=== PATIENT | male | born 1965 | race African-American/Black ===

== ENCOUNTER 2017-03-07 13:00 | Inpatient (IN) ==
[2017-03-07] MEDS ORDERED: Aspirin 81 MG TAB.CHEW PO ONE (13:13)
--- NOTE | 2017-03-07 13:23 | Emergency Department Note ---
Disposition Clinical Impression: Non-STEMI (non-ST elevated myocardial infarction) Hypertension Qualifiers: Hypertension type: essential hypertension Qualified Code(s): I10 - Essential ( primary) hypertension Disposition: Admitted As Inpatient Condition: Fair [facility]: [facility]Primary Care Provider[facility] - Forms: ED Satisfaction Letter Time of Disposition: 14:38 Chest Pain HPI - General Chief Complaint: ED Chest Pain Stated Complaint: "chest pain" Time Seen by Provider: 03/07/17 13:13 Source: patient Mode of arrival: ambulatory Limitations: no limitations Vital Signs Reviewed: Yes Nursing Notes Reviewed: Yes - History of Present Illness HPI Narrative: 51-year-old who comes in complaining of chest pain began yesterday. States he had some palpitations got dizzy and felt like his wound pass out. States he had similar episode about 3 weeks ago. Patient has risk factors of diabetes and a very strong family history for heart disease. 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 They were not able to remove all the tumor. He is had not had any follow-up. Patient has had a DVT in the past is not on any blood thinners at this time. He denies any leg pain or arm pain. 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 Duration: intermittent Onset: during rest Pain Location: substernal, left chest Severity scale (1-10): 5 Quality: tightness, aching Pain Radiation: none Improves with: nothing Worsens with: nothing Associated symptoms: Reports: nausea Treatments prior to arrival chest pain: none - Related Data Home Medications Medication Instructions Recorded Confirmed Insulin LISPRO [HumaLOG] 0 units SQ TIDWM 04/29/15 05/11/15 Insulin NPH Hum/Reg Insulin Hm 70 unit SQ BID 04/29/15 05/11/15 [Novolin 70-30 100 Unit/ml Vial] Lisinopril [Zestril] 40 mg PO BID 04/29/15 05/11/15 Mycophenolate Mofetil [Cellcept] 500 mg PO BID 04/29/15 05/11/15 Pyridostigmine Br [Mestinon] 60 mg PO TID 04/29/15 05/11/15 Simvastatin [Zocor] 40 mg PO HS 04/29/15 05/11/15 traMADol [Ultram] 100 mg PO TID PRN 04/29/15 05/11/15 Previous Rx's Medication Instructions Recorded Aspirin 81 mg PO DAILY #30 tab.chew 05/13/15 Metoprolol [Lopressor] 25 mg PO BID #60 tablet 05/13/15 Nitroglycerin 0.4 mg SL Q5MIN PRN #90 tab.subl 05/13/15 Allergies Allergy/AdvReac Type Severity Reaction Status Date / Time rifampin Allergy Anaphylaxis Verified 03/07/17 13:08 All systems ED: reviewed and negative except as stated. Constitutional: Denies: fever, chills, weakness, weight change Eyes: Denies: eye pain, eye discharge, vision change ENT ED: Denies: ear pain, throat pain, dental pain, hearing loss, epistaxis, congestion, dysphagia Cardiovascular: Reports: chest pain. Denies: palpitations, dyspnea on exertion , edema, syncope Respiratory: Denies: cough, dyspnea, wheezes, hemoptysis, stridor Gastrointestinal: Denies: abdominal pain, nausea, vomiting, diarrhea, constipation, hematemesis, melena, hematochezia Genitourinary: Denies: urgency, dysuria, frequency, hematuria Musculoskeletal: Denies: back pain, neck pain, arthralgia, myalgia Integumentary: Denies: rash, abrasion, lesions Neurological: Denies: headache, weakness, numbness, paresthesias, confusion, abnormal gait, vertigo Psychiatric: Denies: anxiety, depression, suicidal thoughts, homicidal thoughts , auditory hallucinations, visual hallucinations Endocrine: Denies: fatigue Hematological/Lymphatic: Denies: easy bleeding, easy bruising Allergic/Immunologic: Denies: facial swelling, urticaria Chest Pain PMH - Past Medical History Medical history: Reports: cancer, coronary artery disease, DVT, diabetes, GERD, hypertension, other Surgical history: Reports: IVC Filter, other (sternotomy. Pericardial clipping) Psychiatric history: Reports: no psych history - Social History Smoking Status: Never smoker Alcohol use: Reports: none Drug use: Reports: none Physical Exam - General Limitations: no limitations General appearance: alert, in no apparent distress - Head Head exam: atraumatic, normocephalic, normal inspection - Eye Eye exam: Present: normal appearance, PERRL, EOMI - ENT ENT exam: normal exam, normal oropharynx, mucous membranes moist - Neck Neck exam: Present: normal inspection, full ROM, trachea midline - Chest Chest inspection: Present: normal inspection, symmetric chest wall rise - Respiratory Respiratory exam: Present: normal lung sounds bilaterally - Cardiovascular Cardiovascular exam: Present: regular rate, normal rhythm, normal heart sounds - Abdominal Exam Abdominal exam: Present: soft, Non-Tender. Absent: tenderness, distention, guarding, rebound, rigidity - Extremities Exam Extremities exam: Present: normal inspection, full ROM. Absent: tenderness, pedal edema - Expanded Lower Extremity Exam Neurovascular/Tendon exam: Absent: motor deficit, sensory deficit, tendon deficit Gait: observed and normal - Back Exam Back exam: Present: normal inspection, full ROM. Absent: tenderness - Neurological Exam Neurological exam: Present: alert, oriented X3. Absent: motor sensory deficit - Psychiatric Psychiatric exam: Present: normal affect, normal mood - Skin Skin exam: Present: warm, dry, intact, normal color Course - Reevaluation(s) Reevaluation #1: 51-year-old whose been having intermittent chest pain. EKG does not show a STEMI. His troponin did come back at 0.15 Time: 14:36 - Consultations Consultation #1: Discussed with Dr. Ponce, start heparin. Time: 14:36 Consultation #2: Discussed with Dr. Strauss, admit Time: 14:36 Vital Signs Temperature 98.8 F 03/07/17 13:02 Pulse Rate 81 03/07/17 13:02 Respiratory Rate 20 03/07/17 13:02 Blood Pressure 161/114 03/07/17 13:02 O2 Sat by Pulse Oximetry 96 03/07/17 13:02 Temperature 98.8 F 03/07/17 13:02 Pulse Rate 78 03/07/17 13:13 Respiratory Rate 16 03/07/17 13:13 Blood Pressure 146/100 03/07/17 13:13 O2 Sat by Pulse Oximetry 97 03/07/17 13:13 Oxygen Delivery Oxygen Delivery Room Air Chest Pain - Lab Data Lab results reviewed: Yes I reviewed the patient's lab results. Result diagrams: 03/07/17 13:34 03/07/17 13:34 Lab Results 03/07/17 03/07/17 03/07/17 Range/Units 13:34 13:34 13:34 WBC 11.0 (4.3-11.1) K/mcL RBC 6.46 H (4.19-5.50) M/mcL Hgb 17.1 H (12.9-16.9) g/dL Hct 52.3 H (37.5-50.1) % MCV 81.0 L (83.0-100.0) fL MCH 26.5 L (28.0-33.3) pg MCHC 32.7 (31.6-35.5) g/dL RDW 14.7 H (11.5-14.5) % Plt Count 255 (140-400) K/mcL MPV 10.4 (9.4-12.4) fL Immature Gran % 0.3 (0-4) % Seg Neutrophils % 66.6 % Lymphocytes % 24.9 % Monocytes % 6.5 % Eosinophils % 1.2 % Basophils % 0.5 % Neutrophils # 7.3 (1.6-8.9) K/mcL Lymphocytes # 2.7 (0.6-4.6) K/mcL Monocytes # 0.7 (0.0-1.3) K/mcL Eosinophils # 0.1 (0.0-0.6) K/mcL Basophils # 0.1 (0.0-0.2) K/mcL PT 11.4 (9.4-12.1) Seconds INR 1.1 APTT 29.2 (26.0-36.0) Seconds D-Dimer < 215 (0-500) ng/mLFEU Sodium 136 (136-145) mEq/L Potassium 3.8 (3.5-4.5) mEq/L Chloride 100 (98-109) mEq/L Carbon Dioxide 27 (19-29) mEq/L BUN 18 (8-26) mg/dL Creatinine 1.02 (0.72-1.25) mg/dL Est GFR ( Amer) > 60 (> 60) Est GFR (Non-Af Amer) > 60 (> 60) BUN/Creatinine Ratio 18 (6-26) Glucose 190 H (70-99) mg/dL Calculated Osmolality 289 (280-300) Calcium 10.1 (8.6-10.8) mg/dL Troponin I (0-0.03) ng/mL 03/07/ Range/Units 13:34 WBC (4.3-11.1) K/mcL RBC (4.19-5.50) M/mcL Hgb (12.9-16.9) g/dL Hct (37.5-50.1) % MCV (83.0-100.0) fL MCH (28.0-33.3) pg MCHC (31.6-35.5) g/dL RDW (11.5-14.5) % Plt Count (140-400) K/mcL MPV (9.4-12.4) fL Immature Gran % (0-4) % Seg Neutrophils % % Lymphocytes % % Monocytes % % Eosinophils % % Basophils % % Neutrophils # (1.6-8.9) K/mcL Lymphocytes # (0.6-4.6) K/mcL Monocytes # (0.0-1.3) K/mcL Eosinophils # (0.0-0.6) K/mcL Basophils # (0.0-0.2) K/mcL PT (9.4-12.1) Seconds INR APTT (26.0-36.0) Seconds D-Dimer (0-500) ng/mLFEU Sodium (136-145) mEq/L Potassium (3.5-4.5) mEq/L Chloride (98-109) mEq/L Carbon Dioxide (19-29) mEq/L BUN (8-26) mg/dL Creatinine (0.72-1.25) mg/dL Est GFR ( Amer) (> 60) Est GFR (Non-Af Amer) (> 60) BUN/Creatinine Ratio (6-26) Glucose (70-99) mg/dL Calculated Osmolality (280-300) Calcium (8.6-10.8) mg/dL Troponin I 0.15 H* (0-0.03) ng/mL - Radiology Data Radiology results reviewed: Yes I reviewed the patient's radiology results. Chest X-Ray 03/07/17 13:13 IMPRESSION: 1. Mildly enlarged cardiac silhouette with minimal prominence of the pulmonary vasculature. 2. There is slight elevation of the left hemidiaphragm with nonspecific left basilar opacification. D/ / Hira Sosa MD / Hira Sosa MD Interpreting Provider: Hira Sosa MD - EKG Data EKG attestation: Yes I reviewed and interpreted this EKG. EKG shows normal: sinus rhythm Rate: normal Rhythm: NSR Interpretation: nonspecific ST-T wave changes Heart Score - Score History: Moderately Suspicious EKG: Non Specific repolarisation Disturbance Age: 45-65 Risk Factors: Equal/Greater than 3 risk factor or history of atherosclerotic disease Troponin: 1-3x normal limit HEART Score Total: 6 Critical Care Time Critical Care Time: Yes Total Critical Care Time: 30 Attestation: The high probability of a clinically significant, sudden or life threatening deterioration of the [cardiovascular] system(s) required my full and direct attention, intervention and personal management. The aggregate critical care time was [30] minutes. This time is in addition to time spent performing reported procedures but includes the following: [x] Data Review and interpretation [x] Patient assessment and monitoring of vital signs [x] Documentation [x] Medication orders and management
[2017-03-07 13:45] LABS: Basophils # 0.1 K/mcL (0.0-0.2); Basophils % 0.5 %; Eosinophils # 0.1 K/mcL (0.0-0.6); Eosinophils % 1.2 %; Hematocrit 52.3 % (37.5-50.1); Hemoglobin 17.1 g/dL (12.9-16.9); Immature Granulocytes % 0.3 % (0-4); Lymphocytes # 2.7 K/mcL (0.6-4.6); Lymphocytes % 24.9 %; Mean Corpuscular HGB Conc 32.7 g/dL (31.6-35.5); Mean Corpuscular Hemoglobin 26.5 pg (28.0-33.3); Mean Platelet Volume 10.4 fL (9.4-12.4); Monocytes # 0.7 K/mcL (0.0-1.3); Monocytes % 6.5 %; Neutrophils # 7.3 K/mcL (1.6-8.9); Platelet Count 255 K/mcL (140-400); Red Blood Count 6.46 M/mcL (4.19-5.50); Red Cell Distribution Width 14.7 % (11.5-14.5); Segmented Neutrophils % 66.6 %
[2017-03-07 13:48] LABS: INR 1.1; Prothrombin Time 11.4 Seconds (9.4-12.1)
[2017-03-07 13:51] LABS: Activated Partial Thrombo Time 29.2 Seconds (26.0-36.0)
[2017-03-07 13:57] LABS: BUN/Creatinine Ratio 18 (6-26); Blood Urea Nitrogen 18 mg/dL (8-26); Calcium 10.1 mg/dL (8.6-10.8); Carbon Dioxide 27 mEq/L (19-29); Chloride 100 mEq/L (98-109); Glucose 190 mg/dL (70-99); Osmolality,Calculated 289 (280-300); Potassium 3.8 mEq/L (3.5-4.5); Sodium 136 mEq/L (136-145); eGFR For African Americans > 60 (> 60); eGFR For Non-African Americans > 60 (> 60)
[2017-03-07 14:04] LABS: D-Dimer < 215 ng/mLFEU (0-500)
[2017-03-07] MEDS ORDERED: *HR* Heparin 5,000 UNIT/ML VIAL IVP ONE (14:28)
[2017-03-07] MEDS ORDERED: *HR* Heparin 5,000 UNIT/ML VIAL IVP PRN ×2 (14:28)
--- NOTE | 2017-03-07 14:42 | Electrocardiograph Report ---
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
[2017-03-07] MEDS: Heparin 25,000 UNIT/500 ML D5W 25,000 UNIT/500 ML BAG IVC SCH (14:43)
[2017-03-07] MEDS ORDERED: *HR* Morphine 2 MG/ML SYRINGE IVP PRN (17:07)
[2017-03-07] MEDS ORDERED: Ondansetron 4 MG/2 ML VIAL IVP PRN (17:07)
[2017-03-07] MEDS ORDERED: Naloxone 0.4 MG/ML INJ IVP PRN (17:07)
[2017-03-07] MEDS ORDERED: Nitroglycerin 0.4 MG TAB.SUBL SL PRN (17:10)
[2017-03-07] MEDS ORDERED: traMADol 50 MG TABLET PO PRN (17:10)
[2017-03-07] MEDS ORDERED: *HR* Dextrose 50 % in Water (Syg) 50 ML SYRINGE IVP PRN (17:11)
[2017-03-07] MEDS ORDERED: Dextrose Gel 15 GM PO PRN ×2 (17:11)
[2017-03-07] MEDS ORDERED: D5% in Water 1,000 ML IVC PRN (17:11)
--- NOTE | 2017-03-07 17:16 | Internal Med History&Physical ---
Date of Encounter: 03/07/17 Time of Encounter: 16:45 Assessment and Plan (1) Chest pain Current visit: Yes Status: Acute Patient has risk factors of hypertension, diabetes, hyperlipidemia, positive family history. To rule out ACS. Case was discussed with cardiology by emergency room physician, full consult pending. Continue anticoagulation with IV heparin drip, monitor PTT closely. Continue aspirin, statin, ARLIN inhibitor. We will start low-dose beta cesar, if tolerated. Continue telemetry monitoring, trend serial troponins. Initial troponin is noted to be 0.15, almost consistent with his previous levels from last year. Check 2-D echocardiogram. Qualifiers: Chest pain type: precordial pain Qualified Code(s): R07.2 - Precordial pain (2) HTN (hypertension) Current visit: Yes Status: Chronic Blood pressure currently well controlled. Resume home medications-diuretic and ARLIN inhibitor. Qualifiers: Hypertension type: essential hypertension Qualified Code(s): I10 - Essential (primary) hypertension (3) HLD (hyperlipidemia) Current visit: Yes Status: Chronic Continue statin, check lipid profile in a.m. Qualifiers: Hyperlipidemia type: unspecified Qualified Code(s): E78.5 - Hyperlipidemia , unspecified (4) DMII (diabetes mellitus, type 2) Current visit: Yes Status: Chronic Start Accu-Chek blood glucose monitoring with basal bolus insulin regimen. Diabetic diet. Check Hemoglobin A1c. 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 Mott is a 51 year old male with history of hypertension, diabetes, coronary artery disease, presents with complaints of retrosternal chest pain. Patient reports that his pain started yesterday, moderate in intensity, intermittent, nonradiating, not associated with activity, also has at rest. His pain is associated with shortness of breath, palpitations and dizziness. Patient had a similar admission for chest pain in early 2016 at which time he had a negative cardiac workup. No cardiology follow-up since then. Past Med Surg Social Fam HX - Past Medical History Medical history: cancer (Metastatic malignant thymoma), coronary artery disease , DVT, diabetes, GERD, hypertension, other (Myasthenia gravis) Psychiatric history: no psych history - Past Surgical History Surgical History: hip replacement (Right), IVC Filter, other (Sternotomy, pericardial surgery, left lower lung resection and excision of malignant thymoma ) - Social History Smoking Status: Never smoker Smokeless Tobacco Status: No Alcohol use: none Drug use: none Occupational status: disabled Current living situation: Home, With Family Activity Level: Independent ambulation Recent Out of Country Travel Within the Last 8 Weeks: No Exposure or Possible Exposure to Illness During Travel: No - Family History Father Adopted: No Family Member Ethnicity: Non- Living Status: Still Living Hx Family Cardiac Disorders: Yes Hx Family Respiratory Disorders: No Hx Family Cancer: No Hx Family GI Disorders: No Hx Family Endocrine Disorder: Yes Hx Family Neuromuscular Disorders: No Hx Family Neurologic Disorders: Yes Hx Family HEENT Disorders: No Hx Family Medical Disorders: Yes Brother Hx Family Cancer: Yes (Prostate and colon cancer) Internal Medicine - H&P: Meds Insulin LISPRO [HumaLOG] 0 units SQ TIDWM 04/29/15 [History] Insulin NPH Hum/Reg Insulin Hm [Novolin 70-30 100 Unit/ml Vial] 60 unit SQ BID 04/29/15 [History] traMADol [Ultram] 100 mg PO TID PRN 04/29/15 [History] Aspirin 81 mg PO DAILY #30 tab.chew 05/13/15 [Rx] Nitroglycerin 0.4 mg SL Q5MIN PRN #90 tab.subl 05/13/15 [Rx] Atorvastatin Calcium 40 mg PO DAILY 03/07/17 [History] Gabapentin [Neurontin] 300 mg PO TID 03/07/17 [History] GuaiFENesin/Dextromethorphan [Robitussin/DM] 10 ml PO Q4H PRN 03/07/17 [History] Ibuprofen [Ibuprofen] 800 mg PO TID PRN 03/07/17 [History] Lansoprazole [Prevacid] 30 mg PO BID 03/07/17 [History] Lidocaine 4% CRM (LMX) [Lmx 4] 1 appl TP QID 03/07/17 [History] Lisinopril/Hydrochlorothiazide [Zestoretic 20-25 mg Tablet] 1 tab PO DAILY 03/07 [History] 3 Allergy/AdvReac Type Severity Reaction Status Date / Time rifampin Allergy Anaphylaxis Verified 03/07/17 15:08 All Systems PM: A 10-system review of systems was performed and is negative for pertinent findings except as documented above in the HPI. - Constitutional Constitutional: no chills, no fever(s), no night sweats - EENT Eyes: no change in vision, no discharge, no pain, no photophobia Ears: no ear discharge, no ear pain, no tinnitus Nose, mouth and throat: no dysphagia, no nasal discharge, no neck pain, no sore throat - Cardiovascular Cardiovascular ROS IM: chest pain, dyspnea, dyspnea on exertion, lightheadedness , palpitations - Respiratory Respiratory: no cough, no dyspnea, no wheezing, no excessive phlegm production - Gastrointestinal Gastrointestinal: nausea, vomiting - Musculoskeletal Musculoskeletal ROS IM: no numbness, no tingling - Integumentary Integumentary IM: no rash, no unusual bruising - Neurological Neurological ROS: no confusion, no convulsions, no focal weakness, no numbness, no tingling, no tremor(s) - Hematologic/Lymphatic Hematologic/Lymphatic: no easy bruising - Constitutional Vitals: Temp Pulse Resp BP Pulse Ox 98.5 F 75 14 130/87 98 03/07/17 16:30 03/07/17 16:30 03/07/17 16:30 03/07/17 16:30 03/07/17 16:30 General appearance: Present: A&O X 3, obese, answers questions appropriately - Respiratory Respiratory exam: Present: CTAB. Absent: accessory muscle use, rales, rhonchi, wheezes - Cardiovascular Cardiovascular exam: Present: RRR, +S1, +S2. Absent: diastolic murmur, gallop, rubs, systolic murmur - GI/Abdominal GI/Abdominal exam: Present: normal bowel sounds, soft, no peritoneal signs. Absent: distended, tenderness - Extremities Exam Extremities exam: Present: full ROM (Chronic right hip pain with restricted range of motion), warm, radial pulses palpable and symmetrical. Absent: calf tenderness, cyanotic, pedal edema - Neurological Exam Neurological exam: Present: CN II-XII intact, oriented X3, no focal deficits. Absent: pronater drift, facial droop, speech deficit - Skin Skin exam: Present: dry, intact Internal Med - H&P Results - Labs CBC & Chem 7: 03/07/17 13:34 03/07/17 13:34 - EKG Data -: EKG Interpreted by Myself EKG shows normal: sinus rhythm Rate: normal
[2017-03-07] MEDS ORDERED: Insulin LISPRO 300 UNITS/3 ML VIAL SQ SCH (21:00)
[2017-03-07] MEDS: Gabapentin 300 MG CAPSULE PO SCH (21:08)
[2017-03-07] MEDS: Acetaminophen 325 MG TABLET PO PRN (21:08)
[2017-03-07] MEDS: Insulin DETEMIR 100 UNIT/ML X5UNITS SQ SCH (21:10)
[2017-03-07 22:41] LABS: Hemoglobin A1C 10.4 %
[2017-03-08] MEDS: Acetaminophen 325 MG TABLET PO PRN ×2 (04:02→12:03)
[2017-03-08 07:01] LABS: Basophils % 0.4 %; Eosinophils # 0.1 K/mcL (0.0-0.6); Eosinophils % 1.4 %; Hematocrit 51.9 % (37.5-50.1); Hemoglobin 17.1 g/dL (12.9-16.9); Immature Granulocytes % 0.2 % (0-4); Lymphocytes # 3.3 K/mcL (0.6-4.6); Mean Corpuscular HGB Conc 32.9 g/dL (31.6-35.5); Mean Corpuscular Hemoglobin 26.9 pg (28.0-33.3); Mean Corpuscular Volume 81.7 fL (83.0-100.0); Mean Platelet Volume 11.2 fL (9.4-12.4); Monocytes # 0.7 K/mcL (0.0-1.3); Neutrophils # 5.6 K/mcL (1.6-8.9); Platelet Count 235 K/mcL (140-400); Red Blood Count 6.35 M/mcL (4.19-5.50)
[2017-03-08 07:23] LABS: BUN/Creatinine Ratio 15 (6-26); Blood Urea Nitrogen 15 mg/dL (8-26); Calcium 9.3 mg/dL (8.6-10.8); Carbon Dioxide 28 mEq/L (19-29); Chloride 99 mEq/L (98-109); Cholesterol 143 mg/dL (< 200); Glucose 191 mg/dL (70-99); HDL Cholesterol 36 mg/dL (40-59); LDL Cholesterol,Calculated 90 mg/dL (0-99); Magnesium 1.5 mg/dL (1.6-2.6); Osmolality,Calculated 288 (280-300); Potassium 3.4 mEq/L (3.5-4.5); Sodium 136 mEq/L (136-145); Triglycerides 85 mg/dL (< 150); eGFR For African Americans > 60 (> 60); eGFR For Non-African Americans > 60 (> 60)
[2017-03-08] MEDS: Insulin LISPRO 300 UNITS/3 ML VIAL SQ SCH ×4 (07:43→22:04)
[2017-03-08] MEDS ORDERED: Potassium Chloride Elixir 20 MEQ/15 ML UDC PO ONE (08:21)
--- NOTE | 2017-03-08 09:13 | Cardiology Consult Note ---
Date of Encounter: 03/08/17 Time of Encounter: 09:11 Assessment and Plan (1) Non-STEMI (non-ST elevated myocardial infarction) Current Visit: Yes Status: Acute Troponins 0.15, 0.12, 0.12. BP was 161/114 on admission, which could have contributed to elevation. Hx of chronically elevated troponins 0.05-0.13 range. Two episodes of mid sternal chest pain, sharp, associated with dyspnea, dizziness and palpitations in recent weeks. Chest pain currently 4-5/10. Not reproducible. EKG without ischemic changes. [facility] 02/2013 nonobstructive disease at that time, but he did have 20% pLAD, 50% 1st diag, 40% prox LCx disease. Concern for progression of disease given his DM , HTN, HLD. Denies tobacco abuse. Negative stress 05/13/16. Echo 05/12/15 EF 50-55%. Severe asymmetric septal and probably mid cavity hypertrophy. No LVOT gradient with doppler--could also be contributing to pt's symptoms. Echo to re-evaluate structure and function. Recommend [facility] to further evaluate. R/B/A discussed. Pt agrees to proceed. Plan for C later today since he ate breakfast. Further recommendations to follow. (2) Chest pain Current Visit: Yes Status: Acute As above. Plan for LHC today. Qualifiers: Chest pain type: unspecified Qualified Code(s): R07.9 - Chest pain, unspecified (3) HTN (hypertension) Current Visit: Yes Status: Chronic 161/114 on admission, now better controlled. Continue current antihypertensives and adjust as necessary. Qualifiers: Hypertension type: essential hypertension Qualified Code(s): I10 - Essential (primary) hypertension (4) Asymmetric septal hypertrophy Current Visit: Yes Status: Chronic Echo 05/12/15 EF 50-55%, mild concentric LVH with severe asymmetric septal and probably mid cavity hypertrophy. No LVOT gradient with doppler. Could be contributing to pt's cardiac symptoms. Echo to re-evaluate. Continue BB, hydration. (5) CAD (coronary artery disease) Current Visit: Yes Status: Chronic Nonobstructive disease on [facility] 2012. Concern for progression of disease. [facility] today to evaluate. Continue ASA, Statin, BB. Qualifiers: Coronary Disease-Associated Artery/Lesion type: [place] artery [place] vs. transplanted heart: [place] heart Associated angina: angina presence unspecified Qualified Code(s): I25.10 - Atherosclerotic heart disease of [place] coronary artery without angina pectoris Discussion w patient/family: The assessment and plan as outlined above was discussed with the patient and/or family members who expressed understanding and agreement. All questions were answered. Thank you for involving us in the care of your patient. Please call with any questions. I will discuss all the above with Dr. Ponce and make changes as necessary. History of Present Illness Consult date: 03/08/17 Requesting physician: Balbina Schneider Consult reason: chest pain, NSTEMI Chief complaint: chest pain, dizziness History of present illness: Mr. Mott is a 51 year old male with history of hypertension, diabetes, nonobstructive CAD on [facility] in 2012 that presents with complaints of midsternal chest pain. Patient reports that he had an episode approximately 3 weeks ago of sharp, midsternal chest pain associated with palpitations, dyspnea and dizziness that spontaneously resolved, occurred at rest. He had another episode yesterday also at rest and associated with dizziness, palpitations, dyspnea, spontaneously resolved. BP 161/114 on admission. Troponins 0.15, 0.13, 0.13. Hx of chronically elevated troponins, historically 0.05-0.13 range. He had a negative stress test 04/2015 and echo at that time EF 50-55%, mild concentric LVH with severe asymmetric septal and probably mid cavity hypertrophy, no LVOT gradient with doppler. Pt reports chest pain has been intermittent since admission, currently 4-5/10. Prior CV testing: [facility] 03/09/13: LVH, mild CAD, EF 35-40%. LMCA free of disease, LAD 20% pLAD and 50% 1st diag stenosis, 40% prox LCx, RCA free of disease. Pharmacologic nuclear stress test 05/13/15: Gated EF 51%, perfusion imaging negative for ischemia or infarct. Echo 05/12/15: EF 50-55%, mild concentric LVH with severe asymmetric septal and probably mid cavity hypertrophy no LVOT gradient with doppler. RV moderately dilated with mild reduction in function, mild TR. Past Med Surg Social Fam HX - Past Medical History Medical history: cancer (Metastatic malignant thymoma), coronary artery disease , DVT, diabetes, GERD, hypertension, other (Myasthenia gravis) Psychiatric history: no psych history - Past Surgical History Surgical History: hip replacement (Right), IVC Filter, other (Sternotomy, pericardial surgery, left lower lung resection and excision of malignant thymoma ) - Social History Smoking Status: Never smoker Smokeless Tobacco Status: No Alcohol use: none Drug use: none - Family History Father Adopted: No Family Member Ethnicity: Non- Living Status: Still Living Hx Family Cardiac Disorders: Yes Hx Family Respiratory Disorders: No Hx Family Cancer: No Hx Family GI Disorders: No Hx Family Endocrine Disorder: Yes Hx Family Neuromuscular Disorders: No Hx Family Neurologic Disorders: Yes Hx Family HEENT Disorders: No Hx Family Medical Disorders: Yes Brother Hx Family Cancer: Yes (Prostate and colon cancer) Mother Adopted: No Family Member Ethnicity: Non- Living Status: Still Living Hx Family Cardiac Disorders: Yes Hx Family Respiratory Disorders: No Hx Family Cancer: No Hx Family GI Disorders: No Hx Family Endocrine Disorder: Yes Hx Family Neuromuscular Disorders: No Hx Family Neurologic Disorders: Yes Hx Family HEENT Disorders: No Hx Family Medical Disorders: Yes Medications and Allergies Insulin LISPRO [HumaLOG] 0 units SQ TIDWM 04/29/15 [History] Insulin NPH Hum/Reg Insulin Hm [Novolin 70-30 100 Unit/ml Vial] 60 unit SQ BID 04/29/15 [History] traMADol [Ultram] 100 mg PO TID PRN 04/29/15 [History] Aspirin 81 mg PO DAILY #30 tab.chew 05/13/15 [Rx] Nitroglycerin 0.4 mg SL Q5MIN PRN #90 tab.subl 05/13/15 [Rx] Atorvastatin Calcium 40 mg PO DAILY 03/07/17 [History] Gabapentin [Neurontin] 300 mg PO TID 03/07/17 [History] GuaiFENesin/Dextromethorphan [Robitussin/DM] 10 ml PO Q4H PRN 03/07/17 [History] Ibuprofen [Ibuprofen] 800 mg PO TID PRN 03/07/17 [History] Lansoprazole [Prevacid] 30 mg PO BID 03/07/17 [History] Lidocaine 4% CRM (LMX) [Lmx 4] 1 appl TP QID 03/07/17 [History] Lisinopril/Hydrochlorothiazide [Zestoretic 20-25 mg Tablet] 1 tab PO DAILY 03/07 [History] 3 Allergy/AdvReac Type Severity Reaction Status Date / Time rifampin Allergy Anaphylaxis Verified 03/07/17 15:08 All Systems Review: A 10-system review of systems was performed and is negative for pertinent findings except as documented above in the HPI. - Cardiovascular Cardiovascular: as per HPI, chest pain at rest, dyspnea at rest, dyspnea on exertion, lightheadedness, palpitations - Respiratory Respiratory: dyspnea - Neurological Neurological: dizziness Physical Examination Vital Signs Temp Pulse Resp BP Pulse Ox 03/08/17 06:39 98 F 68 16 121/85 99 03/08/17 05:00 98 F 74 18 106/74 97 03/08/17 00:00 97.7 F 70 18 122/74 98 03/07/17 20:41 97.6 F 107 18 129/95 96 03/07/17 16:30 98.5 F 75 14 130/87 98 03/07/17 15:00 18 126/83 03/07/17 14:38 77 16 137/92 97 03/07/17 14:28 72 16 119/82 97 03/07/17 14:08 74 16 148/90 98 03/07/17 13:13 78 16 146/100 97 03/07/17 13:02 98.8 F 81 20 161/114 96 Intake and Output 03/07/17 03/08/17 03/08/17 23:59 07:59 15:59 Intake Total 335 / 335 206 / 206 Balance 335 / 335 206 / 206 Intake: IV Fluids 215 / 215 206 / 206 Heparin 25,000 UNIT/500 ML D5W 215 / 215 206 / 206 25,000 unit In 500 ml @ 12 UNIT /KG/HR 26.127 mls/hr IVC . Q19H9M [facility] Rx#:[id number] Oral 120 / 120 0 / 0 Other: # Voids 1 1 Weight 112.2 kg Blood Glucose* 160 152 Patient Weight 03/08/17 23:59 Weight 112.2 kg General: Conversant, No Apparent Distress HEENT: Atraumatic, Normocephaly, Mucus Membranes Moist Neck: No JVD, Normal carotid pulses Cardiac: Reg Rate and Rhythm, Normal S1 and S2, No Murmur Lungs: Normal Breath Sounds, No Wheeze, Rales, Rhonchi Neuro: Alert and responsive, No focal deficits noted Abdomen: Soft, Non-Tender Skin: No rashes noted on visualized skin Musculoskeletal: No Chest Wall Tenderness Extremities: No Clubbing, No Cyanosis, No Edema, Normal Pulses Results 03/08/17 03:58 03/08/17 06:39 Lab Results 03/07/17 03/07/17 03/08/17 22:17 22:17 03:58 WBC Hgb Hct Plt Count APTT 66.3 H D Sodium Potassium Chloride Carbon Dioxide BUN Creatinine Glucose Calcium Magnesium Troponin I 0.12 H* 0.12 H* 03/08/17 03/08/17 03/08/17 03:58 03:58 06:39 WBC 9.8 Hgb 17.1 H Hct 51.9 H Plt Count 235 APTT 39.4 H Sodium 136 Potassium 3.4 L Chloride 99 Carbon Dioxide 28 BUN 15 Creatinine 0.98 Glucose 191 H Calcium 9.3 Magnesium 1.5 L Troponin I Short CBC 03/08/17 03/07/17 Range/Units 03:58 13:34 WBC 9.8 11.0 (4.3-11.1) K/mcL Hgb 17.1 H 17.1 H (12.9-16.9) g/dL Hct 51.9 H 52.3 H (37.5-50.1) % Plt Count 235 255 (140-400) K/mcL Neutrophils # 5.6 7.3 (1.6-8.9) K/mcL BMP 03/08/17 03/07/17 Range/Units 06:39 13:34 Sodium 136 136 (136-145) mEq/L Potassium 3.4 L 3.8 (3.5-4.5) mEq/L Chloride 99 100 (98-109) mEq/L Carbon Dioxide 28 27 (19-29) mEq/L BUN 15 18 (8-26) mg/dL Creatinine 0.98 1.02 (0.72-1.25) mg/dL Glucose 191 H 190 H (70-99) mg/dL Calcium 9.3 10.1 (8.6-10.8) mg/dL Cardiac Enzymes 03/08/17 03/07/17 03/07/17 Range/Units 03:58 22:17 13:34 Troponin I 0.12 H* 0.12 H* 0.15 H* (0-0.03) ng/mL Impressions Chest X-Ray 03/07/17 13:13 IMPRESSION: 1. Mildly enlarged cardiac silhouette with minimal prominence of the pulmonary vasculature. 2. There is slight elevation of the left hemidiaphragm with nonspecific left basilar opacification. D/ / Hira Sosa MD / Hira Sosa MD Interpreting Provider: Hira Sosa MD Active Medications Acetaminophen (Tylenol) 650 mg PO Q6HR PRN PRN Reason: Mild Pain (1-3) Stop: 09/06/17 17:08 Last Admin: 03/08/17 04:02 Dose: 650 mg Aspirin (Aspirin) 81 mg PO DAILY AMANDA Stop: 09/07/17 09:01 Atorvastatin Calcium (Lipitor) 40 mg PO DAILY AMANDA Stop: 09/06/17 21:01 Last Admin: 03/07/17 21:08 Dose: 40 mg Dextrose/Water (Dextrose 50% (Syg)) 25 ml IVP AD PRN PRN Reason: Hypoglycemia Stop: 09/06/17 17:12 Gabapentin (Neurontin) 300 mg PO TID AMANDA Stop: 09/06/17 21:01 Last Admin: 03/07/17 21:08 Dose: 300 mg Glucagon (Glucagen) 1 mg IM ONCE PRN PRN Reason: Hypoglycemia Stop: 09/06/17 17:12 Glucose (Gluctose) 15 gm PO ONCE PRN PRN Reason: Hypoglycemia Stop: 09/06/17 17:12 Glucose (Gluctose) 30 gm PO ONCE PRN PRN Reason: Hypoglycemia Stop: 09/06/17 17:12 Lisinopril/HCTZ (Prinzide 10-12.5) 2 each PO DAILY AMANDA Stop: 09/07/17 09:01 Heparin Sodium (Porcine) (Heparin) 4,000 unit IVP Q6HR PRN PRN Reason: SEE COMMENTS Stop: 09/06/17 14:29 Last Admin: 03/08/17 06:59 Dose: 4,000 unit Heparin Sodium (Porcine) (Heparin) 2,000 unit IVP Q6H PRN PRN Reason: SEE COMMENTS Stop: 09/06/17 14:29 Heparin Sodium/Dextrose (Heparin 25,000 Unit/500 Ml D5w) 25,000 unit in 500 mls @ 26.127 mls/hr IVC .Q19H9M AMANDA; 12 UNIT/KG/HR PRN Reason: Protocol Stop: 09/06/17 14:31 Last Titration: 03/08/17 06:56 Dose: 16 unit/kg/hr, 34.836 mls/hr Dextrose (Dextrose 5%) 1,000 mls @ 100 mls/hr IVC .Q10H PRN PRN Reason: HYPOGLYCEMIA Stop: 09/06/17 17:12 Magnesium Sulfate (Magnesium Sulfate Premix 2gm/50ml) 2 gm in 50 mls @ 48.077 mls/hr IVPB ONCE ONE Stop: 03/08/17 09:23 Insulin Detemir (Levemir) 20 unit SQ BID AMANDA Stop: 09/06/17 21:01 Last Admin: 03/07/17 21:10 Dose: 20 unit Insulin Human Lispro (Humalog) 0 units SQ TIDAC [facility] PRN Reason: Protocol Stop: 09/07/17 07:31 Insulin Human Lispro (Humalog) 0 units SQ HS [facility] PRN Reason: Protocol Stop: 09/06/17 21:01 Last Admin: 03/07/17 21:04 Dose: Not Given Metoprolol Tartrate (Lopressor) 12.5 mg PO BID [facility] Stop: 09/06/17 21:01 Last Admin: 03/07/17 21:10 Dose: 12.5 mg Morphine Sulfate (Morphine Sulfate) 2 mg IVP Q4HR PRN PRN Reason: Severe Pain (7-10) Stop: 09/06/17 17:08 Naloxone HCl (Narcan) 0.4 mg IVP Q2MIN PRN PRN Reason: Opioid Reversal Stop: 09/06/17 17:08 Nitroglycerin (Nitroglycerin) 0.4 mg SL Q5MIN PRN PRN Reason: Chest Pain Stop: 09/06/17 17:11 Ondansetron HCl (Zofran) 4 mg IVP Q8HR PRN PRN Reason: Nausea And Vomiting Stop: 09/06/17 17:08 Tramadol HCl (Ultram) 100 mg PO TID PRN PRN Reason: Moderate Pain Stop: 09/06/17 17:11 - Imaging and Cardiology Stress Test: report reviewed Echo: report reviewed Cardiac cath: report reviewed - EKG Interpretation EKG results cardiology: personally reviewed (SR), other (12 hr tele AVG HR 72, no significant pauses or arrhythmias) Consult Discharge Plan - Plan [facility]errals: [facility] [Primary Care Provider] -
[2017-03-08] MEDS: Insulin DETEMIR 100 UNIT/ML X5UNITS SQ SCH ×2 (09:38→22:28)
[2017-03-08] MEDS: Aspirin 81 MG TAB.CHEW PO SCH (11:58)
[2017-03-08] MEDS: Gabapentin 300 MG CAPSULE PO SCH ×3 (12:00→22:04)
[2017-03-08] MEDS: Heparin 25,000 UNIT/500 ML D5W 25,000 UNIT/500 ML BAG IVC SCH (12:01)
[2017-03-08 13:41] LABS: Activated Partial Thrombo Time 168.8 Seconds (26.0-36.0)
[2017-03-08 13:51] LABS: Heparin anti-factor XA UFH 1.09 IU/mL (0.30-0.70)
[2017-03-08] MEDS ORDERED: Nitroglycerin 1,000 MCG/10 ML VIAL IV ONE (14:27)
[2017-03-08] MEDS ORDERED: Heparin 1,000 UNITS/500 mL NS 500 ML ONE (14:27)
[2017-03-08] MEDS ORDERED: *HR* Heparin 10,000 UNIT/10 ML VIAL ONE (14:27)
[2017-03-08] MEDS ORDERED: 0.9 % Sodium Chloride 1,000 ML ONE ×2 (14:27→15:08)
--- NOTE | 2017-03-08 15:04 | Pre-Sedation Evaluation ---
Pre-sedation evaluation - Pre-sedation checklist Date of procedure: 03/08/17 Recent Vitals: Last Vital Signs Temp 97.7 F 03/08/17 11:51 Pulse 82 03/08/17 11:51 Resp 16 03/08/17 11:51 BP 147/85 03/08/17 11:51 Pulse Ox 100 03/08/17 11:51 H&P (including ROS) documented in medical record: Yes Previous reaction to sedatives/anesthetics: No Dietary Status: NPO 6 hours prior to procedure Airway Assessment: Patient can open mouth completely, TMJ function normal Dentition: No loose teeth or bridges Possible difficult airway: No ASA Classification *see protocol: CLASS IV-Severe systemic disease/constant threat to pt's life Plan of Care: Pt appropriate candidate for procedure/moderate/conscious sedation , Risks/benefits of procedure/sedation discussed w/ patient/family, If not NPO; Risk of intake outweiged by necessity to perform procedure
[2017-03-08] MEDS ORDERED: *HR* Midazolam HCl 2 MG/2 ML VIAL ONE ×2 (15:08→15:27)
--- NOTE | 2017-03-08 16:21 | Event Note ---
Date of Encounter: 03/08/17 Time of Encounter: 16:20 - Cardiology Event Note Per discussion with Dr. Martinez, recommendations for stress test tomorrow morning to evaluate for ischemia to LAD territory. Lexiscan ST ordered.
--- NOTE | 2017-03-08 17:01 | Internal Med Progress Note ---
Date of Encounter: 03/08/17 Time of Encounter: 13:30 - Assessment and plan (1) Chest pain Current Visit: Yes Status: Acute Assessment and plan: Currently chest pain-free. Serial troponins around 0.12. Continue telemetry monitoring. Continue IV heparin drip, aspirin, statin, ARLIN inhibitor and beta cesar. Echocardiogram reviewed-shows preserved ejection fraction, mild to moderate concentric LVH, basal septal hypertrophy, mild to moderate tricuspid regurgitation, mild left-ventricular diastolic dysfunction. Cardiology consult appreciated, recommend nuclear stress test tomorrow. Left heart catheterization on hold. Lipid profile within normal limits except slightly low HDL cholesterol. Hemoglobin A1c noted to be 10.4%. Patient also had uncontrolled blood pressure at admission, currently improved. He is counseled strongly regarding risk factor modification and lifestyle modifications including diet and exercise. He verbalized understanding. Qualifiers: Chest pain type: unspecified Qualified Code(s): R07.9 - Chest pain, unspecified (2) HTN (hypertension) Current Visit: Yes Status: Chronic Assessment and plan: Currently well controlled. Continue ARLIN inhibitor, diuretic and beta cesar. Qualifiers: Hypertension type: essential hypertension Qualified Code(s): I10 - Essential (primary) hypertension (3) HLD (hyperlipidemia) Current Visit: Yes Status: Chronic Assessment and plan: Continue statin. Lipid profile reviewed. Qualifiers: Hyperlipidemia type: unspecified Qualified Code(s): E78.5 - Hyperlipidemia , unspecified (4) DMII (diabetes mellitus, type 2) Current Visit: Yes Status: Chronic Assessment and plan: Blood sugars currently better controlled. Hemoglobin A1c elevated at 10.4%. Continue Accu-Chek blood glucose monitoring with basal bolus insulin regimen. Diabetic diet. 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 Absent: accessory muscle use, rales, rhonchi, wheezes - Cardiovascular Cardiovascular exam: Present: RRR, +S1, +S2. Absent: diastolic murmur, gallop, rubs, systolic murmur - GI/Abdominal GI/Abdominal exam: Present: normal bowel sounds, soft, no peritoneal signs. Absent: distended, tenderness - Extremities Exam Extremities exam: Present: warm, radial pulses palpable and symmetrical. Absent : calf tenderness, cyanotic, pedal edema - Neurological Exam Neurological exam: Present: CN II-XII intact, oriented X3, no focal deficits. Absent: pronater drift, facial droop, speech deficit Internal Medicine: Result - Labs CBC & Chem 7: 03/08/17 03:58 03/08/17 06:39 Labs: Short CBC 03/08/17 Range/Units 03:58 WBC 9.8 (4.3-11.1) K/mcL Hgb 17.1 H (12.9-16.9) g/dL Hct 51.9 H (37.5-50.1) % Plt Count 235 (140-400) K/mcL Neutrophils # 5.6 (1.6-8.9) K/mcL BMP 03/08/17 06:39 Sodium 136 Potassium 3.4 L Chloride 99 Carbon Dioxide 28 BUN 15 Creatinine 0.98 Glucose 191 H Calcium 9.3 Cardiac Enzymes 03/07/17 03/08/17 03/08/17 Range/Units 22:17 03:58 12:42 Troponin I 0.12 H* 0.12 H* 0.13 H* (0-0.03) ng/mL - ABG Interpretation ABG results: PT/INR, D-dimer PT 11.4 Seconds (9.4-12.1) 03/07/17 13:34 D-Dimer < 215 ng/mLFEU (0-500) 03/07/17 13:34 - Impressions Impressions Echocardiogram 03/08/17 17:09 Impressions: LVEF 55-60%. Not all LV wall segments were well visualized. Mild-moderate concentric left ventricular hypertrophy with severe basal septal hypertrophy. There is no LVOT obstruction. Mid-cavity Doppler was not performed. Mild left ventricular diastolic dysfunction. Mildly dilated RV with normal function. Mild-moderate tricuspid regurgitation. No pulmonary hypertension. Left Ventricular Wall Motion: Rest Echo Findings The apex, apical inferior, mid inferior, basal inferior, apical anterior, mid anterior and basal anterior skelton were not visualized. All other wall segments showed normal motion. Findings: Study Quality * Technically adequate exam. ECG Findings * Normal sinus rhythm. Left Ventricle * Mild-moderate concentric left ventricular hypertrophy with severe basal septal hypertrophy. * Mild left ventricular diastolic dysfunction. * LVEF 55-60%. Right Ventricle * Mildly dilated RV with normal function. Left Atrium * Normal left atrial size. Right Atrium * Normal right atrial size. Aortic Valve * No aortic regurgitation. * Trileaflet aortic valve. * No aortic stenosis. Mitral Valve * Mildly thickened mitral valve leaflets. * No mitral regurgitation. * No mitral stenosis. Tricuspid Valve * Normal tricuspid valve structure. * Mild-moderate tricuspid regurgitation. * Estimated RA pressure is 3 mmHg. * Estimated RVSP is 22 mmHg. * No pulmonary hypertension. Pulmonic Valve * Pulmonic valve is not well visualized. * No pulmonic stenosis. * No pulmonic regurgitation. Pulmonary Artery * Pulmonary artery not well visualized. Aorta * Normally sized aortic root. Pericardium * There is no pericardial effusion present. Interatrial Septum * Interatrial septum not well evaluated. IVC * The IVC is not dilated. Consult Discharge Plan - Plan Referrals: [facility] [Primary Care Provider] -
--- NOTE | 2017-03-08 18:01 | Invasive Diagnostic Lab Proc ---
Name: Shine Mott Date of Study: 03/08/2017 Date: 1965 Ht: 68.1in Medical Record#: [id number] Age: 51 Wt: 266.54lb Gender: Male BSA: 2.31 Order #: [id number] BMI: 40.4 Physicians Procedure Physician: Levar Martinez DO Referring MD: Referring MD: Staff Name Position [facility] 03:02 PM Swathi Guzamn RN Professional Shopper 03:02 PM Arleen Garcia RT (R) 03:02 PM Arleen Garcia RT (R) Scrub 03:02 PM Indications Indication Non-Stemi Procedures Performed Procedure L HRT ARTERY/VENTRICLE ANGIO IV Doppler BLD Flow 1st Vessel Pre-Procedure Checklist Informed consent is complete signed and on chart. H&P is on chart. ID band is on and ID verified with patient. Patient NPO for procedure The procedure was described for the patient and questions were answered. Blood Pressure: 121/85 ECG is on chart. Rhythm: NSR Plan of Care Patient will tolerate the procedure without complications. Adequate level of comfort will be maintained. Hemodynamics will remain stable Patient will recover from procedure without complications. Respiratory function will be maintained. Cardiac rhythm will remain stable. Patient temperature will be maintained. Patient and/or family have verbalized understanding of the procedure. Patient Education Chief Complaint/Reason for Test: Cardiac Cath Developmental Category: Adult (18-64 years) Developmentally Appropriate for Age: Yes Learning Barriers: None Education Needs: Procedure Education Method: Verbal Information Taught: Cardiac Cath Educational Evaluation: Able to repeat information Intravenous Access Time IV Size Location DC'd Fluid/Drip Rate Units RN 02:39 PM 20g 1 1/4" Patent On Arrival Rt Arm Swathi Guzman RN Allergies rifampin Vital Signs Time BP (mmHg) HR (bpm) O2 Sat. RR (bpm) LOC 02:39 PM 121 / 85 68 99 % 16 5 = Fully awake and oriented or at pre-proc level 03:03 PM / % 5 = Fully awake and oriented or at pre-proc level 03:03 PM / % 5 = Fully awake and oriented or at pre-proc level 03:19 PM / % 5 = Fully awake and oriented or at pre-proc level 03:34 PM / % 5 = Fully awake and oriented or at pre-proc level 03:14 PM 144 / 95 75 100 % 25 03:19 PM 143 / 93 74 100 % 24 03:24 PM 138 / 92 74 100 % 20 03:29 PM 130 / 84 81 98 % 15 03:34 PM 131 / 92 79 93 % 23 03:39 PM 124 / 76 78 100 % 16 03:44 PM 127 / 84 77 99 % 21 03:49 PM 133 / 87 80 100 % 26 03:54 PM 137 / 88 84 97 % 26 03:59 PM 140 / 93 78 100 % 13 04:04 PM 141 / 94 75 98 % 15 04:16 PM 144 / 98 74 100 % 16 4 = Oriented but drowsy 04:30 PM 136 / 100 82 100 % 20 4 = Oriented but drowsy 04:45 PM 118 / 77 66 98 % 16 4 = Oriented but drowsy 05:00 PM 121 / 76 70 96 % 18 5 = Fully awake and oriented or at pre-proc level 05:15 PM 127 / 95 72 96 % 16 5 = Fully awake and oriented or at pre-proc level 05:30 PM 146 / 99 76 96 % 16 5 = Fully awake and oriented or at pre-proc level 05:45 PM 146 / 110 70 96 % 16 5 = Fully awake and oriented or at pre-proc level Procedural Medications Time Medication Dose Units Method Given By 03:03 PM Oxygen 2 L/min nasal cannula Swathi Guzman RN 03:11 PM Versed 2 mg Intravenous Swathi Guzman RN 03:26 PM Lidocaine 2% 10 ml Subcutaneous Levar Martinez DO 03:27 PM Versed 1 mg Intravenous Swathi Guzman RN 03:40 PM Lidocaine 2% 8 ml Subcutaneous Levar Martinez, 03:48 PM Heparin 3000 units Intravenous Swathi Guzman RN 03:53 PM Adenosine 999 ml/hr Intravenous Swathi Guzman RN 03:40 PM Versed 1 mg Intravenous Swathi Guzman RN ASA Classification: CLASS IV- Severe systemic that is constant threat to patient's life Yg Score Preprocedure Postprocedure Activity 2- Moves 4 extremities sustained head lift Activity 2- Moves 4 extremities sustained head lift Circulation 2- SBP +/= 20 points of pre-anesthetic level Circulation 2- SBP +/= 20 points of pre-anesthetic level Consciousness 2- Awake and alert oriented x 3 Consciousness 2- Awake and alert oriented x 3 O2 Saturation 2- Able to maintain O2 satruation of 92% on room air O2 Saturation 2- Able to maintain O2 satruation of 92% on room air Respiratory 2- Able to deep breathe and cough well Respiratory 2- Able to deep breathe and cough well Total Score 10 Total Score 10 Contrast Agent: Isovue Diagnostic Contrast: 130 ml Total Contrast: 130 ml Fluoro Dose: 651 mGy Activated Clotting Time Time Seconds to Clot 04:04 PM 213 05:00 PM 160 Procedure Log Time Note Enter By 02:40 PM CathStat 03:02 PM Pt arrived to laundry laborer 2 at 15:02 [email or web address] 03:02 PM Montse Ruffin RN Position: Monitor Time in: 15:02 [email or web address] 03:02 PM Swathi Guzman RN Position: Professional Shopper Time in: 15:02 [email or web address] 03:02 PM Arleen Garcia RT (R) Position: Scrub Time in: 15:02 [email or web address] 03:02 PM Patient charges- Angio tray pack, Navilyst 3mm J, Pulse Oximetry and ACIST tubing and transducer tsoummers 03:02 PM Case Delayed No tsoummers 03:03 PM Hair removed from procedure site in procedure lab using clippers. Bilateral groin prepped with Chloraprep by Swathi Guzman RN, safety strap applied then patient was draped. Skin intact. [email or web address] 03:03 PM Physican paged/called 15:03. [email or web address] 03:03 PM Physican responded and notified patient is ready 15:03 tsoummers 03:03 PM Physician arrived 15:03 tsoummers 03:03 PM Meet and greet completed oummers 03:03 PM Sign in performed according to hospital policy. tsoummers 03:03 PM Procedure start 15:03 tsoummers 03:03 PM Time: 15:03 Oxygen on at 2 L/min per nasal cannula by Swathi Guzman RN [email or web address] 03:03 PM Time: 15:03 Patient comfortable and pain free: Yes tsoummers 03:03 PM Time: 15:03LOC: 5 = Fully awake and oriented or at pre-proc level tsoummers 03:05 PM Case Start 03:05 PM Recorded ECG: HR=72 Condition=Condition 1 03:05 PM Clinical Presentation: Non-STEMI tsoummers 03:11 PM ASA Class CLASS IV- Severe systemic that is constant threat to patient's life [facility] Time: 15:11 Versed 2 mg Intravenous Given by Swathi Guzman RN funmilayo 03:13 PM Vitals capture started with the following parameters, Patient=Adult, Interval=5 min, Initial Djssitne=890 mmHg, Deflation Rate=5 mmHg, Cuff placed on Right Arm 03:14 PM HR=75 bpm, LNXI=163/95 mmhg, EyK1=782.0 %, Resp=25 B/min, Comment=NSR 03:14 PM Pressure channel 1 zeroed. 03:19 PM Time: 15:03LOC: 5 = Fully awake and oriented or at pre-proc level [facility] PM Time: 15:03 Patient comfortable and pain free: Yes [facility] 03:19 PM HR=74 bpm, OANZ=621/93 mmhg, QeQ0=137.0 %, Resp=24 B/min, Comment=NSR 03:24 PM HR=74 bpm, EKGN=932/92 mmhg, CnG1=040.0 %, Resp=20 B/min, Comment=NSR 03:25 PM Time out performed according to hospital policy [facility] 03[facility]26 PM Time: 15:26 10 ml Lidocaine 2% to left groin Subcutaneous Given by Levar Martinez DO mmnolan 03:27 PM Time: 15:27 Versed 1 mg Intravenous Given by Swathi Guzman RN funmilayo 03:29 PM HR=81 bpm, JKGJ=489/84 mmhg, SpO2=98.0 %, Resp=15 B/min, Comment=NSR 03:34 PM HR=79 bpm, KCMZ=578/92 mmhg, SpO2=93.0 %, Resp=23 B/min, Comment=NSR 03:34 PM Time: 15:19 Patient comfortable and pain free: Yes [facility] 03:34 PM Time: 15:19LOC: 5 = Fully awake and oriented or at pre-proc level [facility] 03:34 PM Micro-Introducer Kit utilized for sheath placement [facility] 03:34 PM Access obtained by percutaneous puncture. 6Fr 10cm Terumo [place] sheath placed in left Femoral artery. [id number] [facility] 03:34 PM 6Fr FR 4 catheter inserted over the wire DNC [email or web address] 03:34 PM 0.035 145cm Navilyst 3mmJ wire [id number] tsoummnolan 03:35 PM Recorded Pressure: Ao, HR=74, Condition=Condition 1 (Aorta) Ao 112/71/87 03:36 PM Recorded Pressure: LV, HR=81, Condition=Condition 1 (Left Ventricle) LV 79/-3/-6 03:37 PM Recorded Pressure: LV, HR=74, Condition=Condition 1 (Left Ventricle) LV 95/-8/0 03:37 PM Recorded Pressure: LV, Ao, HR=72, Condition=Condition 1 (Left Ventricle) LV 84/0/10, (Aorta) Ao 108/74/90 03:37 PM Recorded Pressure: LV, Ao, HR=69, Condition=Condition 1 (Left Ventricle) LV ?/?/?, (Aorta) Ao 110/73/88 03:37 PM Recorded Pressure: Ao, HR=74, Condition=Condition 1 (Aorta) Ao 95/66/80 03:37 PM Catheter selectively placed in left [facility]37 PM Bolus angiogram of left Ventricle complete: hand injection funmilayo 03:38 PM RCA angiography performed in multiple views. [email or web address] 03:38 PM Catheter removed funmilayo 03:38 PM 6Fr FL 4 catheter inserted over the wire [facility] oummnolan 03:39 PM HR=78 bpm, YHIW=731/76 mmhg, OnW9=906.0 %, Resp=16 B/min, Comment=NSR 03:39 PM Recorded Pressure: Ao, HR=75, Condition=Condition 1 (Aorta) Ao 104/73/87 03:40 PM Time: 15:40 Versed 1 mg Intravenous Given by Swathi Guzman RN funmilayo 03:41 PM Time: 15:40 8 ml Lidocaine 2% to left groin Subcutaneous Given by DO melly Perez 03:42 PM Catheter removed [email or web address] 03:42 PM 5Fr FL5 catheter inserted over the wire [id number] tsanummnolan 03:43 PM Catheter removed [email or web address] 03:44 PM HR=77 bpm, VWTA=489/84 mmhg, SpO2=99.0 %, Resp=21 B/min, Comment=NSR 03:44 PM 6Fr XB LAD 3.5 [place] Bright-Tip guide catheter was used to cannulate the PCI vessel successfully. reused? No mm 03:45 PM Recorded Pressure: Ao, HR=81, Condition=Condition 1 (Aorta) Ao 116/77/93 03:46 PM LCA angiography performed in multiple views. 03:48 PM Time: 15:48 Heparin 3000 units Intravenous Given by Swathi Guzman RN anunolan 03:48 PM Inflation device was opened. tsmm 03:49 PM HR=80 bpm, WTKU=108/87 mmhg, KdQ6=588.0 %, Resp=26 B/min, Comment=NSR 03:49 PM .014 ChoICE PT Extra Support 300cm guide wire across target lesion- successful. reused? No mm 03:49 PM ACIST Navvus FFR advanced to target lesion. 03:49 PM Time: 15:34 Patient comfortable and pain free: Yes [facility] 03:53 PM Time: 15:53 Adenosine 999 ml/hr administered Intravenous by Swathi Guzman RN [facility] 03:54 PM HR=84 bpm, MYLU=246/88 mmhg, SpO2=97.0 %, Resp=26 B/min, Comment=NSR 03:55 PM Adenosine stopped at this time. mm 03:56 PM F[facility] 03[facility] PM Flow Wire removed intact tsoumm 03:56 PM Guide wire removed intact. mm 03:58 PM Bolus angiogram of left Femoral complete: hand injection. 03:59 PM Guide catheter removed intact. [facility] 03:59 PM HR=78 bpm, OIZH=693/93 mmhg, ToS6=311.0 %, Resp=13 B/min, Comment=NSR 03:59 PM Procedure completed at 15:59 [facility] 04:04 PM HR=75 bpm, SGZP=268/94 mmhg, SpO2=98.0 %, Resp=15 B/min, Comment=NSR 04:04 PM Sign out completed: Radiation Dose 650.59 mGy Fluoro Time: 7.2 Isovue 370 - 200ml contrast 130 ml given by Levar Martinez DO. Complications: NoneCardiac Rehab Consult needed: YesConfirmed administered medications: Yes tsoummers 04:04 PM Isovue 370 - 200ml,1 Bottle(s) used. tsoummers 04:05 PM Sheath left in place to be pulled on floor/holding area tsoummers 04:05 PM Estimated Blood Loss: minimal tsoummers 04:05 PM Post ECG NSR tsoummers 04:05 PM Post Blood Pressure 141/94 tsoummers 04:05 PM Information taught Cardiac Cath and IVUS/Flowire tsoummers 04:05 PM Education needs Procedure, Plan of Care, and Responsibilities of Patient in Care tsoummers 04:05 PM Learning barriers :None tsoummers 04:05 PM Education Methods Verbal tsoummers 04:05 PM Education evaluation Able to repeat information tsoummers 04:06 PM Site status No bleeding/hematoma - Rt Groin as reported by Arleen Garcia RT (R) at 16:05 tsoummers 04:06 PM Opsite applied tsoummers 04:06 PM Plavix, Effient or Brilinta given No tsoummers 04:06 PM Family placed in consult room. tsoummers 04:07 PM Complications: None tsoummers 04:07 PM At 16:04 the ACT was 213 seconds. tsoummers 04:09 PM Coronary Dominance: right tsoummers 04:09 PM Lesion found in Mid LAD. Pre Stenosis: 60 Pre AILIN Flow: tsoummers 04:09 PM Lesion found in 1st Diagonal. Pre Stenosis: 60 Pre AILIN Flow: tsoummers 04:09 PM Mid/Distal Left Anterior Descending Coronary Artery and diagonal branches with 60% stenosis. If graft is supplying this area, 0 % stenosis tsoummers 04:12 PM Fluoro Time: 7.2 tsoummers 04:12 PM Patient out of room: 16:12 tsoummers 04:13 PM Family placed in consult room. tsoummers 04:13 PM Report given to Jakub KHAN Pt taken to Holding room Room #. 16:13 tsoummers 04:58 PM Report given to Shivam KHAN Pt taken to Holding room Room #2n8. 16:58 kwitte 04:58 PM Delay to floor Bed availability kwitte 04:58 PM Complications: None kwitte 05:22 PM Arterial sheath pulled using manual compression and V+ Pad for 15 minutes by Conchita Hubbard RN mprater 05:37 PM Arterial sheath pulled, closure device used and was Successful S/N. mprater 05:46 PM patient transfered to mprater Complications Complication None None Hemodynamics Pressures Site Systolic/A Wave Diastolic/V Wave Mean AO 112 71 87 LV 79 -3 -6 LV 95 -8 0 LV AO 110 73 88 AO 95 66 80 AO 104 73 87 AO 116 77 93 LV 84 0 10 AO 108 74 90 Post Procedure Information Blood Pressure: 141/94 mmHg Rhythm: NSR Site Checks Time Location Status Staff Sheath In? Note 04:05 PM Rt Groin No bleeding/hematoma Arleen Garcia RT (R) Yes 04:15 PM Rt Groin No bleeding/ No Hematoma Jakub Mayorga RN Yes 04:30 PM Rt Groin No bleeding/ No Hematoma Jakub Mayorga RN Yes 04:45 PM Rt Groin No bleeding/ No Hematoma Jakub Mayorga RN Yes 05:00 PM Rt Groin No bleeding/ No Hematoma Jakub Mayorga RN Yes 05:15 PM Rt Groin No bleeding/ No Hematoma Conchita Hubbard RN Yes 05:22 PM Rt Groin No bleeding/ No Hematoma Conchita Hubbard RN sheath pulled 05:45 PM Rt Groin No bleeding/ No Hematoma Conchita Hubbard RN Pulses Time Site Pre-Procedure Post-Procedure Note 03/08/2017 2:39:00 PM Bilateral radial 2+ 03/08/2017 6:15:00 AM Bilateral DP 2+ Updated by Conchita Hubbard RN on 03/08/2017 5:52:07 PM Conchita Hubbard RN electronically signed on 03/08/2017 5:53:36 PM with status of Final
[2017-03-08] MEDS: 0.9 % Sodium Chloride 1,000 ML IVC SCH (18:26)
[2017-03-09] MEDS: 0.9 % Sodium Chloride 1,000 ML IVC SCH (03:50)
[2017-03-09 06:57] LABS: BUN/Creatinine Ratio 16 (6-26); Blood Urea Nitrogen 17 mg/dL (8-26); Calcium 9.1 mg/dL (8.6-10.8); Carbon Dioxide 26 mEq/L (19-29); Chloride 102 mEq/L (98-109); Glucose 234 mg/dL (70-99); Magnesium 1.6 mg/dL (1.6-2.6); Osmolality,Calculated 291 (280-300); Potassium 3.9 mEq/L (3.5-4.5); Sodium 136 mEq/L (136-145); eGFR For African Americans > 60 (> 60); eGFR For Non-African Americans > 60 (> 60)
[2017-03-09] MEDS ORDERED: Regadenoson 0.4 MG/5 ML SYRINGE IVP ONE (07:46)
[2017-03-09] MEDS ORDERED: Adenosine 90 MG/30 ML MLS IV ONE (07:52)
[2017-03-09] MEDS: Gabapentin 300 MG CAPSULE PO SCH ×3 (08:20→21:14)
[2017-03-09] MEDS: Insulin LISPRO 300 UNITS/3 ML VIAL SQ SCH ×4 (08:24→21:15)
[2017-03-09] MEDS: Insulin DETEMIR 100 UNIT/ML X5UNITS SQ SCH ×2 (08:25→21:16)
[2017-03-09] MEDS: Acetaminophen 325 MG TABLET PO PRN ×2 (12:32→21:15)
[2017-03-09] MEDS: Aspirin 81 MG TAB.CHEW PO SCH (12:33)
--- NOTE | 2017-03-09 13:02 | Cardiology Progress Note ---
Date of Encounter: 03/09/17 Time of Encounter: 12:00 Assessment and Plan (1) Non-STEMI (non-ST elevated myocardial infarction) Current Visit: Yes Status: Acute Troponins 0.15, 0.12, 0.12. BP was 161/114 on admission, which could have contributed to elevation. Hx of chronically elevated troponins 0.05-0.13 range. S/p C 03/08/17 showed 60% stenosis in the mLAD and 60% stenosis in the 1st diagonal artery. FFR was borderline. Stress test was recommended to further assess LAD stenosis. Stress test completed today shows ischemia in the LAD territory. Discussed with Dr. Ponce, due to abnormal stress and persistent chest pain PCI of the LAD is recommended. Plan for [facility] saturday. Asa, statin, and bb. NTG PRN chest pain. (2) HTN (hypertension) Current Visit: Yes Status: Chronic 161/114 on admission, now better controlled but elevated. Add norvac. Qualifiers: Hypertension type: essential hypertension Qualified Code(s): I10 - Essential (primary) hypertension (3) Asymmetric septal hypertrophy Current Visit: Yes Status: Chronic Echo 05/12/15 EF 50-55%, mild concentric LVH with severe asymmetric septal and probably mid cavity hypertrophy. No LVOT gradient with doppler. Could be contributing to pt's cardiac symptoms. Repeat TTE shows-LVEF 55-60%. Not all LV wall segments were well visualized. Mild-moderate concentric left ventricular hypertrophy with severe basal septal hypertrophy. There is no LVOT obstruction. Mid-cavity Doppler was not performed. Mild left ventricular diastolic dysfunction. Mildly dilated RV with normal function. Mild-moderate tricuspid regurgitation. No pulmonary hypertension. Continue BB, hydration. Discussion w patient/family: The assessment and plan as outlined above was discussed with the patient and/or family members who expressed understanding and agreement. All questions were answered. Thank you for involving us in the care of your patient. Please call with any questions. Subjective Principal diagnosis: Chest pain Interval history: Patient seen in stress lab. Continues to have a dull ache in his left chest. Objective Vital Signs, Last 4 Hours Temp Pulse Resp BP Pulse Ox 03/09/17 12:09 98.6 F 78 16 148/91 97 General: Conversant, No Apparent Distress HEENT: Atraumatic, Normocephaly, Mucus Membranes Moist Neck: No JVD, Normal carotid pulses Cardiac: Reg Rate and Rhythm, Normal S1 and S2, No Murmur Lungs: Normal Breath Sounds, No Wheeze, Rales, Rhonchi Neuro: Alert and responsive, No focal deficits noted Abdomen: Soft, Non-Tender Skin: No rashes noted on visualized skin Musculoskeletal: No Chest Wall Tenderness Extremities: No Clubbing, No Cyanosis, No Edema, Normal Pulses Results 03/08/17 03:58 03/09/17 06:03 Lab Results 03/08/17 03/08/17 03/09/17 12:42 12:42 06:03 APTT 168.8 H* D Sodium 136 Potassium 3.9 Chloride 102 Carbon Dioxide 26 BUN 17 Creatinine 1.07 Glucose 234 H Calcium 9.1 Magnesium 1.6 Troponin I 0.13 H* - Imaging and Cardiology Stress Test: report reviewed Echo: report reviewed Cardiac cath: report reviewed - EKG Interpretation EKG results cardiology: personally reviewed Consult Discharge Plan - Plan [facility]errals: [facility] [Primary Care Provider] -
[2017-03-09] MEDS: amLODIPine 5 MG TABLET PO SCH (14:13)
--- NOTE | 2017-03-09 14:30 | Internal Med Progress Note ---
Date of Encounter: 03/09/17 Time of Encounter: 14:28 - Assessment and plan (1) Chest pain Current Visit: Yes Status: Acute Assessment and plan: Currently chest pain-free. Serial troponins adynamic around 0.12. Continue telemetry monitoring. IV Heparin drip discontinued. Continue aspirin, statin, ARLIN inhibitor and beta cesar. Echocardiogram reviewed-shows preserved ejection fraction, mild to moderate concentric LVH, basal septal hypertrophy, mild to moderate tricuspid regurgitation, mild left-ventricular diastolic dysfunction. Cardiology on [facility], underwent LHC yesterday which showed 60% stenosis in mLAD and 60% stenosis in 1st diagonal; followed by nuclear stress test to see extent of ischemia, which showed moderate sized ischemia in basal-mid anterolateral and mid anterior segments; plan for LHC and stenting on 03/11/17; Qualifiers: Chest pain type: unspecified Qualified Code(s): R07.9 - Chest pain, unspecified (2) HTN (hypertension) Current Visit: Yes Status: Chronic Assessment and plan: Currently improving. Continue ARLIN inhibitor, diuretic and beta cesar. Started on Norvasc; Qualifiers: Hypertension type: essential hypertension Qualified Code(s): I10 - Essential (primary) hypertension (3) HLD (hyperlipidemia) Current Visit: Yes Status: Chronic Qualifiers: Hyperlipidemia type: unspecified Qualified Code(s): E78.5 - Hyperlipidemia , unspecified (4) DMII (diabetes mellitus, type 2) Current Visit: Yes Status: Chronic Assessment and plan: Blood sugars currently well-controlled. Hemoglobin A1c elevated at 10.4%. Continue Accu-Chek blood glucose monitoring with basal bolus insulin regimen. Diabetic diet. 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 Absent: accessory muscle use, rales, rhonchi, wheezes - Cardiovascular Cardiovascular exam: Present: RRR, +S1, +S2. Absent: diastolic murmur, gallop, rubs, systolic murmur - GI/Abdominal GI/Abdominal exam: Present: normal bowel sounds, soft, no peritoneal signs. Absent: distended, tenderness - Extremities Exam Extremities exam: Present: full ROM, warm, radial pulses palpable and symmetrical. Absent: calf tenderness, cyanotic, pedal edema Internal Medicine: Result - Labs CBC & Chem 7: 03/08/17 03:58 03/09/17 06:03 Labs: BMP 03/09/17 06:03 Sodium 136 Potassium 3.9 Chloride 102 Carbon Dioxide 26 BUN 17 Creatinine 1.07 Glucose 234 H Calcium 9.1 - ABG Interpretation ABG results: PT/INR, D-dimer PT 11.4 Seconds (9.4-12.1) 03/07/17 13:34 D-Dimer < 215 ng/mLFEU (0-500) 03/07/17 13:34 Consult Discharge Plan - Plan [facility]errals: [facility] [Primary Care Provider] -
[2017-03-09] MEDS: *HR* Heparin 5,000 UNIT/ML VIAL SQ SCH (21:16)
[2017-03-10] MEDS: *HR* Heparin 5,000 UNIT/ML VIAL SQ SCH ×3 (05:20→20:29)
--- NOTE | 2017-03-10 07:07 | Cardiology Progress Note ---
Date of Encounter: 03/10/17 Time of Encounter: 07:05 Assessment and Plan (1) Non-STEMI (non-ST elevated myocardial infarction) Current Visit: Yes Status: Acute Per Cardiology: Peak troponins 0.15. BP was 161/114 on admission, which could have contributed to elevation. Hx of chronically elevated troponins 0.05-0.13 range. S/p LHC showed 60% stenosis in the mLAD and 60% stenosis in the 1st diagonal artery. FFR was borderline. Stress test was recommended to further assess LAD stenosis-- shows ischemia in the LAD territory. D/t abnormal stress and persistent chest pain PCI of the LAD is recommended. Plan for [facility] saturday. On asa , statin, ACEI, and bb. Currently chest pain-free. All questions answered. Verbalized understanding and agreed with plan. (2) Asymmetric septal hypertrophy Current Visit: Yes Status: Chronic Per Cardiology: Echo 05/12/15 EF 50-55%, mild concentric LVH with severe asymmetric septal and probably mid cavity hypertrophy. No LVOT gradient with doppler. Could be contributing to pt's cardiac symptoms. Repeat TTE shows-LVEF 55-60%. Not all LV wall segments were well visualized. Mild-moderate concentric left ventricular hypertrophy with severe basal septal hypertrophy. There is no LVOT obstruction. Mid-cavity Doppler was not performed. Mild left ventricular diastolic dysfunction. Mildly dilated RV with normal function. Mild-moderate tricuspid regurgitation. No pulmonary hypertension. On BB. (3) HTN (hypertension) Current Visit: Yes Status: Chronic Per Cardiology: 161/114 on admission, now better controlled. Qualifiers: Hypertension type: essential hypertension Qualified Code(s): I10 - Essential (primary) hypertension Discussion w patient/family: The assessment and plan as outlined above was discussed with the patient who expressed understanding and agreement. All questions were answered. Thank you for involving us in the care of your patient. Please call with any questions. Subjective Principal diagnosis: Chest pain Interval history: Patient reports brief episode of chest tightness during the night, currently resolved. Denies any other concerns or complaints at this time. Objective Vital Signs, Last 4 Hours Temp Pulse Resp BP Pulse Ox 03/10/17 05:23 97.4 F L 79 18 119/87 97 General: Conversant, No Apparent Distress HEENT: Atraumatic, Normocephaly, Mucus Membranes Moist Neck: No JVD, Normal carotid pulses Cardiac: Reg Rate and Rhythm, Normal S1 and S2, No Murmur Lungs: Normal Breath Sounds, No Wheeze, Rales, Rhonchi Neuro: Alert and responsive, No focal deficits noted Abdomen: Soft, Non-Tender Skin: No rashes noted on visualized skin Musculoskeletal: No Chest Wall Tenderness Extremities: No Clubbing, No Cyanosis, No Edema, Normal Pulses Results 03/08/17 03:58 03/09/17 06:03 Laboratory Tests 03/07/17 03/07/17 03/08/17 13:34 22:17 03:58 Troponin I 0.15 H* 0.12 H* 0.12 H* 03/08/17 12:42 Troponin I 0.13 H* ITS Impressions Chest X-Ray 03/07/17 13:13 IMPRESSION: 1. Mildly enlarged cardiac silhouette with minimal prominence of the pulmonary vasculature. 2. There is slight elevation of the left hemidiaphragm with nonspecific left basilar opacification. D/ / Hira Sosa MD / Hira Sosa MD Interpreting Provider: Hira Sosa MD Echocardiogram 03/08/17 17:09 Impressions: LVEF 55-60%. Not all LV wall segments were well visualized. Mild-moderate concentric left ventricular hypertrophy with severe basal septal hypertrophy. There is no LVOT obstruction. Mid-cavity Doppler was not performed. Mild left ventricular diastolic dysfunction. Mildly dilated RV with normal function. Mild-moderate tricuspid regurgitation. No pulmonary hypertension. Left Ventricular Wall Motion: Rest Echo Findings The apex, apical inferior, mid inferior, basal inferior, apical anterior, mid anterior and basal anterior skelton were not visualized. All other wall segments showed normal motion. Findings: Study Quality * Technically adequate exam. ECG Findings * Normal sinus rhythm. Left Ventricle * Mild-moderate concentric left ventricular hypertrophy with severe basal septal hypertrophy. * Mild left ventricular diastolic dysfunction. * LVEF 55-60%. Right Ventricle * Mildly dilated RV with normal function. Left Atrium * Normal left atrial size. Right Atrium * Normal right atrial size. Aortic Valve * No aortic regurgitation. * Trileaflet aortic valve. * No aortic stenosis. Mitral Valve * Mildly thickened mitral valve leaflets. * No mitral regurgitation. * No mitral stenosis. Tricuspid Valve * Normal tricuspid valve structure. * Mild-moderate tricuspid regurgitation. * Estimated RA pressure is 3 mmHg. * Estimated RVSP is 22 mmHg. * No pulmonary hypertension. Pulmonic Valve * Pulmonic valve is not well visualized. * No pulmonic stenosis. * No pulmonic regurgitation. Pulmonary Artery * Pulmonary artery not well visualized. Aorta * Normally sized aortic root. Pericardium * There is no pericardial effusion present. Interatrial Septum * Interatrial septum not well evaluated. IVC * The IVC is not dilated. Active Medications Acetaminophen (Tylenol) 650 mg PO Q6HR PRN PRN Reason: Mild Pain (1-3) Stop: 09/06/17 17:08 Last Admin: 03/09/17 21:15 Dose: 650 mg Amlodipine Besylate (Norvasc) 5 mg PO DAILY [facility] PRN Reason: Protocol Stop: 09/08/17 13:16 Last Admin: 03/09/17 14:13 Dose: 5 mg Aspirin (Aspirin) 81 mg PO DAILY [facility] Stop: 09/07/17 09:01 Last Admin: 03/09/17 12:33 Dose: 81 mg Atorvastatin Calcium (Lipitor) 40 mg PO DAILY [facility] Stop: 09/06/17 21:01 Last Admin: 03/09/17 12:33 Dose: 40 mg Clopidogrel Bisulfate (Plavix) 75 mg PO DAILY [facility] Stop: 09/08/17 15:16 Last Admin: 03/09/17 17:22 Dose: 75 mg Dextrose/Water (Dextrose 50% (Syg)) 25 ml IVP AD PRN PRN Reason: Hypoglycemia Stop: 09/06/17 17:12 Gabapentin (Neurontin) 300 mg PO TID [facility] Stop: 09/06/17 21:01 Last Admin: 03/09/17 21:14 Dose: 300 mg Glucagon (Glucagen) 1 mg IM ONCE PRN PRN Reason: Hypoglycemia Stop: 09/06/17 17:12 Glucose (Gluctose) 15 gm PO ONCE PRN PRN Reason: Hypoglycemia Stop: 09/06/17 17:12 Glucose (Gluctose) 30 gm PO ONCE PRN PRN Reason: Hypoglycemia Stop: 09/06/17 17:12 Lisinopril/HCTZ (Prinzide 10-12.5) 2 each PO DAILY [facility] Stop: 09/07/17 09:01 Last Admin: 03/09/17 12:33 Dose: 2 each Heparin Sodium (Porcine) (Heparin) 5,000 unit SQ Q8HCO [facility] Stop: 09/08/17 22:01 Last Admin: 03/10/17 05:20 Dose: 5,000 unit Dextrose (Dextrose 5%) 1,000 mls @ 100 mls/hr IVC .Q10H PRN PRN Reason: HYPOGLYCEMIA Stop: 09/06/17 17:12 Insulin Detemir (Levemir) 20 unit SQ BID [facility] Stop: 09/06/17 21:01 Last Admin: 03/09/17 21:16 Dose: 20 unit Insulin Human Lispro (Humalog) 0 units SQ HS [facility] PRN Reason: Protocol Stop: 09/07/17 21:01 Last Admin: 03/09/17 21:15 Dose: 4 units Insulin Human Lispro (Humalog) 0 units SQ TIDAC [facility] PRN Reason: Protocol Stop: 09/07/17 16:31 Last Admin: 03/09/17 17:22 Dose: 6 units Metoprolol Tartrate (Lopressor) 12.5 mg PO BID [facility] Stop: 09/06/17 21:01 Last Admin: 03/09/17 21:15 Dose: 12.5 mg Morphine Sulfate (Morphine Sulfate) 2 mg IVP Q4HR PRN PRN Reason: Severe Pain (7-10) Stop: 09/06/17 17:08 Naloxone HCl (Narcan) 0.4 mg IVP Q2MIN PRN PRN Reason: Opioid Reversal Stop: 09/06/17 17:08 Nitroglycerin (Nitroglycerin) 0.4 mg SL Q5MIN PRN PRN Reason: Chest Pain Stop: 09/06/17 17:11 Omeprazole (Prilosec) 20 mg PO BIDAC [facility] PRN Reason: Protocol Stop: 09/08/17 00:46 Last Admin: 03/09/17 17:22 Dose: 20 mg Ondansetron HCl (Zofran) 4 mg IVP Q8HR PRN PRN Reason: Nausea And Vomiting Stop: 09/06/17 17:08 Tramadol HCl (Ultram) 100 mg PO TID PRN PRN Reason: Moderate Pain Stop: 09/06/17 17:11 - Imaging and Cardiology Stress Test: report reviewed Cardiac cath: pending Consult Discharge Plan - Plan [facility]: [facility] [Primary Care Provider] -
[2017-03-10] MEDS: amLODIPine 5 MG TABLET PO SCH (07:53)
[2017-03-10] MEDS: Aspirin 81 MG TAB.CHEW PO SCH (07:53)
[2017-03-10] MEDS: Acetaminophen 325 MG TABLET PO PRN ×2 (07:53→22:27)
[2017-03-10] MEDS: Insulin DETEMIR 100 UNIT/ML X5UNITS SQ SCH ×3 (07:54→20:45)
[2017-03-10] MEDS: Gabapentin 300 MG CAPSULE PO SCH ×3 (07:54→20:29)
[2017-03-10] MEDS: Insulin LISPRO 300 UNITS/3 ML VIAL SQ SCH ×4 (07:54→20:28)
--- NOTE | 2017-03-10 13:47 | Internal Med Progress Note ---
Date of Encounter: 03/10/17 Time of Encounter: 13:15 - Assessment and plan (1) Chest pain Current Visit: Yes Status: Acute Assessment and plan: Currently chest pain-free. Serial troponins adynamic around 0.12. Continue telemetry monitoring. Continue aspirin, statin, ARLIN inhibitor and beta cesar. Echocardiogram reviewed-shows preserved ejection fraction, mild to moderate concentric LVH, basal septal hypertrophy, mild to moderate tricuspid regurgitation, mild left-ventricular diastolic dysfunction. Cardiology on baord, underwent LHC which showed 60% stenosis in mLAD and 60% stenosis in 1st diagonal; followed by nuclear stress test to see extent of ischemia, which showed moderate sized ischemia in basal-mid anterolateral and mid anterior segments; plan for LHC and stenting on 03/11/17; Qualifiers: Chest pain type: unspecified Qualified Code(s): R07.9 - Chest pain, unspecified (2) HTN (hypertension) Current Visit: Yes Status: Chronic Assessment and plan: Currently acceptable. Continue ARLIN inhibitor, diuretic and beta cesar. Started on Norvasc; Qualifiers: Hypertension type: essential hypertension Qualified Code(s): I10 - Essential (primary) hypertension (3) HLD (hyperlipidemia) Current Visit: Yes Status: Chronic Qualifiers: Hyperlipidemia type: unspecified Qualified Code(s): E78.5 - Hyperlipidemia , unspecified (4) DMII (diabetes mellitus, type 2) Current Visit: Yes Status: Chronic Assessment and plan: Blood sugars still elevated including FBS. Hemoglobin A1c elevated at 10.4%. Continue Accu-Chek blood glucose monitoring, will increase basal and sliding scale insulin. Diabetic diet. 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 Absent: accessory muscle use, rales, rhonchi, wheezes - Cardiovascular Cardiovascular exam: Present: RRR, +S1, +S2. Absent: diastolic murmur, gallop, rubs, systolic murmur - GI/Abdominal GI/Abdominal exam: Present: normal bowel sounds, soft, no peritoneal signs. Absent: distended, tenderness Internal Medicine: Result - Labs CBC & Chem 7: 03/08/17 03:58 03/09/17 06:03 - ABG Interpretation ABG results: PT/INR, D-dimer PT 11.4 Seconds (9.4-12.1) 03/07/17 13:34 D-Dimer < 215 ng/mLFEU (0-500) 03/07/17 13:34 Consult Discharge Plan - Plan [facility]errals: [facility] [Primary Care Provider] -
[2017-03-11] MEDS: *HR* Heparin 5,000 UNIT/ML VIAL SQ SCH ×3 (06:32→21:14)
[2017-03-11] MEDS ORDERED: Heparin 1,000 UNIT, 0.9 % Sodium Chloride 500 ML INARTERIAL ONE (08:15)
--- NOTE | 2017-03-11 08:28 | Event Note ---
Date of Encounter: 03/11/17 Time of Encounter: 08:35 - Cardiology Event Note CP free, for [facility] today. L groin site D&I.
[2017-03-11] MEDS: Insulin LISPRO 300 UNITS/3 ML VIAL SQ SCH ×7 (08:57→21:13)
[2017-03-11] MEDS: Insulin DETEMIR 100 UNIT/ML X5UNITS SQ SCH ×3 (08:59→21:12)
[2017-03-11] MEDS: amLODIPine 5 MG TABLET PO SCH (09:13)
[2017-03-11] MEDS: Aspirin 81 MG TAB.CHEW PO SCH (09:13)
[2017-03-11] MEDS: Gabapentin 300 MG CAPSULE PO SCH ×3 (09:13→21:12)
[2017-03-11] MEDS ORDERED: 0.9 % Sodium Chloride 1,000 ML ONE ×2 (09:48→10:19)
[2017-03-11] MEDS ORDERED: *HR* Heparin 10,000 UNIT/10 ML VIAL ONE (10:19)
[2017-03-11] MEDS ORDERED: Nitroglycerin 1,000 MCG/10 ML VIAL IV ONE (10:19)
[2017-03-11] MEDS ORDERED: *HR* FentaNYL (PF) 100 MCG/2 ML VIAL ONE (10:24)
[2017-03-11] MEDS ORDERED: Tirofiban 12.5 MG/250ML 12.5 MG/250 ML BAG ONE (10:24)
[2017-03-11] MEDS ORDERED: *HR* Midazolam HCl 2 MG/2 ML VIAL ONE (10:24)
--- NOTE | 2017-03-11 10:31 | Pre-Sedation Evaluation ---
Pre-sedation evaluation - Pre-sedation checklist Date of procedure: 03/11/17 Procedure: heart cath Recent Vitals: Last Vital Signs Temp 98.9 F 03/11/17 07:41 Pulse 84 03/11/17 07:41 Resp 18 03/11/17 07:41 BP 125/81 03/11/17 07:41 Pulse Ox 95 03/11/17 07:41 H&P (including ROS) documented in medical record: Yes Previous reaction to sedatives/anesthetics: No Dietary Status: NPO after Midnight Dentition: No loose teeth or bridges ASA Classification *see protocol: CLASS II-Mild systemic disease Plan of Care: Pt appropriate candidate for procedure/moderate/conscious sedation
[2017-03-11] MEDS ORDERED: *HR* Ticagrelor 90 MG TABLET ONE (11:39)
--- NOTE | 2017-03-11 12:02 | Invasive Diagnostic Lab Proc ---
Name: Shine Mott Date of Study: 03/11/2017 Date: 1965 Ht: 68.1in Medical Record#: [id number] Age: 51 Wt: 255.74lb Gender: Male BSA: 4.47 Order #: [id number] BMI: 38.76 Physicians Procedure Physician: Reji Garcia MD Referring MD: Referring MD: Staff Name Position Time In Swathi Guzman RN Training Development Manager 10:44 AM Yessi Rosales RN Monitor 10:44 AM Kary Causey RT Scrub 10:44 AM Indications Indication Unstable Angina Abnormal Test - Stress Procedures Performed Procedure PRQ CARD VINEET STENT W/ANGIO 1 VSL PRQ CARD STENT W/ANGIO ADDL Pre-Procedure Checklist Informed consent is complete signed and on chart. H&P is on chart. ID band is on and ID verified with patient. Patient NPO for procedure The procedure was described for the patient and questions were answered. Blood Pressure: 163/104 ECG is on chart. Rhythm: NSR Plan of Care Patient will tolerate the procedure without complications. Adequate level of comfort will be maintained. Hemodynamics will remain stable Patient will recover from procedure without complications. Respiratory function will be maintained. Cardiac rhythm will remain stable. Patient temperature will be maintained. Patient and/or family have verbalized understanding of the procedure. Patient Education Chief Complaint/Reason for Test: Cardiac Cath Developmental Category: Adult (18-64 years) Developmentally Appropriate for Age: Yes Learning Barriers: None Education Needs: Procedure Education Method: Verbal Information Taught: Cardiac Cath Educational Evaluation: Able to repeat information Intravenous Access Time IV Size Location DC'd Fluid/Drip Rate Units RN 10:40 AM 22g 1" Patent On Arrival Rt Arm 0.9NaCl 25 ml/hr Yessi Rosales RN Allergies rifampin Vital Signs Time BP (mmHg) HR (bpm) O2 Sat. RR (bpm) LOC 10:41 AM / % 5 = Fully awake and oriented or at pre-proc level 10:42 AM / % 4 = Oriented but drowsy 10:57 AM / % 4 = Oriented but drowsy 11:12 AM / % 4 = Oriented but drowsy 11:27 AM / % 5 = Fully awake and oriented or at pre-proc level 10:39 AM 152 / 96 74 95 % 25 10:44 AM 152 / 94 73 96 % 20 10:49 AM 163 / 104 81 97 % 18 10:54 AM 166 / 100 77 96 % 18 10:59 AM 157 / 103 78 95 % 23 11:04 AM 168 / 98 73 94 % 14 11:09 AM 158 / 96 74 95 % 14 11:14 AM 156 / 100 77 94 % 16 11:19 AM 154 / 102 74 95 % 21 11:24 AM 151 / 90 76 94 % 9 11:29 AM 132 / 72 75 94 % 25 Procedural Medications Time Medication Dose Units Method Given By 10:41 AM Oxygen 2 L/min nasal cannula Swathi Guzman RN 10:43 AM Versed 1 mg Intravenous Swathi Guzman RN 10:43 AM Fentanyl 50 mcg Intravenous Swathi Guzman RN 10:48 AM Lidocaine 2% 10 ml Subcutaneous Reji Garcia MD 10:52 AM Heparin 5000 units Intravenous Swathi Guzman RN 10:58 AM Aggrastat Bolus: 58 ml Intravenous Swathi Guzman RN 10:58 AM Aggrastat 12.5mg/250ml 21 ml Intravenous Swathi Guzman RN 11:22 AM Nitroglycerin 100 mcg Intracoronary Allyssa Garcia MD 11:24 AM Nitroglycerin 200 mcg Intracoronary Allyssa Garcia MD 11:38 AM Brilinta 180 mg Intravenous Swathi Guzman RN ASA Classification: CLASS II- Mild systemic disease (i.e. well-controlled diabetes, hypertension, asthma, cigarette smoking) Yg Score Preprocedure Postprocedure Activity 2- Moves 4 extremities sustained head lift Activity 2- Moves 4 extremities sustained head lift Circulation 2- SBP +/= 20 points of pre-anesthetic level Circulation 2- SBP +/= 20 points of pre-anesthetic level Consciousness 2- Awake and alert oriented x 3 Consciousness 2- Awake and alert oriented x 3 O2 Saturation 2- Able to maintain O2 satruation of 92% on room air O2 Saturation 2- Able to maintain O2 satruation of 92% on room air Respiratory 2- Able to deep breathe and cough well Respiratory 2- Able to deep breathe and cough well Total Score 10 Total Score 10 Contrast Agent: Isovue Diagnostic Contrast: 210 ml Total Contrast: 210 ml Fluoro Dose: 1619 mGy Procedure Log Time Note Enter By 10:38 AM CathStat 10:38 AM Vitals capture started with the following parameters, Patient=Adult, Interval=5 min, Initial Wguxvshy=528 mmHg, Deflation Rate=5 mmHg, Cuff placed on Left Arm 10:39 AM HR=74 bpm, JZAJ=068/96 mmhg, SpO2=95.0 %, Resp=25 B/min, Comment=nsr 10:41 AM Pt arrived to bundle tier and labeler 2 at 10:41 scoates 10: AM Physician arrived 10:41 scoates 10: AM ASA Class CLASS II- Mild systemic disease (i.e. well-controlled diabetes, hypertension, asthma, cigarette smoking) scoates 10: AM Meet and greet completed scoates 10: AM Sign in performed according to hospital policy. scoates 10: AM Procedure start : scoates : AM Time: : Oxygen on at 2 L/min per nasal cannula by Swathi Guzman RN scoates : AM Time: 10:41 Patient comfortable and pain free: Yes scoates 10:42 AM Time: :41LOC: 5 = Fully awake and oriented or at pre-proc level scoates 10:43 AM Patient charges- Angio tray pack, Navilyst 3mm J, Pulse Oximetry and ACIST tubing and transducer scoates 10:43 AM Case Delayed No, inpatient scoates 10:43 AM Time: :43 Versed 1 mg Intravenous Given by Swathi Guzman RN scoates 10:43 AM Time: 10:43 Fentanyl 50 mcg Intravenous Given by Swathi Guzman RN scoates 10:44 AM HR=73 bpm, BCLI=591/94 mmhg, SpO2=96.0 %, Resp=20 B/min, Comment=nsr 10:44 AM Swathi Guzman RN Position: Training Development Manager Time in: :44 scoates 10:44 AM Yessi Rosales RN Position: Monitor Time in: :44 scoates 10:44 AM Kary Causey Position: Scrub Time in: :44 scoates 10:45 AM Pressure channel 1 zeroed. 10:45 AM Clinical Presentation: Unstable angina scoates 10:45 AM Time out performed according to hospital policy scoates 10:46 AM Hair removed from procedure site in procedure lab using clippers. Bilateral groin prepped with Chloraprep by Swathi Guzman RN, safety strap applied then patient was draped. Skin intact. scoates 10:47 AM PCI Status Urgent scoates 10:48 AM Time: 10:48 10 ml Lidocaine 2% to right groin Subcutaneous Given by Reji Garcia MD scoates 10:48 AM Micro-Introducer Kit utilized for sheath placement scoates 10:49 AM Access obtained by percutaneous puncture. 6Fr 10cm Terumo [place] sheath placed in right Femoral artery. [id number] scoates 10:49 AM HR=81 bpm, RMVJ=196/104 mmhg, SpO2=97.0 %, Resp=18 B/min, Comment=nsr 10:52 AM wire removed scoates 10:53 AM Time: 10:52 Heparin 5000 units Intravenous Given by Swathi Guzman RN scoates 10:54 AM HR=77 bpm, CJEE=416/100 mmhg, SpO2=96.0 %, Resp=18 B/min, Comment=nsr 10:54 AM .014 Fielder 180cm guide wire across target lesion- successful. reused? No scoates 10:55 AM 6Fr XB LAD 3.5 [place] Bright-Tip guide catheter was used to cannulate the PCI vessel successfully. reused? No scoates 10:55 AM 2.0 mm x 12 mm Emerge Monorail balloon across target lesion- successful. reused? No scoates 10:56 AM Recorded Pressure: Ao, HR=79, Condition=Condition 1 (Aorta) Ao 121/96/109 10:57 AM Time: 10:41 Patient comfortable and pain free: Yes scoates 10:57 AM Time: 10:42LOC: 4 = Oriented but drowsy scoates 10:57 AM Balloon inflated @ 6 danika for 6 seconds scoates 10:57 AM Balloon inflated @ 8 danika for 8 seconds scoates 10:57 AM Balloon inflated @ 10 danika for 8 seconds scoates 10:58 AM Time: 10:58 Aggrastat Bolus: 58 ml Intravenous Given by Swathi Guzman RN Jackman pump scoates 10:59 AM HR=78 bpm, XCAJ=611/103 mmhg, SpO2=95.0 %, Resp=23 B/min, Comment=nsr 10:59 AM Time: 10:58 Aggrastat 12.5mg/250ml 21 ml Intravenous Given by Swathi Guzman RN Jackman pump scoates 11:00 AM Balloon catheter removed intact. scoates 11:00 AM .014 Fielder 180cm guide wire across target lesion- successful. reused? No inserted down LAD scoates 11:00 AM 2.5 mm x 12 mm Emerge Monorail balloon across target lesion- successful. reused? No scoates 11:01 AM Balloon inflated @ 12 danika for 8 seconds scoates 11:01 AM Balloon inflated @ 8 danika for 10 seconds scoates 11:02 AM Balloon catheter removed intact. scoates 11:02 AM Lesion found in 1st Diagonal. Pre Stenosis: 70 Pre AILIN Flow: 3: Complete and Brisk Flow/Perfusion scoates 11:04 AM HR=73 bpm, QPYQ=838/98 mmhg, SpO2=94.0 %, Resp=14 B/min, Comment=nsr 11:04 AM Lesion found in Mid LAD. Pre Stenosis: 70 Pre AILIN Flow: 3 scoates 11:04 AM Recorded Pressure: Ao, HR=73, Condition=Condition 1 (Aorta) Ao 132/98/115 11:09 AM HR=74 bpm, ALHU=307/96 mmhg, SpO2=95.0 %, Resp=14 B/min, Comment=nsr 11:09 AM 3.5mm x 28mm Synergy drug-eluting stent across target lesion- successful Lot #[id number] Mid LAD scoates 11:10 AM Stent deployed @ 8 danika for 10 seconds scoates 11:10 AM Stent balloon reinflated @ 16 danika for 12 seconds scoates 11:12 AM Time: 10:57 Patient comfortable and pain free: Yes scoates 11:12 AM Time: 10:57LOC: 4 = Oriented but drowsy scoates 11:12 AM Stent delivery system removed intact. scoates 11:12 AM Recorded Pressure: Ao, HR=74, Condition=Condition 1 (Aorta) Ao 136/99/117 11:13 AM 2.5 mm x 12 mm Emerge Monorail balloon across target lesion- successful. reused? No scoates 11:14 AM HR=77 bpm, FSSB=367/100 mmhg, SpO2=94.0 %, Resp=16 B/min, Comment=nsr 11:14 AM Balloon inflated @ 12 danika for 10 seconds scoates 11:15 AM Balloon inflated @ 14 danika for 10 seconds scoates 11:16 AM Balloon inflated @ 15 danika for 12 seconds scoates 11:16 AM Balloon inflated @ 14 danika for 12 seconds scoates 11:17 AM Balloon inflated @ 18 danika for 12 seconds scoates 11:17 AM Recorded Pressure: Ao, HR=76, Condition=Condition 1 (Aorta) Ao 137/99/117 11:18 AM Balloon catheter removed intact. scoates 11:19 AM HR=74 bpm, CXTW=100/102 mmhg, SpO2=95.0 %, Resp=21 B/min, Comment=nsr 11:19 AM 3.5 mm x 12mm NC Emerge balloon across target lesion- successful. reused? No scoates 11:19 AM Balloon inflated @ 18 danika for 10 seconds scoates 11:20 AM Recorded Pressure: Ao, HR=77, Condition=Condition 1 (Aorta) Ao 129/102/116 11:20 AM Balloon inflated @ 16 danika for 6 seconds scoates 11:20 AM Balloon inflated @ 16 danika for 5 seconds scoates 11:22 AM Balloon catheter removed intact. scoates 11:22 AM Time: 11: Nitroglycerin 100 mcg Intracoronary Given by Allyssa Garcia MD scoates 11: AM 2.5x12 balloon reinserted to the diag scoates 11:23 AM Balloon inflated @ 15 danika for 5 seconds scoates 11:23 AM Balloon inflated @ 15 danika for 8 seconds scoates 11:24 AM Balloon inflated @ 14 danika for 8 seconds scoates 11:24 AM Balloon inflated @ 15 danika for 10 seconds scoates 11:24 AM HR=76 bpm, RYIV=969/90 mmhg, SpO2=94.0 %, Resp=9 B/min, Comment=nsr 11:24 AM Time: 11: Nitroglycerin 200 mcg Intracoronary Given by Allyssa Garcia MD scoates 11:27 AM Time: 11:12 Patient comfortable and pain free: Yes scoates 11:27 AM Time: 11:12LOC: 4 = Oriented but drowsy scoates 11:28 AM Coronary Dominance: right scoates 11:28 AM Lesion found in Proximal LAD. Pre Stenosis: 70 Pre AILIN Flow: 3: Complete and Brisk Flow/Perfusion scoates 11:29 AM HR=75 bpm, YJAY=423/72 mmhg, SpO2=94.0 %, Resp=25 B/min 11:31 AM Procedure completed at 11:31 scoates 11:32 AM Sign out completed: Radiation Dose 1619 mGy Fluoro Time: 12.3 Isovue 370 - 200ml contrast 114 ml given by Reji Garcia MD. Complications: NoneCardiac Rehab Consult needed: YesConfirmed administered medications: Yes scoates 11:32 AM Isovue 370 - 200ml,1 Bottle(s) used. scoates 11:32 AM Sheath left in place to be pulled on floor/holding area scoates 11:32 AM Estimated Blood Loss: less than 20cc scoates 11:32 AM Post ECG NSR scoates 11:32 AM Post Blood Pressure 132/72 scoates 11:32 AM 11:32 Post Pulses Bilateral DP & PT 2+ scoates 11:36 AM Information taught Cardiac Cath and PCI scoates 11:37 AM Education needs Procedure, Plan of Care, and Responsibilities of Patient in Care scoates 11:37 AM Learning barriers :None scoates 11:37 AM Education Methods Verbal scoates 11:37 AM Education evaluation Able to repeat information scoates 11:37 AM Site status No bleeding/hematoma - Rt Groin as reported by Kary Causey RT at 11:37 scoates 11:37 AM Opsite applied scoates 11:38 AM Time: 11:38 Brilinta 180 mg Intravenous Given by Swathi Guzman RN scoates 11:42 AM Time: 11:27LOC: 5 = Fully awake and oriented or at pre-proc level scoates 11:42 AM Time: 11:27 Patient comfortable and pain free: Yes scoates 11:44 AM Report given to 2N nurse RN Pt taken to 2N Room #8. 11:43 scoates 11:44 AM Plavix, Effient or Brilinta given Yes scoates 11:44 AM Delay to floor No scoates 11:44 AM Patient out of room: 11:44 scoates 11:44 AM Family placed in consult room. scoates 11:44 AM Complications: None scoates 11:44 AM Fluoro Time: 12.3 scoates 11:44 AM Isovue 370 - 200ml contrast 210 ml given by Reji Garcia MD. scoates 11:44 AM Radiation Dose 1619 mGy scoates 11:50 AM Proximal Left Anterior Descending Coronary Artery with 70% stenosis. If graft is supplying this territory, 0 % stenosis. scoates 11:50 AM Mid/Distal Left Anterior Descending Coronary Artery and diagonal branches with 70% stenosis. If graft is supplying this area, 0 % stenosis scoates Complications Complication None None Hemodynamics Pressures Site Systolic/A Wave Diastolic/V Wave Mean AO 121 96 109 AO 132 98 115 AO 136 99 117 AO 137 99 117 AO 129 102 116 Post Procedure Information Blood Pressure: 132/72 mmHg Rhythm: NSR Post procedural instructions were given Closure Device Time Device Success/Fail 03/11/2017 11:44:00 AM Manual Compression - sheath to be pulled on floor Site Checks Time Location Status Staff Sheath In? Note 11:37 AM Rt Groin No bleeding/hematoma Kary Causey RT Pulses Time Site Pre-Procedure Post-Procedure Note 03/11/2017 10:40:00 AM Bilateral DP & PT 2+ 11:32:00 AM Bilateral DP & PT 2+ Updated by Kary Causey RT (R) on 03/11/2017 11:54:40 AM electronically signed on 03/11/2017 11:56:55 AM with status of Final
--- NOTE | 2017-03-11 13:51 | Internal Med Progress Note ---
Date of Encounter: 03/11/17 Time of Encounter: 13:30 - Assessment and plan (1) Chest pain Current Visit: Yes Status: Acute Assessment and plan: Currently chest pain-free. Continue telemetry monitoring. Continue aspirin, statin, ARLIN inhibitor and beta cesar. Echocardiogram reviewed-shows preserved ejection fraction, mild to moderate concentric LVH, basal septal hypertrophy, mild to moderate tricuspid regurgitation, mild left-ventricular diastolic dysfunction. Cardiology on board, underwent LHC which showed 60% stenosis in mLAD and 60% stenosis in 1st diagonal; followed by nuclear stress test to see extent of ischemia, which showed moderate sized ischemia in basal-mid anterolateral and mid anterior segments; Underwent LHC and received 1 VINEET today; full cath report pending; continue ASA and Brilinta; Qualifiers: Chest pain type: unspecified Qualified Code(s): R07.9 - Chest pain, unspecified (2) HTN (hypertension) Current Visit: Yes Status: Chronic Assessment and plan: Currently acceptable. Continue ARLIN inhibitor, diuretic and beta cesar. Started on Norvasc; Qualifiers: Hypertension type: essential hypertension Qualified Code(s): I10 - Essential (primary) hypertension (3) HLD (hyperlipidemia) Current Visit: Yes Status: Chronic Qualifiers: Hyperlipidemia type: unspecified Qualified Code(s): E78.5 - Hyperlipidemia , unspecified (4) DMII (diabetes mellitus, type 2) Current Visit: Yes Status: Chronic Assessment and plan: Blood sugars still elevated including FBS. Hemoglobin A1c elevated at 10.4%. Continue Accu-Chek blood glucose monitoring, will increase basal and sliding scale insulin. Add nutritional insulin; Diabetic diet. Qualifiers: Diabetes mellitus complication status: with unspecified complications Diabetes mellitus fdc insulin use: with terminal gauger supervisor use Qualified Code(s) : E11.8 - Type 2 diabetes mellitus with unspecified complications; Z79.4 - MCC (current) use of insulin; Z79.4 - buttermilk drier operator (current) use of insulin; Z79.4 - buttermilk drier operator (current) use of insulin; Z79.4 - buttermilk drier operator (current) use of insulin - Subjective Interval history: Feels well; returned from heart cath today; denies chest pain, groin pain, shortness of breath; - Constitutional Vitals: Temp Pulse Resp BP Pulse Ox 98.0 F 74 18 107/74 96 03/11/17 12:20 03/11/17 12:20 03/11/17 12:20 03/11/17 12:20 03/11/17 12:20 General appearance: Present: A&O X 3, obese, answers questions appropriately - Respiratory Respiratory exam: Present: CTAB. Absent: accessory muscle use, rales, rhonchi, wheezes - Cardiovascular Cardiovascular exam: Present: RRR, +S1, +S2. Absent: diastolic murmur, gallop, rubs, systolic murmur - GI/Abdominal GI/Abdominal exam: Present: normal bowel sounds, soft (obese), no peritoneal signs. Absent: distended, tenderness Internal Medicine: Result - Labs CBC & Chem 7: 03/08/17 03:58 03/09/17 06:03 - ABG Interpretation ABG results: PT/INR, D-dimer PT 11.4 Seconds (9.4-12.1) 03/07/17 13:34 D-Dimer < 215 ng/mLFEU (0-500) 03/07/17 13:34 Consult Discharge Plan - Plan Referrals: TYESHA,CARDIOLOGY [Other] (OFFICE NEEDS APPROVAL FROM MD WILL CALL PATIENT AT HOME) MD,PCP [Primary Care Provider] - 03/22/17 9:45 am (PLEASE FAX PAPER WORK TO MD)
[2017-03-11] MEDS ORDERED: *HR* OxyCODONE/APAP 5/325 TABLET PO PRN (14:49)
[2017-03-11] MEDS ORDERED: *HR* Morphine 2 MG/ML SYRINGE IVP ONE (14:54)
[2017-03-11] MEDS: *HR* Ticagrelor 90 MG TABLET PO SCH (21:12)
[2017-03-12] MEDS: *HR* Heparin 5,000 UNIT/ML VIAL SQ SCH (05:07)
[2017-03-12 07:02] VITALS: BP 137/81
[2017-03-12] MEDS: *HR* Ticagrelor 90 MG TABLET PO SCH (08:05)
[2017-03-12] MEDS: Gabapentin 300 MG CAPSULE PO SCH (08:05)
[2017-03-12] MEDS: Insulin LISPRO 300 UNITS/3 ML VIAL SQ SCH ×2 (08:06→08:07)
[2017-03-12] MEDS: Insulin DETEMIR 100 UNIT/ML X5UNITS SQ SCH (08:06)
[2017-03-12] MEDS: amLODIPine 5 MG TABLET PO SCH (08:06)
[2017-03-12 08:27] LABS: Basophils % 0.4 %; Eosinophils # 0.1 K/mcL (0.0-0.6); Eosinophils % 1.3 %; Hematocrit 47.8 % (37.5-50.1); Hemoglobin 15.7 g/dL (12.9-16.9); Immature Granulocytes % 0.1 % (0-4); Lymphocytes # 1.9 K/mcL (0.6-4.6); Lymphocytes % 20.1 %; Mean Corpuscular HGB Conc 32.8 g/dL (31.6-35.5); Mean Corpuscular Hemoglobin 26.5 pg (28.0-33.3); Mean Corpuscular Volume 80.6 fL (83.0-100.0); Mean Platelet Volume 10.2 fL (9.4-12.4); Monocytes # 0.7 K/mcL (0.0-1.3); Monocytes % 7.7 %; Neutrophils # 6.8 K/mcL (1.6-8.9); Platelet Count 223 K/mcL (140-400); Red Blood Count 5.93 M/mcL (4.19-5.50); Red Cell Distribution Width 14.1 % (11.5-14.5); Segmented Neutrophils % 70.4 %
--- NOTE | 2017-03-12 08:37 | Cardiology Progress Note ---
Date of Encounter: 03/12/17 Time of Encounter: 08:35 Assessment and Plan (1) Non-STEMI (non-ST elevated myocardial infarction) Current Visit: Yes Status: Acute Per Cardiology: S/p PCI. On asa, statin, ACEI, Brilinta, and bb. Provide SL NTG at DC. Education provided regarding postprocedure. Patient encouraged to not discontinue Brilinta and aspirin for at least 1 year. Cardiology will sign off, reconsult as needed, follow-up scheduled. (2) HTN (hypertension) Current Visit: Yes Status: Chronic Per Cardiology: Controlled. Qualifiers: Qualified Code(s): I10 - Essential (primary) hypertension Discussion w patient/family: The assessment and plan as outlined above was discussed with the patient who expressed understanding and agreement. All questions were answered. Thank you for involving us in the care of your patient. Please call with any questions. Subjective Principal diagnosis: Chest pain Interval history: Denies any chest pain shortness of breath or palpitations. Denies any concerns or his right groin site. Objective Vital Signs, Last 4 Hours Temp Pulse Resp BP Pulse Ox 03/12/17 08:18 78 03/12/17 06:56 99.1 F 77 20 137/81 93 03/12/17 05:05 88 03/12/17 04:44 98.6 F 81 15 120/74 96 General: Conversant, No Apparent Distress HEENT: Atraumatic, Normocephaly, Mucus Membranes Moist Neck: No JVD, Normal carotid pulses Cardiac: Reg Rate and Rhythm, Normal S1 and S2, No Murmur Lungs: Normal Breath Sounds, No Wheeze, Rales, Rhonchi Neuro: Alert and responsive, No focal deficits noted Abdomen: Soft, Non-Tender Skin: No rashes noted on visualized skin, Other (Right groin site dry and intact , no hematoma, no bleeding, pulses 2+ palpable to right DP and PT) Musculoskeletal: No Chest Wall Tenderness Extremities: No Clubbing, No Cyanosis, No Edema, Normal Pulses Results 03/12/17 08:10 03/12/17 08:10 Lab Results Active Medications Acetaminophen (Tylenol) 650 mg PO Q6HR PRN PRN Reason: Mild Pain (1-3) Stop: 09/06/17 17:08 Last Admin: 03/10/17 22:27 Dose: 650 mg Amlodipine Besylate (Norvasc) 5 mg PO DAILY [facility] PRN Reason: Protocol Stop: 09/08/17 13:16 Last Admin: 03/12/17 08:06 Dose: 5 mg Aspirin (Aspirin) 81 mg PO DAILY [facility] Stop: 09/11/17 09:01 Last Admin: 03/12/17 08:05 Dose: 81 mg Atorvastatin Calcium (Lipitor) 40 mg PO DAILY [facility] Stop: 09/06/17 21:01 Last Admin: 03/12/17 08:05 Dose: 40 mg Dextrose/Water (Dextrose 50% (Syg)) 25 ml IVP AD PRN PRN Reason: Hypoglycemia Stop: 09/06/17 17:12 Gabapentin (Neurontin) 300 mg PO TID [facility] Stop: 09/06/17 21:01 Last Admin: 03/12/17 08:05 Dose: 300 mg Glucagon (Glucagen) 1 mg IM ONCE PRN PRN Reason: Hypoglycemia Stop: 09/06/17 17:12 Glucose (Gluctose) 15 gm PO ONCE PRN PRN Reason: Hypoglycemia Stop: 09/06/17 17:12 Glucose (Gluctose) 30 gm PO ONCE PRN PRN Reason: Hypoglycemia Stop: 09/06/17 17:12 Lisinopril/HCTZ (Prinzide 10-12.5) 2 each PO DAILY [facility] Stop: 09/07/17 09:01 Last Admin: 03/12/17 08:06 Dose: 2 each Heparin Sodium (Porcine) (Heparin) 5,000 unit SQ Q8HCO [facility] Stop: 09/08/17 22:01 Last Admin: 03/12/17 05:07 Dose: 5,000 unit Dextrose (Dextrose 5%) 1,000 mls @ 100 mls/hr IVC .Q10H PRN PRN Reason: HYPOGLYCEMIA Stop: 09/06/17 17:12 Insulin Detemir (Levemir) 35 unit SQ BID [facility] Stop: 09/10/17 08:01 Last Admin: 03/12/17 08:06 Dose: 35 unit Insulin Human Lispro (Humalog) 0 units SQ TIDAC [facility] PRN Reason: Protocol Stop: 09/09/17 11:31 Last Admin: 03/12/17 08:06 Dose: 10 units Insulin Human Lispro (Humalog) 0 units SQ HS [facility] PRN Reason: Protocol Stop: 09/09/17 21:01 Last Admin: 03/11/17 21:13 Dose: 5 units Insulin Human Lispro (Humalog) 6 units 0.05 units/kg (6 units) SQ TIDWM [facility] Stop: 09/10/17 08:01 Last Admin: 03/12/17 08:07 Dose: 6 units Metoprolol Tartrate (Lopressor) 12.5 mg PO BID [facility] Stop: 09/06/17 21:01 Last Admin: 03/12/17 08:05 Dose: 12.5 mg Morphine Sulfate (Morphine Sulfate) 2 mg IVP Q4HR PRN PRN Reason: Severe Pain (7-10) Stop: 09/06/17 17:08 Last Admin: 03/11/17 14:22 Dose: 2 mg Naloxone HCl (Narcan) 0.4 mg IVP Q2MIN PRN PRN Reason: Opioid Reversal Stop: 09/06/17 17:08 Nitroglycerin (Nitroglycerin) 0.4 mg SL Q5MIN PRN PRN Reason: Chest Pain Stop: 09/06/17 17:11 Omeprazole (Prilosec) 20 mg PO BIDAC [facility] PRN Reason: Protocol Stop: 09/08/17 00:46 Last Admin: 03/12/17 08:06 Dose: 20 mg Ondansetron HCl (Zofran) 4 mg IVP Q8HR PRN PRN Reason: Nausea And Vomiting Stop: 09/06/17 17:08 Last Admin: 03/11/17 15:50 Dose: 4 mg Oxycodone/Acetaminophen (Percocet 5/325) 1 each PO Q6HR PRN PRN Reason: Moderate Pain - 2nd line Stop: 09/10/17 14:50 Last Admin: 03/11/17 15:01 Dose: 1 each Ticagrelor (Brilinta) 90 mg PO BID [facility] Stop: 09/10/17 21:01 Last Admin: 03/12/17 08:05 Dose: 90 mg Tramadol HCl (Ultram) 100 mg PO TID PRN PRN Reason: Moderate Pain - 1st line Stop: 09/06/17 17:11 Last Admin: 03/11/17 14:03 Dose: 100 mg Consult Discharge Plan - Plan Instructions: Myocardial Infarction (DC), Chest Pain (DC), Diabetes Mellitus Type 2 in Adults (DC), Chronic Hypertension (DC) Referrals: TYESHA,CARDIOLOGY [Other] ([facility]) [facility],PCP [Primary Care Provider] - 03/22/17 9:45 am (PLEASE FAX PAPER WORK TO [facility]) Prescriptions: amLODIPine [Norvasc] 5 mg PO DAILY #30 tablet Insulin LISPRO [HumaLOG] 6 units SQ TIDWM #12 vial Insulin NPH Hum/Reg Insulin Hm [Novolin 70-30 100 Unit/ml Vial] 70 unit SQ BID # 60 vial Metoprolol [Lopressor] 12.5 mg PO BID #60 tablet Ticagrelor [Brilinta] 90 mg PO BID #60 tablet
[2017-03-12] MEDS ORDERED: Aspirin 81 MG TAB.CHEW PO SCH (09:00)
--- NOTE | 2017-03-12 09:03 | Discharge Summary ---
<Shayy Marie - Last Filed: 03/12/17 12:45> Date of Encounter: 03/12/17 Time of Encounter: 08:59 - Discharge Diagnosis (1) Non-STEMI (non-ST elevated myocardial infarction) Priority: Primary Status: Acute (2) HTN (hypertension) Priority: Secondary Status: Chronic Qualifiers: Hypertension type: essential hypertension Qualified Code(s): I10 - Essential (primary) hypertension (3) DMII (diabetes mellitus, type 2) Priority: Secondary Status: Chronic Qualifiers: Diabetes mellitus complication status: with unspecified complications Diabetes mellitus long term care pharmacist insulin use: with long-term use Qualified Code(s) : E11.8 - Type 2 diabetes mellitus with unspecified complications; Z79.4 - long term care pharmacist (current) use of insulin; Z79.4 - long term care pharmacist (current) use of insulin; Z79.4 - prison (current) use of insulin; Z79.4 - long term care pharmacist (current) use of insulin (4) HLD (hyperlipidemia) Priority: Secondary Status: Chronic Qualifiers: Hyperlipidemia type: unspecified Qualified Code(s): E78.5 - Hyperlipidemia , unspecified (5) Asymmetric septal hypertrophy Priority: Secondary Status: Chronic - Discharge Medications Prescriptions: Nitroglycerin 0.4 mg SL Q5MIN PRN #90 tab.subl PRN Reason: Chest Pain amLODIPine [Norvasc] 5 mg PO DAILY #30 tablet Insulin LISPRO [HumaLOG] 6 units SQ TIDWM #12 vial Insulin NPH Hum/Reg Insulin Hm [Novolin 70-30 100 Unit/ml Vial] 70 unit SQ BID # 60 vial Metoprolol [Lopressor] 12.5 mg PO BID #60 tablet Ticagrelor [Brilinta] 90 mg PO BID #60 tablet Home Medications: traMADol [Ultram] 100 mg PO TID PRN 04/29/15 [History] Aspirin 81 mg PO DAILY #30 tab.chew 05/13/15 [Rx] Atorvastatin Calcium 40 mg PO DAILY 03/07/17 [History] Gabapentin [Neurontin] 300 mg PO TID 03/07/17 [History] GuaiFENesin/Dextromethorphan [Robitussin/Dm] 10 ml PO Q4H PRN 03/07/17 [History] Ibuprofen 800 mg PO TID PRN 03/07/17 [History] Lansoprazole [Prevacid] 30 mg PO BID 03/07/17 [History] Lidocaine 4% CRM (LMX) [Lmx 4] 1 appl TP QID 03/07/17 [History] Lisinopril/Hydrochlorothiazide [Zestoretic 20-25 mg Tablet] 1 tab PO DAILY 03/07 [History] Insulin LISPRO [HumaLOG] 6 units SQ TIDWM #12 vial 03/12/17 [Rx] Insulin NPH Hum/Reg Insulin Hm [Novolin 70-30 100 Unit/ml Vial] 70 unit SQ BID # 60 vial 03/12/17 [Rx] Metoprolol [Lopressor] 12.5 mg PO BID #60 tablet 03/12/17 [Rx] Nitroglycerin 0.4 mg SL Q5MIN PRN #90 tab.subl 03/12/17 [Rx] Ticagrelor [Brilinta] 90 mg PO BID #60 tablet 03/12/17 [Rx] amLODIPine [Norvasc] 5 mg PO DAILY #30 tablet 03/12/17 [Rx] Allergies/Adverse Reactions: 3 Allergy/AdvReac Type Severity Reaction Status Date / Time rifampin Allergy Anaphylaxis Verified 03/07/17 15:08 Procedures/tests Complete & Pending: Procedures Performed prior 72 hours Category Date Time Status CL Cardiac Catheterization [CL] Routine Acid Tank Liner 03/11/17 07:04 Ordered Date of admission: 03/09/17 14:04 Primary care physician: PCP [facility] Discharging clinician: Shayy Marie Anticipated date of discharge: 03/12/17 - Patient Status Disposition: Home, Self-Care Condition: Good Functional capacity at discharge: independent ambulation Overall status at discharge: patient is back to baseline - Discharge Instructions Instructions: Myocardial Infarction (DC), Chest Pain (DC), Diabetes Mellitus Type 2 in Adults (DC), Chronic Hypertension (DC) Follow Up With: [facility]YES[facility],CARDIOLOGY [Other] (OFFICE NEEDS APPROVAL FROM [facility] WILL CALL PATIENT AT HOME) [facility] [Primary Care Provider] - 03/22/17 9:45 am (PLEASE FAX PAPER WORK TO [facility]) - Diet and Activity Diet: low fat, low cholesterol, low salt diet Interval History: Patient states that he is ready to go home. He had a left heart catheter with PCI yesterday. Hospital course: Mr. Mott is a 51 year old male admitted for chest pain found to have elevated troponins. He underwent left heart catheter due to concern for disease progression from previous left heart catheter in 2013. Left heart catheter showed 60% stenosis in the m LAD and 60% stenosis in the first diagonal artery. He underwent a stress test which showed ischemia in the LAD territory. He underwent a second left heart catheter with PCI of the LAD. His medications were also optimized: Aspirin, statin, beta cesar, ACEI, Brilinta, SL NTG. His A1c was 10.4. His home insulin will be increased on discharge. - Time Spent with Patient Total time spent providing and/or coordinating discharge services: - Constitutional Vitals: Temp Pulse Resp BP Pulse Ox 99.1 F 78 20 137/81 93 03/12/17 06:56 03/12/17 08:18 03/12/17 06:56 03/12/17 06:56 03/12/17 06:56 General appearance: Present: A&O X 3, obese, answers questions appropriately - Head Head exam: Present: atraumatic, normocephalic - Eye Eye exam: Present: PERRL, conjuntiva pink, sclera anicteric Pupils: Present: PERRL - Neck Neck exam general surgery: Present: supple, trachea midline. Absent: lymphadenopathy - Respiratory Respiratory exam: Present: CTAB. Absent: accessory muscle use, rales, rhonchi, wheezes - Cardiovascular Cardiovascular exam: Present: RRR, +S1, +S2. Absent: diastolic murmur, gallop, rubs, systolic murmur - GI/Abdominal GI/Abdominal exam: Present: normal bowel sounds, soft, no peritoneal signs. Absent: distended, tenderness - Extremities Exam Extremities exam: Present: warm. Absent: pedal edema, tenderness Additional comments: Posterior tibial pulses palpable and symmetric - Neurological Exam Neurological exam: Present: CN II-XII intact, oriented X3, no focal deficits. Absent: pronater drift, facial droop, speech deficit - Skin Skin exam: Present: dry, intact, normal color <Boubacar Quezada - Last Filed: 03/12/17 16:57> Date of Encounter: 03/12/17 Procedures/tests Complete & Pending: Procedures Performed prior 72 hours Category Date Time Status CL Cardiac Catheterization [CL] Routine Acid Tank Liner 03/11/17 07:04 Ordered Date of admission: 03/09/17 14:04 Primary care physician: PCP [facility] Hospital course: Mr. Mott is a 51 year old male - Time Spent with Patient Total time spent providing and/or coordinating discharge services: - Constitutional Vitals: Temp Pulse Resp BP Pulse Ox 99.1 F 78 20 137/81 93 03/12/17 06:56 03/12/17 08:18 03/12/17 06:56 03/12/17 06:56 03/12/17 06:56 - Attending Attestation I conducted a face to face diagnostic evaluation of this patient and my medical decision-making was reviewed with the Resident Physician, Dr Shayy Marie. I agree with the documented findings, disposition and treatment plan as described except to the extent set forth below: I discussed the importance of medication, diet and follow-up compliance with the patient. On exam he is in no acute distress. Heart is regular. Lungs are clear. Plan: Discharge home with follow-up with PCP and cardiology. Boubacar Quezada MD
[2017-03-12 09:08] LABS: BUN/Creatinine Ratio 22 (6-26); Blood Urea Nitrogen 24 mg/dL (8-26); Calcium 9.4 mg/dL (8.6-10.8); Carbon Dioxide 26 mEq/L (19-29); Chloride 101 mEq/L (98-109); Glucose 273 mg/dL (70-99); Osmolality,Calculated 294 (280-300); Potassium 4.3 mEq/L (3.5-4.5); Sodium 135 mEq/L (136-145); eGFR For African Americans > 60 (> 60); eGFR For Non-African Americans > 60 (> 60)
== END 2017-03-12 11:05 | disposition home or self-care (01) | DRG 247 ==
LOC: EMEROO 13:00 → 2NENU 13:00 → SUATTDRO 14:46 → 2NENU 15:50 → 2NNU 03-08 16:07 → SUATTDRO 03-09 14:04
PROVIDERS: ADMIT Family Medicine; ATTEND Internal Medicine

== ENCOUNTER 2017-08-09 04:44 | Observation (INO) ==
--- NOTE | 2017-08-09 05:27 | Emergency Department Note ---
Disposition Clinical Impression: Thoracic back pain Qualifiers: Chronicity: acute Back pain laterality: right Qualified Code(s): M54.6 - Pain in thoracic spine Disposition: Still a Patient Condition: Undetermined Forms: ED Satisfaction Letter General Adult HPI - General Chief complaint: ED Back Pain/Injury Stated complaint: back/chest pain Time Seen by Provider: 08/09/17 04:48 Source: patient Mode of arrival: private vehicle Limitations: no limitations Nursing Notes Reviewed: Yes Vital Signs Reviewed: Yes - History of Present Illness HPI Narrative: 51-year-old -[place] male with a history of myasthenia gravis, malignant glioma, DVTs, previous MIs, hypertension, diabetes, hyperlipidemia, IVC filter presents to the emergency department after having back and chest pain for the last 3 days. This initiated at rest, patient had turned it over and felt a sharp pain in his back that is radiating around to his chest. He does not feel this is cardiac related. However, he wanted to get checked out because he just got released from [facility] after spending 2 weeks in the intensive care unit. The pain is in his chest as well as his back and he is concerned about the pain. He states he has also been coughing but it is nonproductive. He denies any fever, chills, nausea, vomiting, diarrhea. Pain is worse with movement, but sometimes increases without movement as well. Patient denies any other complaints at this time. Onset (ago): day(s) Location: chest, back Radiation: non-radiation Pain Severity: severe, similar to prior episodes Pain Scale: 7 Quality: sharp Consistency: intermittent, Worsening Associated symptoms: Reports: cough. Denies: confusion, diaphoresis, fever/ chills, headaches, loss of appetite, malaise, nausea/vomiting, rash, seizure, shortness of breath, syncope, weakness - Related Data Home Medications Medication Instructions Recorded Confirmed traMADol [Ultram] 100 mg PO TID PRN 04/29/15 03/07/17 Atorvastatin Calcium 40 mg PO DAILY 03/07/17 03/07/17 Gabapentin [Neurontin] 300 mg PO TID 03/07/17 03/07/17 GuaiFENesin/Dextromethorphan 10 ml PO Q4H PRN 03/07/17 03/07/17 [Robitussin/Dm] Ibuprofen 800 mg PO TID PRN 03/07/17 03/07/17 Lansoprazole [Prevacid] 30 mg PO BID 03/07/17 03/07/17 Lidocaine 4% CRM (LMX) [Lmx 4] 1 appl TP QID 03/07/17 03/07/17 Lisinopril/Hydrochlorothiazide 1 tab PO DAILY 03/07/17 03/07/17 [Zestoretic 20-25 mg Tablet] Previous Rx's Medication Instructions Recorded Aspirin 81 mg PO DAILY #30 tab.chew 05/13/15 Insulin LISPRO [HumaLOG] 6 units SQ TIDWM #12 vial 03/12/17 Insulin NPH Hum/Reg Insulin Hm 70 unit SQ BID #60 vial 03/12/17 [Novolin 70-30 100 Unit/ml Vial] Metoprolol [Lopressor] 12.5 mg PO BID #60 tablet 03/12/17 Nitroglycerin 0.4 mg SL Q5MIN PRN #90 tab.subl 03/12/17 Ticagrelor [Brilinta] 90 mg PO BID #60 tablet 03/12/17 amLODIPine [Norvasc] 5 mg PO DAILY #30 tablet 03/12/17 Amoxicillin [Amoxil] 500 mg PO BID #20 capsule 05/08/17 Benzonatate [Tessalon] 100 mg PO TID #15 capsule 05/08/17 Loratadine/Pseudophed (12 HR) 1 each PO BID #20 tab.er.12h 05/08/17 [Claritin D (12HR)] Oseltamivir [Tamiflu] 75 mg PO DAILY #10 capsule 05/08/17 Allergies Allergy/AdvReac Type Severity Reaction Status Date / Time rifampin Allergy Anaphylaxis Verified 07/15/17 14:19 All systems ED: reviewed and negative except as stated. Review of Systems: As Per HPI Past Medical History - Past Medical History Attestation: Yes The following information was validated with the patient. Source: patient Medical history: Reports: cancer, diabetes, hyperlipidemia, hypertension, myocardial infarction, other Surgical history: Reports: hip replacement (Right), IVC Filter, other ( Sternotomy, pericardial surgery, left lower lung resection and excision of malignant thymoma) Psychiatric history: Reports: no psych history - Social History Smoking Status: Never smoker Smokeless Tobacco Status: No Alcohol use: Reports: none Drug use: Reports: none Physical Exam - General Limitations: no limitations General appearance: alert, in no apparent distress - Head Head exam: atraumatic, normocephalic, normal inspection - Eye Eye exam: Present: normal appearance, PERRL, EOMI - ENT ENT exam: normal exam, normal oropharynx, mucous membranes moist - Neck Neck exam: Present: normal inspection, full ROM, trachea midline - Chest Chest inspection: Present: normal inspection, symmetric chest wall rise - Respiratory Respiratory exam: Present: normal lung sounds bilaterally - Cardiovascular Cardiovascular exam: Present: regular rate, normal rhythm, normal heart sounds - Abdominal Exam Abdominal exam: Present: soft, Non-Tender. Absent: tenderness, distention, guarding, rebound, rigidity - Extremities Exam Extremities exam: Present: normal inspection, full ROM. Absent: tenderness, pedal edema - Expanded Lower Extremity Exam Neurovascular/Tendon exam: Present: normal capillary refill, pulse deficit. Absent: motor deficit, sensory deficit, tendon deficit - Back Exam Back exam: Present: normal inspection, tenderness. Absent: full ROM (Limited due to pain), CVA tenderness (L), muscle spasm, paraspinal tenderness, vertebral tenderness, sciatic notch tenderness (R) Back 1 view image: 1 - Tenderness with palpation which is sharp in nature, patient states this is not the only place of pain. - Neurological Exam Neurological exam: Present: alert, oriented X3, CN II-XII intact - Psychiatric Psychiatric exam: Present: anxious - Skin Skin exam: Present: warm, dry, intact, normal color Course Course Narrative: 51-year-old well-developed, well-hydrated very pleasant male in no apparent distress until patient has pain in that he appears in moderate amount of distress. Alert and oriented 3, Respirations are easy and even, no coughing noted while was in the room; regular rate, rhythm, no edema; no pain with palpation of chest but trapezius muscle side upper thoracic spine with tenderness with palpation that is sharp, but is not reproducing pain that patient has had off and on for the last couple days. Previously, patient known to have pain that does not present typically for cardiac chest pain and noted to have elevated cardiac enzymes after not reporting for a couple days of the pain. Patient also recently just been 2 weeks in the intensive care unit with a myasthenia crisis, concern for cardiac modalities, pneumonia from the ICU, muscle spasm or costochondral pain due to weakness from the ICU and coughing. Despite IVC filter concern also still remains for pulmonary embolism as patient has had DTs previously and is not on any blood thinners. We will obtain workup, EKG, chest x-ray and reevaluate. Vital Signs Temperature 98.1 F 08/09/17 04:45 Pulse Rate 89 08/09/17 04:45 Respiratory Rate 16 08/09/17 04:45 Blood Pressure 155/95 08/09/17 04:45 O2 Sat by Pulse Oximetry 95 08/09/17 04:45 Temperature 98.1 F 08/09/17 04:56 Pulse Rate 89 08/09/17 05:30 Respiratory Rate 18 08/09/17 05:30 Blood Pressure 126/82 08/09/17 05:30 O2 Sat by Pulse Oximetry 96 08/09/17 05:30 Oxygen Delivery Oxygen Delivery Room Air S.B.A.R. - S.B.A.R. Situation: Demographics, MOA Background: Presenting Complaint, Relevant PMH, Meds, & Allergies Assessment: Vital Signs, Course and respsone to treatment, Exam Concerns, Patient/Family Expectation, Pertinant Lab Results, Outstanding Labs Recommendation: Barrier(s) to disposition, Recommendation based on pending studies, treatments, or consults S.B.A.R. Report Given to: Ashlee Gómez CNP S.B.AWarren Repor Time: 06:00
[2017-08-09] MEDS ORDERED: *HR* OxyCODONE/APAP 5/325 TABLET PO ONE (05:51)
[2017-08-09 06:15] LABS: INR 2.3; Prothrombin Time 25.2 Seconds (9.4-12.1)
[2017-08-09 06:17] LABS: Activated Partial Thrombo Time 37.1 Seconds (26.0-36.0)
[2017-08-09 06:26] LABS: Albumin/Globulin Ratio 1.5 (1.1-2.2); Bilirubin,Direct 0.1 mg/dL (0.0-0.2); Bilirubin,Indirect 0.3 mg/dL (0.0-1.2); Bilirubin,Total 0.4 mg/dL (0.3-1.0); Globulin 2.6 g/dL (2.4-3.5); Total Protein 6.6 g/dL (6.4-8.9)
[2017-08-09 06:28] LABS: BUN/Creatinine Ratio 23 (6-26); Blood Urea Nitrogen 22 mg/dL (6-20); Calcium 9.3 mg/dL (8.6-10.3); Carbon Dioxide 22 mEq/L (23-29); Chloride 104 mEq/L (98-107); Glucose 300 mg/dL (70-105); Osmolality,Calculated 295 (280-300); Potassium 4.3 mEq/L (3.5-5.1); Sodium 135 mEq/L (136-145); Troponin I 0.03 ng/mL (< 0.04); eGFR For African Americans > 60 (> 60); eGFR For Non-African Americans > 60 (> 60)
--- NOTE | 2017-08-09 07:05 | Emergency Department Note ---
Disposition Clinical Impression: Chest pain, rule out acute myocardial infarction, Elevated troponin level Thoracic back pain Qualifiers: Chronicity: acute Back pain laterality: right Qualified Code(s): M54.6 - Pain in thoracic spine Disposition: Admitted As Inpatient Condition: Undetermined [facility] Care Provider[facility] - Forms: ED Satisfaction Letter Time of Disposition: 09:43 General Adult HPI - General Chief complaint: ED Back Pain/Injury Stated complaint: back/chest pain Time Seen by Provider: 08/09/17 04:48 Source: patient Mode of arrival: private vehicle Limitations: no limitations - History of Present Illness Location: chest, back Pain Scale: 7 Quality: sharp Associated symptoms: Reports: cough. Denies: confusion, diaphoresis, fever/ chills, headaches, loss of appetite, malaise, nausea/vomiting, rash, seizure, shortness of breath, syncope, weakness - Related Data Home Medications Medication Instructions Recorded Confirmed traMADol [Ultram] 100 mg PO TID PRN 04/29/15 03/07/17 Atorvastatin Calcium 40 mg PO DAILY 03/07/17 03/07/17 Gabapentin [Neurontin] 300 mg PO TID 03/07/17 03/07/17 Ibuprofen 800 mg PO TID PRN 03/07/17 03/07/17 Lansoprazole [Prevacid] 30 mg PO BID 03/07/17 03/07/17 Lidocaine 4% CRM (LMX) [Lmx 4] 1 appl TP QID 03/07/17 03/07/17 Lisinopril/Hydrochlorothiazide 1 tab PO DAILY 03/07/17 03/07/17 [Zestoretic 20-25 mg Tablet] Previous Rx's Medication Instructions Recorded Aspirin 81 mg PO DAILY #30 tab.chew 05/13/15 Insulin LISPRO [HumaLOG] 6 units SQ TIDWM #12 vial 03/12/17 Insulin NPH Hum/Reg Insulin Hm 70 unit SQ BID #60 vial 03/12/17 [Novolin 70-30 100 Unit/ml Vial] Metoprolol [Lopressor] 12.5 mg PO BID #60 tablet 03/12/17 Nitroglycerin 0.4 mg SL Q5MIN PRN #90 tab.subl 03/12/17 Ticagrelor [Brilinta] 90 mg PO BID #60 tablet 03/12/17 amLODIPine [Norvasc] 5 mg PO DAILY #30 tablet 03/12/17 Allergies Allergy/AdvReac Type Severity Reaction Status Date / Time rifampin Allergy Anaphylaxis Verified 07/15/17 14:19 Past Medical History - Past Medical History Medical history: Reports: cancer, diabetes, hyperlipidemia, hypertension, myocardial infarction, other Surgical history: Reports: hip replacement (Right), IVC Filter, other ( Sternotomy, pericardial surgery, left lower lung resection and excision of malignant thymoma) Psychiatric history: Reports: no psych history - Social History Smoking Status: Never smoker Smokeless Tobacco Status: No Alcohol use: Reports: none Drug use: Reports: none Physical Exam - General Limitations: no limitations General appearance: alert, in no apparent distress Course Course Narrative: 0600: I have assumed care of this patient from JUNIOR Shepard due to mid-level shift change. Please see Drea's documentation for care performed prior to my arrival. Briefly, this is an alert and oriented nontoxic appearing 51-year-old -[place] male with extensive past medical history including AL, hypertension, diabetes, hyperlipidemia, DVT, and in inferior vena cava filter. He presented for complaints of thoracic back and chest pain for the last 3 days. He stated that this started at rest. He felt a sharp pain in his thoracic back that radiated around to his chest. Of note, he was recently released from [facility] after spending 2 weeks in the intensive care unit. He has had a nonproductive cough but denies any fever or chills. He does have tenderness with palpation of the paraspinal musculature of the thoracic spine however states this does not reproduce his pain in its entirety. Patient's delta troponin did rise from less than 0.03 to a level of 0.04. I spoke with the ux researcher on-call, Dr. Garcia, who agrees with hospitalization for ACS rule out. 0940: I spoke with Dr. Goddard, hospitalist on-call who has accepted the patient for further observation and evaluation. Vital Signs Temperature 98.1 F 08/09/17 04:45 Pulse Rate 89 08/09/17 04:45 Respiratory Rate 16 08/09/17 04:45 Blood Pressure 155/95 08/09/17 04:45 O2 Sat by Pulse Oximetry 95 08/09/17 04:45 Temperature 98.1 F 08/09/17 04:56 Pulse Rate 89 08/09/17 07:00 Respiratory Rate 16 08/09/17 07:00 Blood Pressure 115/76 08/09/17 07:00 O2 Sat by Pulse Oximetry 97 08/09/17 07:00 Oxygen Delivery Oxygen Delivery Room Air Medical Decision Making - Medical Records Medical records reviewed: Yes I reviewed the patient's medical records. - Lab Data Lab results reviewed: Yes I reviewed the patient's lab results. Lab results narrative: Laboratory Last Values WBC 7.5 K/mcL (4.3-11.1) 08/09/17 06:38 RBC 4.75 M/mcL (4.19-5.50) 08/09/17 06:38 Hgb 13.0 g/dL (12.9-16.9) 08/09/17 06:38 Hct 40.3 % (37.5-50.1) 08/09/17 06:38 MCV 84.8 fL (83.0-100.0) 08/09/17 06:38 MCH 27.4 pg (28.0-33.3) L 08/09/17 06:38 MCHC 32.3 g/dL (31.6-35.5) 08/09/17 06:38 RDW 14.6 % (11.5-14.5) H 08/09/17 06:38 Plt Count 241 K/mcL (140-400) 08/09/17 06:38 MPV 10.2 fL (9.4-12.4) 08/09/17 06:38 Immature Gran % 0.7 % (0-4) 08/09/17 06:38 Seg Neutrophils % 56.9 % 08/09/17 06:38 Lymphocytes % 31.6 % 08/09/17 06:38 Monocytes % 8.2 % 08/09/17 06:38 Eosinophils % 2.1 % 08/09/17 06:38 Basophils % 0.5 % 08/09/17 06:38 Neutrophils # 4.3 K/mcL (1.6-8.9) 08/09/17 06:38 Lymphocytes # 2.4 K/mcL (0.6-4.6) 08/09/17 06:38 Monocytes # 0.6 K/mcL (0.0-1.3) 08/09/17 06:38 Eosinophils # 0.2 K/mcL (0.0-0.6) 08/09/17 06:38 Basophils # 0.0 K/mcL (0.0-0.2) 08/09/17 06:38 PT 25.2 Seconds (9.4-12.1) H 08/09/17 05:56 INR 2.3 08/09/17 05:56 APTT 37.1 Seconds (26.0-36.0) H 08/09/17 05:56 D-Dimer < 215 ng/mLFEU (0-500) 08/09/17 05:56 Sodium 135 mEq/L (136-145) L 08/09/17 05:56 Potassium 4.3 mEq/L (3.5-5.1) 08/09/17 05:56 Chloride 104 mEq/L (98-107) 08/09/17 05:56 Carbon Dioxide 22 mEq/L (23-29) L 08/09/17 05:56 BUN 22 mg/dL (6-20) H 08/09/17 05:56 Creatinine 0.94 mg/dL (0.70-1.30) 08/09/17 05:56 Est GFR ( Amer) > 60 (> 60) 08/09/17 05:56 Est GFR (Non-Af Amer) > 60 (> 60) 08/09/17 05:56 BUN/Creatinine Ratio 23 (6-26) 08/09/17 05:56 Glucose 300 mg/dL (70-105) H 08/09/17 05:56 Calculated Osmolality 295 (280-300) 08/09/17 05:56 Calcium 9.3 mg/dL (8.6-10.3) 08/09/17 05:56 Total Bilirubin 0.4 mg/dL (0.3-1.0) 08/09/17 05:56 Direct Bilirubin 0.1 mg/dL (0.0-0.2) 08/09/17 05:56 Indirect Bilirubin 0.3 mg/dL (0.0-1.2) 08/09/17 05:56 AST 25 Units/L (13-39) 08/09/17 05:56 ALT 49 Units/L (7-52) 08/09/17 05:56 Alkaline Phosphatase 68 Units/L (34-104) 08/09/17 05:56 Troponin I 0.04 ng/mL (< 0.04) H* 08/09/17 08:28 Serum Total Protein 6.6 g/dL (6.4-8.9) 08/09/17 05:56 Albumin 4.0 g/dL (3.5-5.7) 08/09/17 05:56 Globulin 2.6 g/dL (2.4-3.5) 08/09/17 05:56 Albumin/Globulin Ratio 1.5 (1.1-2.2) 08/09/17 05:56 Lipase 16 Units/L (11-82) 08/09/17 05:56 Specimen Rejected MCV Delta 08/09/17 05:56 Result diagrams: 08/09/17 06:38 08/09/17 05:56 Lab Results 08/09/17 08/09/17 08/09/17 Range/Units 05:56 05:56 05:56 WBC (4.3-11.1) K/mcL RBC (4.19-5.50) M/mcL Hgb (12.9-16.9) g/dL Hct (37.5-50.1) % MCV (83.0-100.0) fL MCH (28.0-33.3) pg MCHC (31.6-35.5) g/dL RDW (11.5-14.5) % Plt Count (140-400) K/mcL MPV (9.4-12.4) fL Immature Gran % (0-4) % Seg Neutrophils % % Lymphocytes % % Monocytes % % Eosinophils % % Basophils % % Neutrophils # (1.6-8.9) K/mcL Lymphocytes # (0.6-4.6) K/mcL Monocytes # (0.0-1.3) K/mcL Eosinophils # (0.0-0.6) K/mcL Basophils # (0.0-0.2) K/mcL PT 25.2 H (9.4-12.1) Seconds INR 2.3 APTT 37.1 H (26.0-36.0) Seconds D-Dimer < 215 (0-500) ng/mLFEU Sodium 135 L (136-145) mEq/L Potassium 4.3 (3.5-5.1) mEq/L Chloride 104 (98-107) mEq/L Carbon Dioxide 22 L (23-29) mEq/L BUN 22 H (6-20) mg/dL Creatinine 0.94 (0.70-1.30) mg/dL Est GFR ( Amer) > 60 (> 60) Est GFR (Non-Af Amer) > 60 (> 60) BUN/Creatinine Ratio 23 (6-26) Glucose 300 H (70-105) mg/dL Calculated Osmolality 295 (280-300) Calcium 9.3 (8.6-10.3) mg/dL Total Bilirubin 0.4 (0.3-1.0) mg/dL Direct Bilirubin 0.1 (0.0-0.2) mg/dL Indirect Bilirubin 0.3 (0.0-1.2) mg/dL AST 25 (13-39) Units/L ALT 49 (7-52) Units/L Alkaline Phosphatase 68 (34-104) Units/L Troponin I 0.03 (< 0.04) ng/mL Serum Total Protein 6.6 (6.4-8.9) g/dL Albumin 4.0 (3.5-5.7) g/dL Globulin 2.6 (2.4-3.5) g/dL Albumin/Globulin Ratio 1.5 (1.1-2.2) Lipase 16 (11-82) Units/L Specimen Rejected 08/09/17 08/09/17 08/09/17 Range/Units 05:56 06:38 08:28 WBC 7.5 (4.3-11.1) K/mcL RBC 4.75 (4.19-5.50) M/mcL Hgb 13.0 (12.9-16.9) g/dL Hct 40.3 (37.5-50.1) % MCV 84.8 (83.0-100.0) fL MCH 27.4 L (28.0-33.3) pg MCHC 32.3 (31.6-35.5) g/dL RDW 14.6 H (11.5-14.5) % Plt Count 241 (140-400) K/mcL MPV 10.2 (9.4-12.4) fL Immature Gran % 0.7 (0-4) % Seg Neutrophils % 56.9 % Lymphocytes % 31.6 % Monocytes % 8.2 % Eosinophils % 2.1 % Basophils % 0.5 % Neutrophils # 4.3 (1.6-8.9) K/mcL Lymphocytes # 2.4 (0.6-4.6) K/mcL Monocytes # 0.6 (0.0-1.3) K/mcL Eosinophils # 0.2 (0.0-0.6) K/mcL Basophils # 0.0 (0.0-0.2) K/mcL PT (9.4-12.1) Seconds INR APTT (26.0-36.0) Seconds D-Dimer (0-500) ng/mLFEU Sodium (136-145) mEq/L Potassium (3.5-5.1) mEq/L Chloride (98-107) mEq/L Carbon Dioxide (23-29) mEq/L BUN (6-20) mg/dL Creatinine (0.70-1.30) mg/dL Est GFR ( Amer) (> 60) Est GFR (Non-Af Amer) (> 60) BUN/Creatinine Ratio (6-26) Glucose (70-105) mg/dL Calculated Osmolality (280-300) Calcium (8.6-10.3) mg/dL Total Bilirubin (0.3-1.0) mg/dL Direct Bilirubin (0.0-0.2) mg/dL Indirect Bilirubin (0.0-1.2) mg/dL AST (13-39) Units/L ALT (7-52) Units/L Alkaline Phosphatase (34-104) Units/L Troponin I 0.04 H* (< 0.04) ng/mL Serum Total Protein (6.4-8.9) g/dL Albumin (3.5-5.7) g/dL Globulin (2.4-3.5) g/dL Albumin/Globulin Ratio (1.1-2.2) Lipase (11-82) Units/L Specimen Rejected MCV Delta - Radiology Data Radiology results reviewed: Yes I reviewed the patient's radiology results. Chest X-Ray 08/09/17 05:08 IMPRESSION: Stable examination with elevated left hemidiaphragm, left lung base consolidation which likely represents atelectasis in setting of volume loss. Stable mild central pulmonary vascular congestion. D/ / Morgan Schmitz / Morgan Schmitz Interpreting Provider: Morgan Schmitz Chest CTA 08/09/17 07:06 IMPRESSION: No evidence of pulmonary embolism or acute pulmonary abnormality. D/ / Chris Valadez MD / Chris Valadez MD Interpreting Provider: Chris Valadez MD - EKG Data EKG #1 EKG attestation: Yes I reviewed and interpreted this EKG. EKG results narrative: EKG reviewed by Dr. Juan Francisco Ochoa as well. EKG shows a sinus rhythm at a rate of 90 bpm. MN interval 169, QRS duration 92, QT/QTc interval 260/308. No ectopy noted. No STEMI. No significant changes when compared to an EKG dated from .
[2017-08-09] MEDS ORDERED: Isovue-370 500 ML INFUS..BTL IV ONE (07:06)
[2017-08-09 07:11] LABS: Basophils % 0.5 %; Eosinophils # 0.2 K/mcL (0.0-0.6); Eosinophils % 2.1 %; Hematocrit 40.3 % (37.5-50.1); Immature Granulocytes % 0.7 % (0-4); Lymphocytes # 2.4 K/mcL (0.6-4.6); Lymphocytes % 31.6 %; Mean Corpuscular HGB Conc 32.3 g/dL (31.6-35.5); Mean Corpuscular Hemoglobin 27.4 pg (28.0-33.3); Mean Corpuscular Volume 84.8 fL (83.0-100.0); Mean Platelet Volume 10.2 fL (9.4-12.4); Monocytes # 0.6 K/mcL (0.0-1.3); Monocytes % 8.2 %; Neutrophils # 4.3 K/mcL (1.6-8.9); Platelet Count 241 K/mcL (140-400); Red Blood Count 4.75 M/mcL (4.19-5.50); Red Cell Distribution Width 14.6 % (11.5-14.5); Segmented Neutrophils % 56.9 %
--- NOTE | 2017-08-09 07:25 | Emergency Department Note ---
Disposition Clinical Impression: Thoracic back pain Qualifiers: Chronicity: acute Back pain laterality: right Qualified Code(s): M54.6 - Pain in thoracic spine Disposition: Still a Patient Condition: Undetermined [facility]: [facility] [Primary Care Provider[facility] - Forms: ED Satisfaction Letter General Adult HPI - General Chief complaint: ED Back Pain/Injury Stated complaint: back/chest pain Time Seen by Provider: 08/09/17 04:48 Source: patient Mode of arrival: private vehicle Limitations: no limitations - History of Present Illness Location: chest, back Pain Scale: 7 Quality: sharp Associated symptoms: Reports: cough. Denies: confusion, diaphoresis, fever/ chills, headaches, loss of appetite, malaise, nausea/vomiting, rash, seizure, shortness of breath, syncope, weakness - Related Data Home Medications Medication Instructions Recorded Confirmed traMADol [Ultram] 100 mg PO TID PRN 04/29/15 03/07/17 Atorvastatin Calcium 40 mg PO DAILY 03/07/17 03/07/17 Gabapentin [Neurontin] 300 mg PO TID 03/07/17 03/07/17 GuaiFENesin/Dextromethorphan 10 ml PO Q4H PRN 03/07/17 03/07/17 [Robitussin/Dm] Ibuprofen 800 mg PO TID PRN 03/07/17 03/07/17 Lansoprazole [Prevacid] 30 mg PO BID 03/07/17 03/07/17 Lidocaine 4% CRM (LMX) [Lmx 4] 1 appl TP QID 03/07/17 03/07/17 Lisinopril/Hydrochlorothiazide 1 tab PO DAILY 03/07/17 03/07/17 [Zestoretic 20-25 mg Tablet] Previous Rx's Medication Instructions Recorded Aspirin 81 mg PO DAILY #30 tab.chew 05/13/15 Insulin LISPRO [HumaLOG] 6 units SQ TIDWM #12 vial 03/12/17 Insulin NPH Hum/Reg Insulin Hm 70 unit SQ BID #60 vial 03/12/17 [Novolin 70-30 100 Unit/ml Vial] Metoprolol [Lopressor] 12.5 mg PO BID #60 tablet 03/12/17 Nitroglycerin 0.4 mg SL Q5MIN PRN #90 tab.subl 03/12/17 Ticagrelor [Brilinta] 90 mg PO BID #60 tablet 03/12/17 amLODIPine [Norvasc] 5 mg PO DAILY #30 tablet 03/12/17 Amoxicillin [Amoxil] 500 mg PO BID #20 capsule 05/08/17 Benzonatate [Tessalon] 100 mg PO TID #15 capsule 05/08/17 Loratadine/Pseudophed (12 HR) 1 each PO BID #20 tab.er.12h 05/08/17 [Claritin D (12HR)] Oseltamivir [Tamiflu] 75 mg PO DAILY #10 capsule 05/08/17 Allergies Allergy/AdvReac Type Severity Reaction Status Date / Time rifampin Allergy Anaphylaxis Verified 07/15/17 14:19 Past Medical History - Past Medical History Medical history: Reports: cancer, diabetes, hyperlipidemia, hypertension, myocardial infarction, other Surgical history: Reports: hip replacement (Right), IVC Filter, other ( Sternotomy, pericardial surgery, left lower lung resection and excision of malignant thymoma) Psychiatric history: Reports: no psych history - Social History Smoking Status: Never smoker Smokeless Tobacco Status: No Alcohol use: Reports: none Drug use: Reports: none Physical Exam - General Limitations: no limitations General appearance: alert, in no apparent distress Course Vital Signs Temperature 98.1 F 08/09/17 04:45 Pulse Rate 89 08/09/17 04:45 Respiratory Rate 16 08/09/17 04:45 Blood Pressure 155/95 08/09/17 04:45 O2 Sat by Pulse Oximetry 95 08/09/17 04:45 Temperature 98.1 F 08/09/17 04:56 Pulse Rate 89 08/09/17 07:00 Respiratory Rate 16 08/09/17 07:00 Blood Pressure 115/76 08/09/17 07:00 O2 Sat by Pulse Oximetry 97 08/09/17 07:00 Oxygen Delivery Oxygen Delivery Room Air Medical Decision Making - Lab Data Result diagrams: 08/09/17 06:38 08/09/17 05:56 Lab Results 08/09/17 08/09/17 08/09/17 Range/Units 05:56 05:56 05:56 WBC (4.3-11.1) K/mcL RBC (4.19-5.50) M/mcL Hgb (12.9-16.9) g/dL Hct (37.5-50.1) % MCV (83.0-100.0) fL MCH (28.0-33.3) pg MCHC (31.6-35.5) g/dL RDW (11.5-14.5) % Plt Count (140-400) K/mcL MPV (9.4-12.4) fL Immature Gran % (0-4) % Seg Neutrophils % % Lymphocytes % % Monocytes % % Eosinophils % % Basophils % % Neutrophils # (1.6-8.9) K/mcL Lymphocytes # (0.6-4.6) K/mcL Monocytes # (0.0-1.3) K/mcL Eosinophils # (0.0-0.6) K/mcL Basophils # (0.0-0.2) K/mcL PT 25.2 H (9.4-12.1) Seconds INR 2.3 APTT 37.1 H (26.0-36.0) Seconds Sodium 135 L (136-145) mEq/L Potassium 4.3 (3.5-5.1) mEq/L Chloride 104 (98-107) mEq/L Carbon Dioxide 22 L (23-29) mEq/L BUN 22 H (6-20) mg/dL Creatinine 0.94 (0.70-1.30) mg/dL Est GFR ( Amer) > 60 (> 60) Est GFR (Non-Af Amer) > 60 (> 60) BUN/Creatinine Ratio 23 (6-26) Glucose 300 H (70-105) mg/dL Calculated Osmolality 295 (280-300) Calcium 9.3 (8.6-10.3) mg/dL Total Bilirubin 0.4 (0.3-1.0) mg/dL Direct Bilirubin 0.1 (0.0-0.2) mg/dL Indirect Bilirubin 0.3 (0.0-1.2) mg/dL AST 25 (13-39) Units/L ALT 49 (7-52) Units/L Alkaline Phosphatase 68 (34-104) Units/L Troponin I 0.03 (< 0.04) ng/mL Serum Total Protein 6.6 (6.4-8.9) g/dL Albumin 4.0 (3.5-5.7) g/dL Globulin 2.6 (2.4-3.5) g/dL Albumin/Globulin Ratio 1.5 (1.1-2.2) Lipase 16 (11-82) Units/L Specimen Rejected 08/09/17 08/09/17 Range/Units 05:56 06:38 WBC 7.5 (4.3-11.1) K/mcL RBC 4.75 (4.19-5.50) M/mcL Hgb 13.0 (12.9-16.9) g/dL Hct 40.3 (37.5-50.1) % MCV 84.8 (83.0-100.0) fL MCH 27.4 L (28.0-33.3) pg MCHC 32.3 (31.6-35.5) g/dL RDW 14.6 H (11.5-14.5) % Plt Count 241 (140-400) K/mcL MPV 10.2 (9.4-12.4) fL Immature Gran % 0.7 (0-4) % Seg Neutrophils % 56.9 % Lymphocytes % 31.6 % Monocytes % 8.2 % Eosinophils % 2.1 % Basophils % 0.5 % Neutrophils # 4.3 (1.6-8.9) K/mcL Lymphocytes # 2.4 (0.6-4.6) K/mcL Monocytes # 0.6 (0.0-1.3) K/mcL Eosinophils # 0.2 (0.0-0.6) K/mcL Basophils # 0.0 (0.0-0.2) K/mcL PT (9.4-12.1) Seconds INR APTT (26.0-36.0) Seconds Sodium (136-145) mEq/L Potassium (3.5-5.1) mEq/L Chloride (98-107) mEq/L Carbon Dioxide (23-29) mEq/L BUN (6-20) mg/dL Creatinine (0.70-1.30) mg/dL Est GFR ( Amer) (> 60) Est GFR (Non-Af Amer) (> 60) BUN/Creatinine Ratio (6-26) Glucose (70-105) mg/dL Calculated Osmolality (280-300) Calcium (8.6-10.3) mg/dL Total Bilirubin (0.3-1.0) mg/dL Direct Bilirubin (0.0-0.2) mg/dL Indirect Bilirubin (0.0-1.2) mg/dL AST (13-39) Units/L ALT (7-52) Units/L Alkaline Phosphatase (34-104) Units/L Troponin I (< 0.04) ng/mL Serum Total Protein (6.4-8.9) g/dL Albumin (3.5-5.7) g/dL Globulin (2.4-3.5) g/dL Albumin/Globulin Ratio (1.1-2.2) Lipase (11-82) Units/L Specimen Rejected MCV Delta Attestation Statement - Attestation Attestation: For this encounter, I have reviewed the BELLSTAFF or PA documentation, treatment plan, and medical decision making; and I have had face to face time with this patient. [id number] time provided Patient resting comfortably on my exam. CTA chest ordered by the nurse practitioner. Labs reviewed by me
[2017-08-09 07:29] LABS: D-Dimer < 215 ng/mLFEU (0-500)
[2017-08-09] MEDS ORDERED: Aspirin 81 MG TAB.CHEW PO ONE (09:12)
[2017-08-09] MEDS ORDERED: Nitroglycerin 0.4 MG TAB.SUBL SL PRN ×2 (09:13→10:54)
[2017-08-09] MEDS ORDERED: *HR* FentaNYL (PF) 100 MCG/2 ML VIAL IVP ONE (09:24)
[2017-08-09] MEDS ORDERED: Naloxone 0.4 MG/ML INJ IVP PRN (10:16)
--- NOTE | 2017-08-09 10:31 | Internal Med History&Physical ---
Date of Encounter: 08/09/17 Time of Encounter: 10:20 Internal Medicine - H&P: HPI Chief complaint: Chest pain, back pain Plans for Post Hospital Care: Home History of present illness: Mr. Mott is a 51 year old male with extensive past medical history including CAD status post stent in February 2017, DVT on Coumadin and also IVC filter, hypertension, diabetes on insulin, hyperlipidemia, myasthenia gravis, ? malignant thymoma presented to ER for complaints of mid thoracic back and mid sternal chest pain for the last 2 days. 2 days ago patient mowed the lawn grass on hot day and he started to develop mild pain on the same day but eventually got worse therefore decided to come to emergency room. He described sharp pain rating 10 x 10 in mid thoracic radiating to chest especially mid sternal area and not relieved by Ultram at home. In ER slight elevation of troponin but no acute finding in EKG. CT angiogram with no acute finding, Therapeutic INR. In ER aspirin and Percocet was given with no significant relief in the pain. Considering multiple risk factor and positive troponin ER physician consulted plant taxonomy teacher Dr. Garcia who agrees with hospitalization for ACS rule out with serial troponin monitoring and eventually called on-call hospitalists for the admission chest pain rule out ACS. Of note, he was recently admitted to [facility] for myasthenia crisis and released 14 days ago after spending 2 weeks in the intensive care unit. Patient denies fever, chills, nausea, vomiting, headache, dizziness, abdominal pain or urinary complaint, shortness of breath. He has mild nonproductive cough intermittently for few days but not much concern. Patient has reproducible mid sternal and mid thoracic spinal tenderness. Past Med Surg Social Fam HX - Past Medical History Medical history: cancer, diabetes, hyperlipidemia, hypertension, myocardial infarction, other Psychiatric history: no psych history - Past Surgical History Surgical History: hip replacement (Right), IVC Filter, other (Sternotomy, pericardial surgery, left lower lung resection and excision of malignant thymoma ) - Social History Smoking Status: Never smoker Smokeless Tobacco Status: No Alcohol use: none Drug use: none - Family History Father Adopted: No Family Member Ethnicity: Non- Living Status: Still Living Hx Family Cardiac Disorders: Yes Hx Family Respiratory Disorders: No Hx Family Cancer: No Hx Family GI Disorders: No Hx Family Endocrine Disorder: Yes Hx Family Neuromuscular Disorders: No Hx Family Neurologic Disorders: Yes Hx Family HEENT Disorders: No Brother Hx Family Cancer: Yes (Prostate and colon cancer) Mother Adopted: No Family Member Ethnicity: Non- Living Status: Still Living Hx Family Cardiac Disorders: Yes Hx Family Respiratory Disorders: No Hx Family Cancer: No Hx Family GI Disorders: No Hx Family Endocrine Disorder: Yes Hx Family Neuromuscular Disorders: No Hx Family Neurologic Disorders: Yes Hx Family HEENT Disorders: No Internal Medicine - H&P: Meds traMADol [Ultram] 100 mg PO TID PRN 04/29/15 [History] Aspirin 81 mg PO DAILY #30 tab.chew 05/13/15 [Rx] Atorvastatin Calcium 40 mg PO DAILY 03/07/17 [History] Gabapentin [Neurontin] 300 mg PO TID 03/07/17 [History] Ibuprofen 800 mg PO TID PRN 03/07/17 [History] Nitroglycerin 0.4 mg SL Q5MIN PRN #90 tab.subl 03/12/17 [Rx] amLODIPine [Norvasc] 5 mg PO DAILY #30 tablet 03/12/17 [Rx] Metoprolol Succinate [Toprol Xl] 25 mg PO DAILY 08/09/17 [History] 3 Allergy/AdvReac Type Severity Reaction Status Date / Time rifampin Allergy Anaphylaxis Verified 07/15/17 14:19 All Systems PM: as documented above in the HPI. - Constitutional Vitals: Temp Pulse Resp BP Pulse Ox 98.1 F 89 16 115/76 97 08/09/17 04:56 08/09/17 07:00 08/09/17 07:00 08/09/17 07:00 08/09/17 07:00 Exam: General appearance: Moderate distress due to back pain especially when he move in no pain while at rest. A&O X 3. at bedside Head exam: Atraumatic Eye exam: EOMI, PERRLA ENT exam: Moist oral mucosa Neck nontender, supple Respiratory exam: Clear to auscultation bilaterally Cardiovascular exam: Regular rate and rhythm, no systolic murmur. Reproducible mid sternal and thoracic spine tenderness . Abdominal exam: Soft, nontender, nondistended, positive bowel sounds Extremities exam: No calf tenderness, no pedal edema Present: Skin-no rash, warm, dry, intact Neurological exam: Alert, awake, oriented 3, CN II-XII intact, no focal deficits. No facial droop. Normal speech. Internal Med - H&P Results - Labs CBC & Chem 7: 08/09/17 06:38 08/09/17 05:56 Labs: Short CBC 08/09/17 Range/Units 06:38 WBC 7.5 (4.3-11.1) K/mcL Hgb 13.0 (12.9-16.9) g/dL Hct 40.3 (37.5-50.1) % Plt Count 241 (140-400) K/mcL Neutrophils # 4.3 (1.6-8.9) K/mcL BMP 08/09/17 05:56 Sodium 135 L Potassium 4.3 Chloride 104 Carbon Dioxide 22 L BUN 22 H Creatinine 0.94 Glucose 300 H Calcium 9.3 Cardiac Enzymes 08/09/17 08/09/17 Range/Units 05:56 08:28 Troponin I 0.03 0.04 H* (< 0.04) ng/mL Liver Function 08/09/17 Range/Units 05:56 Total Bilirubin 0.4 (0.3-1.0) mg/dL Direct Bilirubin 0.1 (0.0-0.2) mg/dL AST 25 (13-39) Units/L ALT 49 (7-52) Units/L Alkaline Phosphatase 68 (34-104) Units/L Albumin 4.0 (3.5-5.7) g/dL - Impressions ITS Impressions Chest X-Ray 08/09/17 05:08 IMPRESSION: Stable examination with elevated left hemidiaphragm, left lung base consolidation which likely represents atelectasis in setting of volume loss. Stable mild central pulmonary vascular congestion. D/ / Morgan Schmitz / Morgan Schmitz Interpreting Provider: Morgan Schmitz Chest CTA 08/09/17 07:06 IMPRESSION: No evidence of pulmonary embolism or acute pulmonary abnormality. D/ / Chris Valadez MD / Chris Valadez MD Interpreting Provider: Chris Valadez MD - Assessment and plan (1) Chest pain, rule out acute myocardial infarction Current Visit: Yes Status: Acute Assessment and plan: Atypical chest pain with reproducibility and a started after physical exertion increased with movement and better with rest. Possibility of musculoskeletal but patient had multiple cardiac risk factor and also slight elevated troponin therefore needs to rule out ACS. Serial cardiac enzyme and telemetry monitoring. Continue home medicine. Technician [employer] was consulted by ER physician. (2) Thoracic back pain Current Visit: Yes Status: Acute Assessment and plan: Started after mowing lawn. CT chest with no acute finding. Probably muscle strain. Pain management. Careful use of muscle relaxant as patient has myasthenia gravis. 1 dose of Zanaflex given . Qualifiers: Chronicity: acute Back pain laterality: midline Qualified Code(s): M54.6 - Pain in thoracic spine (3) Diabetes mellitus Current Visit: Yes Status: Acute Assessment and plan: Accu-Chek, continue home insulin dose. Diabetic diet Qualifiers: Diabetes mellitus type: type 2 Diabetes mellitus terminal make up operator insulin use: with terminal make up operator use Diabetes mellitus complication status: without complication Qualified Code(s): E11.9 - Type 2 diabetes mellitus without complications; Z79.4 - terminal computer operator (current) use of insulin (4) Hypertension Current Visit: Yes Status: Acute Assessment and plan: Continue home medicine. 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 Continue home medicine. Patient follow neurologist at [facility]. Will consult to neurologist if any concern (6) DVT prophylaxis Current Visit: Yes Status: Acute Assessment and plan: History of DVT in the past. therapeutic INR while on Coumadin. Continue home dose of Coumadin. - Time Spent With Patient Total time spent is greater than 50% in coordination of care (as documented) at patient's floor/unit and/or counseling patient: 25 - 35 minutes
[2017-08-09] MEDS ORDERED: tiZANidine 4 MG TABLET PO ONE (10:45)
[2017-08-09] MEDS ORDERED: GuaiFENesin/Codeine Oral Soln 5 ML UDC PO PRN (10:47)
[2017-08-09] MEDS: *HR* OxyCODONE/APAP 10/325 TABLET PO PRN ×2 (11:46→18:21)
--- NOTE | 2017-08-09 11:52 | Cardiology Consult Note ---
<Jess Briones - Last Filed: 08/09/17 11:48> Date of Encounter: 08/09/17 Time of Encounter: 11:48 Assessment and Plan (1) Elevated troponin Current Visit: Yes Status: Chronic Per cardiology: -Troponins 0.03, 0.04. Has chronically elevated troponins. -Denies angina. -Reports back pain radiating into chest, reproduceable with palpation. -On asa, statin, BB, norvasc, plavix in outpatient setting. -Reports compliance with meds -[facility] 02/2017 with 60% mid LAD with VINEET placed and 60% diagonal 1 with balloon angioplasty, otherwise all other arteries angiographically free of disease. -[facility] 02/2017 with LVEF preserved, no segmental wall motion abnormalities. -DO not suspect NSTEMI. Has chronically elevated troponins. NO cardiac rehab consult warranted. -Will resume his home medications. -CArdiology will sign off and will follow in outpateint setting. Follow up set. Discussion w patient/family: The assessment and plan as outlined above was discussed with the patient who expressed understanding and agreement. All questions were answered. Thank you for involving us in the care of your patient. Please call with any questions. Discussed and reviewed with . History of Present Illness Consult date: 08/09/17 Requesting physician: Wilfrid Gómez Consult reason: elevated troponin Chief complaint: back pain History of present illness: Mr. Mott is a 51 year old male with a relevant past medical history of myasthenia gravis s/p recent admission at [facility] ICU, DM, HTN, DVT-on coumadin, IVC filter, CAD s/p PCI 02/2017, malignant thyoma. Patient presented to [facility] with complaints of back pain x2 days. Reports he was out mowing grass and he became too hot, so he went inside to lay down on couch. Patient reports he rolled over, and noticed severe back pain. Patient states "it felt like I pulled a muscle." States pain radiated into chest. Patient reports this pain is different from previous angina. Denies current chest pain. Denies shortness of breath. Past Med Surg Social Fam HX - Past Medical History Attestation: Yes The following information was validated with the patient. Source: patient, old records reviewed Medical history: cancer, coronary artery disease, diabetes, hyperlipidemia, hypertension, myocardial infarction, other Psychiatric history: no psych history - Past Surgical History Surgical History: hip replacement (Right), IVC Filter, other (Sternotomy, pericardial surgery, left lower lung resection and excision of malignant thymoma ) - Social History Smoking Status: Never smoker Smokeless Tobacco Status: No Alcohol use: none Drug use: none - Family History Father Adopted: No Family Member Ethnicity: Non- Living Status: Still Living Hx Family Cardiac Disorders: Yes Hx Family Respiratory Disorders: No Hx Family Cancer: No Hx Family GI Disorders: No Hx Family Endocrine Disorder: Yes Hx Family Neuromuscular Disorders: No Hx Family Neurologic Disorders: Yes Hx Family HEENT Disorders: No Brother Hx Family Cancer: Yes (Prostate and colon cancer) Mother Adopted: No Family Member Ethnicity: Non- Living Status: Still Living Hx Family Cardiac Disorders: Yes Hx Family Respiratory Disorders: No Hx Family Cancer: No Hx Family GI Disorders: No Hx Family Endocrine Disorder: Yes Hx Family Neuromuscular Disorders: No Hx Family Neurologic Disorders: Yes Hx Family HEENT Disorders: No Medications and Allergies traMADol [Ultram] 100 mg PO TID PRN 04/29/15 [History] Aspirin 81 mg PO DAILY #30 tab.chew 05/13/15 [Rx] Atorvastatin Calcium 40 mg PO DAILY 03/07/17 [History] Gabapentin [Neurontin] 300 mg PO TID 03/07/17 [History] Ibuprofen 800 mg PO TID PRN 03/07/17 [History] Nitroglycerin 0.4 mg SL Q5MIN PRN #90 tab.subl 03/12/17 [Rx] amLODIPine [Norvasc] 5 mg PO DAILY #30 tablet 03/12/17 [Rx] Acetaminophen [Tylenol] 650 mg PO Q4HR 08/09/17 [History] Calcium Carbonate/Vitamin D3 [Calcium 500 + Vit D Caplet] 1 tab PO DAILY [History] DULoxetine [Cymbalta] 30 mg PO DAILY 08/09/17 [History] Insulin ASPART [NovoLOG] 0 unit SQ TIDWM 08/09/17 [History] Insulin ASPART [NovoLOG] 25 unit SQ TIDWM 08/09/17 [History] Insulin NPH Human Isophane [Novolin N] 30 units SQ DAILY 08/09/17 [History] Metoprolol Succinate [Toprol Xl] 25 mg PO DAILY 08/09/17 [History] Pantoprazole Sodium 40 mg PO DAILY 08/09/17 [History] Pyridostigmine Br [Mestinon] 60 mg PO TID 08/09/17 [History] Sulfamethoxazole/Trimeth SS [Bactrim SS] 1 tab PO DAILY 08/09/17 [History] Tamsulosin [Flomax] 0.4 mg PO DAILY 08/09/17 [History] Warfarin [Coumadin] 1.5 mg PO TH 08/09/17 [History] Warfarin [Coumadin] 3 mg PO SUMOTUWEFRSA 08/09/17 [History] predniSONE [PredniSONE] 30 mg PO DAILY 08/09/17 [History] 3 Allergy/AdvReac Type Severity Reaction Status Date / Time rifampin Allergy Anaphylaxis Verified 08/09/17 11:05 All Systems Review: The remainder of the systems were reviewed and are negative - Cardiovascular Cardiovascular: as per HPI Physical Examination Vital Signs, Last 4 Hours Temp Pulse Resp BP Pulse Ox 08/09/17 11:17 97.9 F 80 18 144/91 96 08/09/17 11:04 16 134/78 08/09/17 10:22 84 16 132/96 97 General: Conversant, No Apparent Distress HEENT: Atraumatic, Normocephaly, Mucus Membranes Moist Neck: No JVD, Normal carotid pulses Cardiac: Reg Rate and Rhythm, Normal S1 and S2, No Murmur Lungs: Other (Refused respiratory assessment due to pain. ) Neuro: Alert and responsive, No focal deficits noted Abdomen: Soft, Non-Tender Skin: No rashes noted on visualized skin Musculoskeletal: Other (Chest pain reproduceable with palpation. ) Extremities: No Clubbing, No Cyanosis, No Edema, Normal Pulses Results 08/09/17 06:38 08/09/17 05:56 Impressions Chest X-Ray 08/09/17 05:08 IMPRESSION: Stable examination with elevated left hemidiaphragm, left lung base consolidation which likely represents atelectasis in setting of volume loss. Stable mild central pulmonary vascular congestion. D/ / Morgan Schmitz / Morgan Schmitz Interpreting Provider: Morgan Schmitz Chest CTA 08/09/17 07:06 IMPRESSION: No evidence of pulmonary embolism or acute pulmonary abnormality. D/ / Chris Valadez MD / Chris Valadez MD Interpreting Provider: Chris Valadez MD Active Medications Amlodipine Besylate (Norvasc) 5 mg PO DAILY AMANDA PRN Reason: Protocol Stop: 02/09/18 09:01 Aspirin (Aspirin) 81 mg PO DAILY AMANDA Stop: 02/09/18 09:01 Atorvastatin Calcium (Lipitor) 40 mg PO DAILY AMANDA Stop: 02/09/18 09:01 Gabapentin (Neurontin) 300 mg PO TID AMANDA Stop: 02/08/18 15:01 Guaifenesin/Codeine Phosphate (Robitussin W/Codeine) 5 ml PO Q6HR PRN; Protocol PRN Reason: Cough Stop: 02/08/18 10:48 Heparin Sodium (Porcine) (Heparin Lock) 500 unit IV ONCE PRN PRN Reason: [place] while in RADIOLOGY Stop: 08/11/17 07:06 Ibuprofen (Motrin) 800 mg PO TID PRN; Protocol PRN Reason: Pain Stop: 02/08/18 10:55 Metoprolol Succinate (Toprol Xl) 25 mg PO DAILY AMANDA Stop: 02/09/18 09:01 Naloxone HCl (Narcan) 0.4 mg IVP Q2MIN PRN PRN Reason: SEE COMMENTS Stop: 02/08/18 10:17 Nitroglycerin (Nitroglycerin) 0.4 mg SL Q5MIN PRN PRN Reason: Chest Pain Stop: 02/08/18 09:14 Nitroglycerin (Nitroglycerin) 0.4 mg SL Q5MIN PRN PRN Reason: Chest Pain Stop: 02/08/18 10:55 Oxycodone/Acetaminophen (Percocet 10/325) 1 each PO Q6HR PRN PRN Reason: Pain Stop: 02/08/18 10:45 Last Admin: 08/09/17 11:46 Dose: 1 each Laboratory Tests 03/08/17 03/08/17 07/15/17 03:58 12:42 15:51 Hgb Creatinine Troponin I 0.12 H* 0.13 H* 0.04 H* 08/09/17 08/09/17 08/09/17 05:56 06:38 08:28 Hgb 13.0 Creatinine 0.94 Troponin I 0.03 0.04 H* - Imaging and Cardiology Chest Xray: report reviewed Stress Test: report reviewed Echo: report reviewed Cardiac cath: report reviewed - EKG Interpretation EKG results cardiology: personally reviewed (ECG with SR, HR 90, non-specific T wave abnormalities.) Consult Discharge Plan - Plan [facility]errals: [facility]Primary Care Provider[facility] - <Reji Garcia - Last Filed: 08/09/17 16:06> Date of Encounter: 08/09/17 - Attending Attestation I have personally performed a face to face evaluation on this patient. I have reviewed and agree with the care plan. History and Exam by me shows: Non cardiac chest pain/back pain positional and tender to touch. No further cardiac testing Assessment and Plan Discussion w patient/family: The assessment and plan as outlined above was discussed with the patient and/or family members who expressed understanding and agreement. All questions were answered. Thank you for involving us in the care of your patient. Please call with any questions. History of Present Illness History of present illness: Mr. Mott is a 51 year old male All Systems Review: The remainder of the systems were reviewed and are negative Results 08/09/17 06:38 08/09/17 05:56 Lab Results 08/09/17 14:13 Troponin I 0.04 H*
[2017-08-09] MEDS: Gabapentin 300 MG CAPSULE PO SCH ×2 (14:56→21:39)
[2017-08-09] MEDS: Ondansetron 4 MG/2 ML VIAL IVP PRN (14:57)
[2017-08-09] MEDS: Ibuprofen 800 MG TABLET PO PRN ×2 (14:58→21:39)
[2017-08-09] MEDS: Pyridostigmine Br 60 MG TABLET PO SCH ×2 (15:00→21:40)
[2017-08-09] MEDS ORDERED: NON-FORMULARY MEDICATION 1 EACH EACH (Insulin Aspart 0 UNIT) SQ SCH (17:00)
[2017-08-09] MEDS: *HR* Warfarin 3 MG TABLET PO SCH (18:22)
[2017-08-09] MEDS: Insulin LISPRO 300 UNITS/3 ML VIAL SQ SCH (18:22)
[2017-08-09] MEDS: Acetaminophen 325 MG TABLET PO SCH ×2 (18:22→21:39)
--- NOTE | 2017-08-09 23:29 | Electrocardiograph Report ---
[address] [place], [place] [address] Test Date: 2017-08-09 Pat Name: Shine Mott Department: 102 Room: [facility] Gender: [id number] Analyst: : 1965 Requested By: [id number] Order Number: [id number] Reading MD: Alice Amador Measurements Intervals [place] Rate: 90 P: 39 KS: 169 QRS: 1 QRSD: 92 T: 83 QT: 260 QTc: 308 Interpretive Statements SINUS RHYTHM NONSPECIFIC T-WAVE ABNORMALITY Electronically Signed On 08-09-2017 23:27:58 EDT by Alice Amador
[2017-08-10] MEDS: *HR* OxyCODONE/APAP 10/325 TABLET PO PRN ×4 (00:43→22:08)
[2017-08-10] MEDS: Acetaminophen 325 MG TABLET PO SCH ×3 (00:44→08:22)
[2017-08-10] MEDS: Ibuprofen 800 MG TABLET PO PRN (04:52)
[2017-08-10 08:03] LABS: BUN/Creatinine Ratio 19 (6-26); Blood Urea Nitrogen 21 mg/dL (6-20); Carbon Dioxide 22 mEq/L (23-29); Chloride 103 mEq/L (98-107); Chol/HDL Ratio 4.4 (0-4.9); Cholesterol 198 mg/dL (< 200); Glucose 291 mg/dL (70-105); HDL Cholesterol 45 mg/dL (40-59); LDL Cholesterol,Calculated 124 mg/dL (0-99); Osmolality,Calculated 292 (280-300); Sodium 134 mEq/L (136-145); Triglycerides 143 mg/dL (< 150); eGFR For African Americans > 60 (> 60); eGFR For Non-African Americans > 60 (> 60)
[2017-08-10] MEDS: Insulin NPH 100 UNIT/ML (x5UNIT) SQ SCH (08:20)
[2017-08-10] MEDS: predniSONE 10 MG TABLET PO SCH (08:21)
[2017-08-10] MEDS: Gabapentin 300 MG CAPSULE PO SCH ×3 (08:21→22:05)
[2017-08-10] MEDS: amLODIPine 5 MG TABLET PO SCH (08:21)
[2017-08-10] MEDS: Pyridostigmine Br 60 MG TABLET PO SCH ×3 (08:21→22:04)
[2017-08-10] MEDS: Sulfamethoxazole/Trimeth SS 1 TAB PO SCH (08:21)
[2017-08-10] MEDS: Metoprolol XL (24 HR) Succ 25 MG TAB.ER.24H PO SCH (08:22)
[2017-08-10] MEDS: Cholecalciferol (D-3) 1,000 UNIT TABLET PO SCH (08:22)
[2017-08-10] MEDS: Insulin LISPRO 300 UNITS/3 ML VIAL SQ SCH ×3 (08:22→18:29)
[2017-08-10] MEDS: Ondansetron 4 MG/2 ML VIAL IVP PRN (08:32)
[2017-08-10 09:09] LABS: Basophils % 0.3 %; Eosinophils # 0.1 K/mcL (0.0-0.6); Eosinophils % 1.9 %; Hematocrit 40.5 % (37.5-50.1); Hemoglobin 13.4 g/dL (12.9-16.9); Immature Granulocytes % 0.5 % (0-4); Immature Platelets 3.4 % (1.1-6.1); Lymphocytes # 2.2 K/mcL (0.6-4.6); Lymphocytes % 34.3 %; Mean Corpuscular HGB Conc 33.1 g/dL (31.6-35.5); Mean Corpuscular Hemoglobin 28.4 pg (28.0-33.3); Mean Corpuscular Volume 85.8 fL (83.0-100.0); Mean Platelet Volume 10.2 fL (9.4-12.4); Monocytes # 0.5 K/mcL (0.0-1.3); Monocytes % 8.1 %; Neutrophils # 3.5 K/mcL (1.6-8.9); Platelet Count 240 K/mcL (140-400); Red Blood Count 4.72 M/mcL (4.19-5.50); Red Cell Distribution Width 14.4 % (11.5-14.5); Segmented Neutrophils % 54.9 %
--- NOTE | 2017-08-10 10:11 | Internal Med Progress Note ---
Date of Encounter: 08/10/17 Time of Encounter: 10:08 - Assessment and plan (1) Thoracic back pain Current Visit: Yes Status: Acute Assessment and plan: presented to ED with complaints of severe back pain. Chest CTA negative for pulmonary embolism, dissection. Etiology unknown at this time. No obvious trauma or injury. Cervical, thoracic and lumbar MRI pending. Conservative pain control and use of muscle relaxants with history of myasthenia gravis. Qualifiers: Chronicity: acute Back pain laterality: midline Qualified Code(s): M54.6 - Pain in thoracic spine (2) Chest pain, rule out acute myocardial infarction Current Visit: Yes Status: Acute Assessment and plan: per hx. presented with back pain that radiated to chest. Has chronically elevated troponin. No acute EKG changes. Chest CTA unremarkable. Evaluated by cardiology who did not suspect in STEMI. No further cardiac workup indicated at this time. Continue home ASA, statin, BB, Plavix. (3) Diabetes mellitus Current Visit: Yes Status: Acute Assessment and plan: per hx. Blood sugars elevated. Cont home insulin. Add low dose SSI. Monitor blood sugar and titrate PRN. Hgb A1c pending Qualifiers: Diabetes mellitus type: type 2 Diabetes mellitus quality compliance manager insulin use: with quality compliance manager use Diabetes mellitus complication status: without complication Qualified Code(s): E11.9 - Type 2 diabetes mellitus without complications; Z79.4 - tile professional (current) use of insulin (4) Hypertension Current Visit: Yes Status: Acute Assessment and plan: per hx. BP controlled. Continue home BP medication. 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 Follows with Neurology at [facility]. Stable, no evidence of exacerbation/ crisis. Continue home medicine. Consult to neurologist if any concern (6) Hx of deep venous thrombosis Current Visit: Yes Status: Acute Assessment and plan: With multiple clots in the past. On lifelong anticoagulation. Continue home Coumadin. (7) DVT prophylaxis Current Visit: Yes Status: Acute Assessment and plan: Coumadin - Time Spent With Patient Total time spent is greater than 50% in coordination of care (as documented) at patient's floor/unit and/or counseling patient: - Subjective Interval history: Seen and examined at bedside. Patient is new to me, information obtained from chart review and patient report. Patient says he feels well as long as he is laying still but he thinks his pain is actually increased since being in the hospital. Has upper back pain with minimal movement. No obvious injury or trauma. No chest pain or shortness of breath. - Constitutional Vitals: Temp Pulse Resp BP Pulse Ox 97.7 F 81 18 137/92 96 08/10/17 07:37 08/10/17 07:37 08/10/17 07:37 08/10/17 07:37 08/10/17 07:37 General appearance: Present: A&O X 3, pleasant - Head Head exam: Present: atraumatic, normocephalic - Eye Eye exam: Present: PERRL, conjuntiva pink, sclera anicteric Pupils: Present: PERRL - Neck Neck exam general surgery: Present: supple, trachea midline. Absent: lymphadenopathy - Respiratory Respiratory exam: Present: CTAB. Absent: accessory muscle use, rales, rhonchi, wheezes - Cardiovascular Cardiovascular exam: Present: RRR, +S1, +S2. Absent: diastolic murmur, gallop, rubs, systolic murmur - GI/Abdominal GI/Abdominal exam: Present: normal bowel sounds, soft, no peritoneal signs. Absent: distended, tenderness - Extremities Exam Extremities exam: Present: warm, radial pulses palpable and symmetrical. Absent : calf tenderness, cyanotic, pedal edema - Back Exam Additional comments: Paraspinal tenderness not assessed per patient request due to pain with any movement or palpation. - Neurological Exam Neurological exam: Present: CN II-XII intact, oriented X3, no focal deficits. Absent: pronater drift, facial droop, speech deficit - Skin Skin exam: Present: dry, intact Internal Medicine: Result - Labs CBC & Chem 7: 08/10/17 09:00 08/10/17 06:17 Labs: Short CBC 08/10/17 Range/Units 09:00 WBC 6.4 (4.3-11.1) K/mcL Hgb 13.4 (12.9-16.9) g/dL Hct 40.5 (37.5-50.1) % Plt Count 240 (140-400) K/mcL Neutrophils # 3.5 (1.6-8.9) K/mcL BMP 08/10/17 06:17 Sodium 134 L Potassium 5.0 Chloride 103 Carbon Dioxide 22 L BUN 21 H Creatinine 1.08 Glucose 291 H Calcium 9.0 Cardiac Enzymes 08/09/17 08/09/17 Range/Units 14:13 19:59 Troponin I 0.04 H* 0.04 H* (< 0.04) ng/mL - ABG Interpretation ABG results: PT/INR, D-dimer PT 25.2 Seconds (9.4-12.1) H 08/09/17 05:56 D-Dimer < 215 ng/mLFEU (0-500) 08/09/17 05:56 Consult Discharge Plan - Plan [facility]errals: [facility] [Primary Care Provider] -
[2017-08-10] MEDS: Aspirin 81 MG TAB.CHEW PO SCH (11:49)
[2017-08-10] MEDS ORDERED: Warfarin perPT PO PRN (18:00)
[2017-08-10] MEDS: *HR* Warfarin 3 MG TABLET PO SCH (18:35)
[2017-08-10] MEDS ORDERED: Dextrose Gel 15 GM/37.5 ML TUBE PO PRN ×4 (20:43→20:49)
[2017-08-10] MEDS ORDERED: D5% in Water 1,000 ML IVC PRN ×2 (20:43→20:49)
[2017-08-10] MEDS ORDERED: *HR* Dextrose 50 % in Water (Syg) 50 ML SYRINGE IVP PRN ×2 (20:43→20:49)
[2017-08-10] MEDS ORDERED: Insulin LISPRO 300 UNITS/3 ML VIAL SQ SCH (21:00)
[2017-08-11] MEDS: *HR* OxyCODONE/APAP 10/325 TABLET PO PRN ×3 (06:28→21:03)
[2017-08-11] MEDS: amLODIPine 5 MG TABLET PO SCH (08:16)
[2017-08-11] MEDS: Gabapentin 300 MG CAPSULE PO SCH ×3 (08:16→20:53)
[2017-08-11] MEDS: predniSONE 10 MG TABLET PO SCH (08:16)
[2017-08-11] MEDS: Sulfamethoxazole/Trimeth SS 1 TAB PO SCH (08:16)
[2017-08-11] MEDS: Cholecalciferol (D-3) 1,000 UNIT TABLET PO SCH (08:16)
[2017-08-11] MEDS: Aspirin 81 MG TAB.CHEW PO SCH (08:16)
[2017-08-11] MEDS: Pyridostigmine Br 60 MG TABLET PO SCH ×3 (08:16→20:53)
[2017-08-11] MEDS: Metoprolol XL (24 HR) Succ 25 MG TAB.ER.24H PO SCH (08:16)
[2017-08-11] MEDS: Insulin LISPRO 300 UNITS/3 ML VIAL SQ SCH ×4 (08:16→20:54)
[2017-08-11] MEDS: Insulin NPH 100 UNIT/ML (x5UNIT) SQ SCH (08:17)
--- NOTE | 2017-08-11 08:48 | Internal Med Progress Note ---
Date of Encounter: 08/11/17 Time of Encounter: 08:46 - Assessment and plan (1) Thoracic back pain Current Visit: Yes Status: Acute Assessment and plan: presented to ED with complaints of severe back pain. Chest CTA negative for pulmonary embolism, dissection. Etiology unknown at this time. No obvious trauma or injury. Cervical MRI with stenosis of the thecal sac and narrowing of the neural foramina. Number MRI with was stenosis of the thecal sac and narrowing of the neural foramina as well. PT/OT consult. Dr. Stout consulted. Conservative pain control and use of muscle relaxants with history of myasthenia gravis. Qualifiers: Chronicity: acute Back pain laterality: midline Qualified Code(s): M54.6 - Pain in thoracic spine (2) Chest pain, rule out acute myocardial infarction Current Visit: Yes Status: Acute Assessment and plan: per hx. presented with back pain that radiated to chest. Has chronically elevated troponin. No acute EKG changes. Chest CTA unremarkable. Evaluated by cardiology who did not suspect in STEMI. No further cardiac workup indicated at this time. Continue home ASA, statin, BB, Plavix. (3) Diabetes mellitus Current Visit: Yes Status: Acute Assessment and plan: per hx. Blood sugars elevated. Cont home insulin. Add low dose SSI. Monitor blood sugar and titrate PRN. Hgb A1c pending Qualifiers: Diabetes mellitus type: type 2 Diabetes mellitus senior living insulin use: with senior living use Diabetes mellitus complication status: without complication Qualified Code(s): E11.9 - Type 2 diabetes mellitus without complications; Z79.4 - FDC (current) use of insulin (4) Hypertension Current Visit: Yes Status: Acute Assessment and plan: per hx. BP controlled. Continue home BP medication. 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 Follows with Neurology at [facility]. Stable, no evidence of exacerbation/ crisis. Continue home medicine. Consult to neurologist if any concern. (6) Hx of deep venous thrombosis Current Visit: Yes Status: Acute Assessment and plan: With multiple clots in the past. On lifelong anticoagulation. Continue home Coumadin. (7) DVT prophylaxis Current Visit: Yes Status: Acute Assessment and plan: Coumadin - Time Spent With Patient Total time spent is greater than 50% in coordination of care (as documented) at patient's floor/unit and/or counseling patient: - Subjective Interval history: Seen and examined at bedside. Says he had uneventful night. Still with severe back pain with any type of movement. Says he is unable to sit up or ambulate on his own. No pain as long as she is laying still. No numbness or tingling, no loss of bowel or bladder continence. - Constitutional Vitals: Temp Pulse Resp BP Pulse Ox 98.3 F 86 19 134/94 97 08/11/17 07:47 08/11/17 07:47 08/11/17 07:47 08/11/17 07:47 08/11/17 07:47 General appearance: Present: A&O X 3, pleasant - Head Head exam: Present: atraumatic, normocephalic - Eye Eye exam: Present: PERRL, conjuntiva pink, sclera anicteric Pupils: Present: PERRL - Neck Neck exam general surgery: Present: supple, trachea midline. Absent: lymphadenopathy - Respiratory Respiratory exam: Present: CTAB. Absent: accessory muscle use, rales, rhonchi, wheezes - Cardiovascular Cardiovascular exam: Present: RRR, +S1, +S2. Absent: diastolic murmur, gallop, rubs, systolic murmur - GI/Abdominal GI/Abdominal exam: Present: normal bowel sounds, soft, no peritoneal signs. Absent: distended, tenderness - Extremities Exam Extremities exam: Present: warm, radial pulses palpable and symmetrical. Absent : calf tenderness, cyanotic, pedal edema - Neurological Exam Neurological exam: Present: CN II-XII intact, oriented X3, no focal deficits. 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 Disc and osteophytes contribute to further stenosis of the thecal sac and narrowing of the neural foramina as discussed above. 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 Disc and osteophytes as well as facet and ligamentum flavum hypertrophy contribute to further stenosis of the thecal sac and narrowing of the neural foramina as discussed above. D/ / 08/10/2017 13:30:48 Renuka Bonner MD / [place] Interpreting Provider: Renuka Bonner MD Thoracic Spine MRI 08/10/17 09:49 IMPRESSION: Motion artifact degrades the images. There are minimal degenerative changes throughout the thoracic spine. There is mild narrowing of the neural foramina at T8-9 and T9-10 from facet arthropathy. No significant stenosis of the thecal sac in the thoracic region. D/ / 08/10/2017 13:35:54 Renuka Bonner MD / ale[place] Interpreting Provider: Renuka Bonner MD Consult Discharge Plan - Plan [facility]errals: [facility] [[facility] Care Provider[facility] -
[2017-08-11 10:24] LABS: INR 2.9; Prothrombin Time 32.3 Seconds (9.4-12.1)
[2017-08-11 10:37] LABS: BUN/Creatinine Ratio 23 (6-26); Blood Urea Nitrogen 26 mg/dL (6-20); Carbon Dioxide 28 mEq/L (23-29); Chloride 103 mEq/L (98-107); Glucose 371 mg/dL (70-105); Osmolality,Calculated 302 (280-300); Potassium 3.9 mEq/L (3.5-5.1); Sodium 136 mEq/L (136-145); eGFR For African Americans > 60 (> 60); eGFR For Non-African Americans > 60 (> 60)
[2017-08-11 12:52] LABS: Estimated Average Glucose 295 mg/dl; Hemoglobin A1C 11.9 %
[2017-08-11] MEDS ORDERED: *HR* Warfarin 3 MG TABLET PO ONE (18:00)
[2017-08-11] MEDS ORDERED: Dextrose Gel 15 GM/37.5 ML TUBE PO PRN ×2 (20:09)
[2017-08-11] MEDS ORDERED: D5% in Water 1,000 ML IVC PRN (20:09)
[2017-08-11] MEDS ORDERED: *HR* Dextrose 50 % in Water (Syg) 50 ML SYRINGE IVP PRN (20:09)
[2017-08-11] MEDS ORDERED: Insulin LISPRO 300 UNITS/3 ML VIAL SQ SCH (21:00)
[2017-08-12] MEDS: *HR* OxyCODONE/APAP 10/325 TABLET PO PRN ×2 (05:37→11:57)
[2017-08-12 07:23] LABS: BUN/Creatinine Ratio 22 (6-26); Blood Urea Nitrogen 22 mg/dL (6-20); Calcium 9.2 mg/dL (8.6-10.3); Carbon Dioxide 29 mEq/L (23-29); Chloride 103 mEq/L (98-107); Glucose 386 mg/dL (70-105); Osmolality,Calculated 305 (280-300); Potassium 3.7 mEq/L (3.5-5.1); Sodium 138 mEq/L (136-145); eGFR For African Americans > 60 (> 60); eGFR For Non-African Americans > 60 (> 60)
[2017-08-12 07:28] LABS: INR 2.8; Prothrombin Time 30.6 Seconds (9.4-12.1)
[2017-08-12] MEDS: Insulin NPH 100 UNIT/ML (x5UNIT) SQ SCH (08:37)
[2017-08-12] MEDS: Insulin LISPRO 300 UNITS/3 ML VIAL SQ SCH ×3 (08:39→18:02)
[2017-08-12] MEDS: Cholecalciferol (D-3) 1,000 UNIT TABLET PO SCH (08:40)
[2017-08-12] MEDS: predniSONE 10 MG TABLET PO SCH (08:41)
[2017-08-12] MEDS: Gabapentin 300 MG CAPSULE PO SCH ×2 (08:41→14:51)
[2017-08-12] MEDS: amLODIPine 5 MG TABLET PO SCH (08:41)
[2017-08-12] MEDS: Aspirin 81 MG TAB.CHEW PO SCH (08:41)
[2017-08-12] MEDS: Sulfamethoxazole/Trimeth SS 1 TAB PO SCH (08:41)
[2017-08-12] MEDS: Pyridostigmine Br 60 MG TABLET PO SCH ×2 (08:41→14:51)
[2017-08-12] MEDS: Metoprolol XL (24 HR) Succ 25 MG TAB.ER.24H PO SCH (08:41)
--- NOTE | 2017-08-12 15:22 | Discharge Summary ---
Orders not resulted at time of discharge: Pending orders 08/13/17 04:00 BMP [Basic Metabolic Panel] AM 0400 INR/PT [Prothrombin Time INR] [COAG] AM 0400 08/14/17 04:00 BMP [Basic Metabolic Panel] AM 0400 INR/PT [Prothrombin Time INR] [COAG] AM 0400 08/15/17 04:00 BMP [Basic Metabolic Panel] AM 0400 INR/PT [Prothrombin Time INR] [COAG] AM 0400 Date of Encounter: 08/12/17 Time of Encounter: 15:18 - Discharge Diagnosis (1) Thoracic back pain Priority: Primary Status: Acute Assessment and Plan: presented to ED with complaints of severe back pain. Chest CTA negative for pulmonary embolism, dissection. Etiology unknown at this time. No obvious trauma or injury. Cervical MRI with stenosis of the thecal sac and narrowing of the neural foramina. Number MRI with was stenosis of the thecal sac and narrowing of the neural foramina as well. Evaluated by Dr. Stout who recommended management with analgesics and muscle relaxants for now. Will need to follow-up with Dr. Stout outpatient for possible lumbar steroid injections. Patient advised on conservative pain control and use of muscle relaxants with history of myasthenia gravis. Qualifiers: Chronicity: acute Back pain laterality: midline Qualified Code(s): M54.6 - Pain in thoracic spine (2) Chest pain, rule out acute myocardial infarction Priority: Primary Status: Acute Assessment and Plan: per hx. presented with back pain that radiated to chest. Has chronically elevated troponin. No acute EKG changes. Chest CTA unremarkable. Evaluated by cardiology who did not suspect in STEMI. No further cardiac workup indicated at this time. Continue home ASA, statin, BB, Plavix. (3) Diabetes mellitus Priority: Primary Status: Acute Assessment and Plan: per hx. Uncontrolled. Hgb 11.9% (down from 15 per patient report ). Blood sugars elevated; likely secondary to steroids. Strongly encouraged dietary compliance. Cont home diabetes medication regimen Qualifiers: Diabetes mellitus type: type 2 Diabetes mellitus care home insulin use: with care home use Diabetes mellitus complication status: without complication Qualified Code(s): E11.9 - Type 2 diabetes mellitus without complications; Z79.4 - intermediate manager (current) use of insulin (4) Hypertension Priority: Primary Status: Acute Assessment and Plan: per hx. BP controlled. Continue home BP medication. Qualifiers: Hypertension type: essential hypertension Qualified Code(s): I10 - Essential (primary) hypertension (5) Myasthenia gravis associated with thymoma Priority: Primary Status: Chronic Assessment and Plan: per hx. Follows with Neurology at [facility]. Recently admitted at [facility] with myasthenia crisis. Stable, no evidence of exacerbation/crisis. Continue home medicine. (6) Hx of deep venous thrombosis Priority: Secondary Status: Acute Assessment and Plan: With multiple clots in the past. On lifelong anticoagulation. Continue home Coumadin. (7) Antibiotic long-term use Priority: Primary Status: Acute Assessment and Plan: Bactrim was on patient's home medication list. Patient unsure why he was taking it; says he was discharged home on Bactrim from [facility]. Records requested from [facility] which indicated Bactrim as a home medication prior to hospitalization and per [facility] discharge summary Bactrim was not continued. No obvious infectious source that would indicate need for ATB. Patient advised to discontinue Bactrim. Hospital course: Please see assessment and plan for Hospital course Discharge discussed with: patient (Seen and examined at bedside. Uneventful night. No changes in exam. Patient states persistent back pain with any type of movement or activity. No pain when he is laying still. He is aware plan to follow-up with Dr. Stout outpatient.) - Time Spent with Patient Total time spent providing and/or coordinating discharge services: - Discharge Medications Prescriptions: OxyCODONE/APAP 10/325 [Percocet 10/325 MG] 1 each PO Q6HR PRN 7 Days #28 tablet PRN Reason: Pain Cyclobenzaprine [Flexeril] 10 mg PO BID PRN 7 Days #14 tablet PRN Reason: Muscle Spasm Home Medications: traMADol [Ultram] 100 mg PO TID PRN 04/29/15 [History] Aspirin 81 mg PO DAILY #30 tab.chew 05/13/15 [Rx] Atorvastatin Calcium 40 mg PO DAILY 03/07/17 [History] Gabapentin [Neurontin] 300 mg PO TID 03/07/17 [History] Ibuprofen 800 mg PO TID PRN 03/07/17 [History] Nitroglycerin 0.4 mg SL Q5MIN PRN #90 tab.subl 03/12/17 [Rx] amLODIPine [Norvasc] 5 mg PO DAILY #30 tablet 03/12/17 [Rx] Acetaminophen [Tylenol] 650 mg PO Q4HR 08/09/17 [History] Calcium Carbonate/Vitamin D3 [Calcium 500 + Vit D Caplet] 1 tab PO DAILY [History] DULoxetine [Cymbalta] 30 mg PO DAILY 08/09/17 [History] Insulin ASPART [NovoLOG] 0 unit SQ TIDWM 08/09/17 [History] Insulin ASPART [NovoLOG] 25 unit SQ TIDWM 08/09/17 [History] Insulin NPH Human Isophane [Novolin N] 30 units SQ DAILY 08/09/17 [History] Metoprolol Succinate [Toprol Xl] 25 mg PO DAILY 08/09/17 [History] Pantoprazole Sodium 40 mg PO DAILY 08/09/17 [History] Pyridostigmine Br [Mestinon] 60 mg PO TID 08/09/17 [History] Tamsulosin [Flomax] 0.4 mg PO DAILY 08/09/17 [History] Warfarin [Coumadin] 1.5 mg PO TH 08/09/17 [History] Warfarin [Coumadin] 3 mg PO SUMOTUWEFRSA 08/09/17 [History] predniSONE [PredniSONE] 30 mg PO DAILY 08/09/17 [History] Cyclobenzaprine [Flexeril] 10 mg PO BID PRN 7 Days #14 tablet 08/12/17 [Rx] OxyCODONE/APAP 10/325 [Percocet 10/325 MG] 1 each PO Q6HR PRN 7 Days #28 tablet 08/12/17 [Rx] Allergies/Adverse Reactions: 3 Allergy/AdvReac Type Severity Reaction Status Date / Time rifampin Allergy Anaphylaxis Verified 08/09/17 11:05 Date of admission: 08/09/17 10:12 [facility] Consults: 08/10/17 15:50 PT [Consult to Physical Therapy] [CONS] Routine Comment: Evaluate, develop and implement POC Reason for Consult: backpain, limited mobility Does patient have active BEDREST order?: No Is patient medically & hemodynamically stable?: Yes 08/11/17 08:50 Consult to Physician [CONS] Routine Consulting Provider: Saul Stout Jr Reason for Consult: Back pain with cervical and lumbar stenosis Call Completed: Yes Discharging clinician: Manju Lee Anticipated date of discharge: 08/12/17 - Constitutional Vitals: Temp Pulse Resp BP Pulse Ox 98.1 F 88 18 162/84 97 08/12/17 11:13 08/12/17 11:13 08/12/17 11:13 08/12/17 11:13 08/12/17 11:13 General appearance: Present: A&O X 3, pleasant - Head Head exam: Present: atraumatic, normocephalic - Eye Eye exam: Present: PERRL, conjuntiva pink, sclera anicteric Pupils: Present: PERRL - Neck Neck exam general surgery: Present: supple, trachea midline. Absent: lymphadenopathy - Respiratory Respiratory exam: Present: CTAB. Absent: accessory muscle use, rales, rhonchi, wheezes - Cardiovascular Cardiovascular exam: Present: RRR, +S1, +S2. Absent: diastolic murmur, gallop, rubs, systolic murmur - GI/Abdominal GI/Abdominal exam: Present: normal bowel sounds, soft, no peritoneal signs. Absent: distended, tenderness - Extremities Exam Extremities exam: Present: warm, radial pulses palpable and symmetrical. Absent : calf tenderness, cyanotic, pedal edema - Neurological Exam Neurological exam: Present: CN II-XII intact, oriented X3, no focal deficits. Absent: pronater drift, facial droop, speech deficit - Skin Skin exam: Present: dry, intact - Patient Status Disposition: Home, Self-Care Condition: Undetermined Functional capacity at discharge: uses cane/walker Overall status at discharge: patient is progressing back to baseline - Discharge Instructions Instructions: Myasthenia Gravis (DC), Diabetes Mellitus Type 2 in Adults (DC), Chronic Hypertension (DC), Back Pain (GEN) Follow Up With: Saul Stout Jr, MD [Partnered Physician] - 08/15/17 1:00 pm (Please cal1 the office for a follow-up appointment within 2 weeks) [facility] [Primary Care Provider[facility] - 08/20/17 2:15 pm Additional Instructions: Continue home Coumadin dose. Resume INR checks as previously scheduled before hospitalization. - Diet and Activity Activity: increase activity as tolerated Diet: diabetic diet, low fat, low cholesterol
[2017-08-12] MEDS ORDERED: *HR* Warfarin 3 MG TABLET PO ONE (18:00)
[2017-08-12 19:12] VITALS: BP 162/84
[2017-08-15] MEDS ORDERED: *HR* Warfarin 3 MG TABLET PO SCH (18:00)
== END 2017-08-12 18:28 | disposition home or self-care (01) ==
LOC: EMEROO 04:44 → 3BNU 04:44
PROVIDERS: ADMIT General Practice; ATTEND General Practice

== ENCOUNTER 2018-08-04 13:12 | Inpatient (IN) ==
--- NOTE | 2018-08-04 13:35 | Emergency Department Note ---
Disposition Clinical Impression: Hypertensive emergency, Elevated troponin Headache Qualifiers: Headache type: unspecified Headache chronicity pattern: unspecified pattern Intractability: not intractable Qualified Code(s): R51 - Headache Disposition: Admitted As Inpatient Condition: Fair [facility]: [facility]Primary Care Provider[facility] - Forms: ED Satisfaction Letter General Adult HPI - General Chief complaint: ED Headache Stated complaint: Elevated BP SIMENTAL Nausea Time Seen by Provider: 08/04/18 13:20 Source: patient Mode of arrival: private vehicle Limitations: no limitations Nursing Notes Reviewed: Yes Vital Signs Reviewed: Yes - History of Present Illness HPI Narrative: Patient is a 52-year-old male with past medical history including malignant thymoma, myasthena gravis, history of DVT on warfarin, hypertension, coronary artery disease with 2 stent placements, presenting with chief complaint of headache and elevated blood pressures for 2-3 days. He denies any recent medication changes. Denies recent illnesses. He states 3 days ago, he noted that his blood pressures were more elevated than his baseline. He also compla ins of a left parietal pounding headache that has been intermittent. It is gradual onset and not sudden. He has been taking Motrin and his blood pressure medications without improvement. He denies vision changes, loss of hearing, unilateral weakness or paresthesias. He states earlier in the day, he complains of chest pain with exertion. He believes it was just gas pain. He denies shortness of breath. He does state he has nausea and multiple episodes of nonbilious nonbloody vomiting today. 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 Pain Scale: 8 - Related Data Home Medications Medication Instructions Recorded Confirmed Atorvastatin Calcium 40 mg PO DAILY 03/07/17 04/26/18 Ibuprofen 800 mg PO TID PRN 03/07/17 04/26/18 Acetaminophen [Tylenol] 650 mg PO Q4HR 08/09/17 04/26/18 DULoxetine [Cymbalta] 30 mg PO DAILY 08/09/17 04/26/18 Insulin ASPART [NovoLOG] 0 unit SQ TIDWM 08/09/17 04/26/18 Insulin ASPART [NovoLOG] 25 unit SQ TIDWM 08/09/17 04/26/18 Insulin NPH Human Isophane 30 units SQ DAILY 08/09/17 04/26/18 [Novolin N] Metoprolol Succinate [Toprol Xl] 25 mg PO DAILY 08/09/17 04/26/18 Pantoprazole Sodium 40 mg PO DAILY 08/09/17 04/26/18 Pyridostigmine Br [Mestinon] 60 mg PO TID 08/09/17 04/26/18 Tamsulosin [Flomax] 0.4 mg PO DAILY 08/09/17 04/26/18 Warfarin [Coumadin] 1.5 mg PO TH 08/09/17 04/26/18 Warfarin [Coumadin] 3 mg PO [id number] 08/09/17 04/26/18 Previous Rx's Medication Instructions Recorded Aspirin 81 mg PO DAILY #30 tab.chew 05/13/15 Nitroglycerin 0.4 mg SL Q5MIN PRN #90 tab.subl 03/12/17 amLODIPine [Norvasc] 5 mg PO DAILY #30 tablet 03/12/17 predniSONE [PredniSONE] 60 mg PO DAILY #5 tablet 04/26/18 Allergies Allergy/AdvReac Type Severity Reaction Status Date / Time rifampin Allergy Anaphylaxis Verified 05/04/18 09:17 All systems ED: reviewed and negative except as stated. Review of Systems: As Per HPI Constitutional: Denies: fever, chills Eyes: Denies: vision change ENT ED: Denies: hearing loss Cardiovascular: Reports: chest pain. Denies: palpitations Respiratory: Denies: cough, dyspnea Gastrointestinal: Reports: nausea, vomiting. Denies: abdominal pain Genitourinary: Denies: dysuria Musculoskeletal: Denies: back pain Neurological: Reports: headache. Denies: weakness, numbness, paresthesias, confusion Past Medical History - Past Medical History Attestation: Yes The following information was validated with the patient. Source: patient Medical history: Reports: cancer, coronary artery disease, DVT, diabetes, hyperlipidemia, hypertension, myocardial infarction, other Surgical history: Reports: hip replacement (Right), IVC Filter, other (Sternotomy, pericardial surgery, left lower lung resection and excision of malignant thymoma) Psychiatric history: Reports: no psych history - Social History Smoking Status: Never smoker Smokeless Tobacco Status: No Alcohol use: Reports: none Drug use: Reports: none Physical Exam - General Limitations: no limitations General appearance: alert, in no apparent distress - Head Head exam: atraumatic, normocephalic, normal inspection - Eye Eye exam: Present: normal appearance, PERRL, EOMI. Absent: conjunctival injection, nystagmus - ENT ENT exam: normal exam, normal oropharynx - Neck Neck exam: Present: normal inspection, full ROM, trachea midline - Chest Chest inspection: Present: normal inspection, symmetric chest wall rise, other (well healed mid chest incision scar) - Respiratory Respiratory exam: Present: normal lung sounds bilaterally. Absent: respiratory distress, wheezes - Cardiovascular Cardiovascular exam: Present: regular rate, normal rhythm, normal heart sounds, other (bilateral radial pulses equal) - Abdominal Exam Abdominal exam: Present: soft, Non-Tender, other (healed midline abdominal scar). Absent: guarding, rebound - Extremities Exam Extremities exam: Present: normal capillary refill. Absent: pedal edema, calf tenderness - Neurological Exam Neurological exam: Present: alert, oriented X3, CN II-XII intact, normal gait. Absent: motor sensory deficit - Expanded Neurological Exam Speech: Present: fluid speech Motor strength - LUE: 5/5 Motor strength - RUE: 5/5 Motor strength - LLE: 5/5 Motor strength - RLE: 5/5 Upper motor neuron exam: ryan neglect: Absent bilaterally, pronator drift: Absent bilaterally Sensory exam upper extremity: light touch: Normal Sensory exam lower extremity: light touch: Normal - Skin Skin exam: Present: warm, dry. Absent: diaphoresis, pallor Course Vital Signs Temperature 97.5 F L 08/04/18 13:13 Pulse Rate 97 08/04/18 13:13 Respiratory Rate 16 08/04/18 13:13 Blood Pressure 182/129 08/04/18 13:13 O2 Sat by Pulse Oximetry 96 08/04/18 13:13 Temperature 97.5 F L 08/04/18 13:13 Pulse Rate 97 08/04/18 13:13 Respiratory Rate 16 08/04/18 13:13 Blood Pressure 182/129 08/04/18 13:13 O2 Sat by Pulse Oximetry 96 08/04/18 13:13 Oxygen Delivery Oxygen Delivery Room Air Medical Decision Making - MDM Narrative Medical decision making narrative: Patient is presenting with a three-day history of headaches, elevated blood pr essure and one-day history of nausea and vomiting. He states this is a new headache for him. He did have chest pain earlier today and is currently chest pain-free. He is also on Coumadin. We will obtain CT head without contrast to evaluate for an intracranial bleed. We will also evaluate for end organ damage and ACS and check EKG, CBC, BMP, hepatic panel, troponin, BNP. Will check PT INR to see if he is therapeutic. We will give the patient fentanyl and Zofran. 15:10 Patient has an elevated troponin of 0.12. He denies any chest pain. He does state his headache is improved. We will repeat his blood pressures now that his headache is improved. He is asymptomatic hypertension, likely hypertensive emergency with elevated troponin. We will give him aspirin. He will require admission. CT head shows no acute intracranial abnormality. Most recent blood pressure is 135/88. Hospitalist was paged for admission for headache and elevated troponin. 1523 hrs. Headache is gone feeling better his troponins elevated. Were in a bring him in for that his blood pressures improved. He is in agreement with plan. 15:[address] Husain, hospitalist, who accepts admission Chest X-Ray 08/04/18 13:53 IMPRESSION: No acute findings. D/ / 08/04/2018 14:51:07 Shivam Pierce MD / abraham Interpreting Provider: Shivam Pierce MD Head CT 08/04/18 13:53 IMPRESSION: No acute intracranial abnormality. D/ / Shivam Mcfarland MD / Shivam Mcfarland MD Interpreting Provider: Shivam Mcfarland MD - Medical Records Medical records reviewed: Yes I reviewed the patient's medical records. - Lab Data Lab results reviewed: Yes I reviewed the patient's lab results. Result diagrams: 08/04/18 14:03 08/04/18 14:03 Lab Results 08/04/18 08/04/18 08/04/18 Range/Units 14:03 14:03 14:03 WBC 18.5 H (4.3-11.1) K/mcL RBC 6.26 H (4.19-5.50) M/mcL Hgb 16.8 (12.9-16.9) g/dL Hct 51.6 H (37.5-50.1) % MCV 82.4 L (83.0-100.0) fL MCH 26.8 L (28.0-33.3) pg MCHC 32.6 (31.6-35.5) g/dL RDW 15.5 H (11.5-14.5) % Plt Count 245 (140-400) K/mcL MPV 10.5 (9.4-12.4) fL Immature Gran % 0.4 (0-4) % Seg Neutrophils % 83.9 % Lymphocytes % 8.9 % Monocytes % 6.2 % Eosinophils % 0.3 % Basophils % 0.3 % Neutrophils # 15.5 H (1.6-8.9) K/mcL Lymphocytes # 1.6 (0.6-4.6) K/mcL Monocytes # 1.1 (0.0-1.3) K/mcL Eosinophils # 0.1 (0.0-0.6) K/mcL Basophils # 0.1 (0.0-0.2) K/mcL PT (9.4-12.1) Seconds INR APTT (26.0-36.0) Seconds Sodium 136 (136-145) mEq/L Potassium 3.9 (3.5-5.1) mEq/L Chloride 97 L (98-107) mEq/L Carbon Dioxide 30 H (23-29) mEq/L BUN 22 H (6-20) mg/dL Creatinine 1.05 (0.70-1.30) mg/dL Est GFR ( Amer) > 60 (> 60) Est GFR (Non-Af Amer) > 60 (> 60) BUN/Creatinine Ratio 21 (6-26) Glucose 294 H (70-105) mg/dL Calculated Osmolality 296 (280-300) Calcium 10.1 (8.6-10.3) mg/dL Total Bilirubin 0.7 (0.3-1.0) mg/dL Direct Bilirubin 0.2 (0.0-0.2) mg/dL Indirect Bilirubin 0.5 (0.0-1.2) mg/dL AST 36 (13-39) Units/L ALT 80 H (7-52) Units/L Alkaline Phosphatase 102 (34-104) Units/L Troponin I 0.12 H* (< 0.04) ng/mL B-Natriuretic Peptide 51 (Less than 100) pg/mL Serum Total Protein 7.0 (6.4-8.9) g/dL Albumin 4.1 (3.5-5.7) g/dL Globulin 2.9 (2.4-3.5) g/dL Albumin/Globulin Ratio 1.4 (1.1-2.2) 08/04/18 Range/Units 14:03 WBC (4.3-11.1) K/mcL RBC (4.19-5.50) M/mcL Hgb (12.9-16.9) g/dL Hct (37.5-50.1) % MCV (83.0-100.0) fL MCH (28.0-33.3) pg MCHC (31.6-35.5) g/dL RDW (11.5-14.5) % Plt Count (140-400) K/mcL MPV (9.4-12.4) fL Immature Gran % (0-4) % Seg Neutrophils % % Lymphocytes % % Monocytes % % Eosinophils % % Basophils % % Neutrophils # (1.6-8.9) K/mcL Lymphocytes # (0.6-4.6) K/mcL Monocytes # (0.0-1.3) K/mcL Eosinophils # (0.0-0.6) K/mcL Basophils # (0.0-0.2) K/mcL PT 17.4 H (9.4-12.1) Seconds INR 1.5 APTT 30.0 (26.0-36.0) Seconds Sodium (136-145) mEq/L Potassium (3.5-5.1) mEq/L Chloride (98-107) mEq/L Carbon Dioxide (23-29) mEq/L BUN (6-20) mg/dL Creatinine (0.70-1.30) mg/dL Est GFR ( Amer) (> 60) Est GFR (Non-Af Amer) (> 60) BUN/Creatinine Ratio (6-26) Glucose (70-105) mg/dL Calculated Osmolality (280-300) Calcium (8.6-10.3) mg/dL Total Bilirubin (0.3-1.0) mg/dL Direct Bilirubin (0.0-0.2) mg/dL Indirect Bilirubin (0.0-1.2) mg/dL AST (13-39) Units/L ALT (7-52) Units/L Alkaline Phosphatase (34-104) Units/L Troponin I (< 0.04) ng/mL B-Natriuretic Peptide (Less than 100) pg/mL Serum Total Protein (6.4-8.9) g/dL Albumin (3.5-5.7) g/dL Globulin (2.4-3.5) g/dL Albumin/Globulin Ratio (1.1-2.2) - Radiology Data Radiology results reviewed: Yes I reviewed the patient's radiology results. Chest X-Ray 08/04/18 13:53 IMPRESSION: No acute findings. D/ / 08/04/2018 14:51:07 Shivam Pierce MD / abraham Interpreting Provider: Shivam Pierce MD Head CT 08/04/18 13:53 IMPRESSION: No acute intracranial abnormality. D/ / Shivam Mcfarland MD / Shivam Mcfarland MD Interpreting Provider: Shivam Mcfarland MD - EKG Data EKG #1 EKG attestation: Yes I reviewed and interpreted this EKG. EKG results narrative: EKG obtained at 1329 shows sinus rhythm with heart rate 96, MD interval 180, QRS duration 91, QTC 457. Left atrial enlargement with left anterior fascicular block. No ST elevation or depression. T-wave inversion in aVL. Compared to old EKG on 05/04/2018 which shows no acute changes. Attestation Statement - Attestation Attestation: This documentation is done with the assistance of Dragon dictation. Despite efforts made to ensure accuracy, there may be inaccuracies in compliance assistant or spelling and typographical errors. I examined this patient and my medical decision-making was reviewed with the Resident Physician. I agree with the documented findings, disposition and treatment plan as described except to the extent set forth below. Patient seen and evaluated today by Dr. Gross and myself, I agree with her evaluation and management plan, I supervised the care the patient's stay. Patient presents with left-sided parietal headache. Pulsatile. Denies any vomiting but is nauseous has no fevers here on a bedside exam did not see any papilledema. Supple neck no meningeal signs. No focal deficits on neuro exam. He does have elevated blood pressure but just since she has been sitting down his pressures come down quite a bit since triage. We will order a CT of his head him something for his headache check labs and reassess. He is in agreement with this plan.
[2018-08-04] MEDS ORDERED: Ondansetron 4 MG/2 ML VIAL IVP ONE (13:53)
[2018-08-04] MEDS ORDERED: *HR* HYDROmorphone (PF) 1 MG/ML SYRINGE IVP ONE (13:54)
[2018-08-04 14:23] LABS: Basophils # 0.1 K/mcL (0.0-0.2); Basophils % 0.3 %; Eosinophils # 0.1 K/mcL (0.0-0.6); Eosinophils % 0.3 %; Hematocrit 51.6 % (37.5-50.1); Hemoglobin 16.8 g/dL (12.9-16.9); Immature Granulocytes % 0.4 % (0-4); Lymphocytes # 1.6 K/mcL (0.6-4.6); Lymphocytes % 8.9 %; Mean Corpuscular HGB Conc 32.6 g/dL (31.6-35.5); Mean Corpuscular Hemoglobin 26.8 pg (28.0-33.3); Mean Corpuscular Volume 82.4 fL (83.0-100.0); Mean Platelet Volume 10.5 fL (9.4-12.4); Monocytes # 1.1 K/mcL (0.0-1.3); Monocytes % 6.2 %; Neutrophils # 15.5 K/mcL (1.6-8.9); Platelet Count 245 K/mcL (140-400); Red Blood Count 6.26 M/mcL (4.19-5.50); Red Cell Distribution Width 15.5 % (11.5-14.5); Segmented Neutrophils % 83.9 %
[2018-08-04 14:33] LABS: INR 1.5; Prothrombin Time 17.4 Seconds (9.4-12.1)
[2018-08-04 14:53] LABS: Troponin I 0.12 ng/mL (< 0.04)
[2018-08-04 15:01] LABS: Alanine Aminotransferase 80 Units/L (7-52); Albumin 4.1 g/dL (3.5-5.7); Albumin/Globulin Ratio 1.4 (1.1-2.2); Alkaline Phosphatase 102 Units/L (34-104); Aspartate Amino Transferase 36 Units/L (13-39); BUN/Creatinine Ratio 21 (6-26); Bilirubin,Direct 0.2 mg/dL (0.0-0.2); Bilirubin,Indirect 0.5 mg/dL (0.0-1.2); Bilirubin,Total 0.7 mg/dL (0.3-1.0); Blood Urea Nitrogen 22 mg/dL (6-20); Calcium 10.1 mg/dL (8.6-10.3); Carbon Dioxide 30 mEq/L (23-29); Chloride 97 mEq/L (98-107); Globulin 2.9 g/dL (2.4-3.5); Glucose 294 mg/dL (70-105); Osmolality,Calculated 296 (280-300); Potassium 3.9 mEq/L (3.5-5.1); Sodium 136 mEq/L (136-145); eGFR For Non-African Americans > 60 (> 60)
[2018-08-04] MEDS ORDERED: Aspirin 81 MG TAB.CHEW PO ONE (15:09)
--- NOTE | 2018-08-04 16:19 | Internal Med History&Physical ---
Date of Encounter: 08/04/18 Time of Encounter: 16:15 Internal Medicine - H&P: HPI Chief complaint: Headache Admitted From: Emergency Dept History of present illness: Shine Mott is a 52 M w hx myasthenia gravis, thymoma s/p excision, DVT on AC, reported HFrEF (unknown EF), CAD s/p PCI, HTN, DM2, who p/w headache. Headache began 3 days ago at the same time patient noticed his blood pressure was elevated. Headache is left sided, throbbing. Did have some nausea with it, too. Pt states he's had these headaches before, and that they usually correlate with elevated BP and then go away when taking meds to lower his pressure. However, in the last few days, he's noticed inability to get his pressures down, even with extra doses of his BP meds, and he's maintained the headache which is what prompted concern. At a cardiology office appointment today, with headache and persistently elevated pressures, pt was sent to ED. No visual symptoms, no fevers, no numbness/tingling or motor weakness, no difficulty speaking or swallowing. Patient does report intermittent night sweats but otherwise denies rash, abd pain, diarrhea, dysuria. In the ED, pt vitals with HR 90s, SBP 180s. CXR unremarkable. CT head, obtained due to warfarin use + headache + HTN, without bleed. ECG showing only LVH, LAE, LAFB, no ST/T changes. Labs remarkable for WBC 18, Hb 17/Hct 52, initial troponin of 0.12, ALT 80. Pt was given dose of dilaudid 1mg iv x1 and his he adache and blood pressures improved. Past medical, surgical, social, and family histories reviewed and updated as below. 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 Myasthenia Gravis - Social History Smoking Status: Never smoker Smokeless Tobacco Status: No Alcohol use: none Drug use: none - Family History Father Adopted: No Family Member Ethnicity: Non- Living Status: Still Living Hx Family Cardiac Disorders: Yes Hx Family Respiratory Disorders: No Hx Family Cancer: No Hx Family GI Disorders: No Hx Family Endocrine Disorder: Yes Hx Family Neuromuscular Disorders: No Hx Family Neurologic Disorders: Yes Hx Family HEENT Disorders: No Brother Hx Family Cancer: Yes (Prostate and colon cancer) Mother Adopted: No Family Member Ethnicity: Non- Living Status: Still Living Hx Family Cardiac Disorders: Yes Hx Family Respiratory Disorders: No Hx Family Cancer: No Hx Family GI Disorders: No Hx Family Endocrine Disorder: Yes Hx Family Neuromuscular Disorders: No Hx Family Neurologic Disorders: Yes Hx Family HEENT Disorders: No Internal Medicine - H&P: Meds Aspirin 81 mg PO DAILY #30 tab.chew 05/13/15 [Rx] Atorvastatin Calcium 40 mg PO DAILY 03/07/17 [History] Acetaminophen [Tylenol] 650 mg PO Q4HR 08/09/17 [History] Insulin NPH Human Isophane [Novolin N] 30 units SQ DAILY 08/09/17 [History] Metoprolol Succinate [Toprol Xl] 25 mg PO DAILY 08/09/17 [History] Pantoprazole Sodium 40 mg PO DAILY 08/09/17 [History] Celecoxib [Celebrex] 200 mg PO BID 08/04/18 [History] DULoxetine [Cymbalta] 30 mg PO DAILY 08/04/18 [History] Insulin ASPART [NovoLOG] 0 unit SQ TIDWM 08/04/18 [History] Insulin Glargine [Lantus] 40 unit SQ BID 08/04/18 [History] Lisinopril [Zestril] 10 mg PO QPM 08/04/18 [History] Lisinopril [Zestril] 20 mg PO DAILY 08/04/18 [History] PredniSONE [Deltasone] 20 mg PO BID 08/04/18 [History] Quetiapine Fumarate [Seroquel] 25 mg PO HS PRN 08/04/18 [History] Tamsulosin [Flomax] 0.4 mg PO DAILY 08/04/18 [History] Tramadol HCl [Ultram] 50 - 100 mg PO TID PRN 08/04/18 [History] Warfarin [Coumadin] 5 mg PO 1800 08/04/18 [History] Allergy/AdvReac Type Severity Reaction Status Date / Time rifampin Allergy Anaphylaxis Verified 05/04/18 09:17 All Systems PM: A 10-system review of systems was performed and is negative for pertinent findings except as documented above in the HPI. - Constitutional Vitals: Temp Pulse Resp BP Pulse Ox 97.5 F L 97 16 182/129 96 08/04/18 13:13 08/04/18 13:13 08/04/18 13:13 08/04/18 13:13 08/04/18 13:13 Exam: General: NAD, AAOx3, good eye contact, well appearing, obese Head: Atraumatic, normocephalic. Face symmetric Eyes: EOMI, sclerae anicteric ENT: Mucous membranes moist. Normal oral mucosa and dentition. Trachea midline. Thoracic: No visible chest wall deformities. Normal breath sounds b/l, no wheezing or crackles Cardio: Normal S1 and S2, regular rate and rhythm, does have mild systolic murmur Abdomen: Soft, nontender, nondistended. Bowel sounds present. Extremities: Warm, well perfused. DP pulses 2+ b/l. No clubbing, cyanosis. No edema Skin: Intact. No rashes, bruises, or ulcers Neuro: Awake, fully oriented. Good memory, concentration, attention. Speech fluent. CN II-XII grossly intact. Strength 5/5 in b/l UE and LE Internal Med - H&P Results - Labs CBC & Chem 7: 08/04/18 14:03 08/04/18 14:03 Labs: Short CBC 08/04/18 Range/Units 14:03 WBC 18.5 H (4.3-11.1) K/mcL Hgb 16.8 (12.9-16.9) g/dL Hct 51.6 H (37.5-50.1) % Plt Count 245 (140-400) K/mcL Neutrophils # 15.5 H (1.6-8.9) K/mcL BMP 08/04/18 14:03 Sodium 136 Potassium 3.9 Chloride 97 L Carbon Dioxide 30 H BUN 22 H Creatinine 1.05 Glucose 294 H Calcium 10.1 Cardiac Enzymes 08/04/18 Range/Units 14:03 Troponin I 0.12 H* (< 0.04) ng/mL Liver Function 08/04/18 Range/Units 14:03 Total Bilirubin 0.7 (0.3-1.0) mg/dL Direct Bilirubin 0.2 (0.0-0.2) mg/dL AST 36 (13-39) Units/L ALT 80 H (7-52) Units/L Alkaline Phosphatase 102 (34-104) Units/L Albumin 4.1 (3.5-5.7) g/dL - Impressions ITS Impressions Chest X-Ray 08/04/18 13:53 IMPRESSION: No acute findings. D/ / 08/04/2018 14:51:07 Shivam Pierce MD / abraham Interpreting Provider: Shivam Pierce MD Head CT 08/04/18 13:53 IMPRESSION: No acute intracranial abnormality. D/ / Shivam Mcfarland MD / Shivam Mcfarland MD Interpreting Provider: Shivam Mcfarland MD - Summary of Assessment and Plan Summary of Assessment and Plan: Shine Mott is a 52 M w hx myasthenia gravis, thymoma s/p excision, DVT on AC, reported HFrEF (unknown EF), CAD s/p PCI, HTN, DM2, who p/w headache, HTN, and elevated troponin, concerning for hypertensive emergency causing demand ischemia and headache. HTN emergency: possible cause of headache and elevated troponin, improved w pain medication. CT head negative for bleed. Reports compliance w home meds. - hydralazine 10 q6h prn SBP >160 Headache: - tylenol prn - focus on BP control as above Elevated troponin: hx CAD and could be ACS, or demand from HTN. Pt denies any chest pain. - tele - trend trops - TTE - consider hep gtt if trop further elevates or pt has chest pain SIRS: leukocytosis and tachycardia in immunosuppressed patient on steroids. Does report cough but CXR unremarkable. 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 Anticipate 1-2 days. Will be homegoing
[2018-08-04] MEDS ORDERED: traMADol 50 MG TABLET PO PRN (16:54)
[2018-08-04] MEDS ORDERED: Acetaminophen 325 MG TABLET PO PRN (16:54)
[2018-08-04] MEDS ORDERED: Naloxone 0.4 MG/ML INJ IVP PRN (17:04)
[2018-08-04] MEDS ORDERED: Ondansetron 4 MG/2 ML VIAL IVP PRN (17:04)
[2018-08-04] MEDS ORDERED: *HR* Dextrose 50 % in Water (Syg) 50 ML SYRINGE IVP PRN (17:06)
[2018-08-04] MEDS ORDERED: D5% in Water 1,000 ML IVC PRN (17:06)
[2018-08-04] MEDS ORDERED: Dextrose Gel 15 GM/37.5 ML TUBE PO PRN ×2 (17:06)
[2018-08-04] MEDS ORDERED: *HR* Warfarin 5 MG TABLET PO SCH (18:00)
[2018-08-04] MEDS: Insulin LISPRO 300 UNITS/3 ML VIAL SQ SCH (19:26)
[2018-08-04 19:57] LABS: Bilirubin,Urine Small (Negative); Blood,Urine Negative (Negative); Clarity,Urine Clear (Clear); Color,Urine Dark Yellow (Yellow); Glucose,Urine (UA) 250 mg/dL (Normal); Ketones,Urine Negative (Negative); Leukocyte Esterase,Urine Negative (Negative); Nitrite,Urine Negative (Negative); Protein,Urine Trace mg/dL (Neg-Trace); Specific Gravity,Urine 1.026 (1.010-1.025); Urobilinogen,Urine Normal (Normal)
[2018-08-04] MEDS ORDERED: Insulin LISPRO 300 UNITS/3 ML VIAL SQ SCH (21:00)
[2018-08-04] MEDS ORDERED: Perflutren Lipid Microsphere 2 ML VIAL ONE (21:33)
[2018-08-04] MEDS: predniSONE 20 MG TABLET PO SCH (22:11)
[2018-08-04] MEDS ORDERED: *HR* Heparin 5,000 UNIT/ML VIAL IVP ONE (23:17)
[2018-08-04] MEDS ORDERED: *HR* Heparin 5,000 UNIT/ML VIAL IVP PRN ×2 (23:17)
[2018-08-04] MEDS ORDERED: Heparin 25,000 UNIT/250 ML D5W 25,000 UNIT/250 ML IV.SOLN IVC SCH (23:30)
[2018-08-05] MEDS: Insulin DETEMIR 100 UNIT/ML X5UNITS SQ SCH ×2 (00:41→09:25)
[2018-08-05 05:25] LABS: Hematocrit 49.7 % (37.5-50.1); Hemoglobin 15.8 g/dL (12.9-16.9); Mean Corpuscular HGB Conc 31.8 g/dL (31.6-35.5); Mean Corpuscular Hemoglobin 26.6 pg (28.0-33.3); Mean Corpuscular Volume 83.5 fL (83.0-100.0); Mean Platelet Volume 11.3 fL (9.4-12.4); Platelet Count 228 K/mcL (140-400); Red Blood Count 5.95 M/mcL (4.19-5.50); Red Cell Distribution Width 15.3 % (11.5-14.5)
[2018-08-05 05:32] LABS: INR 1.7; Prothrombin Time 18.7 Seconds (9.4-12.1)
[2018-08-05 05:44] LABS: BUN/Creatinine Ratio 21 (6-26); Blood Urea Nitrogen 22 mg/dL (6-20); Calcium 9.6 mg/dL (8.6-10.3); Carbon Dioxide 31 mEq/L (23-29); Chloride 95 mEq/L (98-107); Glucose 442 mg/dL (70-105); Magnesium 1.8 mg/dL (1.6-2.6); Osmolality,Calculated 300 (280-300); Potassium 4.4 mEq/L (3.5-5.1); Sodium 134 mEq/L (136-145); eGFR For Non-African Americans > 60 (> 60)
[2018-08-05] MEDS ORDERED: Metoprolol XL (24 HR) Succ 50 MG TAB.ER.24H PO SCH (09:00)
[2018-08-05] MEDS ORDERED: Aspirin 81 MG TAB.CHEW PO SCH (09:00)
[2018-08-05] MEDS ORDERED: Lisinopril 20 MG TABLET PO SCH (09:00)
[2018-08-05] MEDS: predniSONE 20 MG TABLET PO SCH (09:19)
[2018-08-05] MEDS: Insulin LISPRO 300 UNITS/3 ML VIAL SQ SCH ×2 (09:26→13:12)
[2018-08-05 10:55] VITALS: BP 144/88
--- NOTE | 2018-08-05 11:08 | Cardiology Consult Note ---
Date of Encounter: 08/05/18 Time of Encounter: 11:04 Assessment and Plan (1) Left ventricular apical thrombus Current Visit: Yes Status: Suspected TTE 08/04/18 LVEF 50-55%. Mild segmental left ventricular systolic dysfunction. Left ventricular apical thrombus. Reviewed images with Dr. Martin. Apical thrombus cannot be ruled out. On heparin gtt. Anticoagulated on Coumadin for hx DVT, INR 1.7. Follows with Coumadin Clinic. On review, INR has been subtherapeutic for [address] Martin--okay to d/c home with Lovenox bridging until INR is the rapeutic between 2.0-3.0. (2) Elevated troponin Current Visit: Yes Status: Chronic Troponin 0.12, 0.13, 0.11 in setting of hypertensive urgency on admission with BP 182/129 and possible apical thrombus. Suspect demand ischemia, nondiagnostic for ACS. Per pt and , [facility] 04/2018 at [facility] without intervention. (3) Asymmetric septal hypertrophy Current Visit: No Status: Chronic TTE 08/04/18: LVEF 50-55%. Mild segmental left ventricular systolic dysfunction. Left ventricular apical thrombus. Severe cLVH, thickening without elevated LVOT gradient at rest. Continue BB and adequate hydration. Denies syncope. (4) CAD (coronary artery disease) Current Visit: No Status: Chronic [facility] 03/11/17: There is severe one vessel coronary artery disease. Patient had successful PTCA/Drug-Eluting Stent placement in the proximal-mid LAD. Patient had successful PTCA in the Diagonal. Per pt and [facility] 04/2018 at [facility] without intervention. Continue ASA, Statin, BB. Qualifiers: Coronary Disease-Associated Artery/Lesion type: [place] artery [place] vs. transplanted heart: [place] heart Associated angina: angina presence u nspecified Qualified Code(s): I25.10 - Atherosclerotic heart disease of [place] coronary artery without angina pectoris (5) Hypertensive emergency Current Visit: Yes Status: Acute BP 182/129 on presentation. Currently better controlled, but not at goal. Will add Norvasc 5mg daily. Can uptitrate as necessary. Discussion w patient/family: The assessment and plan as outlined above was discussed with the patient and/or family members who expressed understanding and agreement. All questions were answered. Thank you for involving us in the care of your patient. Please call w ith any questions. I will discuss all the above with Dr. Martin and make change as necessary. History of Present Illness Consult date: 08/05/18 Requesting physician: Sachin Pink Consult reason: elevated troponin, LV thrombus Chief complaint: headache History of present illness: Mr. Mott is a 52 year old male with PMH of myasthenia gravis, thymoma s/p excision, DVT on AC and hx of John filter, hx CHF, CAD s/p PCI, HTN, DM2, who p/w headache. Headache started 3 days ago with elevated BP. He denies chest pain or dyspnea. Troponin 0.12, 0.13, 0.11. TTE completed and showed LV apical thrombus. Cardiology consulted for further recs. Prior CV testing: TTE 08/04/18: LVEF 50-55%. Mild segmental left ventricular systolic dysfunction. Left ventricular apical thrombus. Severe cLVH, thickening without elevated LVOT gradient at rest. Moderate LVDD. Mildly dilated RV with mild RV hypokinesis. Biatrial dilatation. Mild AR and MR. Moderate TR. [facility] 03/11/17: There is severe one vessel coronary artery disease. Patient had successful PTCA/Drug-Eluting Stent placement in the proximal-mid LAD. Patient had successful PTCA in the Diagonal. 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 Myasthenia Gravis - Social History Smoking Status: Never smoker Smokeless Tobacco Status: No Alcohol use: none Drug use: none - Family History Father Adopted: No Family Member Ethnicity: Non- Living Status: Still Living Hx Family Cardiac Disorders: Yes Hx Family Respiratory Disorders: No Hx Family Cancer: No Hx Family GI Disorders: No Hx Family Endocrine Disorder: Yes Hx Family Neuromuscular Disorders: No Hx Family Neurologic Disorders: Yes Hx Family HEENT Disorders: No Brother Living Status: Still Living Hx Family Cardiac Disorders: Yes Hx Family Cancer: Yes (Prostate and colon cancer) Mother Adopted: No Family Member Ethnicity: Non- Living Status: Still Living Hx Family Cardiac Disorders: Yes Hx Family Respiratory Disorders: No Hx Family Cancer: No Hx Family GI Disorders: No Hx Family Endocrine Disorder: Yes Hx Family Neuromuscular Disorders: No Hx Family Neurologic Disorders: Yes Hx Family HEENT Disorders: No Medications and Allergies Aspirin 81 mg PO DAILY #30 tab.chew 05/13/15 [Rx] Atorvastatin Calcium 80 mg PO DAILY 03/07/17 [History] Acetaminophen [Tylenol] 650 mg PO Q4HR PRN 08/09/17 [History] Insulin NPH Human Isophane [Novolin N] 30 units SQ DAILY 08/09/17 [History] Metoprolol Succinate [Toprol Xl] 50 mg PO DAILY 08/09/17 [History] Pantoprazole Sodium 40 mg PO BID 08/09/17 [History] Celecoxib [Celebrex] 200 mg PO BID 08/04/18 [History] DULoxetine [Cymbalta] 30 mg PO DAILY 08/04/18 [History] Insulin ASPART [NovoLOG] 0 unit SQ TIDWM 08/04/18 [History] Insulin Glargine [Lantus] 40 unit SQ BID 08/04/18 [History] Lisinopril [Zestril] 10 mg PO QPM 08/04/18 [History] Lisinopril [Zestril] 20 mg PO DAILY 08/04/18 [History] PredniSONE [Deltasone] 20 mg PO BID 08/04/18 [History] Quetiapine Fumarate [Seroquel] 25 mg PO HS PRN 08/04/18 [History] Tamsulosin [Flomax] 0.4 mg PO DAILY 08/04/18 [History] Tramadol HCl [Ultram] 50 - 100 mg PO TID PRN 08/04/18 [History] Warfarin [Coumadin] 5 mg PO 1800 08/04/18 [History] Allergy/AdvReac Type Severity Reaction Status Date / Time rifampin Allergy Anaphylaxis Verified 05/04/18 09:17 All Systems Review: The remainder of the systems were reviewed and are negative - Constitutional Constitutional: headache(s) Physical Examination Vital Signs, Last 4 Hours Temp Pulse Resp BP Pulse Ox 08/05/18 10:53 97.5 F L 85 18 144/88 96 Vital Signs Temp Pulse Resp BP Pulse Ox 08/05/18 10:53 97.5 F L 85 18 144/88 96 08/05/18 06:41 97.8 F 91 17 131/86 95 08/05/18 03:43 98.5 F 92 14 157/88 95 08/04/18 23:24 98.5 F 95 18 153/93 94 08/04/18 20:40 98.2 F 85 17 131/90 95 08/04/18 19:40 18 164/112 08/04/18 18:15 86 18 139/88 97 08/04/18 13:13 97.5 F L 97 16 182/129 96 Intake and Output 08/04/18 08/05/18 08/05/18 23:59 07:59 15:59 Intake Total 115 / 115 0 / 115 Balance 115 / 115 0 / 115 Intake: IV Fluids 115 / 115 0 / 115 Heparin 25,000 UNIT/250 ML D5W 115 / 115 0 / 115 25,000 unit In 250 ml @ 14 UNIT /KG/HR 16.193 mls/hr IVC . [id number] [facility] Rx#:[id number] Other: # Voids 2 Weight 115.666 kg 116.5 kg Blood Glucose* 261 349 Patient Weight 08/05/18 23:59 Weight 116.5 kg General: Conversant, No Apparent Distress HEENT: Atraumatic, Normocephaly, Mucus Membranes Moist Neck: No JVD, Normal carotid pulses Cardiac: Reg Rate and Rhythm, Normal S1 and S2, No Murmur Lungs: Normal Breath Sounds, No Wheeze, Rales, Rhonchi Neuro: Alert and responsive, No focal deficits noted Abdomen: Soft, Non-Tender Skin: No rashes noted on visualized skin Musculoskeletal: No Chest Wall Tenderness Extremities: No Clubbing, No Cyanosis, No Edema, Normal Pulses Results 08/05/18 04:00 08/05/18 04:00 Lab Results 08/04/18 08/04/18 08/04/18 14:03 14:03 14:03 WBC 18.5 H Hgb 16.8 Hct 51.6 H Plt Count 245 INR APTT Sodium 136 Potassium 3.9 Chloride 97 L Carbon Dioxide 30 H BUN 22 H Creatinine 1.05 Glucose 294 H Calcium 10.1 Magnesium Total Bilirubin 0.7 AST 36 ALT 80 H Alkaline Phosphatase 102 Troponin I 0.12 H* B-Natriuretic Peptide 51 08/04/18 08/04/18 08/05/18 14:03 17:03 04:00 WBC 18.5 H Hgb 15.8 Hct 49.7 Plt Count 228 INR 1.5 APTT 30.0 Sodium Potassium Chloride Carbon Dioxide BUN Creatinine Glucose Calcium Magnesium Total Bilirubin AST ALT Alkaline Phosphatase Troponin I 0.13 H* B-Natriuretic Peptide 08/05/18 08/05/18 08/05/18 04:00 04:00 04:00 WBC Hgb Hct Plt Count INR 1.7 APTT Sodium 134 L Potassium 4.4 Chloride 95 L Carbon Dioxide 31 H BUN 22 H Creatinine 1.06 Glucose 442 H Calcium 9.6 Magnesium 1.8 Total Bilirubin AST ALT Alkaline Phosphatase Troponin I B-Natriuretic Peptide 28 08/05/18 04:00 WBC Hgb Hct Plt Count INR APTT Sodium Potassium Chloride Carbon Dioxide BUN Creatinine Glucose Calcium Magnesium Total Bilirubin AST ALT Alkaline Phosphatase Troponin I 0.11 H* B-Natriuretic Peptide Short CBC 08/05/18 08/04/18 Range/Units 04:00 14:03 WBC 18.5 H 18.5 H (4.3-11.1) K/mcL Hgb 15.8 16.8 (12.9-16.9) g/dL Hct 49.7 51.6 H (37.5-50.1) % Plt Count 228 245 (140-400) K/mcL Neutrophils # 15.5 H (1.6-8.9) K/mcL BMP 08/05/18 08/04/18 Range/Units 04:00 14:03 Sodium 134 L 136 (136-145) mEq/L Potassium 4.4 3.9 (3.5-5.1) mEq/L Chloride 95 L 97 L (98-107) mEq/L Carbon Dioxide 31 H 30 H (23-29) mEq/L BUN 22 H 22 H (6-20) mg/dL Creatinine 1.06 1.05 (0.70-1.30) mg/dL Glucose 442 H 294 H (70-105) mg/dL Calcium 9.6 10.1 (8.6-10.3) mg/dL Cardiac Enzymes 08/05/18 08/04/18 08/04/18 Range/Units 04:00 17:03 14:03 Troponin I 0.11 H* 0.13 H* 0.12 H* (< 0.04) ng/mL Liver Function 08/04/18 Range/Units 14:03 Total Bilirubin 0.7 (0.3-1.0) mg/dL Direct Bilirubin 0.2 (0.0-0.2) mg/dL AST 36 (13-39) Units/L ALT 80 H (7-52) Units/L Alkaline Phosphatase 102 (34-104) Units/L Albumin 4.1 (3.5-5.7) g/dL Urine 08/04/18 Range/Units 19:26 Urine Color Dark Yellow (Yellow) Urine Clarity Clear (Clear) Urine pH 5.0 (5.0-8.0) pH Units Ur Specific [place] 1.026 H (1.010-1.025) Urine Protein Trace (Neg-Trace) mg/dL Urine Glucose (UA) 250 H (Normal) mg/dL Impressions Chest X-Ray 08/04/18 13:53 IMPRESSION: No acute findings. D/ / 08/04/2018 14:51:07 Shivam Pierce MD / abraham Interpreting Provider: Shivam Pierec MD Head CT 08/04/18 13:53 IMPRESSION: No acute intracranial abnormality. D/ / Shivam Mcfarland MD / Shivam Mcfarland MD Interpreting Provider: Shivam Mcfarland MD Echocardiogram 08/04/18 17:07 Impressions: LVEF 50-55%. Mild segmental left ventricular systolic dysfunction. Left ventricular apical thrombus. Severe concentric left ventricular hypertrophy, asymmetrical septal thickening without elevated LVOT gradient at rest. Moderate left ventricular diastolic dysfunction. Mildly dilated right ventricle with mild right ventricular hypokinesis. Biatrial dilatation. Mild aortic regurgitation. Mild mitral regurgitation. Moderate tricuspid regurgitation. Unable to estimate RVSP due to lack of IVC visualization. Primary team notified via phone. Left Ventricular Wall Motion: Rest Echo Findings The apex, apical anterior, apical septal and apical lateral skelton were hypokinetic. All other wall segments showed normal motion. Findings: Study Quality * Technically sub-optimal due to clinical status. ECG Findings * Normal sinus rhythm. Left Ventricle * LVEF 50-55%. * Normal LV chamber size. * Severe concentric left ventricular hypertrophy, asymmetrical septal thickening without elevated LVOT gradient at rest. * Mild segmental left ventricular systolic dysfunction. * Moderate left ventricular diastolic dysfunction. * Definity echo contrast was used. * There is a left ventricular apical thrombus measuring 1cm x1.6cm. Right Ventricle * Mildly dilated right ventricle. * Mild right ventricular hypokinesis. Left Atrium * Mildly dilated left atrium. Right Atrium * Moderately dilated right atrium. Interatrial Septum * Interatrial septum not well evaluated. Aortic Valve * Trileaflet aortic valve. * Mildly calcified aortic valve leaflets. * No aortic stenosis. * Mild aortic regurgitation. Mitral Valve * Normal mitral valve structure. * No mitral regurgitation. * Mild mitral regurgitation. Tricuspid Valve * Normal tricuspid valve structure. * No tricuspid stenosis. * Moderate tricuspid regurgitation. * Estimated RVSP is RV-RA gradient 28 mmHg. * Unable to estimate RVSP due to lack of IVC visualization. Pulmonic Valve * Pulmonic valve is not well visualized. * No pulmonic stenosis. * No pulmonic regurgitation. Aorta * Normally sized aortic root. Pericardium * The pericardium appears normal. IVC * The IVC is not well evaluated. Active Medications Acetaminophen (Tylenol) 650 mg PO Q4HR PRN PRN Reason: Pain Stop: 02/03/19 16:55 Last Admin: 08/05/18 02:19 Dose: 650 mg Documented by: Aspirin (Aspirin) 81 mg PO DAILY [facility] Stop: 02/04/19 09:01 Last Admin: 08/05/18 09:19 Dose: 81 mg Documented by: Atorvastatin Calcium (Lipitor) 80 mg PO DAILY [facility] Stop: 02/04/19 09:01 Last Admin: 08/05/18 09:18 Dose: 80 mg Documented by: Dextrose/Water (Dextrose 50% (Syg)) 25 ml IVP AD PRN PRN Reason: Hypoglycemia Stop: 02/03/19 17:07 Glucagon (Glucagen) 1 mg IM ONCE PRN PRN Reason: Hypoglycemia Stop: 02/03/19 17:07 Glucose (Gluctose) 15 gm PO ONCE PRN PRN Reason: Hypoglycemia Stop: 02/03/19 17:07 Glucose (Gluctose) 30 gm PO ONCE PRN PRN Reason: Hypoglycemia Stop: 02/03/19 17:07 Heparin Sodium (Porcine) (Heparin) 8,100 unit 70 unit/kg (8100 unit) IVP Q6HR PRN PRN Reason: SEE COMMENTS Stop: 02/03/19 23:18 Heparin Sodium (Porcine) (Heparin) 4,000 unit 35 unit/kg (4000 unit) IVP Q6H PRN PRN Reason: SEE COMMENTS Stop: 02/03/19 23:18 Hydralazine HCl (Hydralazine) 10 mg IVP Q6HR PRN PRN Reason: SBP>160 Stop: 02/03/19 17:10 Dextrose (Dextrose 5%) 1,000 mls @ 100 mls/hr IVC .Q10H PRN PRN Reason: HYPOGLYCEMIA Stop: 02/03/19 17:07 Heparin Sodium/Dextrose (Heparin 25,000 Unit/250 Ml D5w) 25,000 unit in 250 mls @ 16.193 mls/hr IVC .[id number] [facility]; Protocol Stop: 02/03/19 23:31 Last Titration: 08/05/18 09:14 Dose: 11 unit/kg/hr, 12.7 mls/hr Documented by: Insulin Detemir (Levemir) 40 unit SQ BID [facility] Stop: 02/03/19 21:01 Last Admin: 08/05/18 09:25 Dose: 40 unit Documented by: Insulin Human Lispro (Humalog) 0 units SQ HS [facility]; Protocol Stop: 02/03/19 21:01 Last Admin: 08/04/18 22:12 Dose: 5 units Documented by: Insulin Human Lispro (Humalog) 0 units SQ TIDAC [facility]; Protocol Stop: 02/03/19 17:16 Last Admin: 08/05/18 09:26 Dose: 12 units Documented by: Lisinopril (Zestril) 10 mg PO QPM [facility]; Protocol Stop: 02/03/19 18:01 Last Admin: 08/04/18 22:10 Dose: 10 mg Documented by: Lisinopril (Zestril) 20 mg PO DAILY [facility]; Protocol Stop: 02/04/19 09:01 Last Admin: 08/05/18 09:19 Dose: 20 mg Documented by: Metoprolol Succinate (Toprol Xl) 50 mg PO DAILY [facility] Stop: 02/04/19 09:01 Last Admin: 08/05/18 09:19 Dose: 50 mg Documented by: Naloxone HCl (Narcan) 0.4 mg IVP Q2MPRN PRN PRN Reason: SEE COMMENTS Stop: 02/03/19 17:05 Omeprazole (Prilosec) 20 mg PO BID [facility] Stop: 02/03/19 23:46 Last Admin: 08/05/18 09:18 Dose: 20 mg Documented by: Ondansetron HCl (Zofran) 4 mg IVP Q8HR PRN PRN Reason: Nausea And Vomiting Stop: 02/03/19 17:05 Prednisone (Prednisone) 20 mg PO BID [facility] Stop: 02/03/19 21:01 Last Admin: 08/05/18 09:19 Dose: 20 mg Documented by: Quetiapine Fumarate (Seroquel) 25 mg PO HS PRN; Protocol PRN Reason: Sleep Stop: 02/03/19 16:55 Last Admin: 08/04/18 23:51 Dose: 25 mg Documented by: Tamsulosin HCl (Flomax) 0.4 mg PO DAILY [facility]; Protocol Stop: 02/04/19 09:01 Last Admin: 08/05/18 09:19 Dose: 0.4 mg Documented by: Tramadol HCl (Ultram) 50 mg PO TID PRN PRN Reason: Pain Stop: 02/03/19 16:55 Last Admin: 08/05/18 09:32 Dose: 50 mg Documented by: Warfarin Sodium (Coumadin) 5 mg PO 1800 [facility] Stop: 02/03/19 18:01 Last Admin: 08/04/18 22:10 Dose: 5 mg Documented by: - Imaging and Cardiology Echo: report reviewed Cardiac cath: report reviewed - EKG Interpretation EKG results cardiology: personally reviewed, other (12 hr tele AVG HR 91, SR) Consult Discharge Plan - Plan [facility]errals: [facility] [[facility] Care Provider[facility] - 08/11/18 11:30 am
[2018-08-05] MEDS ORDERED: amLODIPine 5 MG TABLET PO SCH (11:45)
[2018-08-05] MEDS ORDERED: *HR* Enoxaparin 120 MG/0.8 ML SYRINGE SQ STA (14:11)
--- NOTE | 2018-08-05 14:17 | Discharge Summary ---
- NOTES TO OUTPATIENT PROVIDER Notes to Outpatient Provider: f/u with PCP in one week. Please take Coumadin 7.5mg today and tomorrow. Go for PT / INR on 08/07/18 and follow up at Coumadin clinic for further coumadin dosing. Pelase take Lovenox 120mg SQ inj BID tomorrow. Orders not resulted at time of discharge: Pending orders 08/04/18 13:41 EKG [ECG 12 lead ECG] [ECG] Stat 08/04/18 17:03 Culture,Blood [BC] Stat 08/06/18 04:00 Basic Metabolic Panel AM 0400 Complete Blood Count w/o Diff [HEME] AM 0400 Prothrombin Time INR [COAG] AM 0400 Date of Encounter: 08/05/18 Time of Encounter: 14:15 - Discharge Diagnosis (1) Hypertensive emergency Priority: Primary Status: Acute (2) Elevated troponin Priority: Primary Status: Chronic (3) Left ventricular apical thrombus Priority: Secondary Status: Ruled-out (4) Diabetes mellitus Priority: Secondary Status: Acute Qualifiers: Diabetes mellitus type: type 2 Diabetes mellitus long-term insulin use: with computer terminal operator use Diabetes mellitus complication status: without complication Qualified Code(s): E11.9 - Type 2 diabetes mellitus without complications; Z79.4 - assisted (current) use of insulin (5) CAD (coronary artery disease) Priority: Secondary Status: Chronic Qualifiers: Coronary Disease-Associated Artery/Lesion type: [place] artery [place] vs. transplanted heart: [place] heart Associated angina: angina presence unspecified Qualified Code(s): I25.10 - Atherosclerotic heart disease of [place] coronary artery without angina pectoris (6) HLD (hyperlipidemia) Priority: Secondary Status: Chronic Qualifiers: Hyperlipidemia type: unspecified Qualified Code(s): E78.5 - Hyperlipidemia, unspecified (7) HTN (hypertension) Priority: Secondary Status: Chronic Qualifiers: Hypertension type: essential hypertension Qualified Code(s): I10 - Essential (primary) hypertension Hospital course: Mr. Mott is a 52 year old male with hx myasthenia gravis, thymoma s/p excision, DVT on AC, reported HFrEF with EF 50-55%, CAD s/p PCI, HTN, DM2, who presented to ER with headache. Headache began 3 days ago at the same time patient noticed his blood pressure was elevated. Headache is left sided, throbbing. Did have some nausea with it, too. Pt states he's had these headaches before, and that they usually correlate with elevated BP and then go away when taking meds to lower his pressure. In the ED, pt vitals with HR 90s, SBP 180s. CXR unremarkable. CT head, obtained due to warfarin use + headache + HTN, without bleed. ECG showing only LVH, LAE, LAFB, no ST/T changes. 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 His troponin was slightly elevated @ 0.13 and adynamic. His 2 D Echo showed LVEF 50-55%, however there was questionable LV apicla thrombus. Pt was evaluated by inspector missile who reviewed the 2 D Echo and does not feel like thrombi. It is more consistent with hypertrophied trabeculae as it contracts and is same density as myocardium. However cardiology recommend to d/c him home with bridging lovenox since he does have sub therapeutic INR. Will d/c him home with SQ lovenox inj for tomorrow and recommend to f/u at Coumadin clinic on 08/07/18 regarding further dosing about his coumadin. - Time Spent with Patient Total time spent providing and/or coordinating discharge services: - Discharge Medications Prescriptions: New Enoxaparin [Lovenox] 120 mg SQ Q12HR #2 syr Continued Aspirin 81 mg PO DAILY #30 tab.chew Atorvastatin Calcium 80 mg PO DAILY Metoprolol Succinate [Toprol Xl] 50 mg PO DAILY Acetaminophen [Tylenol] 650 mg PO Q4HR PRN PRN Reason: Pain Insulin NPH Human Isophane [Novolin N] 30 units SQ DAILY Pantoprazole Sodium 40 mg PO BID Celecoxib [Celebrex] 200 mg PO BID Insulin Glargine [Lantus] 40 unit SQ BID Lisinopril [Zestril] 20 mg PO DAILY Lisinopril [Zestril] 10 mg PO QPM Quetiapine Fumarate [Seroquel] 25 mg PO HS PRN PRN Reason: Sleep Tramadol HCl [Ultram] 50 - 100 mg PO TID PRN PRN Reason: Pain Warfarin [Coumadin] 5 mg PO 1800 Tamsulosin [Flomax] 0.4 mg PO DAILY PredniSONE [Deltasone] 20 mg PO BID DULoxetine [Cymbalta] 30 mg PO DAILY Insulin ASPART [NovoLOG] 0 unit SQ TIDWM Home Medications: Aspirin 81 mg PO DAILY #30 tab.chew 05/13/15 [Rx] Atorvastatin Calcium 80 mg PO DAILY 03/07/17 [History] Acetaminophen [Tylenol] 650 mg PO Q4HR PRN 08/09/17 [History] Insulin NPH Human Isophane [Novolin N] 30 units SQ DAILY 08/09/17 [History] Metoprolol Succinate [Toprol Xl] 50 mg PO DAILY 08/09/17 [History] Pantoprazole Sodium 40 mg PO BID 08/09/17 [History] Celecoxib [Celebrex] 200 mg PO BID 08/04/18 [History] DULoxetine [Cymbalta] 30 mg PO DAILY 08/04/18 [History] Insulin ASPART [NovoLOG] 0 unit SQ TIDWM 08/04/18 [History] Insulin Glargine [Lantus] 40 unit SQ BID 08/04/18 [History] Lisinopril [Zestril] 10 mg PO QPM 08/04/18 [History] Lisinopril [Zestril] 20 mg PO DAILY 08/04/18 [History] PredniSONE [Deltasone] 20 mg PO BID 08/04/18 [History] Quetiapine Fumarate [Seroquel] 25 mg PO HS PRN 08/04/18 [History] Tamsulosin [Flomax] 0.4 mg PO DAILY 08/04/18 [History] Tramadol HCl [Ultram] 50 - 100 mg PO TID PRN 08/04/18 [History] Warfarin [Coumadin] 5 mg PO 1800 08/04/18 [History] Enoxaparin [Lovenox] 120 mg SQ Q12HR #2 syr 08/05/18 [Rx] Allergies/Adverse Reactions: Allergy/AdvReac Type Severity Reaction Status Date / Time rifampin Allergy Anaphylaxis Verified 05/04/18 09:17 Date of admission: 08/05/18 09:44 [facility] care physician: [facility] Consults: 08/05/18 09:43 Consult to Cardiology [CONS] Routine Comment: Consulting Provider: Cardiology Cinthya Reason for Consult: Elevated troponin - LV thrombi Time Notified: 09:43 Call Completed: Yes - Constitutional Vitals: Temp Pulse Resp BP Pulse Ox 97.5 F L 85 18 144/88 96 05/14/19 10:53 08/05/18 10:53 08/05/18 10:53 08/05/18 10:53 08/05/18 10:53 General appearance: Present: A&O X 3, no acute distress, answers questions appropriately Exam: Gen: Alert, awake, Oriented to time,place and person Chest: Diminished breath sounds B/L, No wheezing, No crackles, No rales Heart: S1S2+ RRR No murmurs Abd: Soft, NT, BS +, No organomegaly Ext: No edema, pulses are palpable, No calf tenderness Neuro : Benign findings Skin: No rash. - Patient Status Disposition: Home, Self-Care Condition: Good Overall status at discharge: patient is back to baseline - Discharge Instructions Follow Up With: [facility] [Primary Care Provider] - 08/11/18 11:30 am Reji Garcia [Partnered Physician] - - Diet and Activity Activity: increase activity as tolerated Diet: low salt diet
--- NOTE | 2018-08-05 17:46 | Electrocardiograph Report ---
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
== END 2018-08-05 16:46 | disposition home or self-care (01) | DRG 305 ==
LOC: EMEROOARM 13:12 → 3BNU 13:12
PROVIDERS: ADMIT Student in an Organized Health Care Education/Training Program; ATTEND Student in an Organized Health Care Education/Training Program

== ENCOUNTER 2018-09-29 09:20 | Observation (INO) ==
--- NOTE | 2018-09-29 09:48 | Emergency Department Note ---
Disposition Clinical Impression: Elevated troponin Chest pain Qualifiers: Chest pain type: unspecified Qualified Code(s): R07.9 - Chest pain, unspecified Headache Qualifiers: Headache type: unspecified Headache chronicity pattern: acute headache Intractability: not intractable Qualified Code(s): R51 - Headache Nausea & vomiting Qualifiers: Vomiting type: unspecified Vomiting Intractability: non-intractable Qualified Code(s): R11.2 - Nausea with vomiting, unspecified Disposition: Admitted As Inpatient Condition: Good [facility]errals: [facility]Primary Care Provider[facility] - Forms: ED Satisfaction Letter Time of Disposition: 11:55 Chest Pain HPI - General Chief Complaint: ED Chest Pain Stated Complaint: chest pain Time Seen by Provider: 09/29/18 09:24 Source: patient Limitations: no limitations Vital Signs Reviewed: Yes Nursing Notes Reviewed: Yes - History of Present Illness HPI Narrative: This is a 52 year-old male with history of IDDM, CAD/DC/stents, remote history of metastatic thymoma. He presents with mild, intermittent left-sided chest discomfort for the past 10 hours. Episodes of CP last 30 seconds at a time, about 3x/hour, and are not clearly pleuritic, positional, or exertional. Associated symptoms include nausea, vomiting (3 episodes NB/NB), shortness of breath, palpitations, and headache. He denies any associated fever, cough, abdominal pain, leg pain or swelling. At the time of evaluation, there is no CP, but he is having the nausea. Claims compliance with his medications. INR 1.8 on Saturday; dose increased. Metastatic thymoma Dx 2000, no treatment > 10 years. Pt complaint: chest pain Onset (ago): hour(s) (10) Duration: intermittent Onset: during rest Pain Location: substernal, left chest Severity: moderate Severity scale (1-10): 8 Quality: dull Pain Radiation: none Improves with: nothing Worsens with: nothing Context: history of DVT/PE Associated symptoms: Reports: nausea, vomiting, diaphoresis, dyspnea, palpitations. Denies: syncope, fever, cough, leg swelling Treatments prior to arrival chest pain: aspirin (at home this AM) - Related Data Home Medications Medication Instructions Recorded Confirmed Atorvastatin Calcium 80 mg PO DAILY 03/07/17 09/29/18 Acetaminophen [Tylenol] 650 mg PO Q4HR PRN 08/09/17 09/29/18 Insulin NPH Human Isophane 30 units SQ DAILY 08/09/17 09/29/18 [Novolin N] Metoprolol Succinate [Toprol Xl] 50 mg PO DAILY 08/09/17 09/29/18 Pantoprazole Sodium 40 mg PO BID 08/09/17 09/29/18 Celecoxib [Celebrex] 200 mg PO BID 08/04/18 09/29/18 DULoxetine [Cymbalta] 30 mg PO DAILY 08/04/18 09/29/18 Insulin ASPART [NovoLOG] 0 unit SQ TIDWM 08/04/18 09/29/18 Insulin Glargine [Lantus] 40 unit SQ BID 08/04/18 09/29/18 Lisinopril [Zestril] 10 mg PO QPM 08/04/18 09/29/18 Lisinopril [Zestril] 20 mg PO DAILY 08/04/18 09/29/18 PredniSONE [Deltasone] 20 mg PO BID 08/04/18 09/29/18 Quetiapine Fumarate [Seroquel] 25 mg PO HS PRN 08/04/18 09/29/18 Tamsulosin [Flomax] 0.4 mg PO DAILY 08/04/18 09/29/18 Warfarin [Coumadin] 5 mg PO 1800 08/04/18 09/29/18 Previous Rx's Medication Instructions Recorded Aspirin 81 mg PO DAILY #30 tab.chew 05/13/15 Allergies Allergy/AdvReac Type Severity Reaction Status Date / Time rifampin Allergy Anaphylaxis Verified 05/04/18 09:17 All systems ED: reviewed and negative except as stated. Constitutional: Denies: fever Cardiovascular: Reports: chest pain, palpitations. Denies: edema Respiratory: Reports: dyspnea. Denies: cough Gastrointestinal: Reports: nausea, vomiting. Denies: abdominal pain Musculoskeletal: Denies: back pain, neck pain Neurological: Reports: headache. Denies: weakness, numbness Chest Pain PMH - Past Medical History Medical history: Reports: cancer, coronary artery disease, DVT, diabetes, hyperlipidemia, hypertension, myocardial infarction, other Surgical history: Reports: hip replacement (Right), IVC Filter, other (Sternotomy, pericardial surgery, left lower lung resection and excision of malignant thymoma) Psychiatric history: Reports: no psych history - Social History Smoking Status: Never smoker Alcohol use: Reports: none Drug use: Reports: none Physical Exam - General Limitations: no limitations General appearance: alert - Head Head exam: atraumatic, normocephalic - Eye Eye exam: Present: normal appearance, PERRL, EOMI - ENT ENT exam: normal exam - Neck Neck exam: Present: normal inspection - Respiratory Respiratory exam: Present: normal lung sounds bilaterally - Cardiovascular Cardiovascular exam: Present: regular rate, normal rhythm, normal heart sounds - Abdominal Exam Abdominal exam: Present: soft, Non-Tender. Absent: distention, guarding, rebound - Extremities Exam Extremities exam: Present: normal inspection. Absent: calf tenderness - Neurological Exam Neurological exam: Present: alert, oriented X3. Absent: motor sensory deficit - Psychiatric Psychiatric exam: Present: anxious - Skin Skin exam: Present: diaphoresis Course Course Narrative: 11:05 - Notified of troponin elevation. Patient has ASA this morning, anticoagulated with Warfarin. Awaiting INR. Ordered repeated EKG. - Reevaluation(s) Reevaluation #1: On recheck, patient is stable, comfortable-appearing. Says he's feeling a little better. Discussed test results and plans with him. Time: 11:53 - Consultations Consultation #1: Reviewed case with Dr. Root, and he reviewed records. Pt had cath at [facility] in Apr without intervention. Patient does not need emergent. Recommends hospitalist admission for serial trp. Time: 12:37 Vital Signs Temperature 98.3 F 09/29/18 09:26 Pulse Rate 93 09/29/18 09:26 Respiratory Rate 20 09/29/18 09:26 Blood Pressure 158/108 09/29/18 09:26 O2 Sat by Pulse Oximetry 98 09/29/18 09:26 Temperature 98.3 F 09/29/18 09:26 Pulse Rate 87 09/29/18 12:31 Respiratory Rate 19 09/29/18 12:31 Blood Pressure 127/90 09/29/18 12:31 O2 Sat by Pulse Oximetry 96 09/29/18 12:31 Oxygen Delivery Oxygen Delivery Room Air Chest Pain - Lab Data Lab results reviewed: Yes I reviewed the patient's lab results. Lab results narrative: CBC - WBC 12.1 Trp - elevated at 0.07 INR - 2.0 Result diagrams: 09/29/18 10:06 09/29/18 10:06 Lab Results 09/29/18 09/29/18 09/29/18 Range/Units 10:06 10:06 10:06 WBC 12.1 H (4.3-11.1) K/mcL RBC 6.15 H (4.19-5.50) M/mcL Hgb 15.9 (12.9-16.9) g/dL Hct 50.0 (37.5-50.1) % MCV 81.3 L (83.0-100.0) fL MCH 25.9 L (28.0-33.3) pg MCHC 31.8 (31.6-35.5) g/dL RDW 16.1 H (11.5-14.5) % Plt Count 212 (140-400) K/mcL MPV 10.7 (9.4-12.4) fL Immature Gran % 0.6 (0-4) % Seg Neutrophils % 75.8 % Lymphocytes % 15.7 % Monocytes % 6.5 % Eosinophils % 1.0 % Basophils % 0.4 % Neutrophils # 9.2 H (1.6-8.9) K/mcL Lymphocytes # 1.9 (0.6-4.6) K/mcL Monocytes # 0.8 (0.0-1.3) K/mcL Eosinophils # 0.1 (0.0-0.6) K/mcL Basophils # 0.1 (0.0-0.2) K/mcL PT 23.3 H (9.4-12.1) Seconds INR 2.0 APTT 34.6 (26.0-36.0) Seconds Sodium (136-145) mEq/L Potassium (3.5-5.1) mEq/L Chloride (98-107) mEq/L Carbon Dioxide (23-29) mEq/L BUN (6-20) mg/dL Creatinine (0.70-1.30) mg/dL Est GFR ( Amer) (> 60) Est GFR (Non-Af Amer) (> 60) BUN/Creatinine Ratio (6-26) Glucose (70-105) mg/dL Calculated Osmolality (280-300) Calcium (8.6-10.3) mg/dL Troponin I (< 0.04) ng/mL B-Natriuretic Peptide 66 (Less than 100) pg/mL TSH (0.340-5.600) mcIU/mL 09/29/18 Range/Units 10:06 WBC (4.3-11.1) K/mcL RBC (4.19-5.50) M/mcL Hgb (12.9-16.9) g/dL Hct (37.5-50.1) % MCV (83.0-100.0) fL MCH (28.0-33.3) pg MCHC (31.6-35.5) g/dL RDW (11.5-14.5) % Plt Count (140-400) K/mcL MPV (9.4-12.4) fL Immature Gran % (0-4) % Seg Neutrophils % % Lymphocytes % % Monocytes % % Eosinophils % % Basophils % % Neutrophils # (1.6-8.9) K/mcL Lymphocytes # (0.6-4.6) K/mcL Monocytes # (0.0-1.3) K/mcL Eosinophils # (0.0-0.6) K/mcL Basophils # (0.0-0.2) K/mcL PT (9.4-12.1) Seconds INR APTT (26.0-36.0) Seconds Sodium 135 L (136-145) mEq/L Potassium 3.7 (3.5-5.1) mEq/L Chloride 101 (98-107) mEq/L Carbon Dioxide 25 (23-29) mEq/L BUN 17 (6-20) mg/dL Creatinine 0.97 (0.70-1.30) mg/dL Est GFR ( Amer) > 60 (> 60) Est GFR (Non-Af Amer) > 60 (> 60) BUN/Creatinine Ratio 18 (6-26) Glucose 131 H (70-105) mg/dL Calculated Osmolality 283 (280-300) Calcium 9.0 (8.6-10.3) mg/dL Troponin I 0.07 H* (< 0.04) ng/mL B-Natriuretic Peptide (Less than 100) pg/mL TSH 0.922 (0.340-5.600) mcIU/mL - Radiology Data Radiology results reviewed: Yes I reviewed the patient's radiology results. CXR - Stable cardiomegaly and elevation left hemidiaphragm, without acute cardiopulmonary process identified. - EKG Data EKG attestation: Yes I reviewed and interpreted this EKG. EKG results narrative: NSR at 92. Borderline COY V2, none seen in other leads. T wave flattening, multiple leads. 11:20 - Repeat EKG without significant change. EKG shows normal: sinus rhythm Rate: normal [place]/QRS: left axis deviation Interpretation: nonspecific ST-T wave changes
[2018-09-29] MEDS ORDERED: Ondansetron 8 MG in 0.9 % Sodium Chloride 50 ML IVPB ONE (10:01)
[2018-09-29 10:25] LABS: Basophils # 0.1 K/mcL (0.0-0.2); Basophils % 0.4 %; Eosinophils # 0.1 K/mcL (0.0-0.6); Hemoglobin 15.9 g/dL (12.9-16.9); Immature Granulocytes % 0.6 % (0-4); Lymphocytes # 1.9 K/mcL (0.6-4.6); Lymphocytes % 15.7 %; Mean Corpuscular HGB Conc 31.8 g/dL (31.6-35.5); Mean Corpuscular Hemoglobin 25.9 pg (28.0-33.3); Mean Corpuscular Volume 81.3 fL (83.0-100.0); Mean Platelet Volume 10.7 fL (9.4-12.4); Monocytes # 0.8 K/mcL (0.0-1.3); Monocytes % 6.5 %; Neutrophils # 9.2 K/mcL (1.6-8.9); Platelet Count 212 K/mcL (140-400); Red Blood Count 6.15 M/mcL (4.19-5.50); Red Cell Distribution Width 16.1 % (11.5-14.5); Segmented Neutrophils % 75.8 %; White Blood Count 12.1 K/mcL (4.3-11.1)
[2018-09-29 10:43] LABS: Prothrombin Time 23.3 Seconds (9.4-12.1)
[2018-09-29 10:46] LABS: Activated Partial Thrombo Time 34.6 Seconds (26.0-36.0)
[2018-09-29] MEDS ORDERED: Ondansetron 4 MG/2 ML VIAL IM ONE (10:59)
[2018-09-29] MEDS ORDERED: Ondansetron 4 MG/2 ML VIAL IVP ONE (11:00)
[2018-09-29 11:04] LABS: Thyroid Stimulating Hormone 0.922 mcIU/mL (0.340-5.600); Troponin I 0.07 ng/mL (< 0.04)
[2018-09-29 11:39] LABS: BUN/Creatinine Ratio 18 (6-26); Blood Urea Nitrogen 17 mg/dL (6-20); Carbon Dioxide 25 mEq/L (23-29); Chloride 101 mEq/L (98-107); Glucose 131 mg/dL (70-105); Osmolality,Calculated 283 (280-300); Potassium 3.7 mEq/L (3.5-5.1); Sodium 135 mEq/L (136-145); eGFR For African Americans > 60 (> 60); eGFR For Non-African Americans > 60 (> 60)
[2018-09-29] MEDS ORDERED: Ondansetron 4 MG/2 ML VIAL IVP PRN (13:16)
[2018-09-29] MEDS ORDERED: Naloxone 0.4 MG/ML INJ IVP PRN (13:16)
--- NOTE | 2018-09-29 14:06 | Cardiology Consult Note ---
<Lacho Madera - Last Filed: 09/29/18 14:27> Date of Encounter: 09/29/18 Time of Encounter: 14:05 Assessment and Plan (1) Elevated troponin Current Visit: Yes Status: Chronic Per Cardiology: Initial troponin 0.07. Of note, patient has chronic troponin elevations over the past 8 hospital stays over the past 4 years. Currently chest pain-free. Continue to cycle troponins. Suspect type II demand ischemia. Has limited echo pending per primary service. We will evaluate further ischemic evaluation tomorrow morning. We will attempt to obtain last catheterization from [facility] April 2018. Discussed and reviewed with Dr. Root. (2) CAD (coronary artery disease) Current Visit: No Status: Chronic Per Cardiology: History of CAD with drug-eluting stent to proximal to mid LAD February 2017 and PTCA to diagonal lesion. Reported catheterization at [facility] April 2018. Echo July 2018 showed EF 50-55%, severe concentric LVH asymmetrical septal thickening without elevated LVOT gradient at rest, moderate diastolic dysfunction, LV apical thrombus measuring 1.0 by 1.6 cm. On aspirin, statin, ARLIN inhibitor, beta cesar. Qualifiers: Coronary Disease-Associated Artery/Lesion type: [place] artery [place] vs. transplanted heart: [place] heart Associated angina: angina presence unspecified Qualified Code(s): I25.10 - Atherosclerotic heart disease of [place] coronary artery without angina pectoris Discussion w patient/family: The assessment and plan as outlined above was discussed with the patient and/or family members who expressed understanding and agreement. All questions were answered. Thank you for involving us in the care of your patient. Please call with any questions. History of Present Illness Consult date: 09/29/18 Consult reason: CP, Mild trop Chief complaint: Chest Tightness History of present illness: Mr. Mott is a 52 year old AA male with a relevant past medical history of CAD, history of DVT with Peterson filter and on anticoagulation, CHF, HTN, DM 2, thymoma status post excision, myasthenia gravis, and recent LV apical thrombus July 2018. Cardiology consult for chest pain and mild troponin elevation. Patient reports left-sided chest tightness with some accompanying nausea. Does report some overall fatigue and concern for "viral illness ". Patient indicates he "does not believe this is his heart ". Indicates symptoms have been intermittent lasting for seconds to minutes for the past day or so. Currently chest pain-free. Reports compliance medication regimen. Denies any recent infectious process. Denies any active bleeding or blood loss. Denies any catheterization since last one at [facility] April 2018. Past Med Surg Social Fam HX - Past Medical History Attestation: Yes The following information was validated with the patient. Source: patient, old records reviewed Medical history: cancer, coronary artery disease, DVT, diabetes, hyperlipidemia, hypertension, myocardial infarction, other Additional medical history: malignant thymoma with mets to the heart and lung Psychiatric history: no psych history - Past Surgical History Surgical History: hip replacement (Right), IVC Filter, other (Sternotomy, pericardial surgery, left lower lung resection and excision of malignant thymoma) Additional surgical history: right hip replacement, Open Heart to remove cancer, diverticulitis with dissection. Myasthenia Gravis - Social History Smoking Status: Never smoker Smokeless Tobacco Status: No Alcohol use: none Drug use: none - Family History Father Adopted: No Family Member Ethnicity: Non- Living Status: Still Living Hx Family Cardiac Disorders: Yes Hx Family Respiratory Disorders: No Hx Family Cancer: No Hx Family GI Disorders: No Hx Family Endocrine Disorder: Yes Hx Family Neuromuscular Disorders: No Hx Family Neurologic Disorders: Yes Hx Family HEENT Disorders: No Brother Living Status: Still Living Hx Family Cardiac Disorders: Yes Hx Family Cancer: Yes (Prostate and colon cancer) Mother Adopted: No Family Member Ethnicity: Non- Living Status: Still Living Hx Family Cardiac Disorders: Yes Hx Family Respiratory Disorders: No Hx Family Cancer: No Hx Family GI Disorders: No Hx Family Endocrine Disorder: Yes Hx Family Neuromuscular Disorders: No Hx Family Neurologic Disorders: Yes Hx Family HEENT Disorders: No Medications and Allergies Aspirin 81 mg PO DAILY #30 tab.chew 05/13/15 [Rx] Atorvastatin Calcium 80 mg PO DAILY 03/07/17 [History] Acetaminophen [Tylenol] 650 mg PO Q4HR PRN 08/09/17 [History] Insulin NPH Human Isophane [Novolin N] 30 units SQ DAILY 08/09/17 [History] Metoprolol Succinate [Toprol Xl] 50 mg PO DAILY 08/09/17 [History] Pantoprazole Sodium 40 mg PO BID 08/09/17 [History] Celecoxib [Celebrex] 200 mg PO BID 08/04/18 [History] DULoxetine [Cymbalta] 30 mg PO DAILY 08/04/18 [History] Insulin ASPART [NovoLOG] 0 unit SQ TIDWM 08/04/18 [History] Insulin Glargine [Lantus] 40 unit SQ BID 08/04/18 [History] Lisinopril [Zestril] 10 mg PO QPM 08/04/18 [History] Lisinopril [Zestril] 20 mg PO QAM 08/04/18 [History] PredniSONE [Deltasone] 20 mg PO BID 08/04/18 [History] Quetiapine Fumarate [Seroquel] 25 mg PO HS PRN 08/04/18 [History] Tamsulosin [Flomax] 0.4 mg PO DAILY 08/04/18 [History] Warfarin [Coumadin] 5 mg PO SUMOWEFRSA 08/04/18 [History] Warfarin Sodium 7.5 mg PO TUTH 09/29/18 [History] Allergy/AdvReac Type Severity Reaction Status Date / Time rifampin Allergy Anaphylaxis Verified 05/04/18 09:17 All Systems Review: The remainder of the systems were reviewed and are negative - Constitutional Constitutional: fatigue - Cardiovascular Cardiovascular: as per HPI, chest pain at rest - Gastrointestinal Gastrointestinal: nausea Physical Examination Vital Signs, Last 4 Hours Pulse Resp BP Pulse Ox 09/29/18 13:40 89 16 135/96 95 09/29/18 12:31 87 19 127/90 96 09/29/18 11:26 90 20 144/91 94 General: Conversant, No Apparent Distress HEENT: Atraumatic, Normocephaly, Mucus Membranes Moist Neck: No JVD, Normal carotid pulses Cardiac: Reg Rate and Rhythm, Normal S1 and S2, No Murmur Lungs: Normal Breath Sounds, No Wheeze, Rales, Rhonchi Neuro: Alert and responsive, No focal deficits noted Abdomen: Soft, Non-Tender Skin: No rashes noted on visualized skin Musculoskeletal: No Chest Wall Tenderness Extremities: No Clubbing, No Cyanosis, No Edema, Normal Pulses Results 09/29/18 10:06 09/29/18 10:06 Lab Results Selected Entries 09/29/18 09:26 09/29/18 13:40 Blood Pressure 158/108 135/96 Laboratory Tests 12/25/14 05/11/15 03/08/17 18:25 17:14 12:42 WBC Hgb Hct INR Creatinine Est GFR (Non-Af Amer) Troponin I 0.13 H* 0.07 H* 0.13 H* B-Natriuretic Peptide TSH 07/15/17 08/09/17 05/04/18 15:51 19:59 09:30 WBC Hgb Hct INR Creatinine Est GFR (Non-Af Amer) Troponin I 0.04 H* 0.04 H* 0.29 H* B-Natriuretic Peptide TSH 08/04/18 09/29/18 09/29/18 17:03 10:06 10:06 WBC Hgb Hct INR 2.0 Creatinine Est GFR (Non-Af Amer) Troponin I 0.13 H* B-Natriuretic Peptide 66 TSH 09/29/18 09/29/18 10:06 10:06 WBC 12.1 H Hgb 15.9 Hct 50.0 INR Creatinine 0.97 Est GFR (Non-Af Amer) > 60 Troponin I 0.07 H* B-Natriuretic Peptide TSH 0.922 ITS Impressions Chest X-Ray 09/29/18 09:49 IMPRESSION: Stable cardiomegaly and elevation left hemidiaphragm, without acute cardiopulmonary process identified. D/ / Bo Leiva MD / Bo Leiva MD Interpreting Provider: Bo Leiva MD Active Medications Acetaminophen (Tylenol) 650 mg PO Q4HR PRN PRN Reason: Pain Stop: 03/31/19 14:13 Aspirin (Aspirin) 81 mg PO DAILY AMANDA Stop: 04/01/19 09:01 Celecoxib (Celebrex) 200 mg PO BID AMANDA Stop: 03/31/19 21:01 Dextrose/Water (Dextrose 50% (Syg)) 25 ml IVP AD PRN PRN Reason: Hypoglycemia Stop: 03/31/19 14:14 Duloxetine HCl (Cymbalta) 30 mg PO DAILY AMANDA Stop: 04/01/19 09:01 Glucagon (Glucagen) 1 mg IM ONCE PRN PRN Reason: Hypoglycemia Stop: 03/31/19 14:14 Glucose (Gluctose) 15 gm PO ONCE PRN PRN Reason: Hypoglycemia Stop: 03/31/19 14:14 Glucose (Gluctose) 30 gm PO ONCE PRN PRN Reason: Hypoglycemia Stop: 03/31/19 14:14 Dextrose (Dextrose 5%) 1,000 mls @ 100 mls/hr IVC .Q10H PRN PRN Reason: HYPOGLYCEMIA Stop: 03/31/19 14:14 Insulin Detemir (Levemir) 30 unit 0.25 unit/kg (30 unit) SQ BID AMANDA Stop: 03/31/19 21:01 Insulin Human Lispro (Humalog) 0 units SQ HS AMANDA; Protocol Stop: 03/31/19 21:01 Insulin Human Lispro (Humalog) 0 units SQ TIDAC AMANDA; Protocol Stop: 03/31/19 16:31 Lisinopril (Zestril) 10 mg PO QPM AMANDA; Protocol Stop: 03/31/19 18:01 Lisinopril (Zestril) 20 mg PO DAILY [facility]; Protocol Stop: 04/01/19 09:01 Metoprolol Succinate (Toprol Xl) 50 mg PO DAILY [facility] Stop: 04/01/19 09:01 Naloxone HCl (Narcan) 0.4 mg IVP Q2MPRN PRN PRN Reason: SEE COMMENTS Stop: 03/31/19 13:17 Non-Formulary Medication (Atorvastatin Calcium) 80 mg PO DAILY [facility] Stop: 04/01/19 09:01 Non-Formulary Medication (Pantoprazole Sodium) 40 mg PO BID [facility] Stop: 03/31/19 21:01 Ondansetron HCl (Zofran) 4 mg IVP Q8HR PRN PRN Reason: Nausea And Vomiting Stop: 03/31/19 13:17 Prednisone (Prednisone) 20 mg PO BID [facility] Stop: 03/31/19 21:01 Quetiapine Fumarate (Seroquel) 25 mg PO HS PRN; Protocol PRN Reason: Sleep Stop: 03/31/19 14:13 Tamsulosin HCl (Flomax) 0.4 mg PO DAILY [facility]; Protocol Stop: 04/01/19 09:01 - Imaging and Cardiology Chest Xray: report reviewed Echo: report reviewed Cardiac cath: report reviewed - EKG Interpretation EKG results cardiology: personally reviewed, normal ECG, sinus rhythm, no iris gnostic ischemia Consult Discharge Plan - Plan Referrals: [facility] [Primary Care Provider[facility] - <Alma Root - Last Filed: 09/29/18 20:45> Date of Encounter: 09/29/18 - Attending Attestation Patient was seen and evaluated independently by me. Findings, assessment and plan were discussed at length with patient, questions answered. Agree with nurse practitioner's/resident's documentation. Addition as follows, 52yoAAM ho MG s/p thymoma resection, CAD s/p VINEET-p/mLAD last [facility] patent stent, severe LVH with asymmetrical septal thickening w/o LVOT obstruction, DVT s/p IVCF on warfarin, DM2. P/w intermittent resting non-radiating left chest pressure w/ vague palpitations and nausea. Non-ischemic ECG. Trop 0.07 flat (elevated trop during recent admissions), BNP 66 BP 150s/100s on admission, CTA, RR, no M/G/R, no LE edema. [id number] TTE LVEF 55%. Severe concentric left ventricular hypertrophy. Normal LV chamber size and overall function. Atypical septal motion consistent with bundle branch block. Right ventricle was not well visualized. Echodensity remains in the LV apex, unchanged in size. Unclear if this is part of the endocardium or possibly thrombus. Consider cardiac MRI to evaluate. Limited study, valves not assessed. [id number] TTE LVEF 50-55%. Mild segmental left ventricular systolic dysfunction. Left ventricular apical thrombus. Severe concentric left ventricular hypertrophy, asymmetrical septal thickening without elevated LVOT gradient at rest. Moderate left ventricular diastolic dysfunction. Mildly dilated right ventricle with mild right ventricular hypokinesis. Biatrial dilatation. Mild aortic regurgitation. Mild mitral regurgitation. Moderate tricuspid regurgitation. Unable to estimate RVSP due to lack of IVC visualization. [facility] Left heart catheterization: 1. LVEDP is normal (13 mmHg). 2. No significant LV-aortic gradient on pullback. Coronary angiography: 1. LMCA: no significant disease. 2. LAD: large vessel; previous stent in proximal/mid LAD is patent with minimal disease (<10% in stent re-stenosis). 3. LCx: moderate sized vessel, mild to moderate disease in distal LCx. 4. RCA: moderate sized RCA with mild luminal irregularities. [facility] TTE LVEF is approximated visually at 40-45%. Significant concentric LV remodeling. Regional left ventricular systolic dysfunction including anterior/septal and apical among other wall motion abnormalities depicted in the segmental diagram. Diastolic function is consistent with pseudonormalization (grade II). Probably elevated left atrial pressure. Right ventricular dilatation. RV visualization is suboptimal but suspect moderate RV systolic dysfunction. RA dilatation. Aortic sclerosis without hemodynamic stenosis. Trace aortic regurgitation. In direct visual comparison to the study dated 07/16/2017, LV and RV function both appear worsened. A: Chest pain, atypical Chronic mild troponin elevation, type II likely, possibly due to severe LVH and uncontrolled HTN CAD s/p p/m LADE stent, patent on [facility] for NSTEMI ([facility]) Uncontrolled HTN Question of LV apical thrombus - 2016 TTE w/o LV contrast of apical-mid LV mass (PSAX view) persistent on [id number] and [id number] TTEs, since pt has severe LVH and on warfarin for DVT chronically, the assumed apical thrombus is likely pap muscle, but definitive diagnosis to be established by CMR as outpatient Long standing warfarin for DVT MG P: tele r/o NSVT BP ctr if recurrent chest pain, consider SPECT Alma Root MD, PhD Assessment and Plan Discussion w patient/family: The assessment and plan as outlined above was discussed with the patient and/or family members who expressed understanding and agreement. All questions were answered. Thank you for involving us in the care of your patient. Please call with any questions. History of Present Illness History of present illness: Mr. Mott is a 52 year old male All Systems Review: The remainder of the systems were reviewed and are negative Physical Examination Vital Signs, Last 4 Hours Temp Pulse Resp BP Pulse Ox 09/29/18 19:59 98.1 F 101 14 113/71 95 Results 09/29/18 10:06 09/29/18 10:06 Lab Results 09/29/18 09/29/18 09/29/18 10:06 10:06 10:06 WBC 12.1 H Hgb 15.9 Hct 50.0 Plt Count 212 INR 2.0 APTT 34.6 Sodium Potassium Chloride Carbon Dioxide BUN Creatinine Glucose Calcium Troponin I B-Natriuretic Peptide 66 TSH 09/29/18 09/29/18 10:06 16:31 WBC Hgb Hct Plt Count INR APTT Sodium 135 L Potassium 3.7 Chloride 101 Carbon Dioxide 25 BUN 17 Creatinine 0.97 Glucose 131 H Calcium 9.0 Troponin I 0.07 H* 0.07 H* B-Natriuretic Peptide TSH 0.922
[2018-09-29] MEDS ORDERED: Acetaminophen 325 MG TABLET PO PRN (14:12)
[2018-09-29] MEDS ORDERED: Dextrose Gel 15 GM/37.5 ML TUBE PO PRN ×2 (14:13)
[2018-09-29] MEDS ORDERED: D5% in Water 1,000 ML IVC PRN (14:13)
[2018-09-29] MEDS ORDERED: *HR* Dextrose 50 % in Water (Syg) 50 ML SYRINGE IVP PRN (14:13)
--- NOTE | 2018-09-29 14:13 | Internal Med History&Physical ---
Date of Encounter: 09/29/18 Time of Encounter: 13:15 Internal Medicine - H&P: HPI Chief complaint: chest pain, flu-like illness Admitted From: Home History of present illness: Mr. Mott is a 52 year old male with history of myasthenia gravis, thymoma status post surgery, CAD status post PCI, DVT on Coumadin, hypertension, diabetes, who presented to the ED with chest pain. Left sided, described as tightness, non-radiating, no obvious aggravating factor. Associated with nausea without vomiting and lightheadedness. He took an extra dose of aspirin without significant relief. He also feels like he has "viral symptoms" without being able to further elaborate other than malaise. No cough, sputum production, orthopnea, PND, or leg swelling. No dominant pain, change in bowel habits, dysuria, urinary frequency, joint pain, or rash. No diplopia or limb weakness/numbness. In the ED, he was afebrile and hemodynamically stable. Labwork revealed mild leukocytosis of 12.1, therapeutic INR of 2, normal BMP, and minimally elevated troponin of 0.07. EKG did not show any new changes. Chest x-ray was unremarkable. He was given a dose of Zofran and admitted for further management. 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 Myasthenia Gravis - Social History Smoking Status: Never smoker Smokeless Tobacco Status: No Alcohol use: none Drug use: none - Family History Father Adopted: No Family Member Ethnicity: Non- Living Status: Still Living Hx Family Cardiac Disorders: Yes Hx Family Respiratory Disorders: No Hx Family Cancer: No Hx Family GI Disorders: No Hx Family Endocrine Disorder: Yes Hx Family Neuromuscular Disorders: No Hx Family Neurologic Disorders: Yes Hx Family HEENT Disorders: No Brother Living Status: Still Living Hx Family Cardiac Disorders: Yes Hx Family Cancer: Yes (Prostate and colon cancer) Mother Adopted: No Family Member Ethnicity: Non- Living Status: Still Living Hx Family Cardiac Disorders: Yes Hx Family Respiratory Disorders: No Hx Family Cancer: No Hx Family GI Disorders: No Hx Family Endocrine Disorder: Yes Hx Family Neuromuscular Disorders: No Hx Family Neurologic Disorders: Yes Hx Family HEENT Disorders: No Internal Medicine - H&P: Meds Aspirin 81 mg PO DAILY #30 tab.chew 05/13/15 [Rx] Atorvastatin Calcium 80 mg PO DAILY 03/07/17 [History] Acetaminophen [Tylenol] 650 mg PO Q4HR PRN 08/09/17 [History] Insulin NPH Human Isophane [Novolin N] 30 units SQ DAILY 08/09/17 [History] Metoprolol Succinate [Toprol Xl] 50 mg PO DAILY 08/09/17 [History] Pantoprazole Sodium 40 mg PO BID 08/09/17 [History] Celecoxib [Celebrex] 200 mg PO BID 08/04/18 [History] DULoxetine [Cymbalta] 30 mg PO DAILY 08/04/18 [History] Insulin ASPART [NovoLOG] 0 unit SQ TIDWM 08/04/18 [History] Insulin Glargine [Lantus] 40 unit SQ BID 08/04/18 [History] Lisinopril [Zestril] 10 mg PO QPM 08/04/18 [History] Lisinopril [Zestril] 20 mg PO DAILY 08/04/18 [History] PredniSONE [Deltasone] 20 mg PO BID 08/04/18 [History] Quetiapine Fumarate [Seroquel] 25 mg PO HS PRN 08/04/18 [History] Tamsulosin [Flomax] 0.4 mg PO DAILY 08/04/18 [History] Warfarin [Coumadin] 5 mg PO 1800 08/04/18 [History] Allergy/AdvReac Type Severity Reaction Status Date / Time rifampin Allergy Anaphylaxis Verified 05/04/18 09:17 All Systems PM: A 10-system review of systems was performed and is negative for pertinent fi ndings except as documented above in the HPI. - Constitutional Vitals: Temp Pulse Resp BP Pulse Ox 98.3 F 89 16 135/96 95 09/29/18 09:26 09/29/18 13:40 09/29/18 13:40 09/29/18 13:40 09/29/18 13:40 Exam: General: Alert and oriented, not in acute distress. HEENT:EOMI, pupils equal, round and reactive. Cardiovascular:Normal S1 & S2, No JVD. Pulse regular. Lungs: clear to auscultation, no wheezes/rales Abdomen:Soft, non-tender, no rigidity. Extremities:No deformity or swelling Neurological: CN II-XII fully intact. Non-focal Skin:Normal color, no rash, no lesions. Pulses:Carotid and radial pulses normal +2. Rest of the physical exam is non contributory Internal Med - H&P Results - Labs CBC & Chem 7: 09/29/18 10:06 09/29/18 10:06 Labs: Short CBC 09/29/18 Range/Units 10:06 WBC 12.1 H (4.3-11.1) K/mcL Hgb 15.9 (12.9-16.9) g/dL Hct 50.0 (37.5-50.1) % Plt Count 212 (140-400) K/mcL Neutrophils # 9.2 H (1.6-8.9) K/mcL BMP 09/29/18 10:06 Sodium 135 L Potassium 3.7 Chloride 101 Carbon Dioxide 25 BUN 17 Creatinine 0.97 Glucose 131 H Calcium 9.0 Cardiac Enzymes 09/29/18 Range/Units 10:06 Troponin I 0.07 H* (< 0.04) ng/mL - Impressions ITS Impressions Chest X-Ray 09/29/18 09:49 IMPRESSION: Stable cardiomegaly and elevation left hemidiaphragm, without acute cardiopulmonary process identified. D/ / Bo Leiva MD / Bo Leiva MD Interpreting Provider: Bo Leiva MD - Assessment and Plan (1) Elevated troponin Current Visit: Yes Status: Chronic Assessment and plan: It appears that patient has had chronically elevated troponin on multiple occasions nevertheless, he presented with atypical chest pain with significant cardiac risk factors including prior PCI Had recent echocardiogram done on 07/2018 which showed low normal EF with mild segmental LV systolic dysfunction. 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 transportation intermediary insulin use: with assisted use Diabetes mellitus complication status: without complication Qualified Code(s): E11.9 - Type 2 diabetes mellitus without complications; Z79.4 - detention (current) use of insulin (3) Hx of deep venous thrombosis Current Visit: Yes Status: Chronic Assessment and plan: On Coumadin, INR therapeutic Warfarin dosing per pharmacy, daily INR (4) Hypertension Current Visit: Yes Status: Chronic Assessment and plan: Resume home meds Qualifiers: Hypertension type: essential hypertension Qualified Code(s): I10 - Essential (primary) hypertension (5) Myasthenia gravis associated with thymoma Current Visit: No Status: Chronic Assessment and plan: continue home meds (6) DVT prophylaxis Current Visit: Yes Status: Acute Assessment and plan: Therapeutic INR on Coumadin - Time Spent With Patient Total time spent is greater than 50% in coordination of care (as documented) at patient's floor/unit and/or counseling patient: 25 - 35 minutes
[2018-09-29] MEDS ORDERED: Perflutren Lipid Microsphere 1.3 ML in 0.9 % Sodium Chloride 8.7 ML IVP ONE (14:41)
[2018-09-29 15:45] LABS: Adenovirus Not Detected (Not Detect); Bordetella Pertussis Not Detected (Not Detect); Chlamydophila pneumoniae Not Detected (Not Detect); Coronavirus 229E Not Detected (Not Detect); Coronavirus HKU1 Not Detected (Not Detect); Coronavirus NL63 Not Detected (Not Detect); Coronavirus OC43 Not Detected (Not Detect); Human Metapneumovirus Not Detected (Not Detect); Human Rhinovirus/Enterovirus Not Detected (Not Detect); Influenza A Subtype 2009 H1 Not Detected (Not Detect); Influenza A Untypeable Not Detected (Not Detect); Influenza B Not Detected (Not Detect); Mycoplasma pneumoniae Not Detected (Not Detect); Parainfluenza Virus 1 Not Detected (Not Detect); Parainfluenza Virus 2 Not Detected (Not Detect); Parainfluenza Virus 3 Not Detected (Not Detect); Parainfluenza Virus 4 Not Detected (Not Detect); Respiratory Syncytial Virus Not Detected (Not Detect)
[2018-09-29] MEDS: Insulin LISPRO 300 UNITS/3 ML VIAL SQ SCH (16:55)
--- NOTE | 2018-09-29 17:17 | Electrocardiograph Report ---
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
--- NOTE | 2018-09-29 17:23 | Electrocardiograph Report ---
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
[2018-09-29] MEDS: Celecoxib 200 MG CAPSULE PO SCH (20:53)
[2018-09-29] MEDS: Insulin DETEMIR 100 UNIT/ML X5UNITS SQ SCH (20:53)
[2018-09-29] MEDS: predniSONE 20 MG TABLET PO SCH (20:53)
[2018-09-29] MEDS ORDERED: Insulin LISPRO 300 UNITS/3 ML VIAL SQ SCH (21:00)
[2018-09-30 03:54] LABS: INR 1.7; Prothrombin Time 18.8 Seconds (9.4-12.1)
[2018-09-30 04:05] LABS: BUN/Creatinine Ratio 23 (6-26); Blood Urea Nitrogen 21 mg/dL (6-20); Carbon Dioxide 24 mEq/L (23-29); Chloride 101 mEq/L (98-107); Glucose 256 mg/dL (70-105); Osmolality,Calculated 286 (280-300); Potassium 4.6 mEq/L (3.5-5.1); Sodium 132 mEq/L (136-145); eGFR For African Americans > 60 (> 60); eGFR For Non-African Americans > 60 (> 60)
[2018-09-30 04:14] LABS: Calcium 8.7 mg/dL (8.6-10.3)
[2018-09-30 05:28] LABS: Basophils % 0.3 %; Eosinophils % 0.2 %; Hematocrit 51.4 % (37.5-50.1); Hemoglobin 16.1 g/dL (12.9-16.9); Immature Granulocytes % 0.5 % (0-4); Lymphocytes # 1.3 K/mcL (0.6-4.6); Lymphocytes % 9.9 %; Mean Corpuscular HGB Conc 31.3 g/dL (31.6-35.5); Mean Corpuscular Hemoglobin 25.6 pg (28.0-33.3); Mean Corpuscular Volume 81.6 fL (83.0-100.0); Mean Platelet Volume 10.5 fL (9.4-12.4); Monocytes # 0.4 K/mcL (0.0-1.3); Neutrophils # 11.5 K/mcL (1.6-8.9); Platelet Count 248 K/mcL (140-400); Red Cell Distribution Width 16.2 % (11.5-14.5); Segmented Neutrophils % 86.1 %; White Blood Count 13.3 K/mcL (4.3-11.1)
[2018-09-30] MEDS: Insulin LISPRO 300 UNITS/3 ML VIAL SQ SCH ×2 (07:58→12:08)
[2018-09-30] MEDS: Celecoxib 200 MG CAPSULE PO SCH (08:08)
[2018-09-30] MEDS: predniSONE 20 MG TABLET PO SCH (08:08)
[2018-09-30] MEDS: Insulin DETEMIR 100 UNIT/ML X5UNITS SQ SCH (08:10)
[2018-09-30] MEDS ORDERED: Aspirin 81 MG TAB.CHEW PO SCH (09:00)
[2018-09-30] MEDS ORDERED: Metoprolol XL (24 HR) Succ 50 MG TAB.ER.24H PO SCH (09:00)
[2018-09-30] MEDS ORDERED: Lisinopril 20 MG TABLET PO SCH ×2 (09:00→21:00)
[2018-09-30 10:31] VITALS: BP 113/73
--- NOTE | 2018-09-30 10:43 | Cardiology Progress Note ---
Date of Encounter: 09/30/18 Time of Encounter: 10:34 Assessment and Plan (1) Chest pain Current Visit: Yes Status: Acute Atypical chest pain. Troponin adynamic, 0.07, 0.07, 0.07. Appears to be chronically elevated when compared to past visits. Do not suspect ACS. Likely demand ischemia in the setting of severe LVH. Discussed with Dr. Root, [facility] records reviewed. LHC 04/2018 at [facility] showed patent stent, no intervention needed. Repeat LHC at this time not recommended. TTE shows preserved EF. Severe LVH as seen previously. Echodensity in LV apex when compared to prior studies appears to be myocardium rather than thrombus. Pt requiring continuation of coumadin for DVT. Recommend better b/p control and for patient to stay hydrated. Low sodium diet recommended. Continue asa, statin, and bb. Out-pt f/u will be coordinated. Call with questions, cardiology will sign off. Qualifiers: Chest pain type: unspecified Qualified Code(s): R07.9 - Chest pain, unspecified (2) Elevated troponin Current Visit: Yes Status: Chronic Per Cardiology: Initial troponin 0.07. Of note, patient has chronic troponin elevations over the past 8 hospital stays over the past 4 years. See plan above. (3) HTN (hypertension) Current Visit: No Status: Acute Better b/p control recommended. Pt reports elevated b/p for 4 days prior to admission and on admission. Increase lisinopril to 20 mg BID. Low sodium diet stressed. Qualifiers: Hypertension type: essential hypertension Qualified Code(s): I10 - Essential (primary) hypertension (4) CAD (coronary artery disease) Current Visit: No Status: Chronic Per Cardiology: History of CAD with drug-eluting stent to proximal to mid LAD February 2017 and PTCA to diagonal lesion. Reported catheterization at [facility] April 2018 showing patent LAD stent. No intervention. Continue asa, statin, bb. Healthy heart diet and exercise. Qualifiers: Coronary Disease-Associated Artery/Lesion type: [place] artery [place] vs. transplanted heart: [place] heart Associated angina: angina presence unspecified Qualified Code(s): I25.10 - Atherosclerotic heart disease of [place] coronary artery without angina pectoris Discussion w patient/family: The assessment and plan as outlined above was discussed with the patient and/or family members who expressed understanding and agreement. All questions were answered. Thank you for involving us in the care of your patient. Please call with any questions. Subjective Principal diagnosis: Chest pain, chronic troponin Interval history: Mr. Mott states chest pain improved. Pain is not like he felt prior to previous stent. Objective Vital Signs, Last 4 Hours Temp Pulse Resp BP Pulse Ox 09/30/18 10:28 98.2 F 81 16 113/73 95 09/30/18 07:11 97.7 F 80 16 136/78 95 General: Conversant, No Apparent Distress HEENT: Atraumatic, Normocephaly, Mucus Membranes Moist Neck: No JVD, Normal carotid pulses Cardiac: Reg Rate and Rhythm, Normal S1 and S2, No Murmur Lungs: Normal Breath Sounds, No Wheeze, Rales, Rhonchi Neuro: Alert and responsive, No focal deficits noted Abdomen: Soft, Non-Tender Skin: No rashes noted on visualized skin Musculoskeletal: No Chest Wall Tenderness Extremities: No Clubbing, No Cyanosis, No Edema, Normal Pulses Results 09/30/18 05:05 09/30/18 03:27 Lab Results 09/29/18 09/29/18 09/29/18 10:06 10:06 10:06 WBC 12.1 H Hgb 15.9 Hct 50.0 Plt Count 212 INR 2.0 APTT 34.6 Sodium Potassium Chloride Carbon Dioxide BUN Creatinine Glucose Calcium Troponin I B-Natriuretic Peptide 66 TSH 09/29/18 09/29/18 09/29/18 10:06 16:31 21:52 WBC Hgb Hct Plt Count INR APTT Sodium 135 L Potassium 3.7 Chloride 101 Carbon Dioxide 25 BUN 17 Creatinine 0.97 Glucose 131 H Calcium 9.0 Troponin I 0.07 H* 0.07 H* 0.07 H* B-Natriuretic Peptide TSH 0.922 09/30/18 09/30/18 09/30/18 03:27 03:27 05:05 WBC 13.3 H Hgb 16.1 Hct 51.4 H Plt Count 248 INR 1.7 APTT Sodium 132 L Potassium 4.6 Chloride 101 Carbon Dioxide 24 BUN 21 H Creatinine 0.93 Glucose 256 H Calcium 8.7 Troponin I B-Natriuretic Peptide TSH - Imaging and Cardiology Echo: report reviewed - EKG Interpretation EKG results cardiology: personally reviewed Consult Discharge Plan - Plan Referrals: [facility] [Primary Care Provider] - 10/07/18 2:00 pm
--- NOTE | 2018-09-30 11:44 | Discharge Summary ---
- NOTES TO OUTPATIENT PROVIDER Notes to Outpatient Provider: Presented with chest pain-seen by cardiology recommending better blood pressure control increase lisinopril. 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 Mott is a 52 year old male medical history of myasthenia gravis thymoma status post surgery CAD status post PCI DVT on Coumadin hypertension diabetes, presented to [facility] ED with chest pain left-sided described as tightness nonradiating no aggravating factors no associated symptoms he did take an extra dose of aspirin without any significant relief he also advised that he had viral symptoms general malaise no cough sputum will pain nausea or vomiting or diarrhea. initial troponin was elevated 0.07 ekg with no ischemic changes chest x-ray with nothing acute. He was evaluated by cardiology who did review [facility] records left heart 04/2018 at [facility] showed patent stent no intervention needed. Repeat LHC at this time not recommended TTE shows preserved EF with severe LVH which was seen previously echodensity and LV apex when compared to prior studies appears to be myocardium rather than thrombus. Continue with Coumadin for history of DVT. Recommending better blood pressure control as well as low- sodium diet. Lisinopril was increased to 20 mg 2 times a day currently patient is hemodynamically stable and is ready for discharge. - Time Spent with Patient Total time spent providing and/or coordinating discharge services: - Discharge Medications Prescriptions: New Lisinopril [Zestril] 20 mg PO BID #60 tablet Continued Aspirin 81 mg PO DAILY #30 tab.chew Atorvastatin Calcium 80 mg PO DAILY Metoprolol Succinate [Toprol Xl] 50 mg PO DAILY Acetaminophen [Tylenol] 650 mg PO Q4HR PRN PRN Reason: Pain Insulin NPH Human Isophane [Novolin N] 30 units SQ DAILY Pantoprazole Sodium 40 mg PO DAILY Celecoxib [Celebrex] 200 mg PO BID Insulin Glargine [Lantus] 30 unit SQ BID Lisinopril [Zestril] 20 mg PO QAM Lisinopril [Zestril] 10 mg PO QPM Quetiapine Fumarate [Seroquel] 25 mg PO HS PRN PRN Reason: Sleep Warfarin [Coumadin] 5 mg PO SUMOWEFRSA Tamsulosin [Flomax] 0.4 mg PO DAILY PredniSONE [Deltasone] 20 mg PO QAM DULoxetine [Cymbalta] 30 mg PO DAILY Insulin ASPART [NovoLOG] 7 - 15 unit SQ TIDWM Warfarin Sodium 7.5 mg PO TUTH predniSONE [PredniSONE] 10 mg PO QPM Home Medications: Aspirin 81 mg PO DAILY #30 tab.chew 05/13/15 [Rx] Atorvastatin Calcium 80 mg PO DAILY 03/07/17 [History] Acetaminophen [Tylenol] 650 mg PO Q4HR PRN 08/09/17 [History] Insulin NPH Human Isophane [Novolin N] 30 units SQ DAILY 08/09/17 [History] Metoprolol Succinate [Toprol Xl] 50 mg PO DAILY 08/09/17 [History] Pantoprazole Sodium 40 mg PO DAILY 08/09/17 [History] Celecoxib [Celebrex] 200 mg PO BID 08/04/18 [History] DULoxetine [Cymbalta] 30 mg PO DAILY 08/04/18 [History] Insulin ASPART [NovoLOG] 7 - 15 unit SQ TIDWM 08/04/18 [History] Insulin Glargine [Lantus] 30 unit SQ BID 08/04/18 [History] Lisinopril [Zestril] 10 mg PO QPM 08/04/18 [History] Lisinopril [Zestril] 20 mg PO QAM 08/04/18 [History] PredniSONE [Deltasone] 20 mg PO QAM 08/04/18 [History] Quetiapine Fumarate [Seroquel] 25 mg PO HS PRN 08/04/18 [History] Tamsulosin [Flomax] 0.4 mg PO DAILY 08/04/18 [History] Warfarin [Coumadin] 5 mg PO SUMOWEFRSA 08/04/18 [History] Warfarin Sodium 7.5 mg PO TUTH 09/29/18 [History] predniSONE [PredniSONE] 10 mg PO QPM 09/29/18 [History] Lisinopril [Zestril] 20 mg PO BID #60 tablet 09/30/18 [Rx] Allergies/Adverse Reactions: Allergy/AdvReac Type Severity Reaction Status Date / Time rifampin Allergy Anaphylaxis Verified 05/04/18 09:17 Date of admission: 09/29/18 13:17 Primary care physician: [facility] Consults: 09/29/18 12:53 Consult to Cardiology [CONS] Stat Comment: Consulting Provider: [facility] [place] Reason for Consult: Chest pain Call Completed: No Discharging clinician: Eliana Grey Anticipated date of discharge: 09/30/18 - Constitutional Vitals: Temp Pulse Resp BP Pulse Ox 98.2 F 81 16 113/73 95 09/30/18 10:28 09/30/18 10:28 09/30/18 10:28 09/30/18 10:28 09/30/18 10:28 Exam: Skin: Free of rash and discoloration. Eyes: Sclera is white. There is no discharge from eyes. ENMT: Oral/pharyngeal mucosa is normal in appearance. There is no discharge from nose or ears. Respiratory: Normal breath sounds with no crackles and wheezes bilaterally. CV: Heart is regular with no gallop or murmur. GI: Abdomen is flat and soft with no palpable mass or visceromegaly. : There is no tenderness in patient's flanks bilaterally. Neuro exam: He has good strength in upper and lower extremities. He has normal eye movements. Psychiatric: He has normal affect. His thought process is appropriate to the situation. - Patient Status Disposition: Home, Self-Care Condition: Good Functional capacity at discharge: independent ambulation Overall status at discharge: patient is back to baseline - Discharge Instructions Follow Up With: [facility],PCP [Primary Care Provider] - 10/07/18 2:00 pm - Diet and Activity Activity: increase activity as tolerated Diet: low salt diet
== END 2018-09-30 13:26 | disposition home or self-care (01) ==
LOC: EMEROOARM 09:20 → 3BNU 09:20
PROVIDERS: ADMIT Internal Medicine; ATTEND Internal Medicine

== ENCOUNTER 2018-11-02 08:18 | Inpatient (IN) ==
[2018-11-02] MEDS ORDERED: Isovue-370 500 ML BOTTLE IVP ONE (08:50)
--- NOTE | 2018-11-02 08:50 | Emergency Department Note ---
Disposition Clinical Impression: Elevated troponin I level, Chest wall pain, Elevated serum creatinine Abdominal pain Qualifiers: Abdominal location: right upper quadrant Qualified Code(s): R10.11 - Right upper quadrant pain Disposition: Admitted As Inpatient Condition: Good Time of Disposition: 09:44 General Adult HPI - General Chief complaint: ED Abdominal Pain Stated complaint: Abd Pain/Swelling Time Seen by Provider: 11/02/18 08:25 Source: patient Limitations: no limitations - History of Present Illness Pain Scale: 8 - Related Data Home Medications Medication Instructions Recorded Confirmed Atorvastatin Calcium 80 mg PO DAILY 03/07/17 11/02/18 Insulin NPH Human Isophane 30 units SQ DAILY 08/09/17 11/02/18 [Novolin N] Metoprolol Succinate [Toprol Xl] 50 mg PO DAILY 08/09/17 11/02/18 Pantoprazole Sodium 40 mg PO DAILY 08/09/17 11/02/18 Celecoxib [Celebrex] 200 mg PO BID 08/04/18 11/02/18 DULoxetine [Cymbalta] 30 mg PO DAILY 08/04/18 11/02/18 Insulin ASPART [NovoLOG] 7 - 15 unit SQ TIDWM 08/04/18 11/02/18 Insulin Glargine [Lantus] 30 unit SQ BID 08/04/18 11/02/18 Lisinopril [Zestril] 10 mg PO QPM 08/04/18 11/02/18 Lisinopril [Zestril] 20 mg PO QAM 08/04/18 11/02/18 PredniSONE [Deltasone] 20 mg PO QAM 08/04/18 11/02/18 Quetiapine Fumarate [Seroquel] 25 mg PO HS PRN 08/04/18 11/02/18 Tamsulosin [Flomax] 0.4 mg PO DAILY 08/04/18 11/02/18 Warfarin [Coumadin] 5 mg PO SUMOWEFRSA 08/04/18 11/02/18 Warfarin Sodium 7.5 mg PO TUTH 09/29/18 11/02/18 predniSONE [PredniSONE] 10 mg PO QPM 09/29/18 11/02/18 Previous Rx's Medication Instructions Recorded Aspirin 81 mg PO DAILY #30 tab.chew 05/13/15 Allergies Allergy/AdvReac Type Severity Reaction Status Date / Time rifampin Allergy Anaphylaxis Verified 05/04/18 09:17 Past Medical History - Past Medical History Medical history: Reports: cancer, coronary artery disease, DVT, diabetes, hyperlipidemia, hypertension, myocardial infarction, other Surgical history: Reports: hip replacement (Right), IVC Filter, other (Sternotomy, pericardial surgery, left lower lung resection and excision of malignant thymoma) Psychiatric history: Reports: no psych history - Social History Smoking Status: Never smoker Smokeless Tobacco Status: No Alcohol use: Reports: none Drug use: Reports: none Physical Exam - General Limitations: no limitations Course Vital Signs Temperature 97.6 F 11/02/18 08:21 Pulse Rate 101 11/02/18 08:21 Respiratory Rate 16 11/02/18 08:21 Blood Pressure 185/100 11/02/18 08:21 O2 Sat by Pulse Oximetry 95 11/02/18 08:21 Temperature 98.3 F 11/03/18 07:12 Pulse Rate 94 11/03/18 07:12 Respiratory Rate 16 11/03/18 07:12 Blood Pressure 119/80 11/03/18 07:12 O2 Sat by Pulse Oximetry 95 11/03/18 07:12 Oxygen Delivery Oxygen Delivery Room Air Medical Decision Making - Lab Data Result diagrams: 11/03/18 04:12 11/03/18 04:12 Lab Results 11/02/18 11/02/18 11/02/18 Range/Units 08:40 09:00 09:00 WBC 10.5 (4.3-11.1) K/mcL RBC 5.47 (4.19-5.50) M/mcL Hgb 14.5 (12.9-16.9) g/dL Hct 46.0 (37.5-50.1) % MCV 84.1 (83.0-100.0) fL MCH 26.5 L (28.0-33.3) pg MCHC 31.5 L (31.6-35.5) g/dL RDW 16.5 H (11.5-14.5) % Plt Count 197 (140-400) K/mcL MPV 10.6 (9.4-12.4) fL Immature Gran % 0.4 (0-4) % Seg Neutrophils % 61.7 % Lymphocytes % 26.1 % Monocytes % 9.3 % Eosinophils % 1.9 % Basophils % 0.6 % Neutrophils # 6.5 (1.6-8.9) K/mcL Lymphocytes # 2.7 (0.6-4.6) K/mcL Monocytes # 1.0 (0.0-1.3) K/mcL Eosinophils # 0.2 (0.0-0.6) K/mcL Basophils # 0.1 (0.0-0.2) K/mcL PT (9.4-12.1) Seconds INR Sodium 137 (136-145) mEq/L Potassium 3.8 (3.5-5.1) mEq/L Chloride 99 (98-107) mEq/L Carbon Dioxide 25 (23-29) mEq/L BUN 25 H (6-20) mg/dL Creatinine 1.69 H (0.70-1.30) mg/dL Est GFR ( Amer) 52 L (> 60) Est GFR (Non-Af Amer) 43 L (> 60) BUN/Creatinine Ratio 15 (6-26) Glucose 349 H (70-105) mg/dL Calculated Osmolality 302 H (280-300) Calcium 10.3 (8.6-10.3) mg/dL Total Bilirubin 1.0 (0.3-1.0) mg/dL AST 48 H (13-39) Units/L ALT 51 (7-52) Units/L Alkaline Phosphatase 88 (34-104) Units/L Troponin I 0.09 H* (< 0.04) ng/mL Serum Total Protein 6.7 (6.4-8.9) g/dL Albumin 3.8 (3.5-5.7) g/dL Globulin 2.9 (2.4-3.5) g/dL Albumin/Globulin Ratio 1.3 (1.1-2.2) Lipase 24 (11-82) Units/L Urine Color Yellow (Yellow) Urine Clarity Turbid A (Clear) Urine pH 5.5 (5.0-8.0) pH Units Ur Specific [place] > 1.030 H (1.010-1.025) Urine Protein Negative (Neg-Trace) mg/dL Urine Glucose (UA) >=1000 H (Normal) mg/dL Urine Ketones Negative (Negative) mg/dL Urine Blood Negative (Negative) Urine Nitrite Negative (Negative) Urine Bilirubin Negative (Negative) Urine Urobilinogen Normal (Normal) mg/dL Ur Leukocyte Esterase Negative (Negative) Urine Microscopic RBC 0-3 (0-3) per hpf Urine Microscopic WBC 0-3 (0-3) per hpf Ur Squamous Epith Cells None Seen (None-Few) per lpf Urine Bacteria None Seen (None-Few) per hpf Hyaline Casts None Seen (None-Few) per lpf Ur Culture Indicated? NO (NO) 11/02/18 Range/Units 09:00 WBC (4.3-11.1) K/mcL RBC (4.19-5.50) M/mcL Hgb (12.9-16.9) g/dL Hct (37.5-50.1) % MCV (83.0-100.0) fL MCH (28.0-33.3) pg MCHC (31.6-35.5) g/dL RDW (11.5-14.5) % Plt Count (140-400) K/mcL MPV (9.4-12.4) fL Immature Gran % (0-4) % Seg Neutrophils % % Lymphocytes % % Monocytes % % Eosinophils % % Basophils % % Neutrophils # (1.6-8.9) K/mcL Lymphocytes # (0.6-4.6) K/mcL Monocytes # (0.0-1.3) K/mcL Eosinophils # (0.0-0.6) K/mcL Basophils # (0.0-0.2) K/mcL PT 10.9 (9.4-12.1) Seconds INR 1.0 Sodium (136-145) mEq/L Potassium (3.5-5.1) mEq/L Chloride (98-107) mEq/L Carbon Dioxide (23-29) mEq/L BUN (6-20) mg/dL Creatinine (0.70-1.30) mg/dL Est GFR ( Amer) (> 60) Est GFR (Non-Af Amer) (> 60) BUN/Creatinine Ratio (6-26) Glucose (70-105) mg/dL Calculated Osmolality (280-300) Calcium (8.6-10.3) mg/dL Total Bilirubin (0.3-1.0) mg/dL AST (13-39) Units/L ALT (7-52) Units/L Alkaline Phosphatase (34-104) Units/L Troponin I (< 0.04) ng/mL Serum Total Protein (6.4-8.9) g/dL Albumin (3.5-5.7) g/dL Globulin (2.4-3.5) g/dL Albumin/Globulin Ratio (1.1-2.2) Lipase (11-82) Units/L Urine Color (Yellow) Urine Clarity (Clear) Urine pH (5.0-8.0) pH Units Ur Specific [place] (1.010-1.025) Urine Protein (Neg-Trace) mg/dL Urine Glucose (UA) (Normal) mg/dL Urine Ketones (Negative) mg/dL Urine Blood (Negative) Urine Nitrite (Negative) Urine Bilirubin (Negative) Urine Urobilinogen (Normal) mg/dL Ur Leukocyte Esterase (Negative) Urine Microscopic RBC (0-3) per hpf Urine Microscopic WBC (0-3) per hpf Ur Squamous Epith Cells (None-Few) per lpf Urine Bacteria (None-Few) per hpf Hyaline Casts (None-Few) per lpf Ur Culture Indicated? (NO) Attestation Statement - Attestation Attestation: I reviewed the residents documentation and agree with the RONEN's assessment and plan of care. I have personally had face to face time with the patient. (Brief History, Brief Exam, and MDM) I personally supervised and was present for the moreau/critical portions of the following procedures completed by the resident: (add procedures performed here). [id number] time provided Patient presents with abdominal pain. Evaluated in conjunction with the RONEN Vince Mariscal.
--- NOTE | 2018-11-02 08:53 | Emergency Department Note ---
Disposition Clinical Impression: Elevated troponin I level, Chest wall pain, Elevated serum creatinine Abdominal pain Qualifiers: Abdominal location: right upper quadrant Qualified Code(s): R10.11 - Right upper quadrant pain Disposition: Admitted As Inpatient Condition: Good [facility]errals: [facility]Primary Care Provider[facility] - Forms: ED Satisfaction Letter, Work/School Release Time of Disposition: 12:46 General Adult HPI - General Chief complaint: ED Abdominal Pain Stated complaint: Abd Pain/Swelling Time Seen by Provider: 11/02/18 08:25 Source: patient Limitations: no limitations Nursing Notes Reviewed: Yes Vital Signs Reviewed: Yes - History of Present Illness HPI Narrative: 53 -year-old male resents with the right chest wall pain and abdominal pain. Patient stated he had a dry cough for 2 days ago. He felt severe right lower chest wall pain with cough. Not associated with shortness of breath. He felt the whole abdomen distended. Associate with nausea. No vomiting. His last bowel movement was this morning. Patient has a history of for malignant thymoma, DVT, he had open chest surgery and abdomen surgery. Patient is on coumadin. . Onset (ago): day(s) (2) Location: chest, abdomen Pain Scale: 8 - Related Data Home Medications Medication Instructions Recorded Confirmed Atorvastatin Calcium 80 mg PO DAILY 03/07/17 09/29/18 Acetaminophen [Tylenol] 650 mg PO Q4HR PRN 08/09/17 09/29/18 Insulin NPH Human Isophane 30 units SQ DAILY 08/09/17 09/29/18 [Novolin N] Metoprolol Succinate [Toprol Xl] 50 mg PO DAILY 08/09/17 09/29/18 Pantoprazole Sodium 40 mg PO DAILY 08/09/17 09/29/18 Celecoxib [Celebrex] 200 mg PO BID 08/04/18 09/29/18 DULoxetine [Cymbalta] 30 mg PO DAILY 08/04/18 09/29/18 Insulin ASPART [NovoLOG] 7 - 15 unit SQ TIDWM 08/04/18 09/29/18 Insulin Glargine [Lantus] 30 unit SQ BID 08/04/18 09/29/18 Lisinopril [Zestril] 10 mg PO QPM 08/04/18 09/29/18 Lisinopril [Zestril] 20 mg PO QAM 08/04/18 09/29/18 PredniSONE [Deltasone] 20 mg PO QAM 08/04/18 09/29/18 Quetiapine Fumarate [Seroquel] 25 mg PO HS PRN 08/04/18 09/29/18 Tamsulosin [Flomax] 0.4 mg PO DAILY 08/04/18 09/29/18 Warfarin [Coumadin] 5 mg PO SUMOWEFRSA 08/04/18 09/29/18 Warfarin Sodium 7.5 mg PO TUTH 09/29/18 09/29/18 predniSONE [PredniSONE] 10 mg PO QPM 09/29/18 09/29/18 Previous Rx's Medication Instructions Recorded Aspirin 81 mg PO DAILY #30 tab.chew 05/13/15 Lisinopril [Zestril] 20 mg PO BID #60 tablet 09/30/18 Allergies Allergy/AdvReac Type Severity Reaction Status Date / Time rifampin Allergy Anaphylaxis Verified 05/04/18 09:17 Constitutional: Denies: fever, chills Eyes: Denies: eye pain ENT ED: Denies: ear pain Cardiovascular: Reports: chest pain Respiratory: Reports: cough, dyspnea Gastrointestinal: Reports: abdominal pain, nausea Genitourinary: Denies: urgency Musculoskeletal: Denies: back pain Integumentary: Denies: rash Neurological: Denies: headache Psychiatric: Denies: anxiety Endocrine: Denies: fatigue Hematological/Lymphatic: Denies: easy bleeding Allergic/Immunologic: Denies: facial swelling Past Medical History - Past Medical History Medical history: Reports: cancer, coronary artery disease, DVT, diabetes, hyperlipidemia, hypertension, myocardial infarction, other Surgical history: Reports: hip replacement (Right), IVC Filter, other (Sternotomy, pericardial surgery, left lower lung resection and excision of malignant thymoma) Psychiatric history: Reports: no psych history - Social History Smoking Status: Never smoker Smokeless Tobacco Status: No Alcohol use: Reports: none Drug use: Reports: none Physical Exam - General Limitations: no limitations General appearance: alert - Head Head exam: atraumatic - Eye Eye exam: Present: normal appearance - ENT ENT exam: normal exam - Neck Neck exam: Present: normal inspection - Chest Chest inspection: Present: normal inspection, tenderness (right lower chest wall tender to palpation) - Respiratory Respiratory exam: Present: wheezes - Cardiovascular Cardiovascular exam: Present: regular rate - Abdominal Exam Abdominal exam: Present: soft, tenderness, distention Abdominal tenderness: Present: RUQ, epigastrium - Extremities Exam Extremities exam: Present: normal inspection, full ROM. Absent: tenderness - Back Exam Back exam: Present: normal inspection, full ROM - Neurological Exam Neurological exam: Present: alert, oriented X3 - Psychiatric Psychiatric exam: Present: normal affect - Skin Skin exam: Present: warm, intact Course Vital Signs Temperature 97.6 F 11/02/18 08:21 Pulse Rate 101 11/02/18 08:21 Respiratory Rate 16 11/02/18 08:21 Blood Pressure 185/100 11/02/18 08:21 O2 Sat by Pulse Oximetry 95 11/02/18 08:21 Temperature 97.6 F 11/02/18 08:21 Pulse Rate 90 11/02/18 11:52 Respiratory Rate 18 11/02/18 11:52 Blood Pressure 134/96 11/02/18 11:52 O2 Sat by Pulse Oximetry 99 11/02/18 11:52 Oxygen Delivery Oxygen Delivery Room Air Medical Decision Making - [facility] Narrative Medical decision making narrative: 53-year-old male presents with acute chest wall pain and abdomen distention for 2 days. Patient reported dry cough with worsening pain, no chills and fever. Right upper abdomen pain, associate with nausea, no vomiting. Physical exam: right lower rib and right upper abd tender to palpation. Pt reported history of malignant thymoma, DVT, open chest surgery and abdomen surgery. Labs: elevated tropoin 0.09 (pt had elevated troponin, last time was 0.07 in September) elevated cr. 1.69 ( baseline from 0.9 to 1.05) EKG: no ST elevation. ASA given in ER. Pt reported improving pain after taking Morphine. Pt will be admitted to hospital for elevated troponin, chest wall pain, acute renal failure, abdominal pain. IV fluids given in ER. - Lab Data Lab results reviewed: Yes I reviewed the patient's lab results. Result diagrams: 11/02/18 09:00 11/02/18 09:00 Lab Results 11/02/18 11/02/18 11/02/18 Range/Units 08:40 09:00 09:00 WBC 10.5 (4.3-11.1) K/mcL RBC 5.47 (4.19-5.50) M/mcL Hgb 14.5 (12.9-16.9) g/dL Hct 46.0 (37.5-50.1) % MCV 84.1 (83.0-100.0) fL MCH 26.5 L (28.0-33.3) pg MCHC 31.5 L (31.6-35.5) g/dL RDW 16.5 H (11.5-14.5) % Plt Count 197 (140-400) K/mcL MPV 10.6 (9.4-12.4) fL Immature Gran % 0.4 (0-4) % Seg Neutrophils % 61.7 % Lymphocytes % 26.1 % Monocytes % 9.3 % Eosinophils % 1.9 % Basophils % 0.6 % Neutrophils # 6.5 (1.6-8.9) K/mcL Lymphocytes # 2.7 (0.6-4.6) K/mcL Monocytes # 1.0 (0.0-1.3) K/mcL Eosinophils # 0.2 (0.0-0.6) K/mcL Basophils # 0.1 (0.0-0.2) K/mcL PT (9.4-12.1) Seconds INR Sodium 137 (136-145) mEq/L Potassium 3.8 (3.5-5.1) mEq/L Chloride 99 (98-107) mEq/L Carbon Dioxide 25 (23-29) mEq/L BUN 25 H (6-20) mg/dL Creatinine 1.69 H (0.70-1.30) mg/dL Est GFR ( Amer) 52 L (> 60) Est GFR (Non-Af Amer) 43 L (> 60) BUN/Creatinine Ratio 15 (6-26) Glucose 349 H (70-105) mg/dL Calculated Osmolality 302 H (280-300) Calcium 10.3 (8.6-10.3) mg/dL Total Bilirubin 1.0 (0.3-1.0) mg/dL AST 48 H (13-39) Units/L ALT 51 (7-52) Units/L Alkaline Phosphatase 88 (34-104) Units/L Troponin I 0.09 H* (< 0.04) ng/mL Serum Total Protein 6.7 (6.4-8.9) g/dL Albumin 3.8 (3.5-5.7) g/dL Globulin 2.9 (2.4-3.5) g/dL Albumin/Globulin Ratio 1.3 (1.1-2.2) Lipase 24 (11-82) Units/L Urine Color Yellow (Yellow) Urine Clarity Turbid A (Clear) Urine pH 5.5 (5.0-8.0) pH Units Ur Specific [place] > 1.030 H (1.010-1.025) Urine Protein Negative (Neg-Trace) mg/dL Urine Glucose (UA) >=1000 H (Normal) mg/dL Urine Ketones Negative (Negative) mg/dL Urine Blood Negative (Negative) Urine Nitrite Negative (Negative) Urine Bilirubin Negative (Negative) Urine Urobilinogen Normal (Normal) mg/dL Ur Leukocyte Esterase Negative (Negative) Urine Microscopic RBC 0-3 (0-3) per hpf Urine Microscopic WBC 0-3 (0-3) per hpf Ur Squamous Epith Cells None Seen (None-Few) per lpf Urine Bacteria None Seen (None-Few) per hpf Hyaline Casts None Seen (None-Few) per lpf Ur Culture Indicated? NO (NO) 11/02/18 Range/Units 09:00 WBC (4.3-11.1) K/mcL RBC (4.19-5.50) M/mcL Hgb (12.9-16.9) g/dL Hct (37.5-50.1) % MCV (83.0-100.0) fL MCH (28.0-33.3) pg MCHC (31.6-35.5) g/dL RDW (11.5-14.5) % Plt Count (140-400) K/mcL MPV (9.4-12.4) fL Immature Gran % (0-4) % Seg Neutrophils % % Lymphocytes % % Monocytes % % Eosinophils % % Basophils % % Neutrophils # (1.6-8.9) K/mcL Lymphocytes # (0.6-4.6) K/mcL Monocytes # (0.0-1.3) K/mcL Eosinophils # (0.0-0.6) K/mcL Basophils # (0.0-0.2) K/mcL PT 10.9 (9.4-12.1) Seconds INR 1.0 Sodium (136-145) mEq/L Potassium (3.5-5.1) mEq/L Chloride (98-107) mEq/L Carbon Dioxide (23-29) mEq/L BUN (6-20) mg/dL Creatinine (0.70-1.30) mg/dL Est GFR ( Amer) (> 60) Est GFR (Non-Af Amer) (> 60) BUN/Creatinine Ratio (6-26) Glucose (70-105) mg/dL Calculated Osmolality (280-300) Calcium (8.6-10.3) mg/dL Total Bilirubin (0.3-1.0) mg/dL AST (13-39) Units/L ALT (7-52) Units/L Alkaline Phosphatase (34-104) Units/L Troponin I (< 0.04) ng/mL Serum Total Protein (6.4-8.9) g/dL Albumin (3.5-5.7) g/dL Globulin (2.4-3.5) g/dL Albumin/Globulin Ratio (1.1-2.2) Lipase (11-82) Units/L Urine Color (Yellow) Urine Clarity (Clear) Urine pH (5.0-8.0) pH Units Ur Specific [place] (1.010-1.025) Urine Protein (Neg-Trace) mg/dL Urine Glucose (UA) (Normal) mg/dL Urine Ketones (Negative) mg/dL Urine Blood (Negative) Urine Nitrite (Negative) Urine Bilirubin (Negative) Urine Urobilinogen (Normal) mg/dL Ur Leukocyte Esterase (Negative) Urine Microscopic RBC (0-3) per hpf Urine Microscopic WBC (0-3) per hpf Ur Squamous Epith Cells (None-Few) per lpf Urine Bacteria (None-Few) per hpf Hyaline Casts (None-Few) per lpf Ur Culture Indicated? (NO) - Radiology Data Radiology results reviewed: Yes I reviewed the patient's radiology results. TECHNIQUE: CT of the abdomen and pelvis was performed with the administration of intravenous contrast. Multiplanar reformatted images are provided for review. Dose modulation, iterative reconstruction, and/or weight based adjustment of the mA/kV was utilized to reduce the radiation dose to as low as reasonably achievable.; CTA of the chest was performed after the administration of intravenous contrast. Multiplana R reformatted images are provided for review. MIP images are provided for review. Dose modulation, iterative reconstruction, and/or weight based adjustment of the mA/kV was utilized to reduce the radiation dose to as low as reasonably achievable. COMPARISON: None. HISTORY: ORDERING SYSTEM PROVIDED HISTORY: abdominal pain, abd distention Relevant Medical/Surgical History: lung cancer, ivc filter; ORDERING SYSTEM PROVIDED HISTORY: chest wall pain Relevant Medical/Surgical History: lung cancer, ivc filter FINDINGS: CTA CHEST: The aorta is normal in caliber. The heart is mildly enlarged. There is no evidence for pulmonary emboli. There is no pathologically enlarged adenopathy There old granulomatous changes seen at the lung bases there is no evidence for alveolar consolidation or pneumothorax. There are no acute bony abnormalities CTA ABDOMEN: The aorta is normal in caliber there is no pathologically enlarged adenopathy if the within the retroperitoneum an IVC filter is seen to be in place. The liver appears unremarkable. The gallbladder, pancreas adrenal glands and spleen are normal. Both kidneys appear unremarkable. The large and small bowel of the abdomen is normal. There is no evidence for free air or free fluid noted to be present. CTA PELVIS: The bladder is normal there is no free air free fluid There are no acute bony abnormalities CT/CT angio chest IMPRESSION: No acute cardiopulmonary, intra-or pelvic process seen. D/ / Chris Valadez MD / Chris Valadez MD Interpreting Provider: Chris Valadez MD
[2018-11-02 08:54] LABS: Bilirubin,Urine Negative (Negative); Blood,Urine Negative (Negative); Clarity,Urine Turbid (Clear); Color,Urine Yellow (Yellow); Glucose,Urine (UA) >=1000 mg/dL (Normal); Ketones,Urine Negative (Negative); Leukocyte Esterase,Urine Negative (Negative); Nitrite,Urine Negative (Negative); PH,Urine 5.5 pH Units (5.0-8.0); Protein,Urine Negative (Neg-Trace); Specific Gravity,Urine > 1.030 (1.010-1.025); Urobilinogen,Urine Normal (Normal)
[2018-11-02 09:05] LABS: Bacteria,Urine None Seen per hpf (None-Few); Hyaline Casts,Urine None Seen per lpf (None-Few); RBC,Urine 0-3 per hpf (0-3); Squamous Epithelial Cell,Urine None Seen per lpf (None-Few); WBC,Urine 0-3 per hpf (0-3)
[2018-11-02 10:06] LABS: Basophils # 0.1 K/mcL (0.0-0.2); Basophils % 0.6 %; Eosinophils # 0.2 K/mcL (0.0-0.6); Eosinophils % 1.9 %; Hemoglobin 14.5 g/dL (12.9-16.9); Immature Granulocytes % 0.4 % (0-4); Lymphocytes # 2.7 K/mcL (0.6-4.6); Lymphocytes % 26.1 %; Mean Corpuscular HGB Conc 31.5 g/dL (31.6-35.5); Mean Corpuscular Hemoglobin 26.5 pg (28.0-33.3); Mean Corpuscular Volume 84.1 fL (83.0-100.0); Mean Platelet Volume 10.6 fL (9.4-12.4); Monocytes % 9.3 %; Neutrophils # 6.5 K/mcL (1.6-8.9); Platelet Count 197 K/mcL (140-400); Red Blood Count 5.47 M/mcL (4.19-5.50); Red Cell Distribution Width 16.5 % (11.5-14.5); Segmented Neutrophils % 61.7 %; White Blood Count 10.5 K/mcL (4.3-11.1)
[2018-11-02 10:13] LABS: Prothrombin Time 10.9 Seconds (9.4-12.1)
[2018-11-02 10:36] LABS: Albumin 3.8 g/dL (3.5-5.7); Albumin/Globulin Ratio 1.3 (1.1-2.2); Calcium 10.3 mg/dL (8.6-10.3); Globulin 2.9 g/dL (2.4-3.5); Potassium 3.8 mEq/L (3.5-5.1); Total Protein 6.7 g/dL (6.4-8.9)
[2018-11-02] MEDS ORDERED: 0.9 % Sodium Chloride 1,000 ML IVC ONE (10:41)
[2018-11-02] MEDS ORDERED: Ondansetron 4 MG/2 ML VIAL IVP ONE (10:47)
[2018-11-02] MEDS ORDERED: Morphine Sulfate 2 MG/ML SYRINGE IVP ONE (10:47)
[2018-11-02 10:58] LABS: Troponin I 0.09 ng/mL (< 0.04)
[2018-11-02] MEDS ORDERED: Aspirin 325 MG TABLET PO ONE (12:08)
[2018-11-02] MEDS ORDERED: Naloxone 0.4 MG/ML INJ IVP PRN (14:22)
[2018-11-02] MEDS ORDERED: Ondansetron 4 MG/2 ML VIAL IVP PRN (14:22)
[2018-11-02] MEDS ORDERED: *HR* Dextrose 50 % in Water (Syg) 50 ML SYRINGE IVP PRN (14:28)
[2018-11-02] MEDS ORDERED: Dextrose Gel 15 GM/37.5 ML TUBE PO PRN ×2 (14:28)
[2018-11-02] MEDS ORDERED: D5% in Water 1,000 ML IVC PRN (14:28)
[2018-11-02] MEDS ORDERED: Ringers Solution, Lactated 1,000 ML IVC SCH (14:30)
--- NOTE | 2018-11-02 14:45 | Internal Med History&Physical ---
Date of Encounter: 11/02/18 Time of Encounter: 14:00 Internal Medicine - H&P: HPI Chief complaint: right sided chest pain Admitted From: Home Plans for Post Hospital Care: Home History of present illness: Mr. Mott is a 53 year old male medical history of myasthenia gravis thymoma s/p surgery, CAD status post PCI 2015, DVT on Coumadin hypertension diabetes, obesity, IDDM, HTN who came into the hospital with right-sided chest/rib pain. Patient had history of rib fracture twice in the past. 2 days ago patient had severe cough and he had a cracking noise when he coughed up coming from his right side of the chest. Since then, he was having intermittent right-sided chest pain, 7/10 in severity, dull and none radiating. His pain is today is different from his heart attack pain. He also reported episode of nonbloody vomiting along with his cough. He denied any recent sick contacts, fever, chills or night sweats. Further history revealed that the patient is taking his lisinopril Twice daily as he instructed to. He had few episodes of hypotension and lightheadedness in the past 2 months. Patient also taking Celebrex for his back pain that prescribed by his pain specialist. In the ED, patient was HDS, afebrile. He is not complaining of any chest pain EKG with no ischemic changes. CT abdomen and CTA of the chest without any abnormality. Lab work was significant for troponin 0.09, Cr 1.69, Bun 25. UA was negative for LE and UN. Patient received 1 dose of IV morphine and IV fluids in the ER and was admitted for further evaluation. 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 Myasthenia Gravis, LHC with 1 stent - Social History Smoking Status: Never smoker Smokeless Tobacco Status: No Alcohol use: none Drug use: none Activity Level: Independent ambulation Recent Out of Country Travel Within the Last 8 Weeks: No Exposure or Possible Exposure to Illness During Travel: No - Family History Father Adopted: No Family Member Ethnicity: Non- Living Status: Still Living Hx Family Cardiac Disorders: Yes Hx Family Respiratory Disorders: No Hx Family Cancer: No Hx Family GI Disorders: No Hx Family Endocrine Disorder: Yes Hx Family Neuromuscular Disorders: No Hx Family Neurologic Disorders: Yes Hx Family HEENT Disorders: No Brother Living Status: Still Living Hx Family Cardiac Disorders: Yes Hx Family Cancer: Yes (Prostate and colon cancer) Mother Adopted: No Family Member Ethnicity: Non- Living Status: Still Living Hx Family Cardiac Disorders: Yes Hx Family Respiratory Disorders: No Hx Family Cancer: No Hx Family GI Disorders: No Hx Family Endocrine Disorder: Yes Hx Family Neuromuscular Disorders: No Hx Family Neurologic Disorders: Yes Hx Family HEENT Disorders: No - Additional Family History Additional family history: No family history of malignancies Internal Medicine - H&P: Meds Aspirin 81 mg PO DAILY #30 tab.chew 05/13/15 [Rx] Atorvastatin Calcium 80 mg PO DAILY 03/07/17 [History] Insulin NPH Human Isophane [Novolin N] 30 units SQ DAILY 08/09/17 [History] Metoprolol Succinate [Toprol Xl] 50 mg PO DAILY 08/09/17 [History] Pantoprazole Sodium 40 mg PO DAILY 08/09/17 [History] Celecoxib [Celebrex] 200 mg PO BID 08/04/18 [History] DULoxetine [Cymbalta] 30 mg PO DAILY 08/04/18 [History] Insulin ASPART [NovoLOG] 7 - 15 unit SQ TIDWM 08/04/18 [History] Insulin Glargine [Lantus] 30 unit SQ BID 08/04/18 [History] Lisinopril [Zestril] 10 mg PO QPM 08/04/18 [History] Lisinopril [Zestril] 20 mg PO QAM 08/04/18 [History] PredniSONE [Deltasone] 20 mg PO QAM 08/04/18 [History] Quetiapine Fumarate [Seroquel] 25 mg PO HS PRN 08/04/18 [History] Tamsulosin [Flomax] 0.4 mg PO DAILY 08/04/18 [History] Warfarin [Coumadin] 5 mg PO SUMOWEFRSA 08/04/18 [History] Warfarin Sodium 7.5 mg PO TUTH 09/29/18 [History] predniSONE [PredniSONE] 10 mg PO QPM 09/29/18 [History] Allergy/AdvReac Type Severity Reaction Status Date / Time rifampin Allergy Anaphylaxis Verified 05/04/18 09:17 All Systems PM: A 10-system review of systems was performed and is negative for pertinent findings except as documented above in the HPI. - Constitutional Vitals: Temp Pulse Resp BP Pulse Ox 97.6 F 89 15 123/72 93 11/02/18 14:26 11/02/18 14:26 11/02/18 14:26 11/02/18 14:26 11/02/18 14:26 Exam: General: Patient is alert, oriented 3. Head: Atraumatic, normal inspection, normocephalic. Eye: EOMI, PERRLA, no scleral icterus noted. ENT: Mucous membranes moist. Neck: Normal inspection, no meningismus. Respiratory: No respiratory distress, rhonchi, or wheezes noted. Cardiovascular: Regular rate and regular rhythm, S1 and S2 audible. No murmurs, rubs, or gallops. Right lower rib cage tenderness with palpation. GI: Soft, nondistended, normal bowel sounds. Extremities:No joint swelling, pedal edema, or tenderness noted. Neurological: Alert, oriented 3, no focal deficits. Psychiatric: normal affect, normal mood. Skin: Dry, intact, warm. Normal color. No rashes. Internal Med - H&P Results - Labs CBC & Chem 7: 11/02/18 09:00 11/02/18 09:00 Labs: Short CBC 11/02/18 Range/Units 09:00 WBC 10.5 (4.3-11.1) K/mcL Hgb 14.5 (12.9-16.9) g/dL Hct 46.0 (37.5-50.1) % Plt Count 197 (140-400) K/mcL Neutrophils # 6.5 (1.6-8.9) K/mcL BMP 11/02/18 09:00 Sodium 137 Potassium 3.8 Chloride 99 Carbon Dioxide 25 BUN 25 H Creatinine 1.69 H Glucose 349 H Calcium 10.3 Cardiac Enzymes 11/02/18 Range/Units 09:00 Troponin I 0.09 H* (< 0.04) ng/mL Liver Function 11/02/18 Range/Units 09:00 Total Bilirubin 1.0 (0.3-1.0) mg/dL AST 48 H (13-39) Units/L ALT 51 (7-52) Units/L Alkaline Phosphatase 88 (34-104) Units/L Albumin 3.8 (3.5-5.7) g/dL Urine 11/02/18 Range/Units 08:40 Urine Color Yellow (Yellow) Urine Clarity Turbid A (Clear) Urine pH 5.5 (5.0-8.0) pH Units Ur Specific [place] > 1.030 H (1.010-1.025) Urine Protein Negative (Neg-Trace) mg/dL Urine Glucose (UA) >=1000 H (Normal) mg/dL - EKG Data -: EKG Interpreted by Myself EKG shows normal: sinus rhythm - EKG Data Prior EKG available for review: yes When compared to previous EKG: there are significant changes - Impressions ITS Impressions Abdomen/Pelvis CT 11/02/18 08:50 IMPRESSION: No acute cardiopulmonary, intra-or pelvic process seen. D/ / Chris Valadez MD / Chris Valadez MD Interpreting Provider: Chris Valadez MD Chest CTA 11/02/18 08:50 IMPRESSION: No acute cardiopulmonary, intra-or pelvic process seen. D/ / Chris Valadez MD / Chris Valadez MD Interpreting Provider: Chris Valadez MD - Diagnostic Studies CT scan - chest Status: image reviewed by me Additional comments: No pneumonia - Assessment and Plan (1) Right-sided chest pain Current Visit: Yes Status: Acute (2) IDDM (insulin dependent diabetes mellitus) Current Visit: Yes Status: Chronic (3) JHONATAN (acute kidney injury) Current Visit: Yes Status: Acute (4) CAD (coronary artery disease) Current Visit: Yes Status: Chronic Qualifiers: Coronary Disease-Associated Artery/Lesion type: [place] artery [place] vs. transplanted heart: [place] heart Associated angina: angina presence unspecified Qualified Code(s): I25.10 - Atherosclerotic heart disease of [place] coronary artery without angina pectoris (5) Hx of deep venous thrombosis Current Visit: Yes Status: Chronic (6) Hypertension Current Visit: Yes Status: Chronic Qualifiers: Hypertension type: essential hypertension Qualified Code(s): I10 - Essential (primary) hypertension (7) Elevated troponin Current Visit: Yes Status: Chronic (8) Myasthenia gravis associated with thymoma Current Visit: Yes Status: Chronic (9) Left ventricular apical thrombus Current Visit: Yes Status: Chronic - Summary of Assessment and Plan Summary of Assessment and Plan: Mr. Mott is a 53 year old male medical history of myasthenia gravis thymoma s/p surgery, CAD status post PCI 2015, DVT on Coumadin hypertension diabetes, obesity, IDDM, HTN who came into the hospital with right-sided chest/rib pain. His symptoms are managed as following: Right sided chest pain: - Localized, likely from deep cough and possible rib fracture. Has Hx of f racture in the past. On steroids, highly likely to have spontanous fractures and osteoprosis. - CTA was negative for PE. Troponin is 0.09, EKg without Ischemic changes. - Will start with lidocaine patch. Check Rib X ray. Troponin elevation: - Chronic, BL ~ 0.04- 0.07, EKG no ischemic changes. Troponin is 0.09 at presentation, trended to 0.1. - Patient is chest pain free, his right sided pain is totally different from his previous heart attacks. - will trend another troponin, start heparin gtt, will consult cardiology. JHONATAN: - Cr BL 0.9, tODAY 1.69. - Likely from taking lisinopril BID and celebrex. - will hold his liniopril, check BMP tomorrow and continue with IVF. CAD s/p stent: - continue with BB, ASA, and statins. Hold ACEI. IDDM: - start on levemir qHS and Lispro TIDAC along with HSSI. MG: - Continue Mestonin and BID steroids. Hx of DVT s/p filter: - Continue with Coumadin, INR is 1 so will start on heparin gtt - Coumadin dose as per pharmacy recommendation DVT ppx: on heparin gtt. - Time Spent With Patient Total time spent is greater than 50% in coordination of care (as documented) at patient's floor/unit and/or counseling patient:
[2018-11-02] MEDS ORDERED: *HR* Heparin 5,000 UNIT/ML VIAL IVP PRN ×2 (16:05)
[2018-11-02] MEDS ORDERED: Insulin LISPRO 300 UNITS/3 ML VIAL SQ SCH (16:30)
[2018-11-02 16:40] LABS: Hematocrit 44.4 % (37.5-50.1); Mean Corpuscular HGB Conc 31.5 g/dL (31.6-35.5); Mean Corpuscular Hemoglobin 26.5 pg (28.0-33.3); Mean Corpuscular Volume 84.1 fL (83.0-100.0); Mean Platelet Volume 10.7 fL (9.4-12.4); Platelet Count 198 K/mcL (140-400); Red Blood Count 5.28 M/mcL (4.19-5.50); Red Cell Distribution Width 16.4 % (11.5-14.5); White Blood Count 11.4 K/mcL (4.3-11.1)
[2018-11-02 16:50] LABS: Prothrombin Time 11.6 Seconds (9.4-12.1)
[2018-11-02 16:52] LABS: Heparin anti-factor XA UFH 0.03 IU/mL (0.30-0.70)
[2018-11-02] MEDS ORDERED: *HR* Heparin 5,000 UNIT/ML VIAL SQ SCH (18:00)
[2018-11-02] MEDS ORDERED: *HR* Warfarin 5 MG TABLET PO ONE (18:00)
[2018-11-02] MEDS ORDERED: Warfarin perPT PO PRN (18:00)
[2018-11-02] MEDS ORDERED: *HR* Enoxaparin 120 MG/0.8 ML SYRINGE SQ SCH (18:00)
[2018-11-02] MEDS: Insulin LISPRO 300 UNITS/3 ML VIAL SQ SCH ×2 (18:03→18:04)
[2018-11-02] MEDS: predniSONE 20 MG TABLET PO SCH (18:04)
[2018-11-02] MEDS: 0.9 % Sodium Chloride 1,000 ML IVC SCH ×2 (18:05→21:56)
[2018-11-02] MEDS: Heparin 25,000 UNIT/250 ML D5W 25,000 UNIT/250 ML IV.SOLN IVC SCH ×2 (18:06→21:52)
[2018-11-02] MEDS: *HR* OxyCODONE Immed Rel 5 MG TABLET PO PRN (19:02)
[2018-11-02] MEDS ORDERED: Insulin DETEMIR 100 UNIT/ML X5UNITS SQ SCH (21:00)
[2018-11-02] MEDS: Celecoxib 200 MG CAPSULE PO SCH (22:04)
[2018-11-03] MEDS: *HR* OxyCODONE Immed Rel 5 MG TABLET PO PRN ×3 (02:12→23:31)
[2018-11-03 05:01] LABS: Basophils % 0.2 %; Eosinophils % 0.3 %; Hematocrit 45.3 % (37.5-50.1); Hemoglobin 14.3 g/dL (12.9-16.9); Immature Granulocytes % 0.6 % (0-4); Lymphocytes # 1.4 K/mcL (0.6-4.6); Lymphocytes % 9.5 %; Mean Corpuscular HGB Conc 31.6 g/dL (31.6-35.5); Mean Corpuscular Hemoglobin 26.5 pg (28.0-33.3); Mean Corpuscular Volume 83.9 fL (83.0-100.0); Mean Platelet Volume 10.9 fL (9.4-12.4); Monocytes # 0.6 K/mcL (0.0-1.3); Neutrophils # 12.2 K/mcL (1.6-8.9); Platelet Count 202 K/mcL (140-400); Red Cell Distribution Width 16.3 % (11.5-14.5); Segmented Neutrophils % 85.4 %; White Blood Count 14.3 K/mcL (4.3-11.1)
[2018-11-03 05:10] LABS: INR 1.1
[2018-11-03 05:13] LABS: BUN/Creatinine Ratio 23 (6-26); Blood Urea Nitrogen 30 mg/dL (6-20); Calcium 9.1 mg/dL (8.6-10.3); Carbon Dioxide 29 mEq/L (23-29); Chloride 98 mEq/L (98-107); Glucose 291 mg/dL (70-105); Osmolality,Calculated 295 (280-300); Potassium 4.6 mEq/L (3.5-5.1); Sodium 134 mEq/L (136-145); eGFR For African Americans > 60 (> 60); eGFR For Non-African Americans 57 (> 60)
[2018-11-03] MEDS: Celecoxib 200 MG CAPSULE PO SCH (07:50)
[2018-11-03] MEDS: 0.9 % Sodium Chloride 1,000 ML IVC SCH (07:50)
[2018-11-03] MEDS: predniSONE 20 MG TABLET PO SCH (07:50)
[2018-11-03] MEDS: Aspirin 81 MG TAB.CHEW PO SCH (07:51)
[2018-11-03] MEDS: Metoprolol XL (24 HR) Succ 50 MG TAB.ER.24H PO SCH (07:51)
[2018-11-03] MEDS: Insulin LISPRO 300 UNITS/3 ML VIAL SQ SCH ×5 (08:48→17:08)
--- NOTE | 2018-11-03 12:28 | Internal Med Progress Note ---
Hospitalist Progress Note - Encounter Date of Encounter: 11/03/18 Time of Encounter: 12:24 - Subjective Interval History: The patient was seen and examined at the bedside. The patient complained of right-sided chest pain because of the rib fracture As the patient reports abdominal distention with the bloating however he had bowel movement this morning His abdomen is distended but non tender order CT abdomen to r/o ascitis - Exam Vitals: Temp Pulse Resp BP Pulse Ox 98.0 F 95 16 144/89 93 11/03/18 11:18 11/03/18 11:18 11/03/18 11:18 11/03/18 11:18 11/03/18 11:18 Exam: General: Patient is alert, oriented 3. Head: Atraumatic, normal inspection, normocephalic. Eye: EOMI, PERRLA, no scleral icterus noted. ENT: Mucous membranes moist. Neck: Normal inspection, no neck stiffness Respiratory: No respiratory distress, rhonchi, or wheezes noted. Cardiovascular: Regular rate and regular rhythm, S1 and S2 audible. No murmurs, rubs, or gallops. Right lower rib cage tenderness with palpation. GI: Soft, distended, not tender, normal bowel sounds. Extremities:No joint swelling, pedal edema, or tenderness noted. Neurological: Alert, oriented 3, no focal deficits. DVT Prophylaxis: heparin - Summary of Assessment and Plan Summary of Assessment and Plan: Mr. Mott is a 53 year old male medical history of myasthenia gravis thymoma s/p surgery, CAD status post PCI 2015, DVT on Coumadin hypertension diabetes, obesity, IDDM, HTN who came into the hospital with right-sided chest/rib pain. His symptoms are managed as following: Right sided chest pain: - Localized, likely from deep cough , Has Hx of fracture in the past. The patient taking chronic steroid Need to wean off his oral steroids gradually reduce risk of osteo-porosis - CTA was negative for PE. Troponin is 0.09, EKg without Ischemic changes. - on lidocaine patch. Rib X ray showed no evidence of acute rib fracture Troponin elevation: - Chronic, BL ~ 0.04- 0.07, EKG no ischemic changes. Troponin is 0.09 at presentation, trended to 0.1. - atypical chest pain - will trend another troponin, start heparin gtt, consult cardiology. check echo - INR 1 JHONATAN: - Cr trending down to 1.3 on iv fluid - Hold nephrotoxic medication - Follow renal function and urine output CAD s/p stent: - continue with BB, ASA, and statins. Hold ACEI. IDDM: - on levemir qHS and Lispro TIDAC along with HSSI. MG: - Continue Mestonin and BID steroids. Hx of DVT s/p filter: - Continue with Coumadin, INR is 1 so will start on heparin gtt - Coumadin dose as per pharmacy recommendation - DVT ppx: on heparin gtt. - Time Spent with Patient Total time spent is greater than 50% in coordination of care (as documented) at patient's floor/unit and/or counseling patient: Internal Medicine: Result - Labs CBC & Chem 7: 11/03/18 04:12 11/03/18 04:12 Labs: Short CBC 11/02/18 11/03/18 Range/Units 16:17 04:12 WBC 11.4 H 14.3 H (4.3-11.1) K/mcL Hgb 14.0 14.3 (12.9-16.9) g/dL Hct 44.4 45.3 (37.5-50.1) % Plt Count 198 202 (140-400) K/mcL Neutrophils # 12.2 H (1.6-8.9) K/mcL BMP 11/03/18 04:12 Sodium 134 L Potassium 4.6 Chloride 98 Carbon Dioxide 29 BUN 30 H Creatinine 1.32 H Glucose 291 H Calcium 9.1 Cardiac Enzymes 11/02/18 11/02/18 Range/Units 14:47 21:09 Troponin I 0.10 H* 0.09 H* (< 0.04) ng/mL - ABG Interpretation ABG results: PT/INR, D-dimer PT 12.0 Seconds (9.4-12.1) 11/03/18 04:12 - Impressions Impressions Abdomen/Pelvis CT 11/02/18 08:50 IMPRESSION: No acute cardiopulmonary, intra-or pelvic process seen. D/ / Chris Valadez MD / Chris Valadez MD Interpreting Provider: Chris Valadez MD Chest CTA 11/02/18 08:50 IMPRESSION: No acute cardiopulmonary, intra-or pelvic process seen. D/ / Chris Valadez MD / Chris Valadez MD Interpreting Provider: Chris Valadez MD Ribs X-Ray 11/02/18 14:21 IMPRESSION: No acute osseous abnormality of the right ribs. D/ / Bo Barone MD / Bo Barone MD Interpreting Provider: Bo Barone MD Consult Discharge Plan - Plan [facility] Care Provider[facility] -
[2018-11-03] MEDS: Heparin 25,000 UNIT/250 ML D5W 25,000 UNIT/250 ML IV.SOLN IVC SCH (13:43)
[2018-11-03] MEDS ORDERED: Perflutren Lipid Microsphere 1.3 ML in 0.9 % Sodium Chloride 8.7 ML IVP ONE (16:15)
--- NOTE | 2018-11-03 16:33 | Electrocardiograph Report ---
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
--- NOTE | 2018-11-03 16:38 | Electrocardiograph Report ---
[place] [id number] Test Date: 2018-11-02 Pat Name: Shine Mott Department: EXAM15 Room: 3A37 Gender: M First Responder: : 1965 Requested By: Vince Mariscal Order Number: [id number] Reading MD: Nadya Miner Measurements Intervals [place] Rate: 94 P: 64 MT: 154 QRS: 39 QRSD: 83 T: QT: 442 QTc: 553 Interpretive Statements Sinus rhythm Probable left atrial enlargement Probable left ventricular hypertrophy Nonspecific T abnormalities Prolonged QT interval Electronically Signed On 11-03-2018 16:36:26 EDT by Nadya Miner
[2018-11-03] MEDS: predniSONE 10 MG TABLET PO SCH (17:03)
[2018-11-03] MEDS: Pyridostigmine Br 60 MG TABLET PO SCH (17:07)
[2018-11-03] MEDS: Insulin DETEMIR 100 UNIT/ML X5UNITS SQ SCH (20:41)
[2018-11-04 02:57] LABS: Hematocrit 42.2 % (37.5-50.1); Hemoglobin 13.5 g/dL (12.9-16.9); Mean Corpuscular Hemoglobin 26.8 pg (28.0-33.3); Mean Corpuscular Volume 83.7 fL (83.0-100.0); Mean Platelet Volume 10.6 fL (9.4-12.4); Platelet Count 188 K/mcL (140-400); Red Blood Count 5.04 M/mcL (4.19-5.50); Red Cell Distribution Width 15.9 % (11.5-14.5); White Blood Count 12.5 K/mcL (4.3-11.1)
[2018-11-04 03:02] LABS: Prothrombin Time 11.4 Seconds (9.4-12.1)
[2018-11-04 03:12] LABS: Alanine Aminotransferase 34 Units/L (7-52); Albumin 3.5 g/dL (3.5-5.7); Albumin/Globulin Ratio 1.3 (1.1-2.2); Alkaline Phosphatase 82 Units/L (34-104); Aspartate Amino Transferase 23 Units/L (13-39); BUN/Creatinine Ratio 26 (6-26); Bilirubin,Total 0.6 mg/dL (0.3-1.0); Blood Urea Nitrogen 28 mg/dL (6-20); Calcium 8.7 mg/dL (8.6-10.3); Carbon Dioxide 27 mEq/L (23-29); Chloride 100 mEq/L (98-107); Globulin 2.7 g/dL (2.4-3.5); Glucose 306 mg/dL (70-105); Magnesium 1.9 mg/dL (1.6-2.6); Osmolality,Calculated 297 (280-300); Phosphorous 2.8 mg/dL (2.7-4.5); Potassium 4.2 mEq/L (3.5-5.1); Sodium 135 mEq/L (136-145); Total Protein 6.2 g/dL (6.4-8.9); eGFR For African Americans > 60 (> 60); eGFR For Non-African Americans > 60 (> 60)
[2018-11-04] MEDS: Heparin 25,000 UNIT/250 ML D5W 25,000 UNIT/250 ML IV.SOLN IVC SCH ×2 (07:37→20:33)
[2018-11-04] MEDS: Insulin LISPRO 300 UNITS/3 ML VIAL SQ SCH ×3 (07:38→16:30)
[2018-11-04] MEDS: *HR* OxyCODONE Immed Rel 5 MG TABLET PO PRN ×2 (07:39→20:02)
[2018-11-04] MEDS: predniSONE 20 MG TABLET PO SCH (07:39)
--- NOTE | 2018-11-04 08:51 | Internal Med Progress Note ---
Hospitalist Progress Note - Encounter Date of Encounter: 11/04/18 Time of Encounter: 08:54 - Subjective Interval History: Patient was seen and examined at the bedside Patient has a right-sided chest pain Still reports abdominal distention however he had bowel movement I CT abdomen showed normal bowel Echocardiogram showed ejection fraction 50% to 55% - Exam Vitals: Temp Pulse Resp BP Pulse Ox 97.5 F L 86 16 115/114 95 11/04/18 06:57 11/04/18 06:57 11/04/18 06:57 11/04/18 06:57 11/04/18 06:57 Exam: General: Patient is alert, oriented 3. Head: Atraumatic, normal inspection, normocephalic. Eye: EOMI, PERRLA, no scleral icterus noted. ENT: Mucous membranes moist. Neck: Normal inspection, no neck stiffness Respiratory: No respiratory distress, rhonchi, or wheezes noted. Cardiovascular: Regular rate and regular rhythm, S1 and S2 audible. No murmurs, rubs, or gallops. Right lower rib cage tenderness with palpation. GI: Soft, distended, not tender, normal bowel sounds. Extremities:No joint swelling, pedal edema, or tenderness noted. Neurological: Alert, oriented 3, no focal deficits. DVT Prophylaxis: heparin - Summary of Assessment and Plan Summary of Assessment and Plan: Mr. Mott is a 53 year old male medical history of myasthenia gravis thymoma s/p surgery, CAD status post PCI 2015, DVT on Coumadin hypertension diabetes, obesity, IDDM, HTN who came into the hospital with right-sided chest/rib pain. His symptoms are managed as following: Right sided chest pain: - Localized, likely from deep cough , Has Hx of fracture in the past. The patient taking chronic steroid Need to wean off his oral steroids gradually reduce risk of osteo-porosis - CTA was negative for PE. Troponin is 0.09, EKg without Ischemic changes. - on lidocaine patch. Rib X ray showed no evidence of acute rib fracture Troponin elevation: - Chronic, BL ~ 0.04- 0.07, EKG no ischemic changes. Troponin is 0.09 at presentation, trended to 0.1. - atypical chest pain - will trend another troponin, on heparin gtt, consult cardiology. echo show ef 55% - INR 1 JHONATAN: - Cr trending down to 1.07 on iv fluid - Hold nephrotoxic medication - Follow renal function and urine output CAD s/p stent: - continue with BB, ASA, and statins. Hold ACEI. IDDM: - on levemir 30 units q12h and SSI discussed with pharmacist MG: - Continue Mestonin 60 mg daily and BID steroids home dose Hx of DVT s/p filter: - Continue with Coumadin, INR is subtherapeutic , start on heparin bridging - Coumadin dose as per pharmacy recommendation - DVT ppx: on heparin gtt. - Time Spent with Patient Total time spent is greater than 50% in coordination of care (as documented) at patient's floor/unit and/or counseling patient: Internal Medicine: Result - Labs CBC & Chem 7: 11/04/18 02:23 11/04/18 02:23 Labs: Short CBC 11/04/18 Range/Units 02:23 WBC 12.5 H (4.3-11.1) K/mcL Hgb 13.5 (12.9-16.9) g/dL Hct 42.2 (37.5-50.1) % Plt Count 188 (140-400) K/mcL BMP 11/04/18 02:23 Sodium 135 L Potassium 4.2 Chloride 100 Carbon Dioxide 27 BUN 28 H Creatinine 1.07 Glucose 306 H Calcium 8.7 Liver Function 11/04/18 Range/Units 02:23 Total Bilirubin 0.6 (0.3-1.0) mg/dL AST 23 (13-39) Units/L ALT 34 (7-52) Units/L Alkaline Phosphatase 82 (34-104) Units/L Albumin 3.5 (3.5-5.7) g/dL - ABG Interpretation ABG results: PT/INR, D-dimer PT 11.4 Seconds (9.4-12.1) 11/04/18 02:23 - Impressions Impressions Echocardiogram Limited Views 11/03/18 12:25 Impressions: LVEF 50-55%. Mild segmental left ventricular systolic dysfunction. Severe concentric left ventricular hypertrophy. Persistent apical hypoechoic structure is likely papillary muscle rather than LV thrombus. Grossly normal right ventricular size and function. Left Ventricular Wall Motion: Rest Echo Findings The apex, apical anterior and apical lateral skelton were hypokinetic. All other wall segments showed normal motion. Findings: Study Quality * Technically adequate exam. ECG Findings * Normal sinus rhythm. Left Ventricle * LVEF 50-55%. * Normal LV chamber size. * Severe concentric left ventricular hypertrophy, asymmetrical septal thickening. * Mild segmental left ventricular systolic dysfunction. * Persistent apical hypoechoic structure is likely papillary muscle rather than LV thrombus. * Definity echo contrast was used. Right Ventricle * RV not well visualized, grossly normal right ventricular size and function. Abdomen/Pelvis CT 11/03/18 14:30 IMPRESSION: Normal bowel pattern. No acute inflammatory abnormality is appreciated. D/ / Yahir Villaseñor MD / Yahir Villaseñor MD Interpreting Provider: Yahir Villaseñor MD Consult Discharge Plan - Plan Referrals: [facility] [Outside]
[2018-11-04 09:50] LABS: Troponin I 0.07 ng/mL (< 0.04)
[2018-11-04] MEDS: Insulin DETEMIR 100 UNIT/ML X5UNITS SQ SCH ×2 (09:53→19:55)
[2018-11-04] MEDS: Metoprolol XL (24 HR) Succ 50 MG TAB.ER.24H PO SCH (09:54)
[2018-11-04] MEDS: Aspirin 81 MG TAB.CHEW PO SCH (09:54)
[2018-11-04] MEDS: Pyridostigmine Br 60 MG TABLET PO SCH (09:54)
--- NOTE | 2018-11-04 11:04 | Cardiology Consult Note ---
<Rg Louis Otoniel - Last Filed: 11/04/18 11:10> Date of Encounter: 11/04/18 Time of Encounter: 11:03 Assessment and Plan (1) Elevated troponin Current Visit: Yes Status: Acute Troponin 0.09, 0.10, 0.09. Appears to be chronically elevated when compared to past visits. Do not suspect ACS. Likely demand ischemia in the setting of severe LVH. LHC 04/2018 at [facility] showed patent stent, no intervention needed. Repeat LHC at this time not warranted TTE shows preserved EF. Severe LVH as seen previously. Persistent apical hypoechoic structure is likely papillary muscle rather than LV thrombus. Pt requiring continuation of coumadin for DVT. Currently on heparin gtt. Would recommend resuming Coumadin. Managed outpt by [facility]. Recommend better b/p control and for patient to stay hydrated. Low sodium diet recommended. Continue asa, statin, and bb. Anticipate sign off once seen and evaluated by Dr. Miner. (2) Right-sided chest pain Current Visit: Yes Status: Acute Right sided chest/rib pain after coughing--atypical and not similar to his prior anginal equivalent. Plan as above. (3) CAD (coronary artery disease) Current Visit: Yes Status: Chronic LHC 04/2018 at [facility] showed patent stent, no intervention needed. LHC 03/11/17: There is severe 1V CAD. Patient had successful PTCA/VINEET placement in the proximal-mid LAD. Patient had successful PTCA in the Diagonal. Continue ASA, Statin, BB. Qualifiers: Coronary Disease-Associated Artery/Lesion type: [place] artery [place] vs. transplanted heart: [place] heart Associated angina: angina presence unspecified Qualified Code(s): I25.10 - Atherosclerotic heart disease of [place] coronary artery without angina pectoris Discussion w patient/family: The assessment and plan as outlined above was discussed with the patient and/or family members who expressed understanding and agreement. All questions were answered. Thank you for involving us in the care of your patient. Please call with any questions. I will discuss all the above with Dr. Miner and make changes as necessary. History of Present Illness Consult date: 11/04/18 Consult reason: Elevated troponin Chief complaint: cough, right rib pain History of present illness: Mr. Mott is a 53 year old male with PMH of CAD s/p PCI, history of DVT with [place] filter and on anticoagulation, CHF, HTN, DM 2, thymoma status post excision, myasthenia gravis, and recent LV apical thrombus July 2018. He presented to ED d/t right rib pain after coughing. He was concerned he broke a rib. He also had abdominal pain and distention. Denies chest pain or any symptoms similar to prior anginal equivalent. Troponins 0.09, 0.10, 0.09. TTE wi th papillary muscle vs LV thrombus. Cardiology consulted for further recs. Prior CV testing: TTE 11/03/18: LVEF 50-55%. Mild segmental left ventricular systolic dysfunction. Severe cLVH. Persistent apical hypoechoic structure is likely papillary muscle rather than LV thrombus. Grossly normal RV size and function. LHC 04/2018 at [facility] showed patent stent, no intervention needed. LHC 03/11/17: There is severe 1V CAD. Patient had successful PTCA/Drug-Eluting Stent placement in the proximal-mid LAD. Patient had successful PTCA in the Diagonal. 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 Myasthenia Gravis, LH with 1 stent - Social History Smoking Status: Never smoker Smokeless Tobacco Status: No Alcohol use: none Drug use: none - Family History Father Adopted: No Family Member Ethnicity: Non- Living Status: Still Living Hx Family Cardiac Disorders: Yes Hx Family Respiratory Disorders: No Hx Family Cancer: No Hx Family GI Disorders: No Hx Family Endocrine Disorder: Yes Hx Family Neuromuscular Disorders: No Hx Family Neurologic Disorders: Yes Hx Family HEENT Disorders: No Brother Living Status: Still Living Hx Family Cardiac Disorders: Yes Hx Family Cancer: Yes (Prostate and colon cancer) Mother Adopted: No Family Member Ethnicity: Non- Living Status: Still Living Hx Family Cardiac Disorders: Yes Hx Family Respiratory Disorders: No Hx Family Cancer: No Hx Family GI Disorders: No Hx Family Endocrine Disorder: Yes Hx Family Neuromuscular Disorders: No Hx Family Neurologic Disorders: Yes Hx Family HEENT Disorders: No Medications and Allergies Aspirin 81 mg PO DAILY #30 tab.chew 05/13/15 [Rx] Atorvastatin Calcium 80 mg PO DAILY 03/07/17 [History] Insulin NPH Human Isophane [Novolin N] 30 units SQ DAILY 08/09/17 [History] Metoprolol Succinate [Toprol Xl] 50 mg PO DAILY 08/09/17 [History] Pantoprazole Sodium 40 mg PO DAILY 08/09/17 [History] Celecoxib [Celebrex] 200 mg PO BID 08/04/18 [History] DULoxetine [Cymbalta] 30 mg PO DAILY 08/04/18 [History] Insulin ASPART [NovoLOG] 0 unit SQ TIDWM PRN 08/04/18 [History] Insulin Glargine [Lantus] 30 unit SQ BID 08/04/18 [History] Lisinopril [Zestril] 20 mg PO BID 08/04/18 [History] PredniSONE [Deltasone] 20 mg PO QAM 08/04/18 [History] Quetiapine Fumarate [Seroquel] 25 mg PO HS 08/04/18 [History] Tamsulosin [Flomax] 0.4 mg PO DAILY 08/04/18 [History] predniSONE [PredniSONE] 10 mg PO QPM 09/29/18 [History] Pyridostigmine Br [Mestinon] 60 mg PO DAILY 11/03/18 [History] Warfarin Sodium 5 mg PO SUTUWETHSA 11/03/18 [History] Warfarin Sodium 7.5 mg PO MOFR 11/03/18 [History] Allergy/AdvReac Type Severity Reaction Status Date / Time rifampin Allergy Anaphylaxis Verified 11/03/18 13:31 All Systems Review: The remainder of the systems were reviewed and are negative Physical Examination Vital Signs Temp Pulse Resp BP Pulse Ox 11/04/18 11:09 98.0 F 92 15 179/128 95 11/04/18 06:57 97.5 F L 86 16 115/114 95 11/04/18 04:43 160/98 11/04/18 02:19 97.6 F 89 15 159/108 97 11/04/18 00:39 137/85 11/03/18 23:32 97.7 F 89 16 156/100 97 11/03/18 20:44 97.8 F 92 15 150/103 94 11/03/18 15:58 97.8 F 96 16 114/73 92 11/03/18 11:18 98.0 F 95 16 144/89 93 Intake and Output 11/03/18 11/04/18 11/04/18 23:59 07:59 15:59 Intake Total 288.3 / 1658.3 161.7 / 401.7 240 / 401.7 Balance 288.3 / 1658.3 161.7 / 401.7 240 / 401.7 Intake: IV Fluids 88.3 / 1338.3 161.7 / 161.7 Heparin 25,000 UNIT/250 ML D5W 88.3 / 338.3 161.7 / 161.7 25,000 unit In 250 ml @ 14 UNIT /KG/HR 16.676 mls/hr IVC .Q15H AMANDA Rx#:[id number] Oral 200 / 320 0 / 240 240 / 240 Other: Meal Breakfast Percent of Meal Consumed 100% # Voids 2 Weight 123.4 kg Blood Glucose* 258 238 261 Patient Weight 11/04/18 23:59 Weight 123.4 kg General: Conversant, No Apparent Distress HEENT: Atraumatic, Normocephaly, Mucus Membranes Moist Neck: No JVD, Normal carotid pulses Cardiac: Reg Rate and Rhythm, Normal S1 and S2, No Murmur Lungs: Normal Breath Sounds, No Wheeze, Rales, Rhonchi Neuro: Alert and responsive, No focal deficits noted Abdomen: Soft, Non-Tender Skin: No rashes noted on visualized skin Musculoskeletal: No Chest Wall Tenderness Extremities: No Clubbing, No Cyanosis, No Edema, Normal Pulses Results 11/04/18 02:23 11/04/18 02:23 Lab Results 11/04/18 11/04/18 11/04/18 02:23 02:23 02:23 WBC 12.5 H Hgb 13.5 Hct 42.2 Plt Count 188 INR 1.0 Sodium 135 L Potassium 4.2 Chloride 100 Carbon Dioxide 27 BUN 28 H Creatinine 1.07 Glucose 306 H Calcium 8.7 Magnesium 1.9 Total Bilirubin 0.6 AST 23 ALT 34 Alkaline Phosphatase 82 Troponin I 0.07 H* Short CBC 11/04/18 11/04/18 11/04/18 Range/Units 07:00 02:23 02:23 WBC (4.3-11.1) K/mcL RBC (4.19-5.50) M/mcL Hgb (12.9-16.9) g/dL Hct (37.5-50.1) % MCV (83.0-100.0) fL MCH (28.0-33.3) pg MCHC (31.6-35.5) g/dL RDW (11.5-14.5) % Plt Count (140-400) K/mcL MPV (9.4-12.4) fL Immature Gran % (0-4) % Seg Neutrophils % % Lymphocytes % % Monocytes % % Eosinophils % % Basophils % % Lymphocytes # (0.6-4.6) K/mcL Monocytes # (0.0-1.3) K/mcL Eosinophils # (0.0-0.6) K/mcL Basophils # (0.0-0.2) K/mcL PT (9.4-12.1) Seconds INR Heparin Anti-Xa, Unfract 0.63 (0.30-0.70) IU/mL Sodium 135 L (136-145) mEq/L Potassium 4.2 (3.5-5.1) mEq/L Chloride 100 (98-107) mEq/L Carbon Dioxide 27 (23-29) mEq/L BUN 28 H (6-20) mg/dL Creatinine 1.07 (0.70-1.30) mg/dL Est GFR ( Amer) > 60 (> 60) Est GFR (Non-Af Amer) > 60 (> 60) BUN/Creatinine Ratio 26 (6-26) Glucose 306 H (70-105) mg/dL POC Glucose 238 H (70-99) mg/dL Calculated Osmolality 297 (280-300) Calcium 8.7 (8.6-10.3) mg/dL Phosphorus 2.8 (2.7-4.5) mg/dL Magnesium 1.9 (1.6-2.6) mg/dL Total Bilirubin 0.6 (0.3-1.0) mg/dL AST 23 (13-39) Units/L ALT 34 (7-52) Units/L Alkaline Phosphatase 82 (34-104) Units/L Creatine Kinase (30-223) Units/L Troponin I 0.07 H* (< 0.04) ng/mL Serum Total Protein 6.2 L (6.4-8.9) g/dL Albumin 3.5 (3.5-5.7) g/dL Globulin 2.7 (2.4-3.5) g/dL Albumin/Globulin Ratio 1.3 (1.1-2.2) Lipase (11-82) Units/L Urine Color (Yellow) Urine Clarity (Clear) Urine pH (5.0-8.0) pH Units Ur Specific [place] (1.010-1.025) Urine Protein (Neg-Trace) mg/dL Urine Glucose (UA) (Normal) mg/dL Urine Ketones (Negative) mg/dL Urine Blood (Negative) Urine Nitrite (Negative) Urine Bilirubin (Negative) Urine Urobilinogen (Normal) mg/dL Ur Leukocyte Esterase (Negative) Urine Microscopic RBC (0-3) per hpf Urine Microscopic WBC (0-3) per hpf Ur Squamous Epith Cells (None-Few) per lpf Urine Bacteria (None-Few) per hpf Hyaline Casts (None-Few) per lpf Ur Culture Indicated? (NO) 11/04/18 11/04/18 11/03/18 Range/Units 02:23 02:23 19:48 WBC 12.5 H (4.3-11.1) K/mcL RBC 5.04 (4.19-5.50) M/mcL Hgb 13.5 (12.9-16.9) g/dL Hct 42.2 (37.5-50.1) % MCV 83.7 (83.0-100.0) fL MCH 26.8 L (28.0-33.3) pg MCHC 32.0 (31.6-35.5) g/dL RDW 15.9 H (11.5-14.5) % Plt Count 188 (140-400) K/mcL MPV 10.6 (9.4-12.4) fL Immature Gran % (0-4) % Seg Neutrophils % % Lymphocytes % % Monocytes % % Eosinophils % % Basophils % % Lymphocytes # (0.6-4.6) K/mcL Monocytes # (0.0-1.3) K/mcL Eosinophils # (0.0-0.6) K/mcL Basophils # (0.0-0.2) K/mcL PT 11.4 (9.4-12.1) Seconds INR 1.0 Heparin Anti-Xa, Unfract 0.61 (0.30-0.70) IU/mL Sodium (136-145) mEq/L Potassium (3.5-5.1) mEq/L Chloride (98-107) mEq/L Carbon Dioxide (23-29) mEq/L BUN (6-20) mg/dL Creatinine (0.70-1.30) mg/dL Est GFR ( Amer) (> 60) Est GFR (Non-Af Amer) (> 60) BUN/Creatinine Ratio (6-26) Glucose (70-105) mg/dL POC Glucose (70-99) mg/dL Calculated Osmolality (280-300) Calcium (8.6-10.3) mg/dL Phosphorus (2.7-4.5) mg/dL Magnesium (1.6-2.6) mg/dL Total Bilirubin (0.3-1.0) mg/dL AST (13-39) Units/L ALT (7-52) Units/L Alkaline Phosphatase (34-104) Units/L Creatine Kinase (30-223) Units/L Troponin I (< 0.04) ng/mL Serum Total Protein (6.4-8.9) g/dL Albumin (3.5-5.7) g/dL Globulin (2.4-3.5) g/dL Albumin/Globulin Ratio (1.1-2.2) Lipase (11-82) Units/L Urine Color (Yellow) Urine Clarity (Clear) Urine pH (5.0-8.0) pH Units Ur Specific [place] (1.010-1.025) Urine Protein (Neg-Trace) mg/dL Urine Glucose (UA) (Normal) mg/dL Urine Ketones (Negative) mg/dL Urine Blood (Negative) Urine Nitrite (Negative) Urine Bilirubin (Negative) Urine Urobilinogen (Normal) mg/dL Ur Leukocyte Esterase (Negative) Urine Microscopic RBC (0-3) per hpf Urine Microscopic WBC (0-3) per hpf Ur Squamous Epith Cells (None-Few) per lpf Urine Bacteria (None-Few) per hpf Hyaline Casts (None-Few) per lpf Ur Culture Indicated? (NO) 11/03/18 11/03/18 11/03/18 Range/Units 11:46 11:17 07:05 WBC (4.3-11.1) K/mcL RBC (4.19-5.50) M/mcL Hgb (12.9-16.9) g/dL Hct (37.5-50.1) % MCV (83.0-100.0) fL MCH (28.0-33.3) pg MCHC (31.6-35.5) g/dL RDW (11.5-14.5) % Plt Count (140-400) K/mcL MPV (9.4-12.4) fL Immature Gran % (0-4) % Seg Neutrophils % % Lymphocytes % % Monocytes % % Eosinophils % % Basophils % % Lymphocytes # (0.6-4.6) K/mcL Monocytes # (0.0-1.3) K/mcL Eosinophils # (0.0-0.6) K/mcL Basophils # (0.0-0.2) K/mcL PT (9.4-12.1) Seconds INR Heparin Anti-Xa, Unfract 1.04 H* (0.30-0.70) IU/mL Sodium (136-145) mEq/L Potassium (3.5-5.1) mEq/L Chloride (98-107) mEq/L Carbon Dioxide (23-29) mEq/L BUN (6-20) mg/dL Creatinine (0.70-1.30) mg/dL Est GFR ( Amer) (> 60) Est GFR (Non-Af Amer) (> 60) BUN/Creatinine Ratio (6-26) Glucose (70-105) mg/dL POC Glucose 219 H 234 H (70-99) mg/dL Calculated Osmolality (280-300) Calcium (8.6-10.3) mg/dL Phosphorus (2.7-4.5) mg/dL Magnesium (1.6-2.6) mg/dL Total Bilirubin (0.3-1.0) mg/dL AST (13-39) Units/L ALT (7-52) Units/L Alkaline Phosphatase (34-104) Units/L Creatine Kinase (30-223) Units/L Troponin I (< 0.04) ng/mL Serum Total Protein (6.4-8.9) g/dL Albumin (3.5-5.7) g/dL Globulin (2.4-3.5) g/dL Albumin/Globulin Ratio (1.1-2.2) Lipase (11-82) Units/L Urine Color (Yellow) Urine Clarity (Clear) Urine pH (5.0-8.0) pH Units Ur Specific [place] (1.010-1.025) Urine Protein (Neg-Trace) mg/dL Urine Glucose (UA) (Normal) mg/dL Urine Ketones (Negative) mg/dL Urine Blood (Negative) Urine Nitrite (Negative) Urine Bilirubin (Negative) Urine Urobilinogen (Normal) mg/dL Ur Leukocyte Esterase (Negative) Urine Microscopic RBC (0-3) per hpf Urine Microscopic WBC (0-3) per hpf Ur Squamous Epith Cells (None-Few) per lpf Urine Bacteria (None-Few) per hpf Hyaline Casts (None-Few) per lpf Ur Culture Indicated? (NO) 11/03/18 11/03/18 11/03/18 Range/Units 04:12 04:12 04:12 WBC (4.3-11.1) K/mcL RBC (4.19-5.50) M/mcL Hgb (12.9-16.9) g/dL Hct (37.5-50.1) % MCV (83.0-100.0) fL MCH (28.0-33.3) pg MCHC (31.6-35.5) g/dL RDW (11.5-14.5) % Plt Count (140-400) K/mcL MPV (9.4-12.4) fL Immature Gran % (0-4) % Seg Neutrophils % % Lymphocytes % % Monocytes % % Eosinophils % % Basophils % % Lymphocytes # (0.6-4.6) K/mcL Monocytes # (0.0-1.3) K/mcL Eosinophils # (0.0-0.6) K/mcL Basophils # (0.0-0.2) K/mcL PT 12.0 (9.4-12.1) Seconds INR 1.1 Heparin Anti-Xa, Unfract 0.68 (0.30-0.70) IU/mL Sodium 134 L (136-145) mEq/L Potassium 4.6 (3.5-5.1) mEq/L Chloride 98 (98-107) mEq/L Carbon Dioxide 29 (23-29) mEq/L BUN 30 H (6-20) mg/dL Creatinine 1.32 H (0.70-1.30) mg/dL Est GFR ( Amer) > 60 (> 60) Est GFR (Non-Af Amer) 57 L (> 60) BUN/Creatinine Ratio 23 (6-26) Glucose 291 H (70-105) mg/dL POC Glucose (70-99) mg/dL Calculated Osmolality 295 (280-300) Calcium 9.1 (8.6-10.3) mg/dL Phosphorus (2.7-4.5) mg/dL Magnesium (1.6-2.6) mg/dL Total Bilirubin (0.3-1.0) mg/dL AST (13-39) Units/L ALT (7-52) Units/L Alkaline Phosphatase (34-104) Units/L Creatine Kinase (30-223) Units/L Troponin I (< 0.04) ng/mL Serum Total Protein (6.4-8.9) g/dL Albumin (3.5-5.7) g/dL Globulin (2.4-3.5) g/dL Albumin/Globulin Ratio (1.1-2.2) Lipase (11-82) Units/L Urine Color (Yellow) Urine Clarity (Clear) Urine pH (5.0-8.0) pH Units Ur Specific [place] (1.010-1.025) Urine Protein (Neg-Trace) mg/dL Urine Glucose (UA) (Normal) mg/dL Urine Ketones (Negative) mg/dL Urine Blood (Negative) Urine Nitrite (Negative) Urine Bilirubin (Negative) Urine Urobilinogen (Normal) mg/dL Ur Leukocyte Esterase (Negative) Urine Microscopic RBC (0-3) per hpf Urine Microscopic WBC (0-3) per hpf Ur Squamous Epith Cells (None-Few) per lpf Urine Bacteria (None-Few) per hpf Hyaline Casts (None-Few) per lpf Ur Culture Indicated? (NO) 11/03/18 11/02/18 11/02/18 Range/Units 04:12 21:41 21:09 WBC (4.3-11.1) K/mcL RBC 5.40 (4.19-5.50) M/mcL Hgb (12.9-16.9) g/dL Hct (37.5-50.1) % MCV 83.9 (83.0-100.0) fL MCH 26.5 L (28.0-33.3) pg MCHC 31.6 (31.6-35.5) g/dL RDW 16.3 H (11.5-14.5) % Plt Count (140-400) K/mcL MPV 10.9 (9.4-12.4) fL Immature Gran % 0.6 (0-4) % Seg Neutrophils % 85.4 % Lymphocytes % 9.5 % Monocytes % 4.0 % Eosinophils % 0.3 % Basophils % 0.2 % Lymphocytes # 1.4 (0.6-4.6) K/mcL Monocytes # 0.6 (0.0-1.3) K/mcL Eosinophils # 0.0 (0.0-0.6) K/mcL Basophils # 0.0 (0.0-0.2) K/mcL PT (9.4-12.1) Seconds INR Heparin Anti-Xa, Unfract (0.30-0.70) IU/mL Sodium (136-145) mEq/L Potassium (3.5-5.1) mEq/L Chloride (98-107) mEq/L Carbon Dioxide (23-29) mEq/L BUN (6-20) mg/dL Creatinine (0.70-1.30) mg/dL Est GFR ( Amer) (> 60) Est GFR (Non-Af Amer) (> 60) BUN/Creatinine Ratio (6-26) Glucose (70-105) mg/dL POC Glucose 127 H (70-99) mg/dL Calculated Osmolality (280-300) Calcium (8.6-10.3) mg/dL Phosphorus (2.7-4.5) mg/dL Magnesium (1.6-2.6) mg/dL Total Bilirubin (0.3-1.0) mg/dL AST (13-39) Units/L ALT (7-52) Units/L Alkaline Phosphatase (34-104) Units/L Creatine Kinase (30-223) Units/L Troponin I 0.09 H* (< 0.04) ng/mL Serum Total Protein (6.4-8.9) g/dL Albumin (3.5-5.7) g/dL Globulin (2.4-3.5) g/dL Albumin/Globulin Ratio (1.1-2.2) Lipase (11-82) Units/L Urine Color (Yellow) Urine Clarity (Clear) Urine pH (5.0-8.0) pH Units Ur Specific [place] (1.010-1.025) Urine Protein (Neg-Trace) mg/dL Urine Glucose (UA) (Normal) mg/dL Urine Ketones (Negative) mg/dL Urine Blood (Negative) Urine Nitrite (Negative) Urine Bilirubin (Negative) Urine Urobilinogen (Normal) mg/dL Ur Leukocyte Esterase (Negative) Urine Microscopic RBC (0-3) per hpf Urine Microscopic WBC (0-3) per hpf Ur Squamous Epith Cells (None-Few) per lpf Urine Bacteria (None-Few) per hpf Hyaline Casts (None-Few) per lpf Ur Culture Indicated? (NO) 11/02/18 11/02/18 11/02/18 Range/Units 16:32 16:17 16:17 WBC (4.3-11.1) K/mcL RBC 5.28 (4.19-5.50) M/mcL Hgb (12.9-16.9) g/dL Hct (37.5-50.1) % MCV 84.1 (83.0-100.0) fL MCH 26.5 L (28.0-33.3) pg MCHC 31.5 L (31.6-35.5) g/dL RDW 16.4 H (11.5-14.5) % Plt Count (140-400) K/mcL MPV 10.7 (9.4-12.4) fL Immature Gran % (0-4) % Seg Neutrophils % % Lymphocytes % % Monocytes % % Eosinophils % % Basophils % % Lymphocytes # (0.6-4.6) K/mcL Monocytes # (0.0-1.3) K/mcL Eosinophils # (0.0-0.6) K/mcL Basophils # (0.0-0.2) K/mcL PT 11.6 (9.4-12.1) Seconds INR 1.0 Heparin Anti-Xa, Unfract 0.03 L (0.30-0.70) IU/mL Sodium (136-145) mEq/L Potassium (3.5-5.1) mEq/L Chloride (98-107) mEq/L Carbon Dioxide (23-29) mEq/L BUN (6-20) mg/dL Creatinine (0.70-1.30) mg/dL Est GFR ( Amer) (> 60) Est GFR (Non-Af Amer) (> 60) BUN/Creatinine Ratio (6-26) Glucose (70-105) mg/dL POC Glucose 219 H (70-99) mg/dL Calculated Osmolality (280-300) Calcium (8.6-10.3) mg/dL Phosphorus (2.7-4.5) mg/dL Magnesium (1.6-2.6) mg/dL Total Bilirubin (0.3-1.0) mg/dL AST (13-39) Units/L ALT (7-52) Units/L Alkaline Phosphatase (34-104) Units/L Creatine Kinase (30-223) Units/L Troponin I (< 0.04) ng/mL Serum Total Protein (6.4-8.9) g/dL Albumin (3.5-5.7) g/dL Globulin (2.4-3.5) g/dL Albumin/Globulin Ratio (1.1-2.2) Lipase (11-82) Units/L Urine Color (Yellow) Urine Clarity (Clear) Urine pH (5.0-8.0) pH Units Ur Specific [place] (1.010-1.025) Urine Protein (Neg-Trace) mg/dL Urine Glucose (UA) (Normal) mg/dL Urine Ketones (Negative) mg/dL Urine Blood (Negative) Urine Nitrite (Negative) Urine Bilirubin (Negative) Urine Urobilinogen (Normal) mg/dL Ur Leukocyte Esterase (Negative) Urine Microscopic RBC (0-3) per hpf Urine Microscopic WBC (0-3) per hpf Ur Squamous Epith Cells (None-Few) per lpf Urine Bacteria (None-Few) per hpf Hyaline Casts (None-Few) per lpf Ur Culture Indicated? (NO) 11/02/18 11/02/18 11/02/18 Range/Units 15:55 14:47 09:00 WBC (4.3-11.1) K/mcL RBC (4.19-5.50) M/mcL Hgb (12.9-16.9) g/dL Hct (37.5-50.1) % MCV (83.0-100.0) fL MCH (28.0-33.3) pg MCHC (31.6-35.5) g/dL RDW (11.5-14.5) % Plt Count (140-400) K/mcL MPV (9.4-12.4) fL Immature Gran % (0-4) % Seg Neutrophils % % Lymphocytes % % Monocytes % % Eosinophils % % Basophils % % Lymphocytes # (0.6-4.6) K/mcL Monocytes # (0.0-1.3) K/mcL Eosinophils # (0.0-0.6) K/mcL Basophils # (0.0-0.2) K/mcL PT 10.9 (9.4-12.1) Seconds INR 1.0 Heparin Anti-Xa, Unfract (0.30-0.70) IU/mL Sodium (136-145) mEq/L Potassium (3.5-5.1) mEq/L Chloride (98-107) mEq/L Carbon Dioxide (23-29) mEq/L BUN (6-20) mg/dL Creatinine (0.70-1.30) mg/dL Est GFR ( Amer) (> 60) Est GFR (Non-Af Amer) (> 60) BUN/Creatinine Ratio (6-26) Glucose (70-105) mg/dL POC Glucose (70-99) mg/dL Calculated Osmolality (280-300) Calcium (8.6-10.3) mg/dL Phosphorus (2.7-4.5) mg/dL Magnesium (1.6-2.6) mg/dL Total Bilirubin (0.3-1.0) mg/dL AST (13-39) Units/L ALT (7-52) Units/L Alkaline Phosphatase (34-104) Units/L Creatine Kinase 823 H (30-223) Units/L Troponin I 0.10 H* (< 0.04) ng/mL Serum Total Protein (6.4-8.9) g/dL Albumin (3.5-5.7) g/dL Globulin (2.4-3.5) g/dL Albumin/Globulin Ratio (1.1-2.2) Lipase (11-82) Units/L Urine Color (Yellow) Urine Clarity (Clear) Urine pH (5.0-8.0) pH Units Ur Specific [place] (1.010-1.025) Urine Protein (Neg-Trace) mg/dL Urine Glucose (UA) (Normal) mg/dL Urine Ketones (Negative) mg/dL Urine Blood (Negative) Urine Nitrite (Negative) Urine Bilirubin (Negative) Urine Urobilinogen (Normal) mg/dL Ur Leukocyte Esterase (Negative) Urine Microscopic RBC (0-3) per hpf Urine Microscopic WBC (0-3) per hpf Ur Squamous Epith Cells (None-Few) per lpf Urine Bacteria (None-Few) per hpf Hyaline Casts (None-Few) per lpf Ur Culture Indicated? (NO) 11/02/18 11/02/18 11/02/18 Range/Units 09:00 09:00 08:40 WBC (4.3-11.1) K/mcL RBC 5.47 (4.19-5.50) M/mcL Hgb (12.9-16.9) g/dL Hct (37.5-50.1) % MCV 84.1 (83.0-100.0) fL MCH 26.5 L (28.0-33.3) pg MCHC 31.5 L (31.6-35.5) g/dL RDW 16.5 H (11.5-14.5) % Plt Count (140-400) K/mcL MPV 10.6 (9.4-12.4) fL Immature Gran % 0.4 (0-4) % Seg Neutrophils % 61.7 % Lymphocytes % 26.1 % Monocytes % 9.3 % Eosinophils % 1.9 % Basophils % 0.6 % Lymphocytes # 2.7 (0.6-4.6) K/mcL Monocytes # 1.0 (0.0-1.3) K/mcL Eosinophils # 0.2 (0.0-0.6) K/mcL Basophils # 0.1 (0.0-0.2) K/mcL PT (9.4-12.1) Seconds INR Heparin Anti-Xa, Unfract (0.30-0.70) IU/mL Sodium 137 (136-145) mEq/L Potassium 3.8 (3.5-5.1) mEq/L Chloride 99 (98-107) mEq/L Carbon Dioxide 25 (23-29) mEq/L BUN 25 H (6-20) mg/dL Creatinine 1.69 H (0.70-1.30) mg/dL Est GFR ( Amer) 52 L (> 60) Est GFR (Non-Af Amer) 43 L (> 60) BUN/Creatinine Ratio 15 (6-26) Glucose 349 H (70-105) mg/dL POC Glucose (70-99) mg/dL Calculated Osmolality 302 H (280-300) Calcium 10.3 (8.6-10.3) mg/dL Phosphorus (2.7-4.5) mg/dL Magnesium (1.6-2.6) mg/dL Total Bilirubin 1.0 (0.3-1.0) mg/dL AST 48 H (13-39) Units/L ALT 51 (7-52) Units/L Alkaline Phosphatase 88 (34-104) Units/L Creatine Kinase (30-223) Units/L Troponin I 0.09 H* (< 0.04) ng/mL Serum Total Protein 6.7 (6.4-8.9) g/dL Albumin 3.8 (3.5-5.7) g/dL Globulin 2.9 (2.4-3.5) g/dL Albumin/Globulin Ratio 1.3 (1.1-2.2) Lipase 24 (11-82) Units/L Urine Color Yellow (Yellow) Urine Clarity Turbid A (Clear) Urine pH 5.5 (5.0-8.0) pH Units Ur Specific [place] > 1.030 H (1.010-1.025) Urine Protein Negative (Neg-Trace) mg/dL Urine Glucose (UA) >=1000 H (Normal) mg/dL Urine Ketones Negative (Negative) mg/dL Urine Blood Negative (Negative) Urine Nitrite Negative (Negative) Urine Bilirubin Negative (Negative) Urine Urobilinogen Normal (Normal) mg/dL Ur Leukocyte Esterase Negative (Negative) Urine Microscopic RBC 0-3 (0-3) per hpf Urine Microscopic WBC 0-3 (0-3) per hpf Ur Squamous Epith Cells None Seen (None-Few) per lpf Urine Bacteria None Seen (None-Few) per hpf Hyaline Casts None Seen (None-Few) per lpf Ur Culture Indicated? NO (NO) BMP 11/04/18 Range/Units 02:23 Sodium 135 L (136-145) mEq/L Potassium 4.2 (3.5-5.1) mEq/L Chloride 100 (98-107) mEq/L Carbon Dioxide 27 (23-29) mEq/L BUN 28 H (6-20) mg/dL Creatinine 1.07 (0.70-1.30) mg/dL Glucose 306 H (70-105) mg/dL Calcium 8.7 (8.6-10.3) mg/dL Cardiac Enzymes 11/04/18 Range/Units 02:23 Troponin I 0.07 H* (< 0.04) ng/mL Liver Function 11/04/18 Range/Units 02:23 Total Bilirubin 0.6 (0.3-1.0) mg/dL AST 23 (13-39) Units/L ALT 34 (7-52) Units/L Alkaline Phosphatase 82 (34-104) Units/L Albumin 3.5 (3.5-5.7) g/dL Impressions Echocardiogram Limited Views 11/03/18 12:25 Impressions: LVEF 50-55%. Mild segmental left ventricular systolic dysfunction. Severe concentric left ventricular hypertrophy. Persistent apical hypoechoic structure is likely papillary muscle rather than LV thrombus. Grossly normal right ventricular size and function. Left Ventricular Wall Motion: Rest Echo Findings The apex, apical anterior and apical lateral skelton were hypokinetic. All other wall segments showed normal motion. Findings: Study Quality * Technically adequate exam. ECG Findings * Normal sinus rhythm. Left Ventricle * LVEF 50-55%. * Normal LV chamber size. * Severe concentric left ventricular hypertrophy, asymmetrical septal thickening. * Mild segmental left ventricular systolic dysfunction. * Persistent apical hypoechoic structure is likely papillary muscle rather than LV thrombus. * Definity echo contrast was used. Right Ventricle * RV not well visualized, grossly normal right ventricular size and function. Abdomen/Pelvis CT 11/03/18 14:30 IMPRESSION: Normal bowel pattern. No acute inflammatory abnormality is appreciated. D/ / Yahir Villaseñor MD / Yahir Villaseñor MD Interpreting Provider: Yahir Villaseñor MD Active Medications Aspirin (Aspirin) 81 mg PO DAILY AMANDA Stop: 02/11/20 09:01 Last Admin: 11/04/18 09:54 Dose: 81 mg Documented by: Atorvastatin Calcium (Lipitor) 80 mg PO HS AMANDA Stop: 05/06/19 21:01 Dextrose/Water (Dextrose 50% (Syg)) 25 ml IVP AD PRN PRN Reason: Hypoglycemia Stop: 05/04/19 14:29 Duloxetine HCl (Cymbalta) 30 mg PO DAILY AMANDA Stop: 05/05/19 09:01 Last Admin: 11/04/18 09:54 Dose: 30 mg Documented by: Glucagon (Glucagen) 1 mg IM ONCE PRN PRN Reason: Hypoglycemia Stop: 05/04/19 14:29 Glucose (Gluctose) 15 gm PO ONCE PRN PRN Reason: Hypoglycemia Stop: 05/04/19 14:29 Glucose (Gluctose) 30 gm PO ONCE PRN PRN Reason: Hypoglycemia Stop: 05/04/19 14:29 Heparin Sodium (Porcine) (Heparin) 8,300 unit 70 unit/kg (8300 unit) IVP Q6HR PRN PRN Reason: SEE COMMENTS Stop: 05/04/19 16:06 Heparin Sodium (Porcine) (Heparin) 4,200 unit 35 unit/kg (4200 unit) IVP Q6H PRN PRN Reason: SEE COMMENTS Stop: 05/04/19 16:06 Dextrose (Dextrose 5%) 1,000 mls @ 100 mls/hr IVC .Q10H PRN PRN Reason: HYPOGLYCEMIA Stop: 05/04/19 14:29 Heparin Sodium/Dextrose (Heparin 25,000 Unit/250 Ml D5w) 25,000 unit in 250 mls @ 16.676 mls/hr IVC .Q15H AMANDA; Protocol Stop: 05/04/19 16:16 Last Admin: 11/04/18 07:37 Dose: 11 unit/kg/hr, 13.1 mls/hr Documented by: Insulin Detemir (Levemir) 30 unit 0.25 unit/kg (30 unit) SQ BID [facility] Stop: 05/05/19 21:01 Last Admin: 11/04/18 09:53 Dose: 30 unit Documented by: Insulin Human Lispro (Humalog) 0 units SQ TIDAC [facility]; Protocol Stop: 05/04/19 16:31 Last Admin: 11/04/18 07:38 Dose: 10 units Documented by: Lidocaine HCl (Lidoderm 5% Patch) 1 each TP DAILY [facility] Stop: 05/05/19 09:01 Last Admin: 11/04/18 09:54 Dose: 1 each Documented by: Metoprolol Succinate (Toprol Xl) 50 mg PO DAILY [facility] Stop: 05/05/19 09:01 Last Admin: 11/04/18 09:54 Dose: 50 mg Documented by: Naloxone HCl (Narcan) 0.4 mg IVP Q2MPRN PRN PRN Reason: SEE COMMENTS Stop: 05/04/19 14:23 Omeprazole (Prilosec) 20 mg PO DAILY@0730 [facility] Stop: 05/05/19 07:31 Last Admin: 11/04/18 07:39 Dose: 20 mg Documented by: Ondansetron HCl (Zofran) 4 mg IVP Q8HR PRN PRN Reason: Nausea And Vomiting Stop: 05/04/19 14:23 Oxycodone HCl (Roxicodone) 5 mg PO Q8HR PRN; Protocol PRN Reason: Pain Stop: 05/04/19 18:01 Last Admin: 11/04/18 07:39 Dose: 5 mg Documented by: Prednisone (Prednisone) 20 mg PO DAILY@0800 [facility] Stop: 05/06/19 08:01 Last Admin: 11/04/18 07:39 Dose: 20 mg Documented by: Prednisone (Prednisone) 10 mg PO 1700 [facility] Stop: 05/05/19 17:01 Last Admin: 11/03/18 17:03 Dose: 10 mg Documented by: Pyridostigmine [place] (Mestinon) 60 mg PO DAILY [facility] Stop: 05/05/19 15:01 Last Admin: 11/04/18 09:54 Dose: 60 mg Documented by: Tamsulosin HCl (Flomax) 0.4 mg PO DAILY [facility]; Protocol Stop: 05/05/19 09:01 Last Admin: 11/04/18 09:54 Dose: 0.4 mg Documented by: - Imaging and Cardiology Echo: report reviewed Cardiac cath: report reviewed - EKG Interpretation EKG results cardiology: personally reviewed (SR) Consult Discharge Plan - Plan Referrals: [facility] [Outside] <Nadya Miner - Last Filed: 11/04/18 15:58> Date of Encounter: 11/04/18 - Attending Attestation I examined this patient and my medical decision-making was reviewed with the Resident Physician. I agree with the documented findings, disposition and treatment plan as described. Mr. Mott presents with elevated troponin that is flat, adynamic and chronically elevated. No acute ECG findings. TTE show preserved LVEF. Patient without anginal symptoms. [facility] 04/2018 [facility] demonstrated patent LAD stent, no intervention warranted. Of note, TTE images personally reviewed with Definity - prominent apical papillary muscle. No definitive thrombus. No further cardiac testing warranted. Continue cardiac meds. Will sign off. Assessment and Plan Discussion w patient/family: The assessment and plan as outlined above was discussed with the patient and/or family members who expressed understanding and agreement. All questions were answered. Thank you for involving us in the care of your patient. Please call with any questions. History of Present Illness History of present illness: Mr. Mott is a 53 year old male All Systems Review: The remainder of the systems were reviewed and are negative Physical Examination Vital Signs, Last 4 Hours Temp Pulse Resp BP Pulse Ox 11/04/18 15:22 160/120 11/04/18 15:00 98.1 F 93 20 187/121 95 Results 11/04/18 02:23 11/04/18 02:23 Lab Results 11/04/18 11/04/18 11/04/18 02:23 02:23 02:23 WBC 12.5 H Hgb 13.5 Hct 42.2 Plt Count 188 INR 1.0 Sodium 135 L Potassium 4.2 Chloride 100 Carbon Dioxide 27 BUN 28 H Creatinine 1.07 Glucose 306 H Calcium 8.7 Magnesium 1.9 Total Bilirubin 0.6 AST 23 ALT 34 Alkaline Phosphatase 82 Troponin I 0.07 H*
[2018-11-04] MEDS ORDERED: hydrALAZINE 10 MG TABLET PO PRN (11:38)
--- NOTE | 2018-11-04 15:40 | Event Note ---
Date of Encounter: 11/04/18 Time of Encounter: 15:38 The patient developed high blood pressure systolic 160/120 and feel lightheaded with numbness of extremities Already started on metoprolol XL 50 mg daily with when necessary hydralazine 10 mg IV every 6 hours for systolic more than 170 We will transfer the patient to stepdown unit to closely monitor blood pressure 1 dose of clonidine 0.1 mg if the blood pressure remain high and may start on Cardene drip
[2018-11-04] MEDS: predniSONE 10 MG TABLET PO SCH (16:30)
[2018-11-04] MEDS ORDERED: Warfarin perPT PO SCH (18:00)
[2018-11-04] MEDS ORDERED: *HR* Warfarin 5 MG TABLET PO ONE (18:00)
--- NOTE | 2018-11-04 18:40 | Event Note ---
Date of Encounter: 11/04/18 Time of Encounter: 18:[address] head negative continue on current BP management
[2018-11-05 04:38] LABS: INR 0.9; Prothrombin Time 10.7 Seconds (9.4-12.1)
[2018-11-05] MEDS: predniSONE 20 MG TABLET PO SCH (08:11)
[2018-11-05] MEDS: Insulin DETEMIR 100 UNIT/ML X5UNITS SQ SCH ×2 (08:11→20:04)
[2018-11-05] MEDS: Pyridostigmine Br 60 MG TABLET PO SCH (08:11)
[2018-11-05] MEDS: Aspirin 81 MG TAB.CHEW PO SCH (08:11)
[2018-11-05] MEDS: Metoprolol XL (24 HR) Succ 50 MG TAB.ER.24H PO SCH (08:11)
[2018-11-05] MEDS: Insulin LISPRO 300 UNITS/3 ML VIAL SQ SCH ×3 (08:12→16:20)
--- NOTE | 2018-11-05 11:11 | Internal Med Progress Note ---
Hospitalist Progress Note - Encounter Date of Encounter: 11/05/18 Time of Encounter: 11:08 - Subjective Interval History: Patient was seen and examined at bedside. Patient reports of right-sided chest pain due to fracture of the rib. Patient denied any substernal and left-sided chest pain. Patient had echo done which showed ejection fraction of 50% to 55%. Patient has history of DVT and currently is on a heparin drip with bridging with Coumadin. Patient's INR this morning was 0.9. Pharmacy to dose warfarin. We will continue to monitor. - Exam Vitals: Temp Pulse Resp BP Pulse Ox 98.1 F 89 16 158/116 95 11/05/18 07:52 11/05/18 07:52 11/05/18 07:52 11/05/18 07:52 11/05/18 07:52 Exam: General: Patient is alert, oriented 3. Head: Atraumatic, normal inspection, normocephalic. Eye: EOMI, PERRLA, no scleral icterus noted. ENT: Mucous membranes moist. Neck: Normal inspection, no neck stiffness Respiratory: No respiratory distress, rhonchi, or wheezes noted. Cardiovascular: Regular rate and regular rhythm, S1 and S2 audible. No murmurs, rubs, or gallops. Right lower rib cage tenderness with palpation. GI: Soft, distended, not tender, normal bowel sounds. Extremities:No joint swelling, pedal edema, or tenderness noted. Neurological: Alert, oriented 3, no focal deficits. - Assessment and Plan (1) Elevated troponin Current Visit: Yes Status: Chronic Assessment and Plan: Patient's presents to the emergency department with component of chest pain and elevated troponin. Patient' troponin has trended down to 0.07. Patient is currently on 100. Patient denies any chest pain. Cardiology has signed off. No further intervention per cardiology. Currently we are bridging heparin with Coumadin due to patient's history of venous thrombo-embolism including pulmonary embolism and DVT. (2) CAD (coronary artery disease) Current Visit: Yes Status: Chronic Assessment and Plan: Continue aspirin and statin and beta cesar. (3) Hypertension Current Visit: Yes Status: Chronic Assessment and Plan: Blood pressure better controlled. We will continue monitor. 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 DVT Prophylaxis: On heparin drip - Time Spent with Patient Total time spent is greater than 50% in coordination of care (as documented) at patient's floor/unit and/or counseling patient: 25 - 35 minutes Plan of Care Discussed with: patient Internal Medicine: Result - Labs CBC & Chem 7: 11/04/18 02:23 11/04/18 02:23 - ABG Interpretation ABG results: PT/INR, D-dimer PT 10.7 Seconds (9.4-12.1) 11/05/18 03:36 - Impressions Impressions Head CT 11/04/18 16:38 IMPRESSION: No acute intracranial abnormality. D/ / Jesús Keyes MD / Jesús Keyes MD Interpreting Provider: Jesús Keyes MD Consult Discharge Plan - Plan Referrals: [facility] [Outside] (2) CAD (coronary artery disease) Qualifiers: Coronary Disease-Associated Artery/Lesion type: [place] artery [place] vs. tr ansplanted heart: [place] heart Associated angina: angina presence unspecified Qualified Code(s): I25.10 - Atherosclerotic heart disease of [place] coronary artery without angina pectoris (3) Hypertension Qualifiers: Hypertension type: essential hypertension Qualified Code(s): I10 - Essential (primary) hypertension
[2018-11-05] MEDS: Lisinopril 20 MG TABLET PO SCH ×2 (12:03→20:04)
[2018-11-05] MEDS: amLODIPine 5 MG TABLET PO SCH (12:03)
[2018-11-05] MEDS: Heparin 25,000 UNIT/250 ML D5W 25,000 UNIT/250 ML IV.SOLN IVC SCH ×2 (12:06→18:11)
[2018-11-05] MEDS: *HR* OxyCODONE Immed Rel 5 MG TABLET PO PRN ×2 (12:58→20:07)
[2018-11-05] MEDS ORDERED: Warfarin perPT PO PRN (13:30)
[2018-11-05] MEDS: predniSONE 10 MG TABLET PO SCH (16:19)
[2018-11-05] MEDS ORDERED: *HR* Warfarin 7.5 MG TABLET PO ONE (18:00)
[2018-11-06] MEDS: Heparin 25,000 UNIT/250 ML D5W 25,000 UNIT/250 ML IV.SOLN IVC SCH (01:09)
[2018-11-06] MEDS ORDERED: *HR* Metoprolol 5 MG/5 ML VIAL IVP ONE (03:51)
[2018-11-06] MEDS: *HR* OxyCODONE Immed Rel 5 MG TABLET PO PRN (04:42)
[2018-11-06 06:08] LABS: Basophils # 0.1 K/mcL (0.0-0.2); Basophils % 0.4 %; Eosinophils % 0.3 %; Hematocrit 45.1 % (37.5-50.1); Hemoglobin 14.2 g/dL (12.9-16.9); Immature Granulocytes % 1.1 % (0-4); Lymphocytes # 2.4 K/mcL (0.6-4.6); Mean Corpuscular HGB Conc 31.5 g/dL (31.6-35.5); Mean Corpuscular Hemoglobin 26.5 pg (28.0-33.3); Mean Corpuscular Volume 84.1 fL (83.0-100.0); Mean Platelet Volume 11.5 fL (9.4-12.4); Monocytes # 1.2 K/mcL (0.0-1.3); Monocytes % 8.8 %; Neutrophils # 9.7 K/mcL (1.6-8.9); Nucleated Red Blood Cells 0.4 /100 WBC (0); Platelet Count 215 K/mcL (140-400); Red Blood Count 5.36 M/mcL (4.19-5.50); Red Cell Distribution Width 16.1 % (11.5-14.5); Segmented Neutrophils % 71.4 %; White Blood Count 13.6 K/mcL (4.3-11.1)
[2018-11-06 06:16] LABS: INR 1.2; Prothrombin Time 13.9 Seconds (9.4-12.1)
[2018-11-06 06:55] VITALS: BP 144/92
[2018-11-06 06:57] LABS: BUN/Creatinine Ratio 23 (6-26); Blood Urea Nitrogen 22 mg/dL (6-20); Calcium 8.9 mg/dL (8.6-10.3); Carbon Dioxide 24 mEq/L (23-29); Chloride 101 mEq/L (98-107); Glucose 363 mg/dL (70-105); Osmolality,Calculated 298 (280-300); Potassium 4.1 mEq/L (3.5-5.1); Sodium 135 mEq/L (136-145); eGFR For African Americans > 60 (> 60); eGFR For Non-African Americans > 60 (> 60)
[2018-11-06] MEDS ORDERED: Insulin LISPRO 300 UNITS/3 ML VIAL SQ SCH (07:30)
[2018-11-06] MEDS: Lisinopril 20 MG TABLET PO SCH (07:57)
[2018-11-06] MEDS: Pyridostigmine Br 60 MG TABLET PO SCH (07:57)
[2018-11-06] MEDS: Aspirin 81 MG TAB.CHEW PO SCH (07:57)
[2018-11-06] MEDS: Insulin DETEMIR 100 UNIT/ML X5UNITS SQ SCH (07:57)
[2018-11-06] MEDS: amLODIPine 5 MG TABLET PO SCH (07:57)
[2018-11-06] MEDS: predniSONE 20 MG TABLET PO SCH (07:57)
[2018-11-06] MEDS: Metoprolol XL (24 HR) Succ 50 MG TAB.ER.24H PO SCH (07:57)
[2018-11-06] MEDS ORDERED: *HR* Warfarin 7.5 MG TABLET PO ONE (08:50)
--- NOTE | 2018-11-06 08:52 | Discharge Summary ---
- NOTES TO OUTPATIENT PROVIDER Notes to Outpatient Provider: Patient was hospitalized for chest pain. Patient was continued on heparin drip for chest pain initially. ASSESSMENT workup has been negative so far. Patient was started bridging with Coumadin for his atrial fibrillation. Patient was discharged on Lovenox 120 twice a day with Coumadin 7.5 mg daily until he sees Coumadin clinic. Estimated PT Needs at Discharge: None Date of Encounter: 11/06/18 Time of Encounter: 08:50 - Discharge Diagnosis (1) Elevated troponin Priority: Primary Status: Chronic (2) CAD (coronary artery disease) Priority: Secondary Status: Chronic Qualifiers: Coronary Disease-Associated Artery/Lesion type: [place] artery [place] vs. transplanted heart: [place] heart Associated angina: angina presence unspecified Qualified Code(s): I25.10 - Atherosclerotic heart disease of [place] coronary artery without angina pectoris (3) Hypertension Priority: Secondary Status: Chronic Qualifiers: Hypertension type: essential hypertension Qualified Code(s): I10 - Essential (primary) hypertension (4) Myasthenia gravis associated with thymoma Priority: Secondary Status: Chronic (5) Hx of deep venous thrombosis Priority: Secondary Status: Chronic (6) Left ventricular apical thrombus Priority: Secondary Status: Chronic (7) Right-sided chest pain Priority: Secondary Status: Acute (8) IDDM (insulin dependent diabetes mellitus) Priority: Secondary Status: Chronic Hospital course: Mr. Mott is a 53 year old male was hospitalized for chest pain. Patient was continued on heparin drip for chest pain initially. ASSESSMENT workup has been negative so far. Patient was started bridging with Coumadin for his atrial fibrillation. Patient was discharged on Lovenox 120 twice a day with Coumadin 7.5 mg daily until he sees Coumadin clinic. Discharge discussed with: patient, family, nurse, social work - Time Spent with Patient Total time spent providing and/or coordinating discharge services:45 Time spent: Greater than 30 minutes - Discharge Medications Prescriptions: New Enoxaparin [Lovenox] 120 mg SQ Q12HR 5 Days #10 syr Continued Aspirin 81 mg PO DAILY #30 tab.chew Atorvastatin Calcium 80 mg PO DAILY Metoprolol Succinate [Toprol Xl] 50 mg PO DAILY Insulin NPH Human Isophane [Novolin N] 30 units SQ DAILY Pantoprazole Sodium 40 mg PO DAILY Celecoxib [Celebrex] 200 mg PO BID Insulin Glargine [Lantus] 30 unit SQ BID Lisinopril [Zestril] 20 mg PO BID Quetiapine Fumarate [Seroquel] 25 mg PO HS Tamsulosin [Flomax] 0.4 mg PO DAILY PredniSONE [Deltasone] 20 mg PO QAM DULoxetine [Cymbalta] 30 mg PO DAILY Insulin ASPART [NovoLOG] 0 unit SQ TIDWM PRN PRN Reason: sliding scale predniSONE [PredniSONE] 10 mg PO QPM Warfarin Sodium 7.5 mg PO MOFR Pyridostigmine Br [Mestinon] 60 mg PO DAILY amLODIPine [Norvasc] 10 mg PO DAILY Discontinued Warfarin Sodium 5 [facility] Medications: Aspirin 81 mg PO DAILY #30 tab.chew 05/13/15 [Rx] Atorvastatin Calcium 80 mg PO DAILY 03/07/17 [History] Insulin NPH Human Isophane [Novolin N] 30 units SQ DAILY 08/09/17 [History] Metoprolol Succinate [Toprol Xl] 50 mg PO DAILY 08/09/17 [History] Pantoprazole Sodium 40 mg PO DAILY 08/09/17 [History] Celecoxib [Celebrex] 200 mg PO BID 08/04/18 [History] DULoxetine [Cymbalta] 30 mg PO DAILY 08/04/18 [History] Insulin ASPART [NovoLOG] 0 unit SQ TIDWM PRN 08/04/18 [History] Insulin Glargine [Lantus] 30 unit SQ BID 08/04/18 [History] Lisinopril [Zestril] 20 mg PO BID 08/04/18 [History] PredniSONE [Deltasone] 20 mg PO QAM 08/04/18 [History] Quetiapine Fumarate [Seroquel] 25 mg PO HS 08/04/18 [History] Tamsulosin [Flomax] 0.4 mg PO DAILY 08/04/18 [History] predniSONE [PredniSONE] 10 mg PO QPM 09/29/18 [History] Pyridostigmine Br [Mestinon] 60 mg PO DAILY 11/03/18 [History] Warfarin Sodium 7.5 mg PO MOFR 11/03/18 [History] amLODIPine [Norvasc] 10 mg PO DAILY 11/05/18 [History] Enoxaparin [Lovenox] 120 mg SQ Q12HR 5 Days #10 syr 11/06/18 [Rx] Allergies/Adverse Reactions: Allergy/AdvReac Type Severity Reaction Status Date / Time rifampin Allergy Anaphylaxis Verified 11/03/18 13:31 Date of admission: 11/05/18 12:48 Primary care physician: PCP [facility] Consults: 11/04/18 08:36 Consult to Cardiology [CONS] Routine Comment: Consulting Provider: Cardiology Cinthya Reason for Consult: elevated troponin Call Completed: No Discharging clinician: [place] - Constitutional Vitals: Temp Pulse Resp BP Pulse Ox 97.9 F 82 17 144/92 96 11/06/18 06:54 11/06/18 06:54 11/06/18 06:54 11/06/18 06:54 11/06/18 06:54 General appearance: Present: cooperative, A&O X 3 Exam: General: Patient is alert, oriented 3. Head: Atraumatic, normal inspection, normocephalic. Eye: EOMI, PERRLA, no scleral icterus noted. ENT: Mucous membranes moist. Neck: Normal inspection, no neck stiffness Respiratory: No respiratory distress, rhonchi, or wheezes noted. Cardiovascular: Regular rate and regular rhythm, S1 and S2 audible. No murmurs, rubs, or gallops. Right lower rib cage tenderness with palpation. GI: Soft, distended, not tender, normal bowel sounds. Extremities:No joint swelling, pedal edema, or tenderness noted. Neurological: Alert, oriented 3, no focal deficits. - Patient Status Disposition: Home, Self-Care Functional capacity at discharge: independent ambulation Overall status at discharge: patient is progressing back to baseline - Discharge Instructions Follow Up With: [facility] [Outside] - Diet and Activity Activity: increase activity as tolerated Diet: diabetic diet, low salt diet
[2018-11-06] MEDS ORDERED: *HR* Enoxaparin 120 MG/0.8 ML SYRINGE SQ SCH (09:00)
== END 2018-11-06 09:25 | disposition home or self-care (01) | DRG 313 ==
LOC: SUATTDRO → 3ANU 08:18 → EMEROOARM 08:18 → SUATTDRO 13:48 → 3ANU 14:18 → 2NNU 11-04 16:37 → 2ANU 11-05 14:47
PROVIDERS: ADMIT Internal Medicine; ATTEND Family Medicine

== ENCOUNTER 2019-03-31 07:54 | Observation (INO) ==
[2019-03-31] MEDS ORDERED: Morphine Sulfate 2 MG/ML SYRINGE IVP ONE ×2 (08:23→15:57)
[2019-03-31] MEDS ORDERED: Ondansetron 4 MG/2 ML VIAL IVP ONE (08:23)
[2019-03-31 08:38] LABS: Basophils # 0.1 K/mcL (0.0-0.2); Basophils % 0.5 %; Eosinophils # 0.1 K/mcL (0.0-0.6); Eosinophils % 1.5 %; Hematocrit 51.2 % (37.5-50.1); Hemoglobin 16.1 g/dL (12.9-16.9); Immature Granulocytes % 0.4 % (0-4); Lymphocytes # 2.1 K/mcL (0.6-4.6); Lymphocytes % 21.9 %; Mean Corpuscular HGB Conc 31.4 g/dL (31.6-35.5); Mean Corpuscular Hemoglobin 26.7 pg (28.0-33.3); Monocytes # 0.8 K/mcL (0.0-1.3); Monocytes % 8.6 %; Neutrophils # 6.4 K/mcL (1.6-8.9); Platelet Count 233 K/mcL (140-400); Red Blood Count 6.02 M/mcL (4.19-5.50); Red Cell Distribution Width 14.9 % (11.5-14.5); Segmented Neutrophils % 67.1 %; White Blood Count 9.5 K/mcL (4.3-11.1)
[2019-03-31 08:44] LABS: INR 1.1
[2019-03-31 08:47] LABS: Activated Partial Thrombo Time 28.4 Seconds (26.0-36.0)
[2019-03-31 09:00] LABS: BUN/Creatinine Ratio 21 (6-26); Blood Urea Nitrogen 20 mg/dL (6-20); Calcium 9.1 mg/dL (8.6-10.3); Carbon Dioxide 30 mEq/L (23-29); Chloride 103 mEq/L (98-107); Glucose 96 mg/dL (70-105); Osmolality,Calculated 292 (280-300); Potassium 3.8 mEq/L (3.5-5.1); Sodium 140 mEq/L (136-145); eGFR For African Americans > 60 (> 60); eGFR For Non-African Americans > 60 (> 60)
[2019-03-31] MEDS ORDERED: Aspirin 325 MG TABLET PO ONE (09:09)
[2019-03-31] MEDS ORDERED: Nitroglycerin 0.4 MG TAB.SUBL SL PRN (10:16)
[2019-03-31] MEDS ORDERED: *HR* Dextrose 50 % in Water (Syg) 50 ML SYRINGE IVP PRN (10:31)
[2019-03-31] MEDS ORDERED: D5% in Water 1,000 ML IVC PRN (10:31)
[2019-03-31] MEDS ORDERED: Dextrose Gel 15 GM/37.5 ML TUBE PO PRN ×2 (10:31)
[2019-03-31] MEDS: Insulin LISPRO 300 UNITS/3 ML VIAL SQ SCH ×2 (12:59→17:43)
[2019-03-31] MEDS ORDERED: *HR* LORazepam 1 MG TABLET PO ONE (13:28)
[2019-03-31] MEDS ORDERED: *HR* Heparin 5,000 UNIT/ML VIAL IVP PRN ×2 (15:06)
[2019-03-31] MEDS ORDERED: *HR* Heparin 5,000 UNIT/ML VIAL IVP ONE (15:06)
[2019-03-31 16:01] LABS: Hematocrit 49.2 % (37.5-50.1); Hemoglobin 15.1 g/dL (12.9-16.9); Mean Corpuscular HGB Conc 30.7 g/dL (31.6-35.5); Mean Corpuscular Hemoglobin 27.2 pg (28.0-33.3); Mean Corpuscular Volume 88.5 fL (83.0-100.0); Mean Platelet Volume 10.2 fL (9.4-12.4); Platelet Count 223 K/mcL (140-400); Red Blood Count 5.56 M/mcL (4.19-5.50); Red Cell Distribution Width 14.9 % (11.5-14.5); White Blood Count 10.3 K/mcL (4.3-11.1)
[2019-03-31 16:10] LABS: INR 1.2; Prothrombin Time 13.4 Seconds (9.4-12.1)
[2019-03-31] MEDS: Heparin 25,000 UNIT/250 ML D5W 25,000 UNIT/250 ML IV.SOLN IVC SCH (16:50)
[2019-03-31] MEDS ORDERED: *HR* Warfarin 5 MG TABLET PO ONE (18:00)
[2019-03-31] MEDS ORDERED: Warfarin perPT PO PRN ×2 (18:00)
[2019-03-31] MEDS ORDERED: Insulin LISPRO 300 UNITS/3 ML VIAL SQ SCH (21:00)
[2019-03-31] MEDS ORDERED: traZODone 50 MG TABLET PO ONE (22:07)
[2019-03-31] MEDS: Lisinopril 20 MG TABLET PO SCH (22:36)
[2019-04-01] MEDS: Insulin DETEMIR 100 UNIT/ML X5UNITS SQ SCH ×2 (00:22→09:24)
[2019-04-01 05:45] LABS: Basophils % 0.4 %; Eosinophils # 0.2 K/mcL (0.0-0.6); Eosinophils % 1.6 %; Hematocrit 47.9 % (37.5-50.1); Hemoglobin 14.5 g/dL (12.9-16.9); Immature Granulocytes % 0.3 % (0-4); Lymphocytes # 1.6 K/mcL (0.6-4.6); Lymphocytes % 16.8 %; Mean Corpuscular HGB Conc 30.3 g/dL (31.6-35.5); Mean Corpuscular Hemoglobin 27.1 pg (28.0-33.3); Mean Corpuscular Volume 89.4 fL (83.0-100.0); Monocytes # 0.8 K/mcL (0.0-1.3); Monocytes % 8.3 %; Neutrophils # 6.8 K/mcL (1.6-8.9); Platelet Count 189 K/mcL (140-400); Red Blood Count 5.36 M/mcL (4.19-5.50); Red Cell Distribution Width 15.2 % (11.5-14.5); Segmented Neutrophils % 72.6 %; White Blood Count 9.4 K/mcL (4.3-11.1)
[2019-04-01 05:47] LABS: INR 1.3; Prothrombin Time 14.5 Seconds (9.4-12.1)
[2019-04-01 06:05] LABS: Alanine Aminotransferase 57 Units/L (7-52); Albumin 3.6 g/dL (3.5-5.7); Albumin/Globulin Ratio 1.3 (1.1-2.2); Alkaline Phosphatase 85 Units/L (34-104); Aspartate Amino Transferase 29 Units/L (13-39); BUN/Creatinine Ratio 22 (6-26); Bilirubin,Total 0.4 mg/dL (0.3-1.0); Blood Urea Nitrogen 19 mg/dL (6-20); Calcium 8.7 mg/dL (8.6-10.3); Carbon Dioxide 29 mEq/L (23-29); Chloride 102 mEq/L (98-107); Globulin 2.7 g/dL (2.4-3.5); Glucose 213 mg/dL (70-105); Osmolality,Calculated 295 (280-300); Potassium 4.2 mEq/L (3.5-5.1); Sodium 138 mEq/L (136-145); Total Protein 6.3 g/dL (6.4-8.9); eGFR For African Americans > 60 (> 60); eGFR For Non-African Americans > 60 (> 60)
[2019-04-01 06:37] VITALS: BP 154/83
[2019-04-01] MEDS ORDERED: Acetaminophen 325 MG TABLET PO PRN (08:02)
[2019-04-01] MEDS ORDERED: amLODIPine 5 MG TABLET PO SCH (09:00)
[2019-04-01] MEDS ORDERED: Aspirin 81 MG TAB.CHEW PO SCH (09:00)
[2019-04-01] MEDS ORDERED: Metoprolol XL (24 HR) Succ 25 MG TAB.ER.24H PO SCH (09:00)
[2019-04-01] MEDS ORDERED: Ondansetron 4 MG/2 ML VIAL IVP PRN (09:06)
[2019-04-01] MEDS: Insulin LISPRO 300 UNITS/3 ML VIAL SQ SCH ×2 (09:15→10:29)
[2019-04-01] MEDS: Lisinopril 20 MG TABLET PO SCH (09:35)
[2019-04-01] MEDS ORDERED: 0.9 % Sodium Chloride 1,000 ML ONE ×2 (10:28→10:33)
[2019-04-01] MEDS ORDERED: ISOVUE-370 200 ML INFUS..BTL ONE ×2 (10:28→12:00)
[2019-04-01] MEDS ORDERED: Verapamil 5 MG/2 ML VIAL ONE (10:28)
[2019-04-01] MEDS ORDERED: Heparin 1,000 UNITS/500 mL 500 ML ONE (10:28)
[2019-04-01] MEDS ORDERED: *HR* Heparin 10,000 UNIT/10 ML VIAL ONE (10:28)
[2019-04-01] MEDS ORDERED: Nitroglycerin 1,000 MCG/10 ML VIAL IV ONE (10:28)
[2019-04-01] MEDS ORDERED: *HR* Midazolam HCl 2 MG/2 ML VIAL ONE (10:55)
[2019-04-01] MEDS ORDERED: *HR* FentaNYL (PF) 100 MCG/2 ML VIAL ONE (11:33)
[2019-04-01] MEDS: Heparin 25,000 UNIT/250 ML D5W 25,000 UNIT/250 ML IV.SOLN IVC SCH (12:59)
[2019-04-02] MEDS ORDERED: Pyridostigmine Br 60 MG TABLET PO SCH (09:00)
[2019-04-03] MEDS ORDERED: *HR* Warfarin 2.5 MG TABLET PO SCH (10:25)
== END 2019-04-01 15:47 | disposition home or self-care (01) ==
LOC: SUATTDRO → 2ANU 07:54 → EMEROOARM 07:54 → SUATTDRO 11:47 → 2ANU 12:33
PROVIDERS: ADMIT Family Medicine; ATTEND Internal Medicine

== ENCOUNTER 2020-05-14 15:23 | Observation (INO) ==
[2020-05-14 16:04] LABS: Basophils # 0.1 K/mcL (0.0-0.2); Basophils % 0.3 %; Eosinophils % 0.3 %; Hematocrit 47.2 % (37.5-50.1); Hemoglobin 14.2 g/dL (12.9-16.9); Immature Granulocytes % 0.7 % (0-4); Lymphocytes % 6.5 %; Mean Corpuscular HGB Conc 30.1 g/dL (31.6-35.5); Mean Corpuscular Hemoglobin 24.5 pg (28.0-33.3); Mean Corpuscular Volume 81.4 fL (83.0-100.0); Mean Platelet Volume 10.6 fL (9.4-12.4); Monocytes # 0.5 K/mcL (0.0-1.3); Monocytes % 3.1 %; Neutrophils # 13.6 K/mcL (1.6-8.9); Platelet Count 285 K/mcL (140-400); Red Cell Distribution Width 16.3 % (11.5-14.5); Segmented Neutrophils % 89.1 %; White Blood Count 15.3 K/mcL (4.3-11.1)
[2020-05-14 16:13] LABS: Prothrombin Time 22.3 Seconds (9.4-12.1)
[2020-05-14 16:15] LABS: Activated Partial Thrombo Time 33.4 Seconds (26.0-36.0)
[2020-05-14 16:28] LABS: BUN/Creatinine Ratio 16 (6-26); Blood Urea Nitrogen 15 mg/dL (6-20); Calcium 8.5 mg/dL (8.6-10.3); Carbon Dioxide 28 mEq/L (23-29); Chloride 102 mEq/L (98-107); Glucose 200 mg/dL (70-105); Osmolality,Calculated 290 (280-300); Potassium 4.4 mEq/L (3.5-5.1); Sodium 137 mEq/L (136-145); eGFR For African Americans > 60 (> 60); eGFR For Non-African Americans > 60 (> 60)
[2020-05-14 16:34] LABS: Troponin I 0.13 ng/mL (< 0.04)
[2020-05-14 17:13] LABS: Alanine Aminotransferase 85 Units/L (7-52); Albumin 3.9 g/dL (3.5-5.7); Albumin/Globulin Ratio 1.3 (1.1-2.2); Alkaline Phosphatase 130 Units/L (34-104); Aspartate Amino Transferase 63 Units/L (13-39); Bilirubin,Direct 0.1 mg/dL (0.0-0.2); Bilirubin,Indirect 0.4 mg/dL (0.0-1.0); Bilirubin,Total 0.5 mg/dL (0.3-1.0); Globulin 3.1 g/dL (2.4-3.5)
[2020-05-14 17:26] LABS: Bilirubin,Urine Negative (Negative); Blood,Urine Negative (Negative); Clarity,Urine Clear (Clear); Color,Urine Colorless (Yellow); Glucose,Urine (UA) >=1000 mg/dL (Normal); Ketones,Urine Negative (Negative); Leukocyte Esterase,Urine Negative (Negative); Nitrite,Urine Negative (Negative); Protein,Urine Negative (Neg-Trace); RBC,Urine 0-3 per hpf (0-3); Specific Gravity,Urine > 1.030 (1.010-1.025); Squamous Epithelial Cell,Urine Few per hpf (None-Few); Urobilinogen,Urine Normal (Normal); WBC,Urine 0-3 per hpf (0-3)
[2020-05-14] MEDS ORDERED: Furosemide 40 MG/4 ML VIAL IVP ONE (18:19)
[2020-05-14] MEDS ORDERED: Ondansetron 4 MG/2 ML VIAL IVP PRN (20:46)
[2020-05-14] MEDS ORDERED: Naloxone 0.4 MG/ML INJ IVP PRN (20:46)
[2020-05-14] MEDS ORDERED: D5% in Water 1,000 ML IVC PRN (20:47)
[2020-05-14] MEDS ORDERED: *HR* Dextrose 50 % in Water (Vial) 50 ML VIAL IVP PRN (20:47)
[2020-05-14] MEDS ORDERED: Dextrose Gel 15 GM/37.5 ML TUBE PO PRN ×2 (20:47)
[2020-05-14] MEDS ORDERED: Perflutren Lipid Microsphere 1.3 ML in 0.9 % Sodium Chloride 8.7 ML IVP PRN (20:50)
[2020-05-14] MEDS ORDERED: *HR* Warfarin 2.5 MG TABLET PO ONE (21:30)
[2020-05-14] MEDS: Insulin LISPRO 300 UNITS/3 ML VIAL SUBQ SCH (21:32)
[2020-05-14] MEDS: Insulin DETEMIR 100 UNIT/ML X5UNITS SUBQ SCH (22:08)
[2020-05-15] MEDS ORDERED: *HR* LORazepam 1 MG TABLET PO ONE ×2 (03:14→19:53)
[2020-05-15] MEDS ORDERED: Ipratropium/Albuterol Neb 3 ML IH PRN (03:27)
[2020-05-15 05:30] LABS: Basophils # 0.1 K/mcL (0.0-0.2); Basophils % 0.4 %; Eosinophils # 0.1 K/mcL (0.0-0.6); Hematocrit 47.9 % (37.5-50.1); Hemoglobin 14.5 g/dL (12.9-16.9); Immature Granulocytes % 0.4 % (0-4); Lymphocytes # 2.5 K/mcL (0.6-4.6); Lymphocytes % 21.3 %; Mean Corpuscular HGB Conc 30.3 g/dL (31.6-35.5); Mean Corpuscular Hemoglobin 24.4 pg (28.0-33.3); Mean Corpuscular Volume 80.5 fL (83.0-100.0); Mean Platelet Volume 10.2 fL (9.4-12.4); Monocytes # 1.1 K/mcL (0.0-1.3); Monocytes % 9.4 %; Platelet Count 255 K/mcL (140-400); Red Blood Count 5.95 M/mcL (4.19-5.50); Red Cell Distribution Width 16.8 % (11.5-14.5); Segmented Neutrophils % 67.5 %; White Blood Count 11.8 K/mcL (4.3-11.1)
[2020-05-15 05:35] LABS: INR 1.9; Prothrombin Time 21.5 Seconds (9.4-12.1)
[2020-05-15 05:53] LABS: BUN/Creatinine Ratio 20 (6-26); Blood Urea Nitrogen 19 mg/dL (6-20); Calcium 8.8 mg/dL (8.6-10.3); Carbon Dioxide 30 mEq/L (23-29); Chloride 102 mEq/L (98-107); Glucose 174 mg/dL (70-105); Magnesium 2.2 mg/dL (1.6-2.6); Osmolality,Calculated 292 (280-300); Potassium 3.9 mEq/L (3.5-5.1); Sodium 138 mEq/L (136-145); eGFR For African Americans > 60 (> 60); eGFR For Non-African Americans > 60 (> 60)
[2020-05-15 05:59] LABS: Troponin I 0.14 ng/mL (< 0.04)
[2020-05-15] MEDS ORDERED: Furosemide 20 MG/2 ML VIAL IVP SCH (08:00)
[2020-05-15] MEDS: Aspirin 81 MG TAB.CHEW PO SCH (08:30)
[2020-05-15] MEDS: Insulin LISPRO 300 UNITS/3 ML VIAL SUBQ SCH ×4 (08:30→20:25)
[2020-05-15] MEDS ORDERED: Metoprolol XL (24 HR) Succ 50 MG TAB.ER.24H PO SCH (09:00)
[2020-05-15] MEDS: Pyridostigmine Br 60 MG TABLET PO SCH ×2 (12:26→20:23)
[2020-05-15] MEDS: predniSONE 20 MG TABLET PO SCH (12:26)
[2020-05-15] MEDS ORDERED: amLODIPine 5 MG TABLET PO SCH (12:45)
[2020-05-15] MEDS ORDERED: *HR* LORazepam 0.5 MG TABLET PO PRN (12:47)
[2020-05-15] MEDS: carvediloL 6.25 MG TABLET PO SCH (17:17)
[2020-05-15 17:29] LABS: VBG HCO3 31 mEq/L (21-27); VBG PCO2 57 mmHg (41-51); VBG PH 7.34 pH Units (7.32-7.42); VBG PO2 58 mmHg (25-50)
[2020-05-15] MEDS ORDERED: *HR* Warfarin 7.5 MG TABLET PO ONE (18:00)
[2020-05-15] MEDS ORDERED: Warfarin perPT PO PRN (18:00)
[2020-05-15] MEDS: Insulin DETEMIR 100 UNIT/ML X5UNITS SUBQ SCH (20:26)
[2020-05-15] MEDS ORDERED: traZODone 50 MG TABLET PO SCH (21:00)
[2020-05-16 02:25] LABS: Hematocrit 49.8 % (37.5-50.1); Hemoglobin 15.3 g/dL (12.9-16.9); Mean Corpuscular HGB Conc 30.7 g/dL (31.6-35.5); Mean Corpuscular Hemoglobin 24.1 pg (28.0-33.3); Mean Corpuscular Volume 78.4 fL (83.0-100.0); Mean Platelet Volume 10.4 fL (9.4-12.4); Platelet Count 291 K/mcL (140-400); Red Blood Count 6.35 M/mcL (4.19-5.50); Red Cell Distribution Width 17.2 % (11.5-14.5); White Blood Count 13.7 K/mcL (4.3-11.1)
[2020-05-16 02:29] LABS: INR 2.1; Prothrombin Time 23.7 Seconds (9.4-12.1)
[2020-05-16 02:45] LABS: BUN/Creatinine Ratio 26 (6-26); Blood Urea Nitrogen 27 mg/dL (6-20); Calcium 9.6 mg/dL (8.6-10.3); Carbon Dioxide 28 mEq/L (23-29); Chloride 104 mEq/L (98-107); Glucose 199 mg/dL (70-105); Osmolality,Calculated 299 (280-300); Potassium 3.9 mEq/L (3.5-5.1); Sodium 139 mEq/L (136-145); eGFR For African Americans > 60 (> 60); eGFR For Non-African Americans > 60 (> 60)
[2020-05-16] MEDS ORDERED: Regadenoson 0.4 MG/5 ML SYRINGE IVP ONE (06:23)
[2020-05-16 07:51] VITALS: BP 148/87
[2020-05-16] MEDS: Insulin LISPRO 300 UNITS/3 ML VIAL SUBQ SCH (08:18)
[2020-05-16] MEDS ORDERED: amLODIPine 5 MG TABLET PO SCH (09:00)
[2020-05-16] MEDS ORDERED: Furosemide 20 MG/2 ML VIAL IVP SCH (09:00)
[2020-05-16] MEDS: predniSONE 20 MG TABLET PO SCH (10:01)
[2020-05-16] MEDS: Pyridostigmine Br 60 MG TABLET PO SCH (10:01)
[2020-05-16] MEDS: Aspirin 81 MG TAB.CHEW PO SCH (10:01)
[2020-05-16] MEDS: carvediloL 6.25 MG TABLET PO SCH (10:01)
[2020-05-16] MEDS ORDERED: *HR* Warfarin 7.5 MG TABLET PO ONE (18:00)
== END 2020-05-16 11:56 | disposition home or self-care (01) ==
LOC: EMEROOARM 15:23 → 2ANU 15:23 → SUATTDRO 18:24 → 2ANU 18:54
PROVIDERS: ADMIT Internal Medicine; ATTEND Internal Medicine

== ENCOUNTER 2021-10-02 17:49 | Inpatient (IN) ==
[2021-10-02] MEDS ORDERED: Naloxone 0.4 MG/ML INJ IVP PRN (19:47)
[2021-10-02] MEDS ORDERED: *HR* OxyCODONE Immed Rel 5 MG TABLET PO PRN (19:47)
[2021-10-02] MEDS ORDERED: *HR* HYDROcodone/Acet 5/325 mg TABLET PO PRN (19:47)
[2021-10-02] MEDS ORDERED: Melatonin 3 MG TABLET PO PRN (19:47)
[2021-10-02] MEDS ORDERED: Perflutren Lipid Microsphere 1.3 ML in 0.9 % Sodium Chloride 8.7 ML IVP PRN (19:51)
[2021-10-02] MEDS ORDERED: *HR* Dextrose 50 % in Water (Syg) 50 ML SYRINGE IVP PRN (19:54)
[2021-10-02] MEDS ORDERED: Dextrose Gel 15 GM/37.5 ML TUBE PO PRN ×2 (19:54)
[2021-10-02] MEDS ORDERED: D5% in Water 1,000 ML IVC PRN (19:54)
[2021-10-02] MEDS: Insulin LISPRO 300 UNITS/3 ML VIAL SUBQ SCH (20:08)
[2021-10-02] MEDS: *HR* Ticagrelor 90 MG TABLET PO SCH (20:19)
[2021-10-02] MEDS: traZODone 50 MG TABLET PO SCH (20:20)
[2021-10-02] MEDS: clonazePAM 0.5 MG TABLET PO SCH (20:20)
[2021-10-02 21:56] LABS: Adenovirus Not Detected (Not Detect); Bordetella Pertussis Not Detected (Not Detect); Chlamydophila pneumoniae Not Detected (Not Detect); Coronavirus 229E Not Detected (Not Detect); Coronavirus HKU1 Not Detected (Not Detect); Coronavirus NL63 Not Detected (Not Detect); Coronavirus OC43 Not Detected (Not Detect); Human Metapneumovirus Not Detected (Not Detect); Human Rhinovirus/Enterovirus Not Detected (Not Detect); Influenza A Subtype 2009 H1 Not Detected (Not Detect); Influenza B Not Detected (Not Detect); Mycoplasma pneumoniae Not Detected (Not Detect); Parainfluenza Virus 1 Not Detected (Not Detect); Parainfluenza Virus 2 Not Detected (Not Detect); Parainfluenza Virus 3 Not Detected (Not Detect); Parainfluenza Virus 4 Not Detected (Not Detect); Respiratory Syncytial Virus Not Detected (Not Detect); SARS-CoV-2 Not Detected (Not Detect)
[2021-10-03 03:05] LABS: Hematocrit 52.4 % (37.5-50.1); Hemoglobin 17.1 g/dL (12.9-16.9); Mean Corpuscular HGB Conc 32.6 g/dL (31.6-35.5); Mean Corpuscular Hemoglobin 26.9 pg (28.0-33.3); Mean Corpuscular Volume 82.4 fL (83.0-100.0); Mean Platelet Volume 10.1 fL (9.4-12.4); Platelet Count 238 K/mcL (140-400); Red Blood Count 6.36 M/mcL (4.19-5.50); Red Cell Distribution Width 16.3 % (11.5-14.5); White Blood Count 9.1 K/mcL (4.3-11.1)
[2021-10-03 03:21] LABS: Estimated Average Glucose 220 mg/dl; Hemoglobin A1C 9.3 %
[2021-10-03 04:13] LABS: BUN/Creatinine Ratio 27 (6-26); Blood Urea Nitrogen 35 mg/dL (6-20); Calcium 9.6 mg/dL (8.6-10.3); Carbon Dioxide 21 mEq/L (23-29); Chloride 101 mEq/L (98-107); Chol/HDL Ratio 3.4 (0-4.9); Cholesterol 179 mg/dL (< 200); Glucose 284 mg/dL (70-105); HDL Cholesterol 52 mg/dL (40-59); LDL Cholesterol,Calculated 99 mg/dL (< 100); Magnesium 2.2 mg/dL (1.6-2.6); Osmolality,Calculated 300 (280-300); Phosphorous 4.7 mg/dL (2.7-4.5); Potassium 3.8 mEq/L (3.5-5.1); Sodium 136 mEq/L (136-145); Triglycerides 138 mg/dL (< 150); eGFR For African Americans > 60 (> 60); eGFR For Non-African Americans 57 (> 60)
[2021-10-03] MEDS: clonazePAM 0.5 MG TABLET PO SCH ×2 (07:35→20:29)
[2021-10-03] MEDS: *HR* Ticagrelor 90 MG TABLET PO SCH ×2 (07:36→20:29)
[2021-10-03] MEDS: Insulin LISPRO 300 UNITS/3 ML VIAL SUBQ SCH ×4 (07:42→21:36)
[2021-10-03] MEDS ORDERED: carvediloL 6.25 MG TABLET PO SCH (08:00)
[2021-10-03] MEDS ORDERED: *HR* Heparin 5,000 UNIT/ML VIAL IVP ONE (08:34)
[2021-10-03] MEDS ORDERED: *HR* Heparin 5,000 UNIT/ML VIAL IVP PRN ×2 (08:34)
[2021-10-03] MEDS ORDERED: Heparin 25,000UNIT/250ML 1/2NS 25,000 UNIT/250 ML IV.SOLN IVC SCH (08:45)
[2021-10-03] MEDS ORDERED: amLODIPine 5 MG TABLET PO SCH (09:00)
[2021-10-03] MEDS: Heparin 25,000UNIT/250ML 1/2NS 25,000 UNIT/250 ML IV.SOLN IVC SCH (12:09)
[2021-10-03 15:37] LABS: Hematocrit 54.1 % (37.5-50.1); Hemoglobin 17.4 g/dL (12.9-16.9); Mean Corpuscular HGB Conc 32.2 g/dL (31.6-35.5); Mean Corpuscular Hemoglobin 27.1 pg (28.0-33.3); Mean Corpuscular Volume 84.1 fL (83.0-100.0); Mean Platelet Volume 10.5 fL (9.4-12.4); Platelet Count 245 K/mcL (140-400); Red Blood Count 6.43 M/mcL (4.19-5.50); Red Cell Distribution Width 17.1 % (11.5-14.5); White Blood Count 8.2 K/mcL (4.3-11.1)
[2021-10-03 15:47] LABS: INR 1.2
[2021-10-03] MEDS ORDERED: *HR* Rivaroxaban 10 MG TABLET PO SCH (17:00)
[2021-10-03] MEDS ORDERED: IVIG (wt based) Privigen 5 GM/50 ML INFUS..BTL IVC ONE (17:45)
[2021-10-03] MEDS ORDERED: Immune Glob, Gamma (Privigen) 40 GM/400 ML INFUS..BTL IVC SCH (18:00)
[2021-10-03] MEDS: Immune Glob, Gamma (Gammagard) 20 GM/200 ML INFUS..BTL IVC SCH ×2 (18:51→21:30)
[2021-10-03] MEDS: traZODone 50 MG TABLET PO SCH (20:29)
[2021-10-04 04:12] LABS: Basophils % 0.4 %; Eosinophils # 0.1 K/mcL (0.0-0.6); Eosinophils % 1.4 %; Hematocrit 46.7 % (37.5-50.1); Immature Granulocytes % 0.3 % (0-4); Lymphocytes # 1.2 K/mcL (0.6-4.6); Lymphocytes % 17.1 %; Mean Corpuscular HGB Conc 33.4 g/dL (31.6-35.5); Mean Corpuscular Hemoglobin 28.3 pg (28.0-33.3); Mean Corpuscular Volume 84.6 fL (83.0-100.0); Mean Platelet Volume 10.6 fL (9.4-12.4); Monocytes # 0.6 K/mcL (0.0-1.3); Monocytes % 8.6 %; Platelet Count 205 K/mcL (140-400); Red Blood Count 5.52 M/mcL (4.19-5.50); Red Cell Distribution Width 15.5 % (11.5-14.5); Segmented Neutrophils % 72.2 %
[2021-10-04 04:23] LABS: Hemoglobin 15.6 g/dL (12.9-16.9)
[2021-10-04 04:32] LABS: BUN/Creatinine Ratio 19 (6-26); Blood Urea Nitrogen 24 mg/dL (6-20); Calcium 8.9 mg/dL (8.6-10.3); Carbon Dioxide 29 mEq/L (23-29); Chloride 101 mEq/L (98-107); Glucose 234 mg/dL (70-105); Osmolality,Calculated 292 (280-300); Potassium 3.7 mEq/L (3.5-5.1); Sodium 135 mEq/L (136-145); eGFR For African Americans > 60 (> 60); eGFR For Non-African Americans > 60 (> 60)
[2021-10-04] MEDS: clonazePAM 0.5 MG TABLET PO SCH ×3 (08:17→21:52)
[2021-10-04] MEDS: Insulin LISPRO 300 UNITS/3 ML VIAL SUBQ SCH ×4 (08:17→20:55)
[2021-10-04] MEDS: Metoprolol XL (24 HR) Succ 50 MG TAB.ER.24H PO SCH (08:17)
[2021-10-04] MEDS: *HR* Ticagrelor 90 MG TABLET PO SCH ×2 (08:56→20:54)
[2021-10-04] MEDS: Heparin 25,000UNIT/250ML 1/2NS 25,000 UNIT/250 ML IV.SOLN IVC SCH (10:22)
[2021-10-04] MEDS: Nitroglycerin 0.4 MG TAB.SUBL SL PRN ×2 (10:46→10:52)
[2021-10-04] MEDS ORDERED: Morphine Sulfate 2 MG/ML SYRINGE IVP ONE ×2 (11:04→19:56)
[2021-10-04] MEDS ORDERED: *HR* Heparin 10,000 UNIT/10 ML VIAL ONE ×2 (11:35→12:31)
[2021-10-04] MEDS ORDERED: Heparin 1,000 UNITS/500 mL 500 ML ONE ×2 (11:36→12:55)
[2021-10-04] MEDS ORDERED: Nitroglycerin 1,000 MCG/5 ML VIAL IV ONE (11:36)
[2021-10-04] MEDS ORDERED: 0.9 % Sodium Chloride 1,000 ML ONE (11:36)
[2021-10-04] MEDS ORDERED: Iopamidol - 370 200 ML INFUS..BTL ONE (11:36)
[2021-10-04] MEDS ORDERED: *HR* FentaNYL (PF) 100 MCG/2 ML VIAL ONE ×2 (12:10→13:35)
[2021-10-04] MEDS ORDERED: *HR* Midazolam HCl 2 MG/2 ML VIAL ONE ×3 (12:10→13:35)
[2021-10-04] MEDS: Immune Glob, Gamma (Gammagard) 20 GM/200 ML INFUS..BTL IVC SCH ×2 (18:47→20:40)
[2021-10-04] MEDS ORDERED: *HR* Metoprolol 5 MG/5 ML VIAL IVP ONE (18:59)
[2021-10-04 19:16] LABS: ABG Base Excess -2 mEq/L (-2 to 3); ABG HCO3 21 mEq/L (21-27); ABG Oxygen Saturation 97 % (95-98); ABG PCO2 33 mmHg (35-45); ABG PH 7.42 pH Units (7.32-7.45); ABG PO2 84 mmHg (85-104); ABG TCO2 22 mEq/L (20-26)
[2021-10-04] MEDS ORDERED: Morphine Sulfate 2 MG/ML SYRINGE IVP PRN (20:20)
[2021-10-04] MEDS ORDERED: *HR* LORazepam 2 MG/ML VIAL IVP ONE ×2 (20:49→21:04)
[2021-10-04] MEDS: traZODone 50 MG TABLET PO SCH (20:54)
[2021-10-04] MEDS: Ondansetron ODT 4 MG TAB.RAPDIS SL PRN (21:51)
[2021-10-05] MEDS: Acetaminophen 325 MG TABLET PO PRN ×3 (02:59→14:17)
[2021-10-05] MEDS: Metoprolol XL (24 HR) Succ 50 MG TAB.ER.24H PO SCH (08:02)
[2021-10-05] MEDS: *HR* Ticagrelor 90 MG TABLET PO SCH (08:03)
[2021-10-05] MEDS: clonazePAM 0.5 MG TABLET PO SCH (08:03)
[2021-10-05] MEDS: Insulin LISPRO 300 UNITS/3 ML VIAL SUBQ SCH ×2 (08:03→11:36)
[2021-10-05] MEDS: Morphine Sulfate 2 MG/ML SYRINGE IVP PRN ×2 (09:45→12:07)
[2021-10-05] MEDS: Ondansetron ODT 4 MG TAB.RAPDIS SL PRN (09:58)
[2021-10-05 11:23] VITALS: TEMP 96.6
[2021-10-05] MEDS ORDERED: methylPREDNISolone 125 MG/2 ML VIAL IVP SCH (12:00)
[2021-10-05] MEDS ORDERED: clonazePAM 0.5 MG TABLET PO PRN (12:14)
[2021-10-05 14:11] VITALS: BP 128/89; PULSE 76; O2SAT 100
[2021-10-05] MEDS ORDERED: *HR* Rivaroxaban 10 MG TABLET PO SCH (17:00)
== END 2021-10-05 15:53 | disposition short-term general hospital (02) | DRG 280 ==
LOC: 3BNU → SUATTDRO 19:15 → ICNU 10-04 21:31
PROVIDERS: ADMIT Student in an Organized Health Care Education/Training Program; ATTEND Family Medicine